=== PATIENT | female | born 1960 | race Caucasian/White ===

== ENCOUNTER 2017-10-14 12:34 | Emergency (ER) | payer OTHER, SELFPAY ==
[2017-10-14 12:35] VITALS: BP 156/102; PULSE 81; RESP 17; TEMP 36.2; O2SAT 100; BMI 23.1
--- NOTE | 2017-10-14 12:53 | CT_ITS ---
STUDY: CT ABDOMEN AND PELVIS WITHOUT CONTRAST REASON FOR EXAM: Female, 57 years old. 2 hour history of abdominal pain. RADIATION DOSAGE (If Supplied By Facility): CTDIvol = ( 7.07 ) mGy, DLP = ( 346.29 ) mGycm TECHNIQUE: Transaxial images were obtained from the dome of the diaphragm to the symphysis pubis without oral contrast, and without intravenous contrast. Sagittal and coronal images were reconstructed. Individualized dose optimization techniques were used for this CT. COMPARISON: Comparison is made with prior study dated December 13, 2015. FINDINGS: Minimal increased markings in the lingular segment of the left upper lobe. This may represent scarring or atelectasis. Coronary artery calcification. 2 small cysts are seen in the right lobe of the liver. These are unchanged. Small gallstones. Normal spleen. Normal pancreas. Normal bilateral adrenal glands. Normal right kidney. Stable 2.1 cm cyst with peripheral calcification in the posterior midportion of the left kidney. The patient is status post gastric bypass surgery with a subtotal resection of the stomach. Small hiatal hernia. Normal small intestine. Normal colon. The appendix is visualized and appears normal. There is scattered atherosclerotic calcification of the abdominal aorta, without a demonstrated aneurysm. Normal inferior vena cava. Normal retroperitoneum. Normal urinary bladder. There is absence of the uterus consistent with a prior hysterectomy. Normal abdominal wall. Normal osseous structures. CT/Abdomen/Pelvis without Cont IMPRESSION: Small cysts in the liver. Stable examination. Electronically Signed: Johny Manzano MD at 13:43 EDT Tel [phone], Service support ,
[2017-10-14] MEDS: Morphine 4 MG/ML Syringe IV (13:06)
[2017-10-14] MEDS: Ondansetron 4 MG/2 ML Vial IV (13:07)
[2017-10-14 13:12] LABS: Absolute Lymphocyte Count 1.89 X10^3/ul (0.83-4.51); Absolute Neutrophil Count 3.4 X10^3/uL (2.0-7.7); Basophil# 0.02 X10^3/uL; Basophil% 0.3 % (0-1); Eosinophil# 0.07 X10^3/uL; Eosinophils% 1.2 % (0-5); Hematocrit 39.8 % (37-47); Lymphocyte # 1.89 X10^3/ul (4.0); Lymphocyte % 32.3 % (19-41); Mean Corp Hgb Conc 32.7 g/gl (32-36); Mean Corpuscular Hgb 29.1 pg (27.0-32.0); Mean Corpuscular Volume 89.2 fL (81-99); Mean Platelet Vol. 9.9 fl (6.2-12.0); Monocyte# 0.45 X10^3/uL; Monocyte% 7.7 % (0-10); Neutrophil # 3.42 X10^3/uL (2.7-7.7); Neutrophil % 58.5 % (47-70); Platelet Count 166 K/mm3 (150-450); RBC Distribution Width CV 12.9 % (11.6-14.6); RBC Distribution Width SD 41.3 fl (35.1-43.9); Red Blood Count 4.46 M/mm3 (4.2-5.4); White Blood Count 5.9 K/mm3 (4.4-11.0)
--- NOTE | 2017-10-14 13:12 | ED.DCSUM_ITS ---
- ER Visit Summary Date of Service: 10/14/17 Chief Complaint: Abdominal pain History of Present Illness: The patient is a 57 F who presents with abdominal pain. Started 2 hours ago. She is trying to eat lunch when this started. It sharp in the epigastric area. It does not radiate. No nausea, vomiting, diarrhea or constipation. She denies any urinary symptoms. She denies any history of this. She has had a gastric bypass little over a year ago. No issues with that recently. She denies a fever. She took nothing for it at home Physical Examination: Vital signs reviewed. HEENT exam unremarkable. Heart is regular rate and rhythm without murmurs. Lungs are clear to auscultation. Abdomen is soft with epigastric tenderness to palpation. Extremities reveal no edema. Skin exam normal. Neurologic exam normal. Test Results: Labs are normal except for a lipase of 534. CAT scan of the abdomen and pelvis reveals cysts in the liver but no other acute abnormalities Emergency Department Course and Treatment: Patient was given morphine and Zofran. She is still having pain so she was then given a GI cocktail. She had improvement after this. I feel that her pain is likely from gastritis/ irritation of her gastric pouch. I will put her on Prilosec and Maalox for home. She will need to follow-up with her primary care physician. Discharge Treatment Plan: [] Disposition: discharge Impression: Epigastric abdominal pain This note was generated with [employer] dictation software. It may contain incorrect words, spelling, and punctuation that were not noted in review of the chart prior to signing ED Disposition - Plan for ED Patient: Chief Complaint: Abd Pain Referrals: Andrea oRblero MD [Primary Care Provider] -
[2017-10-14 13:15] LABS: POSITIVE COUNT NO; POSITIVE DIFFERENTIAL NO; POSITIVE MORPHOLOGY NO
[2017-10-14 13:37] LABS: ALB/GLOB Ratio 1.4 RATIO (0.9-2.4); AST(SGOT) 19 U/L (15-37); Alanine Aminotransfer ALT/SGPT 31 U/L (13-56); Albumin, Serum 3.8 g/dL (3.2-5.0); Alkaline Phosphatase 72 U/L (45-117); Anion Gap 6 (5-15); BUN 18 mg/dL (7-18); BUN/Creat Ratio 23.2 RATIO (10-20); Calcium,Total 8.5 mg/dL (8.5-10.1); Chloride 104 mmol/L (98-107); Creatinine, Serum 0.78 mg/dL (0.55-1.02); EST Glomerular Filtration Rate 81 mL/min (>60); Est Glom Filt Rate - Afr Amer 98 mL/min (>60); Estimated Creatinine Clearance 67.89 ml/min; Globulin 2.7 g/dL (2.2-4.2); Glucose 81 mg/dL (74-106); Lipase 534 U/L (73-393); Potassium 3.9 mmol/L (3.5-5.1); Protein, Total 6.5 g/dL (6.4-8.2); Sodium Level 142 mmol/L (136-145)
--- NOTE | 2017-10-14 14:53 | ED.DEP ---
ED Disposition - Plan for ED Patient: Disposition: Home or Assisted Living Chief Complaint: Abd Pain Instructions: ED Abdominal Pain Unkn Cause Prescriptions: Mag Hydrox/Al Hydrox/Simeth [Mylanta II] 30 ml PO Q4H PRN PRN #1 bottle PRN Reason: Pain Omeprazole [Prilosec] 20 mg PO DAILY #30 cap Referrals: Andrea Roblero MD [Primary Care Provider] -
[2017-10-14 15:07] VITALS: PULSE 72; RESP 16; O2SAT 100
== END 2017-10-14 15:15 | disposition home or self-care (01) ==
PROVIDERS: Emergency Provider Emergency Medicine; Family Provider Family Medicine; PCP Family Medicine
DX: R10.13 Epigastric pain (principal); K76.89 Other specified diseases of liver; Z98.84 Bariatric surgery status; Z79.899 Other long term (current) drug therapy
CPT/HCPCS: 74176; 80053; 83690; 85025; 96374; 96375; 99284; J7030; A4216; J2405

== ENCOUNTER → 2017-10-15 14:01 | Outpatient (CLI) | payer OTHER, SELFPAY ==
[2017-10-15 14:49] LABS: Lipase 252 U/L (73-393)
== END ==
PROVIDERS: Family Provider Family Medicine; PCP Family Medicine; Visit Provider Nurse Practitioner Family
DX: R74.8 Abnormal levels of other serum enzymes (principal)
CPT/HCPCS: 83690

== ENCOUNTER → 2017-12-08 16:33 | Outpatient (CLI) | payer OTHER, SELFPAY ==
[2017-12-04 10:23] LABS: AST(SGOT) 24 U/L (15-37); Alanine Aminotransfer ALT/SGPT 31 U/L (13-56); Albumin, Serum 3.9 g/dL (3.2-5.0); Alkaline Phosphatase 73 U/L (45-117); Bilirubin, Direct 0.07 mg/dL (0.00-0.30); Globulin 2.6 g/dL (2.2-4.2); Protein, Total 6.5 g/dL (6.4-8.2)
--- NOTE | 2017-12-08 10:00 | MRI_ITS ---
STUDY: MR CHOLANGIOPANCREATOGRAPHY (MRCP) REASON FOR EXAM: Female, 57 years old. Intermittent sharp right-sided abdominal pain. TECHNIQUE: Standard MRCP technique was utilized. COMPARISON: Right upper quadrant ultrasound dated December 13, [address] of the abdomen and pelvis dated October 14, 2017. FINDINGS: Gall Bladder: Normal with no distention or demonstrated fixed intraluminal filling defect. Cystic duct: Cystic duct was not well visualized. Intrahepatic ducts: Normal visualized intrahepatic ducts with no demonstrated fixed filling defect, dilation or stricture. Common hepatic duct: There is mild dilation. The maximal diameter of the bile duct measures 6.8 mm. Common bile duct: The common bile duct is at the upper limits of normal measuring 4.9 mm in greatest transverse dimension. There is no demonstrated fixed filling defect, dilation or stricture. Pancreatic duct: Normal with no demonstrated fixed filling defect, dilation or stricture. IMPRESSION: 1. Mild dilatation of the common hepatic duct. 2. No MR evidence for filling defect. Electronically Signed: Paloma Westfall MD at 11:18 EDT , Service support , STUDY: MRI ABDOMEN WITHOUT CONTRAST REASON FOR EXAM: Female, 57 years old. Intermittent sharp right-sided abdominal pain. TECHNIQUE: Standardized fat and water weighted pulse sequences were obtained in all 3 orthogonal planes. Multiple images are limited by patient motion. COMPARISON: Right upper quadrant ultrasound dated December 13, 2015, CT abdomen and pelvis dated December 13, 2015, CT dated December 19, [address] of the abdomen and pelvis dated October 14, 2017. FINDINGS: The visualized lung bases are unremarkable. The visualized portions of the heart are within normal limits. There is a well-circumscribed focus of increased T2 signal within the right lobe liver measuring approximately 11.6 mm in size (segment VIII). This is similar to the previous study. There is a second well-circumscribed focus of abnormal T2 hyperintensity within the distal right lobe of liver measuring 10.3 mm in size (segment ). This is also unchanged since the previous CT. There is a smaller well-circumscribed area of abnormal T2 hyperintensity near the dome of the right lobe liver measuring 7.8 mm in size (segment IV). Normal gallbladder and extrahepatic biliary system. Normal spleen. Normal pancreas. Normal bilateral adrenal glands. Normal right kidney. There is a focus of abnormal T2 hyperintensity within the mid left kidney measuring approximately 1.3 cm in size. This has decreased T1 signal. This was present on the previous CT studies dated 2016 and 2013 suggesting a benign etiology. There is no evidence for hydronephrosis or hydroureter. Normal visualized stomach. There is no evidence for dilated bowel or ascites. Visualized small bowel has a grossly normal appearance. Normal visualized colon. There is non-visualization of the appendix. Normal abdominal aorta. Normal inferior vena cava. Normal retroperitoneum. Normal abdominal wall. Normal osseous structures. MRI/MRCP Abdomen without Contrast IMPRESSION: 1. Technically limited study due to patient motion. 2. Multiple hepatic cysts and left renal cyst appear similar to numerous previous studies. Electronically Signed: Paloma Westfall MD at 11:57 EDT , Service support ,
--- NOTE | 2017-12-08 16:33 | DT_ITS ---
This patient was seen during an EMR downtime December 06, 2017 - December 13, 2017. This patient may have a combination of paper and electronic documentation or all paper documentation. All documentation is viewable within the e-chart portion of [employer] for each patient visit.
== END ==
PROVIDERS: Family Provider Family Medicine; PCP Family Medicine
DX: R10.13 Epigastric pain (principal)
CPT/HCPCS: 36415; 74181; 80076

== ENCOUNTER 2018-03-01 11:56 | Emergency (ER) | payer OTHER, SELFPAY ==
[2018-03-01 11:57] VITALS: BP 161/84; PULSE 72; RESP 14; TEMP 36.7; O2SAT 100; BMI 23.6
[2018-03-01] MEDS: MethylPREDNISolone 125 MG/2 ML Vial IV (12:39)
[2018-03-01] MEDS: DiphenhydrAMINE 50 MG/ML Syringe 25 MG IV (12:39)
[2018-03-01 13:57] VITALS: BP 137/75; PULSE 71; RESP 18; O2SAT 99
[2018-03-01 15:00] VITALS: BP 136/77; PULSE 70; RESP 18; O2SAT 100
--- NOTE | 2018-03-01 15:02 | ED.VISSUMM ---
- ER Visit Summary Date of Service: 03/01/18 Chief Complaint: Allergic reaction] History of Present Illness: The patient is a 58 F [presents to the emergency department with complaint of a allergic reaction due to bee sting that occurred about an hour ago to her right index finger. Patient states that she has had anaphylactic-like reactions in the past. Patient did not have an EpiPen with her. Patient states that she just does not feel well and feels weird. She denies difficulty breathing. She denies difficulty swallowing. She denies any rashes at this time.] Physical Examination: [HEENT-PERRLA, EOMI. Cranial nerves II through XII grossly intact. TMs clear. Mucous membranes moist. No adenopathy. Cardiovascular-regular rate and rhythm without murmur or ectopy Lungs-clear to auscultation, chest wall stable without crepitus or subcu emphysema Abdomen-normoactive bowel sounds, soft, nontender, no rebound or rigidity, no peritoneal signs. Extremities-intact ?4, normal range of motion, normal pulses, atraumatic]. Patient has some faint local erythema to the dorsum of the distal phalanx of the right index finger. Skin exam-no rashes or urticaria noted. Test Results: [None indicated] Emergency Department Course and Treatment: [Patient was medicated with Solu-Medrol, Benadryl, and Pepcid. Patient was observed in the department for 3 hours and she had no systemic symptoms.] Treatment Plan: [Patient will be dispensed an EpiPen and will be given a prescription for prednisone for 3 days] Disposition: [Discharged home in stable condition] Impression: [Allergic reaction to bee sting] This note was generated with [employer] dictation software. It may contain incorrect words, spelling, and punctuation that were not noted in review of the chart prior to signing ED Disposition - Plan for ED Patient: Chief Complaint: Allergic Reaction Referrals: Andrea Roblero MD [Primary Care Provider] -
--- NOTE | 2018-03-01 15:05 | ED.DEP ---
ED Disposition - Plan for ED Patient: Chief Complaint: Allergic Reaction Instructions: ED Bite Sting Insect Gen Allergic React Prescriptions: Prednisone [Deltasone] 20 mg PO BID #6 tab Referrals: Andrea Roblero MD [Primary Care Provider] - As Needed
--- NOTE | 2018-03-01 15:31 | ED.DEP ---
ED Disposition - Plan for ED Patient: Chief Complaint: Allergic Reaction Instructions: ED Bite Sting Insect Gen Allergic React Prescriptions: Epinephrine [Epi Pen] 0.3 mg IM X1 PRN #1 syringe PRN Reason: Anaphylaxis Prednisone [Deltasone] 20 mg PO BID #6 tab Referrals: Andrea Roblero MD [Primary Care Provider] - As Needed
== END 2018-03-01 15:42 | disposition home or self-care (01) ==
PROVIDERS: Emergency Provider Emergency Medicine; Family Provider Family Medicine; PCP Family Medicine
DX: T63.441A Toxic effect of venom of bees, accidental (unintentional), initial encounter (principal); Y92.9 Unspecified place or not applicable; I10 Essential (primary) hypertension
CPT/HCPCS: 96374; 96375; 99282; A4216; J3490

== ENCOUNTER → 2018-03-14 09:14 | Outpatient (CLI) | payer OTHER, SELFPAY ==
[2018-03-14 12:33] LABS: Absolute Lymphocyte Count 1.57 X10^3/ul (0.83-4.51); Absolute Neutrophil Count 2.1 X10^3/uL (2.0-7.7); Basophil# 0.02 X10^3/uL; Basophil% 0.5 % (0-1); Eosinophil# 0.09 X10^3/uL; Eosinophils% 2.2 % (0-5); Hematocrit 40.7 % (37-47); Hemoglobin 12.9 g/dl (12.0-15.0); Lymphocyte # 1.57 X10^3/ul (4.0); Lymphocyte % 37.9 % (19-41); Mean Corp Hgb Conc 31.7 g/gl (32-36); Mean Corpuscular Hgb 29.6 pg (27.0-32.0); Mean Corpuscular Volume 93.3 fL (81-99); Mean Platelet Vol. 10.9 fl (6.2-12.0); Monocyte# 0.33 X10^3/uL; Neutrophil # 2.13 X10^3/uL (2.7-7.7); Neutrophil % 51.4 % (47-70); Platelet Count 156 K/mm3 (150-450); RBC Distribution Width CV 12.7 % (11.6-14.6); RBC Distribution Width SD 42.5 fl (35.1-43.9); Red Blood Count 4.36 M/mm3 (4.2-5.4); White Blood Count 4.1 K/mm3 (4.4-11.0)
[2018-03-14 12:52] LABS: POSITIVE COUNT NO; POSITIVE DIFFERENTIAL NO; POSITIVE MORPHOLOGY NO
[2018-03-14 12:53] LABS: Hemoglobin A1c 5.3 % (4.2-6.3)
[2018-03-14 12:58] LABS: Anion Gap 9 (5-15); BUN 18 mg/dL (7-18); BUN/Creat Ratio 22.9 RATIO (10-20); Chloride 103 mmol/L (98-107); Cholesterol 169 mg/dL (200); Creatinine, Serum 0.79 mg/dL (0.55-1.02); EST Glomerular Filtration Rate 80 mL/min (>60); Est Glom Filt Rate - Afr Amer 96 mL/min (>60); Glucose 82 mg/dL (74-106); High Density Lipoprotein 64 mg/dL; Potassium 3.9 mmol/L (3.5-5.1); Sodium Level 145 mmol/L (136-145); Thyroid Stim Hormone (TSH) 1.26 uIU/mL (0.358-3.74); Triglycerides 141 mg/dL; Very Low Density Lipoprotein 28 mg/dL (5-40)
== END ==
PROVIDERS: Family Provider Family Medicine; PCP Family Medicine; Visit Provider Family Medicine
DX: E11.9 Type 2 diabetes mellitus without complications (principal); I10 Essential (primary) hypertension
CPT/HCPCS: 36415; 80048; 80061; 83036; 84443; 85025

== ENCOUNTER 2018-03-15 05:12 | Emergency (ER) | payer OTHER, SELFPAY ==
[2018-03-15 05:13] VITALS: BP 151/91; PULSE 69; RESP 16; TEMP 36.4; O2SAT 100; BMI 22.8
--- NOTE | 2018-03-15 05:42 | CT_ITS ---
STUDY: CT ABDOMEN AND PELVIS WITH CONTRAST REASON FOR EXAM: Female, 58 years old. December 13, 2015 RADIATION DOSAGE (If Supplied By Facility): CTDIvol = ( 13.31 ) mGy, DLP = ( 505.35 ) mGycm TECHNIQUE: Transaxial images were obtained from the dome of the diaphragm to the symphysis pubis without oral contrast. 100ML ml of Isovue 300 contrast was administered. Sagittal and coronal images were reconstructed. Individualized dose optimization techniques were used for this CT. COMPARISON: October 14, 2017 FINDINGS: There is a high-grade mechanical small bowel obstruction secondary to intussusception in the location of prior bowel surgery. There is NO perforation or ischemic enteritis. The stomach and colon are unremarkable. The appendix is not identified. There has been a cholecystectomy. There are tiny cysts in the liver. The pancreas and spleen are unremarkable. Adrenal glands are unremarkable. There is a 2 cm cyst in the midpole the LEFT kidney with calcification. There are NO ureteral stones. There is NO hydronephrosis. There is been a hysterectomy. There is NO ascites or free air, abscess or adenopathy. CT/Abdomen/Pelvis W IV Cont ONLY IMPRESSION: Small bowel intussusception causing high-grade mechanical obstruction. There is NO perforation or ischemic injury. N.B. : The above information has been verbally conveyed by Vicente Santos MD to , Covering Physician, on 03/15/2018 06:39:50 (ET). Electronically Signed: Vicente Santos MD at 6:34 EDT , Service support ,
--- NOTE | 2018-03-15 05:43 | ED.VIS.GEN ---
History of Present Illness Chief Complaint: Abd Pain Informant: Patient Onset: Hours - 6 Context: Gradual Onset Timing: Continuous Quality: Crampy with occasional severe sharp pains superimposed Location: Across upper abdomen Current Severity: Moderate Maximum Severity: Moderate Worsened by: Nothing Relieved by: Nothing Associated Symptoms: Nausea, no vomiting Narrative: Patient has had remote gastric bypass surgery and cholecystectomy. She had a history of reflux prior to her gastric bypass, but has none of those symptoms since then. She has had this pain overnight for the past 6 hours and has not eaten or drank since its onset. It has been constant and not colicky. She is having a hard time telling if it radiates into her back or not, I cannot say it does not. No discomfort up into the chest or down low into the abdomen, no dyspnea. No fevers. No urinary symptoms, diarrhea, bright red blood per rectum, or melena. Of note, the patient is currently on levofloxacin that her doctor put her on, to empirically treat possible sinus infection. She has been having headaches but no other symptoms she states. The antibiotic does not seem to be helping her headaches. Prior similar symptoms: No - Past Medical History (1) Benign hypertension Status: Chronic (2) Depression Status: Chronic (3) HLD (hyperlipidemia) Status: Chronic (4) Type II diabetes mellitus Status: Chronic Past Medical History - Allergies and Home Meds Allergies/Adverse Reactions: Allergies aspirin Allergy (Verified 10/14/17 12:37) Rash cephalexin monohydrate [From Keflex] Allergy (Verified 10/14/17 12:37) Rash omeprazole [From Prilosec] Allergy (Verified 10/14/17 12:37) Unknown omeprazole magnesium [From Prilosec] Allergy (Verified 10/14/17 12:37) Unknown Penicillins Allergy (Verified 10/14/17 12:37) Rash Primary Care Physician: Elias Weinberg MD [Primary Care Provider] - Surgical History: cholecystectomy, gastric bypass Lives: Spouse/ Significant Other Smoking Status: Former smoker Drugs: None Review of Systems All systems negative except as indicated General: Denies: Chills, Fever Cardiovascular: Denies: Chest pain, Palpitations Respiratory: Denies: Dyspnea, Cough Gastrointestinal: Reports: Abdominal pain, Nausea. Denies: Vomiting, Diarrhea, Constipation, Melena, Hematochezia Genitourinary: Denies: Dysuria, Hematuria, Frequency Musculoskeletal: Reports: Back pain - Patient unsure. Denies: Swelling, Extremity Pain Neurological: Reports: Headache - For the past 5-7 days, retro-orbital, bifrontal. Denies: Weakness, Parasthesia Physical Exam Vital Signs/Narrative: Vital Signs Temp Pulse Resp BP Pulse Ox 03/15/18 05:13 97.5 F L 69 16 151/91 H 100 Inital Vital Signs reviewed: Yes General: Well nourished, Well developed, - - Somewhat uncomfortable but no acute distress Head: Normocephalic, Atraumatic Eyes: Perrl, EOMI ENT: Moist mucous membranes, No rhinorrhea Neck: Supple, Nontender Cardiovascular: Regular rate, Regular rhythm, No murmurs Respiratory: No distress, CTA bilaterally, Chest nontender Abdomen: Soft, Nondistended, Normal bowel sounds, Tender - Epigastrium, left upper quadrant, less in left lower quadrant, Guarding - Voluntary in epigastrium and left upper quadrant. Negative for: Rebound tenderness Back: Nontender, Normal Inspection. Negative for: CVA tenderness Extremities: Nontender, No edema Skin: Normal color, No rash Neurological: Alert, Oriented x3, Cranial nerves II-XII grossly intact, Normal Strength, Normal Sensation Psychological: Normal affect Diagnostic/Tx/Re-eval Impressions Abdomen/Pelvis CT 03/15/18 05:42 IMPRESSION: Small bowel intussusception causing high-grade mechanical obstruction. There is NO perforation or ischemic injury. N.B. : The above information has been verbally conveyed by Vicente Santos MD to , Covering Physician, on 03/15/2018 06:39:50 (ET). Electronically Signed: Vicente Santos MD at 6:34 EDT , Service support , 03/15/18 05:42 Abdomen/Pelvis W IV Cont ONLY [CT] Stat Laboratory Results 03/15/18 03/15/18 03/15/18 Range/Units 05:17 05:17 06:13 WBC 9.9 (4.4-11.0) K/mm3 RBC 4.58 (4.2-5.4) M/mm3 Hgb 13.8 (12.0-15.0) g/dl Hct 42.0 (37-47) % MCV 91.7 (81-99) fL MCH 30.1 (27.0-32.0) pg MCHC 32.9 (32-36) g/gl RDW 12.5 (11.6-14.6) % RDW Differential 41.5 (35.1-43.9) fl Plt Count 160 (150-450) K/mm3 MPV 10.3 (6.2-12.0) fl Immature Gran % (Auto) 0.200 (0.0-0.9) % Neut % (Auto) 71.5 H (47-70) % Lymph % (Auto) 21.7 (19-41) % Williams % (Auto) 5.6 (0-10) % Eos % (Auto) 0.8 (0-5) % Baso % (Auto) 0.2 (0-1) % Absolute Neuts (auto) 7.1 (2.0-7.7) X10^3/uL Absolute Lymphs (auto) 2.15 (0.83-4.51) X10^3/ul Total Counted Not Reportable Sodium 145 (136-145) mmol/L Potassium 3.6 (3.5-5.1) mmol/L Chloride 103 (98-107) mmol/L Carbon Dioxide 32.0 (21.0-32.0) mmol/L Anion Gap 10 (5-15) BUN 23 H (7-18) mg/dL Creatinine 0.84 (0.55-1.02) mg/dL Estim Creat Clear Calc 62.27 ml/min Est GFR (MDRD) Af Amer 89 (>60) mL/min Est GFR (MDRD) Non-Af 74 (>60) mL/min BUN/Creatinine Ratio 27.4 H (10-20) RATIO Glucose 111 H (74-106) mg/dL Calcium 9.2 (8.5-10.1) mg/dL Total Bilirubin 0.50 (0.20-1.00) mg/dL AST 23 (15-37) U/L ALT 33 (13-56) U/L Alkaline Phosphatase 79 (45-117) U/L Total Protein 6.7 (6.4-8.2) g/dL Albumin 3.8 (3.2-5.0) g/dL Globulin 2.9 (2.2-4.2) g/dL Albumin/Globulin Ratio 1.3 (0.9-2.4) RATIO Lipase 187 (73-393) U/L Urine Color Yellow (Yellow) Urine Clarity Clear (Clear) Urine pH 8.0 (5.0 - 8.0) Ur Specific [place] 1.015 (1.002-1.030) Urine Protein Negative (Negative) mg/dl Urine Glucose (UA) Normal (Normal) mg/dl Urine Ketones Negative (Negative) mg/dl Urine Occult Blood Negative (Negative) /ul Urine Nitrite Negative (Negative) Urine Bilirubin Negative (Negative) mg/dL Urine Urobilinogen Normal (Normal) mg/dl Ur Leukocyte Esterase Negative (Negative) /ul Urine RBC 0 SEEN (0-5) /hpf Urine WBC 0 SEEN (0-5) /hpf Ur Squamous Epith Cells 0 SEEN (5-10) /hpf Calcium Oxalate Crystal 1+ (<or=2+) /hpf Urine Bacteria 0 SEEN (None Seen) /hpf Urine Mucus 0 SEEN (<or=2+) /hpf - Medical Decision Making Labs and urinalysis are unremarkable, however with the concerning exam and the degree of pain she is in, IV contrasted CT was obtained, after she was given analgesics, IV fluids, and Zofran. Radiology called to discuss findings which include a high-grade small bowel obstruction due to intussusception. It does appear it has occurred at an anastomosis site from her gastric bypass. Discussed with Dr. Garland clinical nurse occupational medicine for surgery, who recommends a higher level of care. Patient prefers to stick with her surgeon in that case, Dr. Lala, who also did her cholecystectomy. He is at [facility] in [place]; I discussed with him, he agrees to accept the patient there; the patient is amenable with this plan. He agrees with holding off on NGT at this time, since her nausea is well-controlled. After Dilaudid, she is much more comfortable. ED Disposition - Plan for ED Patient: Disposition: Acute Care Hospital - Other Chief Complaint: Abd Pain Diagnosis: Small bowel obstruction, Small bowel intussusception Referrals: Elias Weinberg MD [Primary Care Provider] -
[2018-03-15 05:53] LABS: Absolute Lymphocyte Count 2.15 X10^3/ul (0.83-4.51); Absolute Neutrophil Count 7.1 X10^3/uL (2.0-7.7); Basophil# 0.02 X10^3/uL; Basophil% 0.2 % (0-1); Eosinophil# 0.08 X10^3/uL; Eosinophils% 0.8 % (0-5); Hemoglobin 13.8 g/dl (12.0-15.0); Lymphocyte # 2.15 X10^3/ul (4.0); Lymphocyte % 21.7 % (19-41); Mean Corp Hgb Conc 32.9 g/gl (32-36); Mean Corpuscular Hgb 30.1 pg (27.0-32.0); Mean Corpuscular Volume 91.7 fL (81-99); Mean Platelet Vol. 10.3 fl (6.2-12.0); Monocyte# 0.56 X10^3/uL; Monocyte% 5.6 % (0-10); Neutrophil % 71.5 % (47-70); Platelet Count 160 K/mm3 (150-450); RBC Distribution Width CV 12.5 % (11.6-14.6); RBC Distribution Width SD 41.5 fl (35.1-43.9); Red Blood Count 4.58 M/mm3 (4.2-5.4); White Blood Count 9.9 K/mm3 (4.4-11.0)
[2018-03-15] MEDS: Morphine 4 MG/ML Syringe IV (05:55)
[2018-03-15] MEDS: Ondansetron 4 MG/2 ML Vial IV (05:56)
[2018-03-15] MEDS: 0.9% Normal Saline 1,000 ML 125 ML IV (05:56)
[2018-03-15 05:57] LABS: POSITIVE COUNT NO; POSITIVE DIFFERENTIAL NO; POSITIVE MORPHOLOGY NO
[2018-03-15 06:07] LABS: ALB/GLOB Ratio 1.3 RATIO (0.9-2.4); AST(SGOT) 23 U/L (15-37); Alanine Aminotransfer ALT/SGPT 33 U/L (13-56); Albumin, Serum 3.8 g/dL (3.2-5.0); Alkaline Phosphatase 79 U/L (45-117); Anion Gap 10 (5-15); BUN 23 mg/dL (7-18); BUN/Creat Ratio 27.4 RATIO (10-20); Calcium,Total 9.2 mg/dL (8.5-10.1); Chloride 103 mmol/L (98-107); Creatinine, Serum 0.84 mg/dL (0.55-1.02); EST Glomerular Filtration Rate 74 mL/min (>60); Est Glom Filt Rate - Afr Amer 89 mL/min (>60); Estimated Creatinine Clearance 62.27 ml/min; Globulin 2.9 g/dL (2.2-4.2); Glucose 111 mg/dL (74-106); Lipase 187 U/L (73-393); Potassium 3.6 mmol/L (3.5-5.1); Protein, Total 6.7 g/dL (6.4-8.2); Sodium Level 145 mmol/L (136-145)
[2018-03-15 06:20] LABS: Bacteria 0 SEEN /hpf (None Seen); Color, Urine Yellow (Yellow); Glucose, Dipstick Normal (Normal); Ketone-Dipstick Negative (Negative); Leukocyte Esterase-Dipstick Negative /ul (Negative); Mucous, Urine 0 SEEN /hpf (<or=2+); Nitrite-Dipstick Negative (Negative); Occult Blood-Urine Negative /ul (Negative); Protein-Dipstick Negative (Negative); Red Blood Cells-Urine 0 SEEN /hpf (0-5); Specific Gravity, Urine 1.015 (1.002-1.030); Squamous Epithelial Cells - UA 0 SEEN /hpf (5-10); Urine Bilirubin Dipstick Negative (Negative); Urine Clarity Clear (Clear); Urine Urobilinogen Normal (Normal); White Blood Cells 0 SEEN /hpf (0-5)
[2018-03-15 06:36] LABS: Calcium Oxalate Crystals Ur 1+ /hpf (<or=2+)
[2018-03-15] MEDS: HYDROmorphone 1 MG/ML Syringe IV (06:54)
--- NOTE | 2018-03-15 06:58 | NURSING ---
CALLED [facility] FOR TRANSFER.
[2018-03-15 07:16] VITALS: RESP 14
--- NOTE | 2018-03-15 07:30 | NURSING ---
ACCEPTED AT [facility]. WAITING ON A BED
--- NOTE | 2018-03-15 07:35 | NURSING ---
[facility] [phone] REPORT [phone] NURSE JEAN BAPTISTE
--- NOTE | 2018-03-15 07:39 | ED.RN ---
called report to christiano luciano
--- NOTE | 2018-03-15 07:43 | NURSING ---
CALLED [facility] FOR TRANSPORT. ETA IS FROM [place]
[2018-03-15 08:34] VITALS: BP 137/76; PULSE 65; RESP 14; O2SAT 94
== END 2018-03-15 08:36 | disposition short-term general hospital (02) ==
PROVIDERS: Emergency Provider Emergency Medicine; Family Provider Family Medicine; PCP Family Medicine
DX: K56.1 Intussusception (principal); K56.609 Unspecified intestinal obstruction, unspecified as to partial versus complete obstruction; Z98.84 Bariatric surgery status; I10 Essential (primary) hypertension; E78.5 Hyperlipidemia, unspecified; E11.9 Type 2 diabetes mellitus without complications; Z79.899 Other long term (current) drug therapy; Z87.891 Personal history of nicotine dependence
CPT/HCPCS: 74177; 80053; 81001; 83690; 85025; 96361; 96374; 96375; 99284; J7030; Q9967; J2405

== ENCOUNTER → 2018-04-13 12:51 | Outpatient (CLI) | payer OTHER, SELFPAY ==
--- NOTE | 2018-04-13 12:54 | BI_ITS ---
MAMMOGRAPHY - BILATERAL SCREENING REASON FOR EXAM: Female, 58 years old. Routine annual screening examination. PERTINENT HISTORY: Sister with breast cancer. TECHNIQUE: Digital bilateral breast mary anne (3D mammographic acquisition) in the CC and MLO projections. 2-D mediolateral oblique (MLO) and craniocaudad (CC) views of both breasts were obtained. CAD: Full Field Digital Mammography with Computer Added Detection was performed. COMPARISON: Comparison is made with prior outside examination dated February 24, 2017. FINDINGS: Breast Composition: The breasts are extremely dense, which lowers the sensitivity of mammography. There are no dominant masses or suspicious calcifications. No other significant abnormalities are identified. There has been no significant change since the prior study. BI/SCREENING MAMM (CAD), BILAT IMPRESSION: Stable bilateral screening mammogram. Yearly follow-up mammogram recommended. (A) ASSESSMENT CATEGORY: BIRADS Category 1: Negative. A letter regarding these results will be sent to the patient by the facility within 30 days. Approximately 10% of breast cancers are not detected by mammography. A normal mammogram should not delay biopsy of a clinically suspicious abnormality. [id number] Electronically Signed: Johny Manzano MD at 8:50 EDT Tel [phone], Service support ,
== END ==
PROVIDERS: Family Provider Family Medicine; PCP Family Medicine; Referring Provider Family Medicine; Visit Provider Family Medicine
DX: Z12.31 Encounter for screening mammogram for malignant neoplasm of breast (principal)
CPT/HCPCS: 77063; 77067

== ENCOUNTER → 2018-07-14 14:54 | Outpatient (CLI) | payer OTHER, SELFPAY ==
--- NOTE | 2018-07-14 14:57 | RAD_ITS ---
HISTORY: Pain COMPARISON: None FINDINGS: XR right knee 4 views with weightbearing Generalized bony demineralization more than expected for age. No fracture or acute osseous abnormality. Joint spaces appear preserved. No bony erosions. No joint effusion. As visualized, the soft tissues are negative. RAD/Knee 4 or More Views IMPRESSION: 1. No fracture or acute disease. No significant arthritis. 2. Osteopenia, more than expected for age. at 0543 Reported and signed by: Curtis Arvizu MD Electronically Signed: Curtis Arvizu, at 5:42 EST Tel , Service support ,
--- NOTE | 2018-07-14 14:57 | RAD_ITS ---
HISTORY: Pain COMPARISON: None FINDINGS: XR left knee 4 views with weightbearing Generalized bony demineralization, more than expected for age. No fracture or acute osseous abnormality. Joint spaces appear preserved. No bony erosions. No significant joint effusion. RAD/Knee 4 or More Views IMPRESSION: 1. No fracture or acute disease. No significant arthritis. 2. Osteopenia, more than expected for age at 0558 Reported and signed by: Curtis Arvizu MD Electronically Signed: Curtis Arvizu, at 5:57 EST Tel , Service support ,
== END ==
PROVIDERS: Family Provider Family Medicine; PCP Family Medicine; Referring Provider Nurse Practitioner Family; Visit Provider Nurse Practitioner Family
DX: M25.562 Pain in left knee (principal); M25.561 Pain in right knee
CPT/HCPCS: 73564

== ENCOUNTER 2018-07-17 23:01 | Emergency (ER) | payer OTHER, SELFPAY ==
[2018-07-17 23:02] VITALS: BP 163/80; PULSE 85; RESP 16; TEMP 36.7; O2SAT 100; BMI 21.9
[2018-07-17 23:47] LABS: Absolute Lymphocyte Count 2.25 X10^3/ul (0.83-4.51); Absolute Neutrophil Count 2.2 X10^3/uL (2.0-7.7); Basophil# 0.01 X10^3/uL; Basophil% 0.2 % (0-1); Eosinophil# 0.06 X10^3/uL; Eosinophils% 1.2 % (0-5); Hematocrit 40.2 % (37-47); Hemoglobin 12.7 g/dl (12.0-15.0); Lymphocyte # 2.25 X10^3/ul (4.0); Lymphocyte % 45.5 % (19-41); Mean Corp Hgb Conc 31.6 g/gl (32-36); Mean Corpuscular Hgb 28.6 pg (27.0-32.0); Mean Corpuscular Volume 90.5 fL (81-99); Mean Platelet Vol. 10.6 fl (6.2-12.0); Monocyte# 0.42 X10^3/uL; Monocyte% 8.5 % (0-10); Neutrophil % 44.6 % (47-70); Platelet Count 168 K/mm3 (150-450); RBC Distribution Width CV 13.6 % (11.6-14.6); RBC Distribution Width SD 44.6 fl (35.1-43.9); Red Blood Count 4.44 M/mm3 (4.2-5.4); White Blood Count 4.9 K/mm3 (4.4-11.0)
[2018-07-17] MEDS: Ondansetron 4 MG/2 ML Vial IV (23:47)
[2018-07-17] MEDS: 0.9% Normal Saline 1,000 ML 1000 ML IV (23:47)
[2018-07-17] MEDS: Morphine 4 MG/ML Syringe IV (23:47)
[2018-07-17 23:52] LABS: POSITIVE COUNT NO; POSITIVE DIFFERENTIAL NO; POSITIVE MORPHOLOGY NO
[2018-07-17 23:58] LABS: Anion Gap 9 (5-15); BUN 18 mg/dL (7-18); BUN/Creat Ratio 25.9 RATIO (10-20); Calcium,Total 8.8 mg/dL (8.5-10.1); Chloride 103 mmol/L (98-107); EST Glomerular Filtration Rate 92 mL/min (>60); Est Glom Filt Rate - Afr Amer 111 mL/min (>60); Estimated Creatinine Clearance 74.72 ml/min; Glucose 102 mg/dL (74-106); Potassium 3.4 mmol/L (3.5-5.1); Sodium Level 142 mmol/L (136-145)
[2018-07-18 00:22] LABS: Lactic Acid 0.6 mmol/L (0.4-2.0)
[2018-07-18 00:51] LABS: Bacteria 0 SEEN /hpf (None Seen); Mucous, Urine 0 SEEN /hpf (<or=2+); Squamous Epithelial Cells - UA 0 SEEN /hpf (5-10)
[2018-07-18 01:13] LABS: Color, Urine Straw (Yellow); Glucose, Dipstick Normal (Normal); Ketone-Dipstick Negative (Negative); Leukocyte Esterase-Dipstick Negative /ul (Negative); Nitrite-Dipstick Negative (Negative); Occult Blood-Urine Negative /ul (Negative); Protein-Dipstick Negative (Negative); Specific Gravity, Urine 1.005 (1.002-1.030); Urine Bilirubin Dipstick Negative (Negative); Urine Clarity Sl. Cloudy (Clear); Urine Urobilinogen Normal (Normal)
[2018-07-18 01:23] LABS: Calcium Oxalate Crystals Ur RARE /hpf (<or=2+); Red Blood Cells-Urine 0-5 SEEN /hpf (0-5); White Blood Cells 0-5 SEEN /hpf (0-5)
--- NOTE | 2018-07-18 02:00 | ED.DCSUM_ITS ---
- ER Visit Summary Date of Service: 07/18/18 Chief Complaint: Abdominal pain History of Present Illness: The patient is a 58 F presenting for evaluation secondary to abdominal pain. Patient reports that since about noon she had an onset of abdominal pain. It is located in her left side of her abdomen is w axing and waning sharp stabbing type pain that is worse with movement and with the car ride here. It was associated with nausea no vomiting. Patient ports that she had a single episode of loose stool yesterday. She reports that she is having frequent belching associated with this. Patient has a history of having a significant bowel obstruction in the fall of last year that required a bowel resection. Patient reports that this pain feels similar to that type of pain. Review of systems otherwise negative. Physical Examination: Vital signs are within normal limits, patient is afebrile. General: Patient is well-nourished well-developed and in no acute distress. Head: Normocephalic, atraumatic Eyes: Pupils equal round and reactive bilaterally, extra occular motion intact bialterally ENT: Moist mucous membranes Neck: Supple, no lymphadenopathy, no JVD, no meningismus CVS: Heart regular rate and rhythm, no murmurs, rubs or gallops, radial pulses 2+ bilaterally Resp: Respirations nondistressed, lung sounds clear bilaterally Abdomen: Soft, left upper and left lower quadrant abdominal tenderness without guarding or rebound nondistended, no palpable masses, normal bowel sounds Back: Nontender Extremities: Nontender, atraumatic, active full range of motion, no peripheral edema Skin: warm, no rashes, no petechia Neuro: Alert and oriented x 4, CN 2-12 intact, no lateralizing neurological defecits Psyc: Normal affect Test Results: CBC and chemistry are unremarkable, lactic acid negative, urinalysis negative. CT abdomen and pelvis shows no evidence of bowel obstruction, inflammatory pathology. He does show a large stool burden in the colon. Shows postsurgical changes no free fluid. Emergency Department Course and Treatment: Patient presented for evaluation secondary to abdominal pain. Patient has the setting of recent significant bowel obstruction with bowel resection so this was taken seriously. Patient was given morphine Zofran and a liter normal saline. CBC and chemistry unremarkable making the likelihood of infectious pathology low. Lactic acid is negative making the likelihood of ischemic pathology low. CT abdomen and pelvis with p.o. and IV contrast demonstrated no evidence of obstruction. At this point the patient has a large stool load which potentially could be contributing to this. Patient's pain was improved on repeat evaluation and she has a benign nonsurgical abdomen. Patient will be sent home with a short course of Percocet for pain control as well as lactulose for clearing of her bowels. She understands signs and symptoms which to return. Disposition: Discharge Impression: 1. Abdominal pain 2. Constipation 3. History of bowel resection This note was generated with [employer] dictation software. It may contain incorrect words, spelling, and punctuation that were not noted in review of the chart prior to signing ED Disposition - Plan for ED Patient: Disposition: Home or Assisted Living Chief Complaint: Abd Pain Diagnosis: Abdominal pain Instructions: ED Abdominal Pain Unkn Cause Prescriptions: Oxycodone HCl/Acetaminophen [Percocet 5/325] 1 tab PO Q6H PRN PRN 3 Days #12 tab PRN Reason: Pain Lactulose 10 gm PO DAILY #120 ml Referrals: Elias Weinberg MD [Primary Care Provider] - 2 Days
[2018-07-18] MEDS: oxyCODONE 5 MG Tablet PO (02:34)
[2018-07-18] MEDS: Lactulose 20 GM/30 ML UDC PO (02:35)
[2018-07-18 02:36] VITALS: BP 133/72; PULSE 77; RESP 18; O2SAT 98
--- NOTE | 2018-07-18 23:37 | CT_ITS ---
STUDY: CT ABDOMEN AND PELVIS WITH CONTRAST REASON FOR EXAM: Female, 58 years old. Pain RADIATION DOSAGE (If Supplied By Facility): CTDIvol = ( 10.44 ) mGy, DLP = ( 559.16 ) mGycm TECHNIQUE: Transaxial images were obtained from the dome of the diaphragm to the symphysis pubis without oral contrast. 100ML ml of Isovue 300 contrast was administered. Sagittal and coronal images were reconstructed. Individualized dose optimization techniques were used for this CT. COMPARISON: October 14, 2017 FINDINGS: The visualized lung bases are unremarkable. The visualized portions of the heart are within normal limits. There are tiny cysts in the liver. There is NO mass. There has been a cholecystectomy. The bile ducts are dilated. There is NO choledocholithiasis. Normal spleen. Normal pancreas. Normal bilateral adrenal glands. Normal right kidney. There is a cyst or dilated calyx containing stones in the LEFT kidney. There are NO ureteral stones. There is NO hydronephrosis. There has been gastric surgery. There is NO gastritis or obstruction. Normal small intestine. There is moderate stool in colon. There is NO obstruction or colitis. The appendix is visualized and appears normal. There is diffuse atherosclerotic calcification of the abdominal aorta, without a demonstrated aneurysm. Normal inferior vena cava. Normal retroperitoneum. Normal urinary bladder. There has been a hysterectomy There is NO ascites or free air, abscess or adenopathy. Normal abdominal wall. Normal osseous structures. CT/Abdomen/Pelvis WITH Contrast IMPRESSION: There are tiny cysts in the liver. There is NO mass. There has been a cholecystectomy. The bile ducts are dilated. There is NO choledocholithiasis. There is a cyst or dilated calyx containing stones in the LEFT kidney. There are NO ureteral stones. There is NO hydronephrosis. There has been gastric surgery. There is NO gastritis or obstruction. Normal small intestine. There is moderate stool in colon. There is NO obstruction or colitis. The appendix is visualized and appears normal. There is diffuse atherosclerotic calcification of the abdominal aorta, without a demonstrated aneurysm. There has been a hysterectomy There is NO ascites or free air, abscess or adenopathy. Electronically Signed: Vicente Santos MD at 1:56 EST , Service support ,
== END 2018-07-18 02:36 | disposition home or self-care (01) ==
PROVIDERS: Emergency Provider Emergency Medicine; Family Provider Family Medicine; PCP Family Medicine
DX: R10.9 Unspecified abdominal pain (principal); K59.00 Constipation, unspecified; I10 Essential (primary) hypertension
CPT/HCPCS: 74177; 80048; 81001; 83605; 85025; 96361; 96374; 96375; 99284; J7030; Q9967; A4216; J2405

== ENCOUNTER → 2018-08-03 08:50 | Outpatient (CLI) | payer OTHER, SELFPAY ==
[2018-07-17 23:02] VITALS: BMI 21.9
[2018-08-03 12:38] LABS: Absolute Lymphocyte Count 1.09 X10^3/ul (0.83-4.51); Basophil# 0.02 X10^3/uL; Basophil% 0.6 % (0-1); Eosinophil# 0.09 X10^3/uL; Eosinophils% 2.6 % (0-5); Hematocrit 39.4 % (37-47); Hemoglobin 12.5 g/dl (12.0-15.0); Lymphocyte # 1.09 X10^3/ul (4.0); Mean Corp Hgb Conc 31.7 g/gl (32-36); Mean Corpuscular Hgb 29.2 pg (27.0-32.0); Mean Corpuscular Volume 92.1 fL (81-99); Mean Platelet Vol. 11.2 fl (6.2-12.0); Monocyte% 8.5 % (0-10); Neutrophil # 2.02 X10^3/uL (2.7-7.7); Neutrophil % 57.3 % (47-70); Platelet Count 164 K/mm3 (150-450); RBC Distribution Width CV 13.4 % (11.6-14.6); RBC Distribution Width SD 44.4 fl (35.1-43.9); Red Blood Count 4.28 M/mm3 (4.2-5.4); White Blood Count 3.5 K/mm3 (4.4-11.0)
[2018-08-03 12:39] LABS: POSITIVE COUNT NO; POSITIVE DIFFERENTIAL NO; POSITIVE MORPHOLOGY NO
[2018-08-03 12:55] LABS: Hemoglobin A1c 4.9 % (4.2-6.3)
[2018-08-03 12:59] LABS: Vitamin B12 1147 pg/mL (211-911); Vitamin D,25 Hydroxy 31.4 ng/mL (29.95-100.01)
[2018-08-03 13:02] LABS: PTHIN 29.7 pg/mL (18.4-80.1)
[2018-08-03 13:29] LABS: ALB/GLOB Ratio 1.3 RATIO (0.9-2.4); AST(SGOT) 30 U/L (15-37); Alanine Aminotransfer ALT/SGPT 51 U/L (13-56); Albumin, Serum 3.7 g/dL (3.2-5.0); Alkaline Phosphatase 96 U/L (45-117); Anion Gap 9 (5-15); BUN 15 mg/dL (7-18); BUN/Creat Ratio 18.2 RATIO (10-20); Calcium,Total 8.9 mg/dL (8.5-10.1); Chloride 104 mmol/L (98-107); Cholesterol 168 mg/dL (200); Creatinine, Serum 0.82 mg/dL (0.55-1.02); EST Glomerular Filtration Rate 76 mL/min (>60); Est Glom Filt Rate - Afr Amer 91 mL/min (>60); Ferritin 85 ng/mL (8-252); Globulin 2.8 g/dL (2.2-4.2); Glucose 64 mg/dL (74-106); High Density Lipoprotein 62 mg/dL; Iron 105 ug/dL (50-170); Iron Binding Capacity,Total 344 ug/dL (250-450); Magnesium 2.1 mg/dL (1.6-2.6); Potassium 3.7 mmol/L (3.5-5.1); Protein, Total 6.5 g/dL (6.4-8.2); Sodium Level 145 mmol/L (136-145); Thyroid Stim Hormone (TSH) 1.18 uIU/mL (0.358-3.74); Triglycerides 129 mg/dL; Very Low Density Lipoprotein 26 mg/dL (5-40)
== END ==
PROVIDERS: Family Provider Family Medicine; PCP Family Medicine; Visit Provider Family Medicine
DX: R10.13 Epigastric pain (principal); F32.9 Major depressive disorder, single episode, unspecified; K83.8 Other specified diseases of biliary tract
CPT/HCPCS: 36415; 80053; 80061; 82306; 82607; 82728; 82746; 83036; 83540; 83550; 83735; 83970; 84425; 84443; 84630; 85025

== ENCOUNTER → 2018-08-09 13:51 | Outpatient (CLI) | payer OTHER, SELFPAY ==
[2018-07-17 23:02] VITALS: BMI 21.9
--- NOTE | 2018-08-09 13:57 | BD_ITS ---
STUDY: DUAL ENERGY X-RAY ABSORPTIOMETRY / DXA REASON FOR EXAM: Female, 58 years old. The patient is postmenopausal. Loss of height. TECHNIQUE: Bone Mineral Density (BMD) measurements of lumbar spine and bilateral hips were obtained. COMPARISON: None. FINDINGS: Lumbar Spine (L1-L4): g/cm2 (0.902) / T-score (-2.2) / Z-score (-1.0) Findings are suggestive of osteopenia with a moderate fracture risk. Left Femur Total: g/cm2 (0.776) / T-score (-1.8) / Z-score (-1.0) Left Femoral Neck: g/cm2 (0.739) / T-score (-2.2) / Z-score (-0.9) Right Femur Total: g/cm2 (0.819) / T-score (-1.5) / Z-score (-0.6) Right Femoral Neck: g/cm2 (0.780) / T-score (-1.9) / Z-score (-0.6) BD/Dexa Bone Density Study IMPRESSION: The patient is considered osteopenic as outlined below according to [place] Organization (WHO) criteria with a moderate fracture risk. Reference Information: The T-score is the number of standard deviations above or below the standard which is normal for young adults at their peak bone mineral density. The World Health Organization (WHO) interprets the T-scores as follows: Above -1 Normal bone density Between -1 and -2.5 Osteopenia Equal to / or below -2.5 Osteoporosis As a practical clinical guideline, osteopenia may be graded as follows: Mild -1 through -1.5 Moderate -1.6 through -2.0 Severe -2.1 through -2.4 The Z-score is the number of standard deviations above or below age-matched controls. A Z-score of less than -1.5 would be considered abnormal. References: 1. NIH Osteoporosis and Related Bone Diseases http://www.osteo.org 2. International Society for Clinical Densitometry http://www.iscd.org 3. National Osteoporosis Foundation http://www.nof.org Electronically Signed: Johny Manzano MD at 15:29 EST , Service support ,
== END ==
PROVIDERS: Family Provider Family Medicine; PCP Family Medicine; Referring Provider Family Medicine; Visit Provider Family Medicine
DX: M81.0 Age-related osteoporosis without current pathological fracture (principal)
CPT/HCPCS: 77080

== ENCOUNTER 2018-08-24 05:35 | Emergency (ER) | payer OTHER, SELFPAY ==
[2018-08-24 05:38] VITALS: BP 171/92; PULSE 94; RESP 18; TEMP 36.6; O2SAT 96; BMI 23.2
--- NOTE | 2018-08-24 05:42 | CT_ITS ---
STUDY: CT ABDOMEN AND PELVIS WITH CONTRAST REASON FOR EXAM: Female, 58 years old. Left-sided abdominal pain RADIATION DOSAGE (If Supplied By Facility): CTDIvol = ( 11.72 ) mGy, DLP = ( 529.71 ) mGycm TECHNIQUE: Transaxial images were obtained from the dome of the diaphragm to the symphysis pubis without oral contrast. Isovue 300 100CC IV/Oral was administered. Sagittal and coronal images were reconstructed. Individualized dose optimization techniques were used for this CT. COMPARISON: 07/18/2018 FINDINGS: The visualized lung bases are unremarkable. The visualized portions of the heart are within normal limits. Several small hypodensities in the liver, likely related to small cysts. Otherwise the liver demonstrates mild intrahepatic biliary ductal dilation however, patient is status post cholecystectomy. Also, stable from prior exam. There are surgical clips in the gallbladder fossa consistent with a prior cholecystectomy. Normal spleen. Normal pancreas. Normal bilateral adrenal glands. Normal right kidney. There is a stable dilated calyx versus cyst in the left midpole kidney with layering stones measuring 1.8 x 1.5 cm. Otherwise, unremarkable left kidney. Postsurgical changes of the stomach, stomach is fluid-filled with air-fluid level. Numerous dilated loops of small bowel with what appears to be small bowel in small bowel intussusception versus internal hernia in the left lower quadrant region as a transition point. Multiple chain sutures in this area noted. This is best seen on image 86. Large bowel is within normal limits. Some fecal retention throughout the colon. The appendix is visualized and appears normal. There is diffuse atherosclerotic calcification of the abdominal aorta, without a demonstrated aneurysm. Normal inferior vena cava. Normal retroperitoneum. Normal urinary bladder. There is absence of the uterus consistent with a prior hysterectomy. Normal abdominal wall. Normal osseous structures. CT/Abdomen/Pelvis WITH Contrast IMPRESSION: Numerous dilated loops of small bowel with markedly abnormal appearing loop of small bowel in the left lower quadrant region as a transition point. Beyond this, small bowel loops are normal in appearance. There are some chain sutures in this area. Interval hernia versus intussusception cannot be excluded. Electronically Signed: Jayden Garcia DO at 8:40 EST Tel , Service support ,
--- NOTE | 2018-08-24 05:43 | ED.VISSUMM ---
- ER Visit Summary Date of Service: 08/24/18 Patient was endorsed to me by Dr. Cheatham at 073 0 hours. I reviewed the CT which demonstrates small bowel obstruction due to presumed intussusception in the left lower quadrant. Her lactic acid is elevated 2.4. This raises our concern for ischemic intestine. I gave her additional Dilaudid and IV fluids. Patient asked if she could stay at this hospital and I spoke with on-call surgeon Dr. Bermudez. He states the patient needs to be transferred to her surgeon in [place]. I spoke to [facility] with who is accepted the patient. We discussed NG tube and we will hold at this time. We are awaiting ambulance to take her. Impression: 1. Acute abdominal pain 2. Acute small bowel obstruction 3. Acute small bowel intussusception 4. Critical care time 35 minutes This note was generated with QuadRO[employer]ation software. It may contain incorrect words, spelling, and punctuation that were not noted in review of the chart prior to signing <Prince Howard - Last Filed: 08/24/18 09:01> - ER Visit Summary Date of Service: 08/24/18 Chief Complaint: Abdominal pain History of Present Illness: The patient is a 58 F presenting with abdominal pain. She states this started at 1 AM, 4 hours prior to arrival. She has diffuse abdominal pain. She denies nausea or vomiting. Denies diarrhea or constipation. Denies blood in her stool. Denies fever. Denies urinary complaints. She has a history of previous small bowel obstruction requiring bowel resection. History of previous cholecystectomy and gastric bypass. Physical Examination: Vitals are stable. Patient is afebrile. Alert no acute distress. HEENT exam is unremarkable. Neck is supple. Lungs are clear and equal bilaterally. Heart is regular rate and rhythm. Abdomen is soft mild diffuse tenderness with no rebound or guarding Extremities are unremarkable. Skin is warm and dry. Remainder of exam is unremarkable. Emergency Department Course and Treatment: Patient was given morphine, Zofran IV. CBC, chemistries unremarkable other than glucose 143, BUN 20. Liver lipase are normal. Urinalysis is pending. CT abdomen pelvis was ordered and will be checked out to the oncoming physician. Disposition: Pending CT abdomen results Impression: Abdominal pain This note was generated with [employer] dictation software. It may contain incorrect words, spelling, and punctuation that were not noted in review of the chart prior to signing <Ninoska Cheatham - Last Filed: 08/26/18 16:39> ED Disposition <Prince Howard - Last Filed: 08/24/18 09:01> <Ninoska Cheatham - Last Filed: 08/26/18 16:39> - Plan for ED Patient: Disposition: Home or Assisted Living Referrals: Elias Weinberg MD [Primary Care Provider] -
[2018-08-24] MEDS: Morphine 4 MG/ML Syringe IV ×2 (05:56→07:07)
[2018-08-24] MEDS: Ondansetron 4 MG/2 ML Vial IV (05:57)
[2018-08-24 06:02] LABS: Absolute Lymphocyte Count 0.44 X10^3/ul (0.83-4.51); Absolute Neutrophil Count 6.5 X10^3/uL (2.0-7.7); Differential Indicated SCAN CRITERIA MET; Eosinophil# 0.01 X10^3/uL; Eosinophils% 0.1 % (0-5); Hematocrit 42.7 % (37-47); Hemoglobin 13.5 g/dl (12.0-15.0); Lymphocyte # 0.44 X10^3/ul (4.0); Mean Corp Hgb Conc 31.6 g/gl (32-36); Mean Corpuscular Hgb 28.9 pg (27.0-32.0); Mean Corpuscular Volume 91.4 fL (81-99); Monocyte# 0.41 X10^3/uL; Monocyte% 5.5 % (0-10); Neutrophil # 6.51 X10^3/uL (2.7-7.7); Neutrophil % 88.1 % (47-70); POSITIVE COUNT NO; POSITIVE DIFFERENTIAL YES; POSITIVE MORPHOLOGY NO; Platelet Count 164 K/mm3 (150-450); RBC Distribution Width SD 42.8 fl (35.1-43.9); Red Blood Count 4.67 M/mm3 (4.2-5.4); White Blood Count 7.4 K/mm3 (4.4-11.0)
[2018-08-24 06:22] LABS: ALB/GLOB Ratio 1.3 RATIO (0.9-2.4); AST(SGOT) 26 U/L (15-37); Alanine Aminotransfer ALT/SGPT 46 U/L (13-56); Albumin, Serum 4.1 g/dL (3.2-5.0); Alkaline Phosphatase 111 U/L (45-117); Anion Gap 10 (5-15); BUN 20 mg/dL (7-18); BUN/Creat Ratio 25.3 RATIO (10-20); Calcium,Total 9.2 mg/dL (8.5-10.1); Chloride 104 mmol/L (98-107); Creatinine, Serum 0.79 mg/dL (0.55-1.02); EST Glomerular Filtration Rate 79 mL/min (>60); Est Glom Filt Rate - Afr Amer 96 mL/min (>60); Estimated Creatinine Clearance 63.43 ml/min; Globulin 3.2 g/dL (2.2-4.2); Glucose 143 mg/dL (74-106); Lipase 160 U/L (73-393); Potassium 3.9 mmol/L (3.5-5.1); Protein, Total 7.3 g/dL (6.4-8.2); Sodium Level 143 mmol/L (136-145)
[2018-08-24 07:02] VITALS: BP 189/79; RESP 18; O2SAT 100
[2018-08-24 07:03] LABS: Bacteria 0 SEEN /hpf (None Seen); Mucous, Urine 0 SEEN /hpf (<or=2+); Squamous Epithelial Cells - UA 0 SEEN /hpf (5-10); White Blood Cells 0 SEEN /hpf (0-5)
[2018-08-24 07:34] LABS: Color, Urine Yellow (Yellow); Glucose, Dipstick Normal (Normal); Ketone-Dipstick Negative (Negative); Leukocyte Esterase-Dipstick Negative /ul (Negative); Nitrite-Dipstick Negative (Negative); Occult Blood-Urine 10 /ul (Negative); Protein-Dipstick Negative (Negative); Urine Bilirubin Dipstick Negative (Negative); Urine Clarity Clear (Clear); Urine Urobilinogen Normal (Normal); Urine pH 6.5 (5.0 - 8.0)
[2018-08-24 07:51] LABS: Calcium Oxalate Crystals Ur RARE /hpf (<or=2+); Red Blood Cells-Urine 0-5 SEEN /hpf (0-5)
[2018-08-24] MEDS: HYDROmorphone 1 MG/ML Syringe IV (08:14)
[2018-08-24] MEDS: 0.9% Normal Saline 1,000 ML 200 ML IV (08:15)
--- NOTE | 2018-08-24 08:30 | CPS ---
Addendum entered and electronically signed by Lorna Sneed 08/24/18 08:46: Dr. Howard notified. Original Note: PER INPATIENT PHARMACY; XYLOCAINE 4% UNAVAILABLE
[2018-08-24 08:43] LABS: Lactic Acid 2.4 mmol/L (0.4-2.0)
[2018-08-24 09:29] VITALS: BP 177/86; PULSE 72; RESP 17; O2SAT 100
[2018-08-24] MEDS: HYDROmorphone 0.5 MG/0.5 ML SYRINGE IV (09:53)
[2018-08-24 10:37] VITALS: BP 177/86; PULSE 72; RESP 17; O2SAT 100
[2018-08-24 12:14] LABS: Reflex Lactate? Y
== END 2018-08-24 10:39 | disposition home or self-care (01) ==
PROVIDERS: Emergency Medicine; Emergency Provider Emergency Medicine; Family Provider Family Medicine; PCP Family Medicine
DX: K56.1 Intussusception (principal); K56.609 Unspecified intestinal obstruction, unspecified as to partial versus complete obstruction; E11.9 Type 2 diabetes mellitus without complications; I10 Essential (primary) hypertension; E78.00 Pure hypercholesterolemia, unspecified; Z98.84 Bariatric surgery status; Z90.49 Acquired absence of other specified parts of digestive tract
CPT/HCPCS: 74177; 80053; 81001; 83605; 83690; 85025; 99284; J7030; J7040; Q9967; A4216; J2405

== ENCOUNTER → 2019-06-13 16:04 | Outpatient (CLI) | payer OTHER, SELFPAY ==
[2019-06-13 18:06] LABS: Anion Gap 5 (5-15); BUN 19 mg/dL (7-18); BUN/Creat Ratio 21.4 RATIO (10-20); Calcium,Total 8.3 mg/dL (8.5-10.1); Chloride 107 mmol/L (98-107); Creatinine, Serum 0.89 mg/dL (0.55-1.02); EST Glomerular Filtration Rate 69 mL/min (>60); Est Glom Filt Rate - Afr Amer 83 mL/min (>60); Glucose 86 mg/dL (74-106); Sodium Level 142 mmol/L (136-145); T4 Free Direct 0.96 ng/dL (0.76-1.46); Thyroid Stim Hormone (TSH) 1.61 uIU/mL (0.358-3.74)
== END ==
PROVIDERS: Family Provider Family Medicine; PCP Family Medicine; Visit Provider Family Medicine
DX: E11.9 Type 2 diabetes mellitus without complications (principal); R68.89 Other general symptoms and signs; M85.80 Other specified disorders of bone density and structure, unspecified site
CPT/HCPCS: 36415; 80048; 83036; 84439; 84443

== ENCOUNTER → 2019-06-27 12:34 | Outpatient (CLI) | payer OTHER, SELFPAY ==
--- NOTE | 2019-06-27 12:36 | CT_ITS ---
STUDY: CT MAXILLOFACIAL SINUSES REASON FOR EXAM: Female, 59 years old. RIGHT FACIAL PAIN/PAROTID RADIATION DOSAGE (If Supplied By Facility): CTDIvol = ( 29.32 ) mGy, DLP = ( 525.42 ) mGycm TECHNIQUE: The patient was scanned in a multi detector CT scanner. High resolution axial imaging was performed without the administration of intravenous contrast material. Sagittal and coronal images were reconstructed. Individualized dose optimization techniques were used for this CT. COMPARISON: None. FINDINGS: FRONTAL SINUSES: Underdeveloped consistent with normal variant. ETHMOIDAL SINUSES: Normal aeration, without mucosal inflammatory disease. MAXILLARY SINUSES: Normal aeration, without mucosal inflammatory disease. SPHENOIDAL SINUSES: Normal aeration, without mucosal inflammatory disease. There is patency of the bilateral maxillary infundibuli with normal uncinate processes, ethmoid bullae, and hiatus semilunaris. Paradoxical configuration to the left middle turbinate. Tiny polypoid lesions of the inferior turbinates.. Normal midline nasal septum. There is patency of the bilateral nasal airways. The visualized osseous structures are normal. The visualized bilateral orbital contents are normal. CT/Sinus/Facial Bone IMPRESSION: No significant paranasal sinus disease with findings as above Possible tiny polyps of the inferior turbinates. Clinical correlation recommended Electronically Signed: Andrea Martinez MD at 19:53 EST , Service support ,
--- NOTE | 2019-06-27 12:40 | CT_ITS ---
STUDY: CT SOFT TISSUE NECK WITHOUT CONTRAST REASON FOR EXAM: Female, 59 years old. RIGHT FACIAL PAIN/PAROTID RADIATION DOSAGE (If Supplied By Facility): CTDIvol = ( 16.02 ) mGy, DLP = ( 427.89 ) mGycm TECHNIQUE: The patient was scanned in a multi-detector CT scanner. High resolution transaxial imaging was performed without the administration of intravenous contrast material. Sagittal and coronal images were reconstructed. Individualized dose optimization techniques were used for this CT. COMPARISON: None. FINDINGS: Normal bilateral carotids... Normal bilateral director of online merchandising spaces. Normal bilateral parapharyngeal spaces. Normal bilateral carotid spaces. Normal bilateral sublingual and submandibular glands and spaces. Normal visualized nasopharynx. Normal retropharyngeal space. Normal perivertebral space. Normal visualized bilateral faucial tonsils. The visualized tongue, tongue base and oropharynx are normal. The visualized cervical lymph nodes (levels I-) are within normal size limits, and maintain normal morphology. There is no demonstrated solid or cystic mass lesion. Normal epiglottis, bilateral vallecula and hypopharynx. The pre-epiglottic and paraglottic adipose spaces are normal. Normal visualized bilateral piriform sinuses, aryepiglottic folds, vocal cords, and arytenoid-cricoid articulations. Normal subglottic trachea. Normal bilateral lobes of the thyroid gland. Normal visualized pulmonary apices. Normal visualized paranasal sinuses. Cervical spine demonstrates moderate spondylosis. CT/Soft Tissue Neck without Contr IMPRESSION: . No significant abnormalities. Relatively symmetric appearance to the parotids without focal mass or inflammatory changes Electronically Signed: Andrea Martinez MD at 19:50 EST , Service support ,
== END ==
PROVIDERS: Family Provider Family Medicine; PCP Family Medicine; Referring Provider Family Medicine; Visit Provider Family Medicine
DX: G50.8 Other disorders of trigeminal nerve (principal); J32.0 Chronic maxillary sinusitis
CPT/HCPCS: 70486; 70490

== ENCOUNTER → 2019-07-24 06:20 | Outpatient (CLI) | payer OTHER, SELFPAY ==
--- NOTE | 2019-07-24 06:35 | MRI_ITS ---
STUDY: MRI BRAIN WITH AND WITHOUT CONTRAST REASON FOR EXAM: Female, 59 years old. retro-orbital headache, ataxic gait, eye twitching-bilat, rt jaw pain TECHNIQUE: Standardized multiplanar fat and water weighted pulse sequences were obtained. IV Yes YES was administered for the contrast portion of the examination. COMPARISON: None. FINDINGS: Normal size of the ventricles and extra-axial spaces for the patient''s age. There are a limited number of small white matter hyperintensities, distributed throughout the deep white matter tracts of the cerebral hemispheres, consistent with mild chronic white matter ischemic changes. Normal bilateral basal ganglia. Normal thalami. There is no extra-axial fluid accumulation. Normal flow voids within the major intracranial circulation suggesting patency by spin echo criteria. Normal venous enhancement. There is no enhancing intra-axial or extra-axial abnormality. Normal midbrain, sandra and medulla. Normal cerebellum. Normal basal cisterns. Normal bilateral temporal bones. Normal bilateral internal auditory canals. Normal bilateral globes. Normal bilateral optic nerve sheath complexes and optic nerves. Normal bilateral intraconal and extraconal spaces. Normal bilateral extraocular muscles. Normal optic chiasm and post-chiasmatic tracts. Normal sella turcica, pituitary gland, infundibular stalk, and hypothalamus. Normal bilateral cavernous sinuses. Normal tectal plate and pineal gland. MRI/Brain W/WO Contrast IMPRESSION: No acute intracranial abnormality or masses. Electronically Signed: Mk Goodwin MD at 9:48 EST Tel , Service support ,
== END ==
PROVIDERS: PCP Family Medicine; Referring Provider Family Medicine; Visit Provider Family Medicine
DX: G52.9 Cranial nerve disorder, unspecified (principal); G11.9 Hereditary ataxia, unspecified; G44.009 Cluster headache syndrome, unspecified, not intractable
CPT/HCPCS: 70553; A9575

== ENCOUNTER 2020-01-18 12:17 | Emergency (ER) | payer OTHER, SELFPAY ==
[2020-01-18 12:19] VITALS: BP 173/84; PULSE 99; RESP 18; TEMP 36.6; O2SAT 100; BMI 32.5
[2020-01-18] MEDS: Acetaminophen 500 MG Tablet 1000 MG PO (12:42)
--- NOTE | 2020-01-18 12:45 | RAD_ITS ---
STUDY: X-RAY - LEFT ANKLE REASON FOR EXAM: Female, 60 years old. ROLLED ANKLE TODAY WHILE WALKING. PAIN POSTERIOR ANKLE JUST ABOVE JOINT AND PAIN UP THROUGH DORSAL SURFACE OF HEEL POSTERIORLY TECHNIQUE: 3 view(s) of the ankle. COMPARISON: None. FINDINGS: Normal visualized distal tibia and fibula. Normal medial and lateral malleoli. Normal tibiotalar articulation and ankle mortise. Normal visualized talus and calcaneus. The visualized subtalar, talonavicular, calcaneocuboid and tarsal articulations are normal. The soft tissue structures are unremarkable. RAD/Ankle min 3 Views IMPRESSION: Normal x-ray examination of the ankle. Electronically Signed: Johny Manzano, at 13:12 EDT , Service support ,
--- NOTE | 2020-01-18 13:15 | ED.RN ---
RN TO BEDSIDE TO INFORM PATIENT THAT SHE IS REQUIRED TO COMPLETE A DRUG SCREEN AT THE [facility] UPON DISCHARGE. PATIENT STATES SHE WAS TOLD SHE WOULD BE COMPLETING IT AT [facility] UPON RETURNING TO WORK AFTER DISCHARGE. RN INFORMED PATIENT OF IMPORTANCE OF COMPLETING DRUG SCREEN. PATIENT AGREEABLE.
--- NOTE | 2020-01-18 13:24 | ED.VISSUMM ---
- ER Visit Summary Date of Service: 01/18/20 Chief Complaint: Left ankle pain History of Present Illness: The patient is a [address] Elias Weinberg. She reports that at work today she got up to walk to the car peer and twisted her left ankle awkwardly. She reports she has a sharp pain is 10 of 10 with walking 2 out of 10 at rest. She denies any numbness or weakness. She cannot fall. Denies other injuries. Physical Examination: Vitals: Stable. Afebrile. General: Well-nourished and well-developed. Head: Normocephalic atraumatic. Neck: Supple, no lymphadenopathy. No JVD. Nontender. Cardiovascular: Regular rate and rhythm. No murmurs. Respiratory: No respiratory distress. Clear to auscultation bilaterally. Abdominal: Soft, nontender, nondistended, normal bowel sounds. No guarding, rebound, or peritoneal signs. Back: Nontender. Extremities: Moderate tenderness palpation over the medial malleolus. No pain over the lateral malleolus. No pain over the proximal fibula or base the fifth metatarsal. She is neurovascular intact distally, no edema. Skin: Normal color, no rash. Neurologic: Alert and oriented ?3. Cranial nerves II through XII are intact. Normal strength and sensation. Psych: Normal affect. Test Results: Clinical Impression(s) from Imaging Studies Ankle X-Ray 01/18/20 12:45 IMPRESSION: Normal x-ray examination of the ankle. Electronically Signed: Johny Shilahelenemichelle, at 13:12 EDT , Service support , Emergency Department Course and Treatment: Patient was treated with Tylenol. She was placed in a walking boot. Treatment Plan: Patient be discharged a walking boot. Instructed to follow-up with corporate care in 1 week for another exam. Use Tylenol and/or ibuprofen for pain. Return to the emergency department for any worsening symptoms. Disposition: To home in improved and stable condition. Impression: 1. Left ankle sprain. This note was generated with [employer] Pharm[employer]ation software. It may contain incorrect words, spelling, and punctuation that were not noted in review of the chart prior to signing ED Disposition - Plan for ED Patient: Instructions: ED Sprain Ankle Referrals: [facility]Care [GROUP OF PHYSICIANS] - 1 Week
== END 2020-01-18 13:52 | disposition home or self-care (01) ==
LOC: ED 13:27
PROVIDERS: Emergency Provider Emergency Medicine; PCP Family Medicine
DX: S93.402A Sprain of unspecified ligament of left ankle, initial encounter (principal); I10 Essential (primary) hypertension; E78.00 Pure hypercholesterolemia, unspecified; Z79.899 Other long term (current) drug therapy; X50.1XXA Overexertion from prolonged static or awkward postures, initial encounter; Y93.01 Activity, walking, marching and hiking; Y92.89 Other specified places as the place of occurrence of the external cause; Y99.0 Civilian activity done for income or pay
CPT/HCPCS: 73610; 99283

== ENCOUNTER → 2020-06-11 15:36 | Outpatient (CLI) | payer OTHER, SELFPAY ==
[2020-04-20 08:21] VITALS: BMI 33.1
[2020-06-11 18:08] LABS: Absolute Lymphocyte Count 1.68 X10^3/uL (0.83-4.51); Basophil# 0.03 X10^3/uL; Basophil% 0.6 % (0-1); Eosinophil# 0.13 X10^3/uL; Eosinophils% 2.5 % (0-5); Hematocrit 44.2 % (37-47); Hemoglobin 13.5 g/dL (12.0-15.0); Lymphocyte # 1.68 X10^3/ul (4.0); Lymphocyte % 32.6 % (19-41); Mean Corp Hgb Conc 30.5 g/dL (32-36); Mean Corpuscular Hgb 27.4 pg (27.0-32.0); Mean Corpuscular Volume 89.8 fL (81-99); Mean Platelet Vol. 10.8 fl (6.2-12.0); Monocyte# 0.28 X10^3/uL; Monocyte% 5.4 % (0-10); NRBC Flagged by Analyzer 0 % (0-5); Neutrophil # 3.03 X10^3/uL (2.7-7.7); Neutrophil % 58.7 % (47-70); Platelet Count 190 K/mm3 (150-450); RBC Distribution Width CV 13.6 % (11.6-14.6); RBC Distribution Width SD 44.7 fl (35.1-43.9); Red Blood Count 4.92 M/mm3 (4.2-5.4); White Blood Count 5.2 K/mm3 (4.4-11.0)
[2020-06-11 18:34] LABS: ALB/GLOB Ratio 1.1 RATIO (0.9-2.4); AST(SGOT) 32 U/L (15-37); Alanine Aminotransfer ALT/SGPT 60 U/L (13-56); Albumin, Serum 3.8 g/dL (3.2-5.0); Alkaline Phosphatase 124 U/L (45-117); Anion Gap 8 (5-15); BUN 15 mg/dL (7-18); BUN/Creat Ratio 12.8 RATIO (10-20); Chloride 104 mmol/L (98-107); Creatinine, Serum 1.17 mg/dL (0.55-1.02); EST Glomerular Filtration Rate 50 mL/min (>60); Est Glom Filt Rate - Afr Amer 60 mL/min (>60); Globulin 3.4 g/dL (2.2-4.2); Glucose 187 mg/dL (74-106); Potassium 3.6 mmol/L (3.5-5.1); Protein, Total 7.2 g/dL (6.4-8.2); Sodium Level 140 mmol/L (136-145); T4 Free Direct 1.16 ng/dL (0.76-1.46); Thyroid Stim Hormone (TSH) 5.28 uIU/mL (0.358-3.74)
[2020-06-11 18:46] LABS: Hemoglobin A1c 5.8 % (3.8-5.6)
[2020-06-11 18:53] LABS: Vitamin B12 1655 pg/mL (211-911)
== END ==
PROVIDERS: PCP Family Medicine; Visit Provider Family Medicine
DX: E11.9 Type 2 diabetes mellitus without complications (principal); I16.0 Hypertensive urgency; K90.9 Intestinal malabsorption, unspecified; R41.3 Other amnesia
CPT/HCPCS: 36415; 80053; 82607; 83036; 84439; 84443; 85025

== ENCOUNTER → 2020-07-16 15:48 | Outpatient (CLI) | payer OTHER, SELFPAY ==
[2020-04-20 08:21] VITALS: BMI 33.1
[2020-07-16 17:58] LABS: ALB/GLOB Ratio 1.3 RATIO (0.9-2.4); AST(SGOT) 31 U/L (15-37); Alanine Aminotransfer ALT/SGPT 60 U/L (13-56); Alkaline Phosphatase 114 U/L (45-117); Anion Gap 6 (5-15); BUN 19 mg/dL (7-18); BUN/Creat Ratio 19.6 RATIO (10-20); Calcium,Total 8.6 mg/dL (8.5-10.1); Chloride 102 mmol/L (98-107); Creatinine, Serum 0.97 mg/dL (0.55-1.02); EST Glomerular Filtration Rate 62 mL/min (>60); Est Glom Filt Rate - Afr Amer 75 mL/min (>60); Globulin 3.1 g/dL (2.2-4.2); Glucose 90 mg/dL (74-106); Potassium 3.8 mmol/L (3.5-5.1); Protein, Total 7.1 g/dL (6.4-8.2); Sodium Level 139 mmol/L (136-145); T4 Free Direct 1.13 ng/dL (0.76-1.46); Thyroid Stim Hormone (TSH) 1.49 uIU/mL (0.358-3.74)
[2020-07-17 09:51] LABS: Hepatitis B Surface Antigen Non-Reactive (Nonreactive); Hepatitis C Antibody Non-Reactive (Nonreactive)
== END ==
PROVIDERS: PCP Family Medicine; Visit Provider Family Medicine
DX: E03.9 Hypothyroidism, unspecified (principal); I10 Essential (primary) hypertension; R74.8 Abnormal levels of other serum enzymes
CPT/HCPCS: 36415; 80053; 84439; 84443; 86803; 87340

== ENCOUNTER → 2020-08-07 15:13 | Outpatient (CLI) | payer OTHER, SELFPAY ==
[2020-04-20 08:21] VITALS: BMI 33.1
[2020-08-07 16:40] LABS: ALB/GLOB Ratio 1.2 RATIO (0.9-2.4); AST(SGOT) 28 U/L (15-37); Alanine Aminotransfer ALT/SGPT 57 U/L (13-56); Albumin, Serum 3.8 g/dL (3.2-5.0); Alkaline Phosphatase 101 U/L (45-117); Anion Gap 6 (5-15); BUN 26 mg/dL (7-18); BUN/Creat Ratio 22.2 RATIO (10-20); Calcium,Total 8.8 mg/dL (8.5-10.1); Chloride 102 mmol/L (98-107); Creatinine, Serum 1.17 mg/dL (0.55-1.02); EST Glomerular Filtration Rate 50 mL/min (>60); Est Glom Filt Rate - Afr Amer 60 mL/min (>60); Globulin 3.1 g/dL (2.2-4.2); Glucose 132 mg/dL (74-106); Potassium 3.3 mmol/L (3.5-5.1); Protein, Total 6.9 g/dL (6.4-8.2); Sodium Level 138 mmol/L (136-145)
== END ==
PROVIDERS: PCP Family Medicine; Visit Provider Family Medicine
DX: I10 Essential (primary) hypertension (principal); R79.89 Other specified abnormal findings of blood chemistry
CPT/HCPCS: 36415; 80053

== ENCOUNTER → 2020-08-15 | Outpatient (CLI) | payer OTHER, SELFPAY ==
[2020-04-20 08:21] VITALS: BMI 33.1
== END | disposition home or self-care (01) ==
LOC: LABSPEC 14:34
PROVIDERS: PCP Family Medicine; Visit Provider Family Medicine
DX: Z20.822 Contact with and (suspected) exposure to COVID-19 (principal)
CPT/HCPCS: 87635; U0005; U0003

== ENCOUNTER → 2020-09-17 14:41 | Outpatient (CLI) | payer OTHER, SELFPAY ==
[2020-04-20 08:21] VITALS: BMI 33.1
--- NOTE | 2020-09-17 14:55 | RAD_ITS ---
STUDY: X-RAY - PELVIS AND BILATERAL HIPS REASON FOR EXAM: Bilateral hip pain. TECHNIQUE: AP view of the pelvis.? 2 views of the right hip, and 2 views of the left hip were obtained. COMPARISON: None. FINDINGS: Normal visualized soft tissue structures. Normal bilateral iliac wings, sacroiliac joints and visualized sacrum. Normal bilateral superior and inferior pubic rami. Normal pubic symphysis. Normal bilateral ischial tuberosities. Normal visualized right femoral head. Normal right acetabulum. Normal right hip joint. Normal visualized left femoral head. Normal left acetabulum. Normal left hip joint. RAD/Hips B/L min 2 views w/ Pelvis IMPRESSION: Normal x-ray examination of the pelvis and bilateral hips without demonstrated osteoarthritis. Electronically Signed: Justin Vila MD at 14:05 EDT Tel , Service support ,
== END ==
PROVIDERS: PCP Family Medicine; Referring Provider Nurse Practitioner Family; Visit Provider Nurse Practitioner Family
DX: M16.12 Unilateral primary osteoarthritis, left hip (principal)
CPT/HCPCS: 73521

== ENCOUNTER → 2020-10-28 15:55 | Outpatient (CLI) | payer OTHER, SELFPAY ==
[2020-04-20 08:21] VITALS: BMI 33.1
[2020-10-28 17:38] LABS: Absolute Lymphocyte Count 2.21 X10^3/uL (0.83-4.51); Absolute Neutrophil Count 3.8 X10^3/uL (2.0-7.7); Basophil# 0.03 X10^3/uL; Basophil% 0.4 % (0-1); Eosinophil# 0.15 X10^3/uL; Eosinophils% 2.2 % (0-5); Hemoglobin 13.6 g/dL (12.0-15.0); Lymphocyte # 2.21 X10^3/ul (0.83-4.51); Lymphocyte % 32.5 % (19-41); Mean Corp Hgb Conc 31.6 g/dL (32-36); Mean Corpuscular Hgb 28.2 pg (27.0-32.0); Mean Platelet Vol. 10.9 fl (6.2-12.0); Monocyte% 8.8 % (0-10); NRBC Flagged by Analyzer 0 % (0-5); Neutrophil # 3.79 X10^3/uL (2.7-7.7); Platelet Count 204 K/mm3 (150-450); RBC Distribution Width CV 12.8 % (11.6-14.6); RBC Distribution Width SD 41.5 fl (35.1-43.9); Red Blood Count 4.83 M/mm3 (4.2-5.4); White Blood Count 6.8 K/mm3 (4.4-11.0)
[2020-10-28 18:27] LABS: Vitamin D,25 Hydroxy 36.7 ng/mL
[2020-10-28 18:46] LABS: ALB/GLOB Ratio 1.2 RATIO (0.9-2.4); AST(SGOT) 38 U/L (15-37); Alanine Aminotransfer ALT/SGPT 62 U/L (13-56); Alkaline Phosphatase 96 U/L (45-117); Anion Gap 7 (5-15); BUN 15 mg/dL (7-18); BUN/Creat Ratio 13.6 RATIO (10-20); Calcium,Total 9.2 mg/dL (8.5-10.1); Chloride 97 mmol/L (98-107); EST Glomerular Filtration Rate 54 mL/min (>60); Est Glom Filt Rate - Afr Amer 65 mL/min (>60); Globulin 3.3 g/dL (2.2-4.2); Glucose 130 mg/dL (74-106); Potassium 3.2 mmol/L (3.5-5.1); Protein, Total 7.3 g/dL (6.4-8.2); Sodium Level 139 mmol/L (136-145); T4 Free Direct 1.17 ng/dL (0.76-1.46); Thyroid Stim Hormone (TSH) 1.52 uIU/mL (0.358-3.74)
== END ==
PROVIDERS: PCP Family Medicine; Visit Provider Family Medicine
DX: E03.9 Hypothyroidism, unspecified (principal); R79.89 Other specified abnormal findings of blood chemistry
CPT/HCPCS: 36415; 80053; 82306; 84439; 84443; 85025

== ENCOUNTER 2021-06-06 09:18 | Emergency (ER) | payer OTHER, SELFPAY ==
[2021-06-06 09:21] VITALS: BP 135/91; PULSE 101; RESP 18; TEMP 35.4; O2SAT 97; BMI 33.0
--- NOTE | 2021-06-06 10:07 | CT_ITS ---
STUDY: CT BRAIN WITHOUT CONTRAST REASON FOR EXAM: Female, 61 years old. Dizziness RADIATION DOSAGE (If Supplied By Facility): CTDIvol = ( 44.99 ) mGy, DLP = ( 779.24 ) mGycm TECHNIQUE: Transaxial CT imaging of the brain was performed without administration of intravenous contrast material. Individualized dose optimization techniques were used for this CT. COMPARISON: Comparison is made with prior study dated 01/27/2013. FINDINGS: Normal soft tissue structures. Normal calvarium. There is mild cerebral atrophy with widening of the extra-axial spaces and ventricular dilatation. Normal white matter tracts of the cerebral hemispheres. Normal basal ganglia and thalami. Normal brainstem. Normal cerebellum. There is no intracranial hemorrhage. There are no findings of an acute ischemic infarction. Atherosclerotic calcification of the cavernous portions of the internal carotid arteries and vertebral arteries. Normal visualized paranasal sinuses. CT/Brain/Head without Contrast IMPRESSION: Chronic involutional changes of the brain. Electronically Signed: Johny Manzano MD at 11:22 EST , Service support ,
--- NOTE | 2021-06-06 10:07 | EKG12_ITS ---
Test Reason : DIZZINESS Blood Pressure : / mmHG Vent. Rate : 076 BPM Atrial Rate : 076 BPM P-R Int : 172 ms QRS Dur : 080 ms QT Int : 416 ms P-R-T Axes : 051 063 038 degrees QTc Int : 468 ms Normal sinus rhythm Normal ECG Confirmed by YARIEL OSBORNE, MICHAEL ([id number]), graphics editor BESSY SLOAN ([id number]) on 06/09/2021 9:13:06 AM Referred By: JOANNE Confirmed By:MIRNA SALDIVAR MD
--- NOTE | 2021-06-06 10:16 | EDS_ITS ---
HPI History of Present Illness Chief Complaint: Dizziness Narrative Narrative: Patient presents with her for lightheadedness/dizziness that began this morning around 8:00, approximately 2 hours ago. She states that over the last few days she has been having problems with sinus pain and pressure along with headache. This morning, she felt more lightheaded as if she was going to pass out while she was at work. It is worse with standing. She denies any fevers or chills. No nausea or vomiting. No diarrhea. No problems with chest pain or shortness of breath. She does state that she feels slightly off balance even when sitting. She has not felt this way previously. She thinks that she has having the problems related to her sinuses. She has a slight headache because of this. [facility] Medical History Arthritis Back pain Diabetes Fatigue Headache Hypertension Knee pain Shoulder pain stomach surgery Home Medications amitriptyline 75 mg PO QHS 10/14/17 [History Last Taken Unknown] tramadol 50 mg PO DAILY 08/24/18 [History Last Taken Unknown] aspirin 81 mg tablet,delayed release 81 mg PO DAILY 01/25/20 [History Last Taken Unknown] gabapentin 100 mg capsule 100 mg PO DAILY 01/25/20 [History Last Taken Unknown] lansoprazole 15 mg capsule,delayed release 15 mg PO DAILY 01/25/20 [History Last Taken Unknown] Allergy/AdvReac Type Severity Reaction Status Date / Time cephalexin monohydrate Allergy Rash Verified 06/06/21 09:20 [From Keflex] omeprazole [From Prilosec] Allergy Unknown Verified 06/06/21 09:20 omeprazole magnesium Allergy Unknown Verified 06/06/21 09:20 [From Prilosec] Penicillins Allergy Rash Verified 06/06/21 09:20 Social History Smoking Status: Former smoker alcohol intake: never ROS ROS ED ROS Narrative Constitutional: No fever, no chills. HEENT: No sore throat. No neck pain. No loss of vision. No rhinorrhea. Positive sinus pressure. Cardiovascular: No chest pain. No palpitations. No pedal edema. Respiratory: No cough, no shortness of breath. Abdominal: No abdominal pain. No nausea. No vomiting. Genitourinary: No dysuria. No hematuria. Musculoskeletal: No myalgias. No arthralgias. Neurologic: Positive sinus headaches. Positive dizziness. Positive lightheadedness. Worse with standing. Skin: No rash. No change in color. Psychiatric: No depression. No anxiety. EXAM Physical Exam Narrative Exam Narrative: Afebrile. Vital signs noted. HEENT: Normocephalic. Atraumatic. PERRL, EOMI. Neck soft and supple. No point tenderness or step off. Cardiovascular: Regular rate and rhythm. No murmurs, rubs, or gallops appreciated. Respiratory: No tachypnea. Lungs clear to auscultation bilaterally. Gastrointestinal: Abdomen soft, nontender, with normoactive bowel sounds. No rebound or guarding. Neurological: Awake. Alert. Oriented x3. Nonfocal, nonlateralizing. DTRs equal and symmetric. Skin: No rash. Normal color. No pallor. Musculoskeletal: No pedal edema. Full range of motion extremities. Const Vital Signs: 06/06/21 09:21 06/06/21 09:31 06/06/21 10:35 Temperature 95.7 F L Temperature Source Temporal Pulse Rate 101 H Pulse Rate [Lying] 87 Pulse Rate [Sitting] 89 Pulse Rate [Standing] 85 Respiratory Rate 18 Respiratory Effort Normal Respiratory Pattern Normal Blood Pressure 135/91 H Blood Pressure [Lying] 122/74 H Blood Pressure [Sitting] 119/79 Blood Pressure [Standing] 123/86 H Blood Pressure Mean 105 Blood Pressure Mean [Lying] 90 Blood Pressure Mean [Sitting] 92 Blood Pressure Mean [Standing] 98 Pulse Ox 97 Oxygen Delivery Method Room Air MDM MDM MDM Narrative Medical decision making narrative: I feel that she may have more of a intravascular volume depletion/near syncope. Comprehensive work-up was pursued. I will obtain a CT of the brain, along with EKG and basic laboratory work including urinalysis. She was bolused normal saline 1 L intravenously. EKG demonstrates normal sinus rhythm at 76 bpm without ectopy or acute ST changes. WBC count slightly low at 4.2, which I think is nonspecific as she has had this in the past. Hemoglobin stable at 12.7. Electrolyte panel shows potassium low at 3.1 which was replaced orally. She states she takes potassium supplementation at home because she may be on hydrochlorothiazide as one of her medications. Glucose appropriately elevated at 130 with an anion gap of 5. Her urinalysis shows no ketones, no infection. CT of the brain shows no acute process. Her orthostatics may have been mildly positive, but her pulse rate did not increase. She may have more of an intravascular volume depletion. After 1 L of fluids, she states she feels improved. At this point in time, I feel she can be discharged safely home with follow-up. She will continue her potassium supplementation. She will follow up with her primary care physician. Return instructions to the emergency department were reviewed. Disposition is discharged home in stable condition. Lab Data Attestation: I reviewed the patient's lab results. Labs: Laboratory Results - last 24 hr 06/06/21 06/06/21 06/06/21 10:20 10:20 11:40 WBC 4.2 L RBC 4.43 Hgb 12.7 Hct 38.8 MCV 87.6 MCH 28.7 MCHC 32.7 RDW Std Deviation 40.9 RDW Coeff of Layla 12.8 Plt Count 161 MPV 10.2 Immature Gran % (Auto) 0.000 Neut % (Auto) 59.9 Lymph % (Auto) 26.0 [place] % (Auto) 11.3 H Eos % (Auto) 1.9 Baso % (Auto) 0.9 Absolute Neuts (auto) 2.5 Absolute Lymphs (auto) 1.10 Nucleated RBC % 0 Sodium 139 Potassium 3.1 L Chloride 102 Carbon Dioxide 32.0 Anion Gap 5 BUN 16 Creatinine 1.03 H Estim Creat Clear Calc 48.90 Est GFR (MDRD) Af Amer 70 Est GFR (MDRD) Non-Af 58 L BUN/Creatinine Ratio 15.5 Glucose 130 H Calcium 8.9 Total Bilirubin 0.50 AST 30 ALT 48 Alkaline Phosphatase 77 Troponin I High Sens 4 Total Protein 6.5 Albumin 3.3 Globulin 3.2 Albumin/Globulin Ratio 1.0 Urine Color Yellow Urine Clarity Clear Urine pH 7.0 Ur Specific Foster 1.010 Urine Protein Negative Urine Glucose (UA) Normal Urine Ketones Negative Urine Occult Blood Negative Urine Nitrite Negative Urine Bilirubin Negative Urine Urobilinogen Normal Ur Leukocyte Esterase 25 H Urine RBC 0 SEEN Urine WBC 0 SEEN Ur Squamous Epith Cells 0 SEEN Urine Bacteria 0 SEEN Urine Mucus 0 SEEN Radiography Diagnostic Testing: Clinical Impression(s) from Imaging Studies Brain CT 06/06/21 10:07 IMPRESSION: Chronic involutional changes of the brain. Electronically Signed: Johny Manzano MD at 11:22 EST , Service support , Discharge Plan Triage Chief Complaint: Dizziness ED Provider: Sixto Luciano Dx/Rx/DC Orders Clinical Impression: Light-headedness, Hypokalemia, Orthostatic hypotension, Dizziness Instructions: Orthostatic Hypotension, ED Dizziness, Uncertain Cause, ED Hypokalemia, ED Near-Fainting, Uncertain Cause Prescriptions: No Action gabapentin 100 mg capsule 100 mg PO DAILY RF: 0 aspirin 81 mg tablet,delayed release (DR/EC) 81 mg PO DAILY RF: 0 lansoprazole [Prevacid] 15 mg capsule,delayed release(DR/EC) 15 mg PO DAILY RF: 0 amitriptyline 50 MG tablet 75 mg PO QHS RF: 0 tramadol 50 tablet 50 mg PO DAILY RF: 0 Primary Care Provider: Elias Weinberg Referrals: Elias Weinberg MD [Primary Care Provider] - 06/10/21 Disposition Disposition: Home, Self Care
[2021-06-06 10:35] VITALS: BP 119/79; BP 122/74; BP 123/86; PULSE 85; PULSE 87; PULSE 89
[2021-06-06] MEDS: 0.9% Normal Saline 1,000 ML 1000 ML IV (10:35)
[2021-06-06 10:36] LABS: Absolute Neutrophil Count 2.5 X10^3/uL (2.0-7.7); Basophil# 0.04 X10^3/uL; Basophil% 0.9 % (0-1); Eosinophil# 0.08 X10^3/uL; Eosinophils% 1.9 % (0-5); Hematocrit 38.8 % (37-47); Hemoglobin 12.7 g/dL (12.0-15.0); Mean Corp Hgb Conc 32.7 g/dL (32-36); Mean Corpuscular Hgb 28.7 pg (27.0-32.0); Mean Corpuscular Volume 87.6 fL (81-99); Mean Platelet Vol. 10.2 fl (6.2-12.0); Monocyte# 0.48 X10^3/uL; Monocyte% 11.3 % (0-10); NRBC Flagged by Analyzer 0 % (0-5); Neutrophil # 2.53 X10^3/uL (2.7-7.7); Neutrophil % 59.9 % (47-70); Platelet Count 161 K/mm3 (150-450); RBC Distribution Width CV 12.8 % (11.6-14.6); RBC Distribution Width SD 40.9 fl (35.1-43.9); Red Blood Count 4.43 M/mm3 (4.2-5.4); White Blood Count 4.2 K/mm3 (4.4-11.0)
[2021-06-06 10:56] LABS: AST(SGOT) 30 U/L (15-37); Alanine Aminotransfer ALT/SGPT 48 U/L (13-56); Albumin, Serum 3.3 g/dL (3.2-5.0); Alkaline Phosphatase 77 U/L (45-117); Anion Gap 5 (5-15); BUN 16 mg/dL (7-18); BUN/Creat Ratio 15.5 RATIO (10-20); Calcium,Total 8.9 mg/dL (8.5-10.1); Chloride 102 mmol/L (98-107); Creatinine, Serum 1.03 mg/dL (0.55-1.02); EST Glomerular Filtration Rate 58 mL/min (>60); Est Glom Filt Rate - Afr Amer 70 mL/min (>60); Globulin 3.2 g/dL (2.2-4.2); Glucose 130 mg/dL (74-106); Potassium 3.1 mmol/L (3.5-5.1); Protein, Total 6.5 g/dL (6.4-8.2); Sodium Level 139 mmol/L (136-145); Troponin-I HS 4 pg/mL (3.0-54.0)
[2021-06-06] MEDS: Potassium Chloride Oral Tablet 20 MEQ 40 MEQ PO (11:40)
[2021-06-06 11:47] LABS: Bacteria 0 SEEN /hpf (None Seen); Mucous, Urine 0 SEEN /hpf (<or=2+); Red Blood Cells-Urine 0 SEEN /hpf (0-5); Squamous Epithelial Cells - UA 0 SEEN /hpf (5-10); White Blood Cells 0 SEEN /hpf (0-5)
[2021-06-06 11:48] LABS: Color, Urine Yellow (Yellow); Glucose, Dipstick Normal (Normal); Ketone-Dipstick Negative (Negative); Leukocyte Esterase-Dipstick 25 /ul (Negative); Nitrite-Dipstick Negative (Negative); Occult Blood-Urine Negative /ul (Negative); Protein-Dipstick Negative (Negative); Urine Bilirubin Dipstick Negative (Negative); Urine Clarity Clear (Clear); Urine Urobilinogen Normal (Normal)
== END 2021-06-06 12:26 | disposition home or self-care (01) ==
PROVIDERS: Emergency Provider Emergency Medicine; PCP Family Medicine
DX: I95.1 Orthostatic hypotension (principal); E87.6 Hypokalemia; R42 Dizziness and giddiness; M19.90 Unspecified osteoarthritis, unspecified site; E11.9 Type 2 diabetes mellitus without complications; I10 Essential (primary) hypertension; Z79.899 Other long term (current) drug therapy; Z87.891 Personal history of nicotine dependence
CPT/HCPCS: 70450; 80053; 81001; 84484; 85025; 93005; 96360; 99284; J7030; A4216

== ENCOUNTER → 2022-04-25 | Outpatient (CLI) | payer OTHER, SELFPAY ==
[2022-04-25 08:00] LABS: Absolute Lymphocyte Count 1.39 X10^3/uL (0.83-4.51); Absolute Neutrophil Count 2.1 X10^3/uL (2.0-7.7); Basophil# 0.04 X10^3/uL; Eosinophil# 0.12 X10^3/uL; Hematocrit 41.3 % (37-47); Hemoglobin 13.5 g/dL (12.0-15.0); Lymphocyte # 1.39 X10^3/ul (0.83-4.51); Lymphocyte % 34.8 % (19-41); Mean Corp Hgb Conc 32.7 g/dL (32-36); Mean Corpuscular Hgb 29.2 pg (27.0-32.0); Mean Corpuscular Volume 89.2 fL (81-99); Mean Platelet Vol. 10.3 fl (6.2-12.0); Monocyte# 0.37 X10^3/uL; Monocyte% 9.3 % (0-10); NRBC Flagged by Analyzer 0 % (0-5); Neutrophil # 2.07 X10^3/uL (2.7-7.7); Neutrophil % 51.6 % (47-70); Platelet Count 157 K/mm3 (150-450); RBC Distribution Width CV 13.1 % (11.6-14.6); RBC Distribution Width SD 42.5 fl (35.1-43.9); Red Blood Count 4.63 M/mm3 (4.2-5.4)
[2022-04-25 08:20] LABS: Hemoglobin A1c 6.4 % (3.8-5.6)
[2022-04-25 09:02] LABS: ALB/GLOB Ratio 1.2 RATIO (0.9-2.4); AST(SGOT) 24 U/L (15-37); Alanine Aminotransfer ALT/SGPT 45 U/L (13-56); Albumin, Serum 3.7 g/dL (3.2-5.0); Alkaline Phosphatase 70 U/L (45-117); Anion Gap 7 (5-15); BUN 22 mg/dL (7-18); BUN/Creat Ratio 22.2 RATIO (10-20); Calcium,Total 8.8 mg/dL (8.5-10.1); Chloride 103 mmol/L (98-107); Creatinine, Serum 0.99 mg/dL (0.55-1.02); EST Glomerular Filtration Rate 60 mL/min (>60); Est Glom Filt Rate - Afr Amer 73 mL/min (>60); Globulin 3.1 g/dL (2.2-4.2); Glucose 130 mg/dL (74-106); Potassium 3.8 mmol/L (3.5-5.1); Protein, Total 6.8 g/dL (6.4-8.2); Sodium Level 142 mmol/L (136-145); T4 Free Direct 1.01 ng/dL (0.76-1.46); Thyroid Stim Hormone (TSH) 1.16 uIU/mL (0.358-3.74)
[2022-04-27 09:14] LABS: Vitamin D,25 Hydroxy 53.2 ng/mL
== END | disposition home or self-care (01) ==
LOC: LAB 07:32
PROVIDERS: PCP Family Medicine; Referring Provider Family Medicine; Visit Provider Family Medicine
DX: R73.01 Impaired fasting glucose (principal); E03.9 Hypothyroidism, unspecified; E55.9 Vitamin D deficiency, unspecified; I10 Essential (primary) hypertension
CPT/HCPCS: 36415; 80053; 82306; 83036; 84439; 84443; 85025

== ENCOUNTER → 2022-06-18 | Outpatient (CLI) | payer OTHER, SELFPAY ==
--- NOTE | 2022-06-18 14:57 | BI_ITS ---
MAMMOGRAPHY - BILATERAL SCREENING REASON FOR EXAM: Female, 62 years old. Routine annual screening examination. PERTINENT HISTORY: Sister with breast cancer. TECHNIQUE: Digital bilateral breast naveed (3D mammographic acquisition) in the CC and MLO projections. 2-D mediolateral oblique (MLO) and craniocaudad (CC) views of both breasts were obtained. CAD: Full Field Digital Mammography with Computer Added Detection was performed. COMPARISON: Comparison is made with prior study dated 04/13/2018. FINDINGS: Breast Composition: The breasts are heterogeneously dense, which may obscure small masses. There are no dominant masses or suspicious calcifications. No other significant abnormalities are identified. There has been no significant change since the prior study. BI/SCRN MAMM (CAD)W/NAVEED BILAT IMPRESSION: Stable bilateral screening mammogram. Yearly follow-up mammogram recommended. (A) ASSESSMENT CATEGORY: BIRADS Category 1: Negative. A letter regarding these results will be sent to the patient by the facility within 30 days. Approximately 10% of breast cancers are not detected by mammography. A normal mammogram should not delay biopsy of a clinically suspicious abnormality. [id number] Electronically Signed: Johny Manzano MD at 14:31 EST ,
--- NOTE | 2022-06-18 15:25 | CT_ITS ---
STUDY: CT ABDOMEN AND PELVIS WITH CONTRAST REASON FOR EXAM: Female, 62 years old. Abdominal pain,ventral hernia -- IV and Oral contrast RADIATION DOSAGE (If Supplied By Facility): CTDIvol = ( 17.04 ) mGy, DLP = ( 1355.80 ) mGycm TECHNIQUE: Transaxial images were obtained from the dome of the diaphragm to the symphysis pubis without oral contrast. Oral and amp; IV Readi-CAT and amp; 100mL Isovue-300 was administered. Sagittal and coronal images were reconstructed. Individualized dose optimization techniques were used for this CT. COMPARISON: None. FINDINGS: There is minimal lower lobe and lingular atelectasis. There are trace coronary calcifications There is a small focus of low attenuation within the right hepatic lobe measuring 8.1 mm suggesting a small cyst. There is minimal intrahepatic ductal dilatation. There are surgical clips in the gallbladder fossa consistent with a prior cholecystectomy. Normal spleen. Normal pancreas. Normal bilateral adrenal glands. Normal right kidney. There is a distended calyx or cyst with layering calcifications in the left kidney. There is no hydronephrosis or stones along the course of the left ureter. There is a thick-walled appearance of the distal esophagus with a small adjacent outpouching suggesting a diverticulum partially filled with contrast that measures 1.7 cm or a small paraesophageal hernia. There is postoperative change of the hiatus in the stomach as well as the proximal small bowel compatible with gastric bypass. There is mild distention of the anastomosis in the left upper quadrant status post gastric bypass. There is abundant stool in the colon from the cecum to the rectum. There is a 6.2 cm diastases or opening within the midline abdominal wall just below the level of the left hepatic lobe. Stool filled transverse colon extends to this opening without obstruction measuring 6.2 x 5.7 x 8.5 cm. Caudal to this area there is an additional fatty hernia that extends through an opening measuring 9.4 mm. 4.1 x 2.3 x 2.7 cm of fat herniates into this area in the left of midline. There is mild diastases at the level of the umbilicus. The appendix is visualized and appears normal. Aorta is partially calcified. Normal inferior vena cava. Normal retroperitoneum. There is a mildly thick-walled appearance of the bladder appear uterus is been surgically removed. There are at least 2 sizable abdominal wall hernias one which contains stool-filled bowel loops. There is degenerative change of the thoracolumbar spine. There is anterior osteophytosis at L2-L3. At L5-S1 there is minimal disc space narrowing. CT/Abdomen/Pelvis WITH Contrast IMPRESSION: There is a 6.2 cm diastases or opening within the midline abdominal wall just below the level of the left hepatic lobe. Stool filled transverse colon extends to this opening without obstruction measuring 6.2 x 5.7 x 8.5 cm. Caudal to this area there is an additional fatty hernia that extends through an opening measuring 9.4 mm. 4.1 x 2.3 x 2.7 cm of fat herniates into this area in the left of midline. Status post gastric bypass. Thick walled appearance of the distal esophagus suspicious for esophagitis associated with a small 1.7 cm distal esophageal diverticulum or paraesophageal hernia. There is distention of the anastomosis involving the gastric bypass and left lower quadrant. Recommend appropriate follow-up. Overall there is a pattern of constipation. Status post cholecystectomy Status post hysterectomy Hepatic steatosis. Partial visualization of coronary calcification Benign-appearing hepatic cysts. Distended calyx left kidney with layering stones. Could consider follow-up ultrasound if appropriate. Electronically Signed: Antoinette Wright MD at 18:32 EST ,
--- NOTE | 2022-06-18 15:36 | CT_ITS ---
STUDY: CT MAXILLOFACIAL SINUSES REASON FOR EXAM: Female, 62 years old. SINUSITIS/NOSEBLEEDS RADIATION DOSAGE (If Supplied By Facility): CTDIvol = ( 29.38 ) mGy, DLP = ( 532.76 ) mGycm TECHNIQUE: The patient was scanned in a multi detector CT scanner. High resolution axial imaging was performed without the administration of intravenous contrast material. Sagittal and coronal images were reconstructed. Individualized dose optimization techniques were used for this CT. COMPARISON: June 27, 2019 CT Sinuses FINDINGS: FRONTAL SINUSES: Normal aeration, without mucosal inflammatory disease. ETHMOIDAL SINUSES: Normal aeration, without mucosal inflammatory disease. MAXILLARY SINUSES: Normal aeration, without mucosal inflammatory disease. SPHENOIDAL SINUSES: Normal aeration, without mucosal inflammatory disease. There is patency of the bilateral maxillary infundibuli with normal uncinate processes, ethmoid bullae, and hiatus semilunaris. . Normal bilateral inferior turbinates. There is a minimal leftward shift of the nasal septum. There is patency of the bilateral nasal airways. There is a suggestion of minimal stephany bullosa'' s of the middle turbinates, otherwise bilateral middle turbinates. The patient is a dentulous. The temporomandibular joints are intact. There is minimal degenerative change in the visualized cervical spine. The visualized bilateral orbital contents are normal. There is incidental visualization of nonfusion of the posterior ring of C1. This partial mucoid thickening of the inferior right-sided mastoid air cells. Otherwise the mastoid air cells appear clear. CT/Sinus/Facial Bone IMPRESSION: Minimal fluid in the right-sided mastoid air cells similar to prior study. Otherwise Normal CT examination of the maxillofacial sinuses. Electronically Signed: Antoinette Wright MD at 17:49 EST ,
[2022-06-19 08:41] LABS: EGFR FINGERSTICK > 60.0000 mL/min (>60)
== END | disposition home or self-care (01) ==
PROVIDERS: PCP Family Medicine; Visit Provider Family Medicine
DX: Z12.31 Encounter for screening mammogram for malignant neoplasm of breast (principal); R51.9 Headache, unspecified; J32.9 Chronic sinusitis, unspecified
CPT/HCPCS: 70486; 74177; 77063; 77067; Q9967

== ENCOUNTER 2022-11-11 06:19 | Day surgery (SDC) | payer BC, SELFPAY ==
[2022-11-11 06:49] VITALS: BP 156/88; PULSE 74; RESP 18; TEMP 36.6; O2SAT 98; BMI 33.3
[2022-11-11] MEDS: Lactated Ringers 1,000 ML 15 ML IV ×2 (07:08→10:28)
[2022-11-11 07:36] LABS: Bedside Glucose 121 mg/dL (74-106)
--- NOTE | 2022-11-11 07:52 | HP.PCM_ITS ---
HPI - General HPI Narrative JOSH GODWIN, is a 62 F who presents for right arthroscopy and debridement lateral epicondylitis. No changes to history and physical exam. Patient had number of questions answered them including postoperative pain control regime narcotic counseling and postoperative recovery sling for comfort early range of motion follow-up in the office in 2 days time keep the incision clean and dry. They are here with Justin - I will talk to them after the surgery as well. Marked the right elbow no further questions or concerns. : [id number] Acct: [id number] Name:? JOSH GODWIN Rep #: [id number] : 1960 ? ? Provider: Dr. Elias Bo MD Age/Sex:? 62/F ? ? [place] [facility] [place]: Signed Intake Vital Signs ? 09/14/2312:50 Height 5 ft 4 in Intake Visit Reasons:?RIGHT ELBOW Chief Complaint: right elbow Accompanied by: Self Is patient in pain?: Yes Pain scale (1-10): 6 Allergies cephalexin monohydrate [From Keflex] Allergy (Verified 06/24/22 14:24) Rashomeprazole [From Prilosec] Allergy (Verified 06/24/22 14:24) Unknownomeprazole magnesium [From Prilosec] Allergy (Verified 06/24/22 14:24) UnknownPenicillins Allergy (Verified 06/24/22 14:24) Rash Medications amitriptyline 50 mg tablet 75 mg PO QHS 10/14/17 [History Confirmed 09/14/22] tramadol 50 mg tablet 50 mg PO DAILY 08/24/18 [History Confirmed 09/14/22] aspirin 81 mg tablet,delayed release 81 mg PO DAILY 01/25/20 [History Confirmed 09/14/22] cholecalciferol (vitamin D3) 125 mcg (5,000 unit) capsule 125 mcg PO DAILY 06/11/22 [History Confirmed 09/14/22] docusate sodium 100 mg capsule (Colace) 100 mg PO BID 06/11/22 [History Confirmed 09/14/22] esomeprazole magnesium 40 mg capsule,delayed release 40 mg PO TID 06/11/22 [History Confirmed 09/14/22] gabapentin 100 mg capsule 300 mg PO TID 06/11/22 [History Confirmed 09/14/22] hydroxyzine HCl 25 mg tablet tablet PO 06/11/22 [History Confirmed 09/14/22] levothyroxine 50 mcg tablet (Synthroid) tablet PO 06/11/22 [History Confirmed 09/14/22] melatonin 10 mg capsule 10 mg PO HS PRN 06/11/22 [History Confirmed 09/14/22] meloxicam 15 mg tablet tablet PO 06/11/22 [History Confirmed 09/14/22] multivit with pggtkidm-buam-FC-lutein 8 mg iron-400 mcg-300 mcg tablet (Centrum Silver Women) 1 tab PO DAILY 06/11/22 [History Confirmed 09/14/22] potassium citrate 99 mg capsule 99 mg PO QDAY 06/11/22 [History Confirmed 09/14/22] ascorbate calcium (vitamin C) 500 mg tablet 500 mg PO DAILY 09/14/22 [History Confirmed 09/14/22] losartan 25 mg tablet 25 mg PO DAILY 09/14/22 [History Confirmed 09/14/22] PFSH Medical History?(Updated 09/14/22 @ 13:58 by Elias Bo MD) Arthritis Back pain Diabetes Fatigue Fibromyalgia Headache Hypertension Knee pain Right lateral epicondylitis Shoulder pain stomach surgery Surgical History? History of bunionectomy History of cholecystectomy History of colon surgery History of elbow surgery History of gastric bypass History of laparoscopic adjustable gastric banding History of shoulder surgery History of tonsillectomy History of total abdominal hysterectomy Family History? Father Myocardial infarction Cancer Hypertension COPD (chronic obstructive pulmonary disease)Mother Cancer ?? ? ovarian Heart disease Myocardial infarctionSister Asthma Breast cancerBrother Hypertension Social History? Smoking Status:? Former smoker alcohol intake:? never HPI RIGHT ELBOW Details: Parts of this documentation were recorded by a scribe, this documentation accurately reflects the service provided and the decisions made by me, Dr. Elias Bo MD 09/14/22 2507. JOSH GODWIN is a 62 year old F here today for? right elbow pain ... 4 months history right elbow pain, no trauma, lateral side, sometimes down the arm and sometimes up, RHD. 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 Level of the pain is 6/10. Some stabbing at wears the band - or on the whole elbow. Had a cortisone injection in may lasted about 6 weeks and pain came. Had golfers elbow - had a surgery in 2013. PT - 4 weeks and at home - July. Aggravated by lifting jug of mild in pronation, drinks a [employer] energy. Ortho Exam General General: Yes no acute distress Neurologic: Yes alert and Yes oriented x3 Psychologic: Yes reasonable and appropriate Right Elbow Skin/Wound: Yes CDI, No eccymosis, No erythema and No Swelling ROM: Yes Flexion 0-140, Supination 0-90 and Pronation 0-80 Test: No Valgus Stress Test, No Varus Stress Test, Yes TTP Medial Epicondyle, Yes TTP Lateral Epicondyle, Yes Pain w/ resist wrist ext, No Pain w/ resist wrist flex, Yes Pain w/ resist pronation, Yes Pain w/ resist 3rd dig ext, No Thenar Atrophy, No Ulnar Nerve Subluxation, No Thenar Atrophy and No Hypothenar Atrophy Sensation: Radial: I, Ulnar: I and Median: I Motor: Elbow Extension: 5, Elbow Flexion: 5, EPL: 5, FDP-2: 5 and 1st Dorsal Interosseous: 5 Supplemental Info MRI from 08/18/2022, right elbow - extensor tendon tear detailed above may manifest clinically as lateral epicondylitis mild soft tissue swelling laterally.? Low to intermediate grade common extensor origin tear centered along the extensor carpi radialis previous 25% remaining muscles are unremarkable.? Remaining tendons are unremarkable.? No acute fracture no acute OCD. Coding Level of Care Code Off vis,new,level 3 Diagnoses Right lateral epicondylitis? M77.11 Assessment and Plan Assessment and Plan (1) Right lateral epicondylitis: ?Status:?Acute ?Plan: 62-year-old female with right elbow lateral epicondylitis both clinically as well as subjective symptoms and MRI evidence.? She has tried extensive conservative management including physical therapy and cortisone injections.? We also talked about PRP (declined this) she has tried bracing as well.? She has had a trial of now 4 months of nonoperative management and wishes to proceed with surgical treatment of this.? We discussed the pros cons risk benefits of debridement both open and arthroscopic.? She would like to go ahead with right elbow arthroscopy and debridement lateral epicondylitis.? She would like to have this around the time of having a hernia surgery as well I would not recommend back to back general anesthetics but would recommend that she check with the other surgeon to ensure that an appropriate amount of time between the surgeries. Will get the clearance faxed over (sent a request to [facility]) that she is getting for the hernia surgery. Pros and cons risks and benefits were discussed with the patient including but not limited to infection (incr with DM but patient states controlled and on no meds), pain, stiffness, bleeding, damage to surrounding structures, neurovascular injury, recurrence or retear, failure or wear of hardware or fixation, instability, fracture, deep vein thrombosis and pulmonary embolism, anesthetic risks, , patient dissatisfaction, need for further surgery and other risks.? Patient understood and wished to proceed with surgery, and signed the informed consent documentation. [facility] Medical History (Updated 11/04/22 @ 10:46 by Melody Cavazos) Anxiety Arthritis Back pain CPAP (continuous positive airway pressure) dependence Diabetes Fatigue Fibromyalgia Former smoker GERD (gastroesophageal reflux disease) Headache High cholesterol History of inguinal hernia Hypertension Knee pain Migraine headache Right lateral epicondylitis Shoulder pain Sleep apnea stomach surgery Thyroid disease Wears dentures Wears glasses Home Medications amitriptyline 50 mg tablet 75 mg PO QHS 10/14/17 [History Last Taken Unknown] tramadol 50 mg tablet 50 mg PO DAILY 08/24/18 [History Last Taken Unknown] aspirin 81 mg tablet,delayed release 81 mg PO DAILY 01/25/20 [History Last Taken Unknown] cholecalciferol (vitamin D3) 125 mcg (5,000 unit) capsule 125 mcg PO DAILY 06/11/22 [History Last Taken Unknown] docusate sodium 100 mg capsule (Colace) 100 mg PO BID 06/11/22 [History Last Taken Unknown] esomeprazole magnesium 40 mg capsule,delayed release 40 mg PO TID 06/11/22 [History Last Taken 11/11/22 05:00] gabapentin 100 mg capsule 300 mg PO TID 06/11/22 [History Last Taken Unknown] hydroxyzine HCl 25 mg tablet 1 tablet PO DAILY 06/11/22 [History Last Taken Unknown] levothyroxine 50 mcg tablet (Synthroid) 1 tablet PO DAILY 06/11/22 [History Last Taken 11/11/22 05:00] melatonin 10 mg capsule 10 mg PO HS PRN Sleep 06/11/22 [History Last Taken Unknown] meloxicam 15 mg tablet 1 tablet PO DAILY 06/11/22 [History Last Taken Unknown] multivit with qwdzltnu-apqs-MD-lutein 8 mg iron-400 mcg-300 mcg tablet (Centrum Silver Women) 1 tab PO DAILY 06/11/22 [History Last Taken Unknown] potassium citrate 99 mg capsule 99 mg PO QDAY 06/11/22 [History Last Taken Unknown] ascorbate calcium (vitamin C) 500 mg tablet 500 mg PO DAILY 09/14/22 [History Last Taken Unknown] losartan 25 mg tablet 25 mg PO DAILY 09/14/22 [History Last Taken 11/11/22 05:00] Allergy/AdvReac Type Severity Reaction Status Date / Time cephalexin monohydrate Allergy Rash Verified 11/11/22 06:47 [From Keflex] omeprazole [From Prilosec] Allergy Unknown Verified 11/11/22 06:47 omeprazole magnesium Allergy Unknown Verified 11/11/22 06:47 [From Prilosec] Penicillins Allergy Rash Verified 11/11/22 06:47 Family History Father Myocardial infarction Cancer Hypertension COPD (chronic obstructive pulmonary disease) Mother Cancer ovarian Heart disease Myocardial infarction Sister Asthma Breast cancer Brother Hypertension Surgical History History of bunionectomy History of cholecystectomy History of colon surgery History of elbow surgery History of gastric bypass History of laparoscopic adjustable gastric banding History of shoulder surgery History of tonsillectomy History of total abdominal hysterectomy Social History Smoking Status: Former smoker alcohol intake: never Vital Signs Vital Signs Vital Signs: 11/11/22 06:48 11/11/22 06:49 Temperature 97.9 F Temperature Source Temporal Pulse Rate 74 Respiratory Rate 18 Respiratory Pattern Normal Blood Pressure 156/88 H Blood Pressure Mean 110 Blood Pressure Source Monitor Blood Pressure Position Semi-Fowlers Blood Pressure Location Left Arm Pulse Ox 98 Oxygen Delivery Method Room Air Weight Weight: 194 lb Body Mass Index (BMI) 33.3 Results Lab / Micro Data Labs: Laboratory Results - last 24 hr 11/11/22 06:54: POC Glucose 121 H
[2022-11-11] MEDS: Clindamycin 900 MG/50 ML BAG 75 MG IV (08:09)
[2022-11-11] MEDS: Epinephrine (1 mg/ml) 1 MG/ML VIAL (09:20)
[2022-11-11] MEDS: Mupirocin Ointment 22gm Tube 1 APPLIC (09:21)
--- NOTE | 2022-11-11 09:35 | DCINST_ITS ---
Discharge Instructions Diet Discharge Diet: No restrictions Activity Ice area for (Minutes): 10 Lifting Restrictions: ROM as tolerated Keep extremity elevated above heart level: Operative Extremity Dressing / Incision Call your doctor if your incision/area has: Continuous Slow Oozing, Sudden Increased Bleeding, Increased Pain/ Swelling, Increased Redness, Foul Smelling Discharge and Swelling at the incision site Remove Dressing in: leave in place till F/U Follow Up Care Please Follow Up With: Elias Bo MD When: 2 days Test Results: Test results from this visit will be discussed in further detail at your follow- up appointment, if applicable. Discharge Plan Admission Attending Provider: Elias Bo Primary Care Provider: Amelia Baum Discharge Orders/Prescriptions Prescriptions: No Action aspirin 81 mg tablet,delayed release (DR/EC) 81 mg PO DAILY gabapentin 100 mg capsule 300 mg PO TID esomeprazole magnesium 40 mg capsule,delayed release(DR/EC) 40 mg PO TID hydroxyzine HCl 25 mg tablet 1 tablet PO DAILY meloxicam 15 mg tablet 1 tablet PO DAILY levothyroxine [Synthroid] 50 mcg tablet 1 tablet PO DAILY cholecalciferol (vitamin D3) 125 mcg (5,000 unit) capsule 125 mcg PO DAILY Centrum Silver Women 8 mg iron-400 mcg-300 mcg tablet 1 tab PO DAILY docusate sodium [Colace] 100 mg capsule 100 mg PO BID melatonin 10 mg capsule 10 mg PO HS PRN (Reason: Sleep) potassium citrate 99 mg capsule 99 mg PO QDAY ascorbate calcium (vitamin C) 500 mg tablet 500 mg PO DAILY losartan 25 mg tablet 25 mg PO DAILY amitriptyline 50 MG tablet 75 mg PO QHS tramadol 50 tablet 50 mg PO DAILY Referrals / Follow Up: Amelia Baum MD [Primary Care Provider] - Elias Bo MD [Med Staff - Active Staff] - Disposition Disposition (needs filled in before D/C Order can be placed): Home, Self Care
--- NOTE | 2022-11-11 09:39 | PCM.OPRPT ---
Problems Associated Problem List Diagnoses (1) Right lateral epicondylitis: Report of Operation Date of Procedure: 11/11/22 Pre-Operative Diagnosis: Right elbow lateral epicondylitis Post-Operative Diagnosis: Same Surgery/Procedure Performed:: Right elbow arthroscopy debridement lateral epicondylitis Surgeon: Elias Bo Type of Anesthesia: Block,Axillary and General Anesthesiologist: Kirit Toussaint Estimated Blood Loss (mL): 10 Description of Procedure: Brought to the operating room theater. Placed supine on the table. General anesthesia induced. Patient had a preoperative block before the surgery. Clindamycin 900 mg IV given prior to the start of the procedure for prophylaxis due to cephalexin allergy. Patient transferred right side up lateral decubitus beanbag positioner. All bony prominences were padded axillary roll used. SCDs on legs. Arthrex trimano positioner used the patient's right side left arm well arm franklin, 24 tourniquet appropriately padded. Upper extremity prepped and draped in the usual sterile fashion with chlorhexidine-based prep solution lying over 3 minutes drying time prior to draping. Preoperative timeout performed to confirm the site patient and the surgery. Began by using an sterile eshmar exsanguinate the limb inflating the tourniquet to 250 mmHg. Used 20 cc normal saline to insufflate the joint through the abnormal soft spot interval. Made proximal anterolateral and anteromedial arthroscopy portals. 2 cm proximal and 1 cm anterior to the lateral and medial intermuscular septum. Examined the full intra-articular extent of the anterior compartment of the joint. No loose bodies. Minor amount of fraying at the capitellum gently debrided only type I changes otherwise the cartilage appeared normal and healthy. There is little bit of extraneous soft tissue just anterior to the coronoid again gently debrided. I excised then the triangular shaped tissue staying above the equator of the radial head the undersurface of the ECRB tendon into the muscle belly was showing as well as some gentle debridement at the lateral epicondyle itself. Pictures were taken and saved onto the system throughout the case. [place]ult inflow was used low-pressure environment. Case terminated tourniquet let down. Debrided and joint thoroughly irrigated. Closed with 4-0 nylon sutures. Antibiotic ointment followed by Adaptic 4 x 4 gauze ABD dressings and loosely wrapped 4 inch Ivan with a sling for the upper extremity. Patient transferred off the operating table woken up from the general anesthetic and taken to postanesthetic care unit in stable condition. All sponge needle instrument counts were correct no complications. Plan for the patient discharged home according to day surgery criteria follow-up in the office in 2 days time. Complications none Admit VTE Documentation VTE Present on Admission: No VTE Mechan Device Prophylaxis: SCD's VTE Pharm Prophylaxis ordered?: No Reason prophylaxis not ordered:: Treatment Not Indicated
--- NOTE | 2022-11-11 09:46 | DCINST_ITS ---
Discharge Instructions Diet Discharge Diet: No restrictions Activity Ice area for (Minutes): 10 Keep extremity elevated above heart level: Operative Extremity Dressing / Incision Call your doctor if your incision/area has: Continuous Slow Oozing, Sudden Increased Bleeding, Increased Pain/ Swelling, Increased Redness, Foul Smelling Discharge and Swelling at the incision site Follow Up Care Please Follow Up With: Elias Bo MD Test Results: Test results from this visit will be discussed in further detail at your follow- up appointment, if applicable. Discharge Plan Admission Attending Provider: Elias Bo Primary Care Provider: Amelia Baum Discharge Orders/Prescriptions Prescriptions: New oxycodone-acetaminophen 5-325 mg tablet 1 tab PO Q6H MDD 6 PRN (Reason: pain) 3 Days Qty: 14 0RF No Action aspirin 81 mg tablet,delayed release (DR/EC) 81 mg PO DAILY gabapentin 100 mg capsule 300 mg PO TID esomeprazole magnesium 40 mg capsule,delayed release(DR/EC) 40 mg PO TID hydroxyzine HCl 25 mg tablet 1 tablet PO DAILY meloxicam 15 mg tablet 1 tablet PO DAILY levothyroxine [Synthroid] 50 mcg tablet 1 tablet PO DAILY cholecalciferol (vitamin D3) 125 mcg (5,000 unit) capsule 125 mcg PO DAILY Centrum Silver Women 8 mg iron-400 mcg-300 mcg tablet 1 tab PO DAILY docusate sodium [Colace] 100 mg capsule 100 mg PO BID melatonin 10 mg capsule 10 mg PO HS PRN (Reason: Sleep) potassium citrate 99 mg capsule 99 mg PO QDAY ascorbate calcium (vitamin C) 500 mg tablet 500 mg PO DAILY losartan 25 mg tablet 25 mg PO DAILY amitriptyline 50 MG tablet 75 mg PO QHS tramadol 50 tablet 50 mg PO DAILY Referrals / Follow Up: Amelia Baum MD [Primary Care Provider] - Elias Bo MD [Med Staff - Active Staff] - Disposition Disposition (needs filled in before D/C Order can be placed): Home, Self Care
[2022-11-11 09:48] VITALS: BP 137/91; BP 156/88; PULSE 92; RESP 18; TEMP 36.3; O2SAT 96
[2022-11-11 10:00] VITALS: BP 146/65; BP 156/88; PULSE 62; RESP 16; O2SAT 100
[2022-11-11 10:15] VITALS: BP 130/70; BP 156/88; PULSE 62; RESP 16; O2SAT 97
[2022-11-11 10:15] LABS: Bedside Glucose 133 mg/dL (74-106)
[2022-11-11 10:24] VITALS: BP 133/59; BP 156/88; PULSE 60; RESP 16; TEMP 36.4; O2SAT 98
[2022-11-11 11:05] VITALS: BP 156/88
== END 2022-11-11 11:07 | disposition home or self-care (01) ==
LOC: SDC 06:20 → AC 06:22
PROVIDERS: PCP Family Medicine; Referring Provider Orthopaedic Surgery Sports Medicine; Visit Provider Orthopaedic Surgery Sports Medicine
PROC: (CPT 29830; principal; 2022-11-11 07:45)
DX: M77.11 Lateral epicondylitis, right elbow (principal); E11.9 Type 2 diabetes mellitus without complications; E78.00 Pure hypercholesterolemia, unspecified; M79.7 Fibromyalgia; I10 Essential (primary) hypertension; E03.9 Hypothyroidism, unspecified; Z79.82 Long term (current) use of aspirin; Z79.899 Other long term (current) drug therapy; Z87.891 Personal history of nicotine dependence
CPT/HCPCS: 29837; 01740; 64417; 82962; J7120; J2405

== ENCOUNTER → 2023-02-18 | Outpatient (CLI) | payer BC, SELFPAY ==
[2023-02-18 17:38] LABS: Absolute Lymphocyte Count 2.14 X10^3/uL (0.83-4.51); Absolute Neutrophil Count 2.8 X10^3/uL (2.0-7.7); Basophil# 0.03 X10^3/uL; Basophil% 0.5 % (0-1); Eosinophils% 1.8 % (0-5); Hematocrit 38.4 % (37-47); Hemoglobin 12.1 g/dL (12.0-15.0); Lymphocyte # 2.14 X10^3/ul (0.83-4.51); Lymphocyte % 37.5 % (19-41); Mean Corp Hgb Conc 31.5 g/dL (32-36); Mean Corpuscular Hgb 27.9 pg (27.0-32.0); Mean Corpuscular Volume 88.5 fL (81-99); Mean Platelet Vol. 10.9 fl (6.2-12.0); Monocyte# 0.58 X10^3/uL; Monocyte% 10.2 % (0-10); NRBC Flagged by Analyzer 0 % (0-5); Neutrophil # 2.84 X10^3/uL (2.7-7.7); Neutrophil % 49.8 % (47-70); Platelet Count 188 K/mm3 (150-450); RBC Distribution Width CV 13.2 % (11.6-14.6); RBC Distribution Width SD 42.7 fl (35.1-43.9); Red Blood Count 4.34 M/mm3 (4.2-5.4); White Blood Count 5.7 K/mm3 (4.4-11.0)
[2023-02-18 18:14] LABS: ALB/GLOB Ratio 1.2 RATIO (0.9-2.4); AST(SGOT) 39 U/L (15-37); Alanine Aminotransfer ALT/SGPT 60 U/L (13-56); Albumin, Serum 3.8 g/dL (3.2-5.0); Alkaline Phosphatase 78 U/L (45-117); Anion Gap 7 (5-15); BUN 21 mg/dL (7-18); BUN/Creat Ratio 18.1 RATIO (10-20); Calcium,Total 9.3 mg/dL (8.5-10.1); Chloride 102 mmol/L (98-107); Creatinine, Serum 1.16 mg/dL (0.55-1.02); EST Glomerular Filtration Rate 50 mL/min (>60); Est Glom Filt Rate - Afr Amer 61 mL/min (>60); Globulin 3.1 g/dL (2.2-4.2); Glucose 136 mg/dL (74-106); Potassium 3.4 mmol/L (3.5-5.1); Protein, Total 6.9 g/dL (6.4-8.2); Sodium Level 140 mmol/L (136-145); Thyroid Stim Hormone (TSH) 2.29 uIU/mL (0.358-3.74)
== END | disposition home or self-care (01) ==
LOC: BFHLAB 16:23
PROVIDERS: PCP Family Medicine; Referring Provider Family Medicine; Visit Provider Family Medicine
DX: I10 Essential (primary) hypertension (principal); E03.9 Hypothyroidism, unspecified
CPT/HCPCS: 36415; 80053; 84443; 85025

== ENCOUNTER → 2023-06-04 | Outpatient (CLI) | payer BC, SELFPAY ==
[2023-06-04 08:12] LABS: Absolute Lymphocyte Count 1.36 X10^3/uL (0.83-4.51); Absolute Neutrophil Count 3.1 X10^3/uL (2.0-7.7); Basophil# 0.04 X10^3/uL; Basophil% 0.8 % (0-1); Eosinophil# 0.17 X10^3/uL; Eosinophils% 3.3 % (0-5); Hematocrit 42.6 % (37-47); Hemoglobin 13.4 g/dL (12.0-15.0); Lymphocyte # 1.36 X10^3/ul (0.83-4.51); Lymphocyte % 26.5 % (19-41); Mean Corp Hgb Conc 31.5 g/dL (32-36); Mean Corpuscular Hgb 27.5 pg (27.0-32.0); Mean Corpuscular Volume 87.5 fL (81-99); Mean Platelet Vol. 10.3 fl (6.2-12.0); Monocyte# 0.47 X10^3/uL; Monocyte% 9.2 % (0-10); NRBC Flagged by Analyzer 0 % (0-5); Neutrophil # 3.07 X10^3/uL (2.7-7.7); Neutrophil % 59.8 % (47-70); Platelet Count 193 K/mm3 (150-450); RBC Distribution Width CV 13.7 % (11.6-14.6); RBC Distribution Width SD 44.1 fl (35.1-43.9); Red Blood Count 4.87 M/mm3 (4.2-5.4); White Blood Count 5.1 K/mm3 (4.4-11.0)
[2023-06-04 08:32] LABS: Vitamin D,25 Hydroxy 41.4 ng/mL
[2023-06-04 08:37] LABS: AST(SGOT) 25 U/L (15-37); Alanine Aminotransfer ALT/SGPT 39 U/L (13-56); Albumin, Serum 3.5 g/dL (3.2-5.0); Alkaline Phosphatase 80 U/L (45-117); Anion Gap 5 (5-15); BUN 23 mg/dL (7-18); BUN/Creat Ratio 19.3 RATIO (10-20); Calcium,Total 9.1 mg/dL (8.5-10.1); Chloride 101 mmol/L (98-107); Cholesterol 209 mg/dL (200); Creatinine, Serum 1.19 mg/dL (0.55-1.02); EST Glomerular Filtration Rate 49 mL/min (>60); Est Glom Filt Rate - Afr Amer 59 mL/min (>60); Globulin 3.5 g/dL (2.2-4.2); Glucose 122 mg/dL (74-106); High Density Lipoprotein 54 mg/dL; Potassium 3.6 mmol/L (3.5-5.1); Sodium Level 138 mmol/L (136-145); Thyroid Stim Hormone (TSH) 2.39 uIU/mL (0.358-3.74); Triglycerides 142 mg/dL; Very Low Density Lipoprotein 28 mg/dL (5-40)
== END | disposition home or self-care (01) ==
PROVIDERS: PCP Family Medicine; Referring Provider Family Medicine; Visit Provider Family Medicine
DX: Z00.00 Encounter for general adult medical examination without abnormal findings (principal); E03.9 Hypothyroidism, unspecified; I10 Essential (primary) hypertension; R73.01 Impaired fasting glucose
CPT/HCPCS: 36415; 80053; 80061; 82306; 84443; 85025

== ENCOUNTER → 2023-11-26 | Outpatient (CLI) | payer BC, SELFPAY ==
--- NOTE | 2023-11-26 14:43 | BI_ITS ---
MAMMOGRAPHY - BILATERAL SCREENING REASON FOR EXAM: Female, 63 years old. Routine annual screening examination. PERTINENT HISTORY: Sister with breast cancer. TECHNIQUE: Digital bilateral breast naveed (3D mammographic acquisition) in the CC and MLO projections. 2-D mediolateral oblique (MLO) and craniocaudad (CC) views of both breasts were obtained. CAD: Full Field Digital Mammography with Computer Added Detection was performed. COMPARISON: Comparison is made with prior study dated June 18, 2022 and April 13, 2018. FINDINGS: Breast Composition: The breasts are heterogeneously dense, which may obscure small masses. There are no dominant masses or suspicious calcifications. No other significant abnormalities are identified. There has been no significant change since the prior study. BI/SCRN MAMM (CAD)W/NAVEED BILAT IMPRESSION: Stable bilateral screening mammogram. Yearly follow-up mammogram recommended. (A) ASSESSMENT CATEGORY: BIRADS Category 1: Negative. A letter regarding these results will be sent to the patient by the facility within 30 days. Approximately 10% of breast cancers are not detected by mammography. A normal mammogram should not delay biopsy of a clinically suspicious abnormality. [id number] Electronically Signed: Johny Manzano MD at 8:59 EDT ,
== END | disposition home or self-care (01) ==
LOC: OPBI 14:42
PROVIDERS: PCP Family Medicine; Referring Provider Family Medicine; Visit Provider Family Medicine
DX: Z12.31 Encounter for screening mammogram for malignant neoplasm of breast (principal)
CPT/HCPCS: 77063; 77067

== ENCOUNTER 2024-05-01 22:20 | Emergency (ER) | payer MEDICARE, SELFPAY ==
[2024-05-01 22:20] VITALS: BP 156/102; PULSE 112; RESP 18; TEMP 36.6; O2SAT 99; BMI 32.2
--- NOTE | 2024-05-01 22:36 | RAD_ITS ---
EXAM: XR LEFT KNEE COMPLETE, 4 OR MORE VIEWS CLINICAL INDICATION: FALL TECHNIQUE: Four or more views of the left knee. COMPARISON: Left knee 07/22/2020 FINDINGS: BONES/JOINTS: Mild degenerative changes of the medial femorotibial compartment. No acute fracture. No subluxation. Normal alignment. No sclerotic or destructive changes observed. SOFT TISSUES: Prepatellar soft tissue swelling. No radiopaque foreign body. RAD/Knee 4 or More Views IMPRESSION: Prepatellar soft tissue swelling. No acute osseous injuries. Electronically Signed: Fernandez Monroy MD at 23:24 EDT ,
--- NOTE | 2024-05-01 23:44 | EDS_ITS ---
HPI HPI - Fall History of Present Illness Chief Complaint: Fall PFSH PFSH Medical History Wears glasses Wears dentures Anxiety Thyroid disease High cholesterol Migraine headache History of inguinal hernia GERD (gastroesophageal reflux disease) CPAP (continuous positive airway pressure) dependence Sleep apnea Former smoker Right lateral epicondylitis Fibromyalgia stomach surgery Back pain Knee pain Headache Fatigue Diabetes Shoulder pain Arthritis Hypertension Home Medications ?Medication ?Instructions ?Recorded ?Last Taken ?Type amitriptyline 50 mg tablet 75 mg PO QHS 10/14/17 Unknown History tramadol 50 mg tablet 50 mg PO DAILY 08/24/18 Unknown History aspirin 81 mg tablet,delayed 81 mg PO DAILY 01/25/20 Unknown History release cholecalciferol (vitamin D3) 125 125 mcg PO DAILY 06/11/22 Unknown History mcg (5,000 unit) capsule docusate sodium 100 mg capsule 100 mg PO BID 06/11/22 Unknown History (Colace) esomeprazole magnesium 40 mg 40 mg PO TID 06/11/22 11/11/22 05:00 History capsule,delayed release gabapentin 100 mg capsule 300 mg PO TID 06/11/22 Unknown History hydroxyzine HCl 25 mg tablet 1 tablet PO DAILY 06/11/22 Unknown History levothyroxine 50 mcg tablet 1 tablet PO DAILY 06/11/22 11/11/22 05:00 History (Synthroid) melatonin 10 mg capsule 10 mg PO HS PRN Sleep 06/11/22 Unknown History meloxicam 15 mg tablet 1 tablet PO DAILY 06/11/22 Unknown History [id number] 8 mg-folic 400 1 tab PO DAILY 06/11/22 Unknown History mcg-K 50 mcg-lutein 300 mcg tablet (Centrum Silver Women) ascorbate calcium (vitamin C) 500 500 mg PO DAILY 09/14/22 Unknown History mg tablet losartan 25 mg tablet 25 mg PO DAILY 09/14/22 11/11/22 05:00 History Allergy/AdvReac Type Severity Reaction Status Date / Time cephalexin monohydrate (From Allergy Rash Verified 05/01/24 22:23 Keflex) omeprazole (From Prilosec) Allergy Unknown Verified 05/01/24 22:23 omeprazole magnesium (From Allergy Unknown Verified 05/01/24 22:23 Prilosec) Penicillins Allergy Rash Verified 05/01/24 22:23 Family History Father Myocardial infarction Cancer Hypertension COPD (chronic obstructive pulmonary disease) Mother Cancer ovarian Heart disease Myocardial infarction Sister Asthma Breast cancer Brother Hypertension Surgical History History of laparoscopic adjustable gastric banding History of total abdominal hysterectomy History of tonsillectomy History of elbow surgery History of shoulder surgery History of bunionectomy History of gastric bypass History of colon surgery History of cholecystectomy Social History Smoking Status: Former smoker alcohol intake: never EXAM Physical Exam Const Vital Signs: 05/01/24 22:20 05/01/24 23:38 Temperature 98 F Temperature Source Oral Pulse Rate 112 H Respiratory Rate 18 Respiratory Effort Normal Respiratory Depth Normal Respiratory Pattern Normal Blood Pressure 156/102 H Blood Pressure Mean 120 Pulse Ox 99 Oxygen Delivery Method Room Air Room Air MDM MDM MDM Narrative Medical decision making narrative: HISTORY OF PRESENT ILLNESS: 64-year-old female presents with r left knee pain. States she had mechanical fall from standing just prior to arrival. She further states she is severe left knee pain. REVIEW OF SYSTEMS: Pertinent positives: Left knee pain Pertinent negatives: Numbness tingling or loss of sensation PHYSICAL EXAM: Nursing triage notes reviewed, Vital signs reviewed Constitutional: please see [facility] Primary Survey Airway: Intact Breathing: Bilateral breath sounds Circulation: Palpable bilateral femorals, Palpable bilateral radial, Palpable bilateral DP and Palpable bilateral PT Disability / Spine precautions GCS Score: Eye Openin Verbal Response: 5 Motor Response: 6 Secondary Survey Constitutional: Please see [facility] Head: Atraumatic, Midface stable, NO jaw malocclusion, No Cephalohematoma, and No Lacerations noted Eye: Pupils equal round and reactive to light, Extraocular muscles intact and No periorbital ecchymosis or stepoff, no evidence of entrapment ENT: Oropharynx clear, no lacerations, no hemotympanum, no raccoon eyes or mcdonald sign Cervical spine / Neck: No cervical spine bony tenderness, crepitance, or stepoff deformity Trachea midline Lungs: Clear to auscultation, No asymmetric rise and No crepitus, no flail chest Cardiac: Regular rate and rhythm and No murmurs Abdomen: Soft, Nontender and No rebound Pelvis: Pelvis stable to compression : No evidence of genital injury Back: No midline bony tenderness to thoracic/lumbar/sacral spines Neuro: At b intact sensation L1-S1 dermatomal distributions. Intact 5/5 strength in hip flexion (T12-L3). Knee extension (L2-L4). Ankle dorsiflexion (L4-L5). Ankle plantar flexion (S1). Great toe extension (L5). 2+ patellar and Achilles DTRs. Extremities: TTP over left knee, palpable hematoma noted over the left knee, intact flexion extension left knee, intact quadriceps tendon complex, compartments are soft. Psych: Normal affect Nursing triage notes reviewed, Vital signs reviewed MEDICAL DECISION MAKING: Chief Complaint: Knee pain External records reviewed: Reviewed prior imaging studies, current medications MDM Narrative: Patient was initially tachycardic rate of 112 otherwise afebrile and nontoxic- appearing. Exam with TTP over left knee. I considered the following differential diagnosis: Knee fracture, dislocation, patellar dislocation, quad tendon rupture, knee contusion Secondary to high volume and high acuity x-ray was obtained per protocol. ALL IMAGES (IF OBTAINED) HAVE BEEN PERSONALLY REVIEWED AND INTERPRETED BY MYSELF. X-ray left knee was read and reviewed person myself showed no evidence of obvious fracture dislocation, patellar dislocation. The synthesis of the patient's history, physical exam, imaging studies suggest knee contusion, attentionally some prepatellar bursitis. NSAID and Tylenol instructions were given, compression, rest ice elevation instructions were given. Strict return precautions were discussed The patient and/or family, caregivers express understanding. The patient and/or family, caregivers agrees with the plan. Shared decision making: I will have a discussion with the patient and or visitors regarding risk/benefits of further testing or admission. They will be made aware of of the risk/benefits inherent in this decision they will be given the opportunity to voice understanding. Total critical care time today provided was at least 0 minutes. This excludes separately billable procedures. Critical care time (if documented) is secondary to the patient having high probability of clinically significant/life threatening deterioration in the patient's condition which required my urgent intervention. Impression: 1. Acute knee pain 2. Left knee contusion Dispo: Discharge home This note was generated with [employer] dictation software. It may contain incorrect words, spelling, and punctuation that were not noted in review of the chart prior to signing. Radiography Diagnostic Testing: Clinical Impression(s) from Imaging Studies Knee X-Ray 05/01/24 22:36 IMPRESSION: Prepatellar soft tissue swelling. No acute osseous injuries. Electronically Signed: Fernandez Monroy MD at 23:24 EDT , Discharge Plan Triage Chief Complaint: Fall ED Provider: Micheal Lambert Dx/Rx/DC Orders Prescriptions: No Action aspirin 81 mg tablet,delayed release (DR/EC) 81 mg PO DAILY gabapentin 100 mg capsule 300 mg PO TID esomeprazole magnesium 40 mg capsule,delayed release(DR/EC) 40 mg PO TID hydroxyzine HCl 25 mg tablet 1 tablet PO DAILY meloxicam 15 mg tablet 1 tablet PO DAILY levothyroxine [Synthroid] 50 mcg tablet 1 tablet PO DAILY cholecalciferol (vitamin D3) 125 mcg (5,000 unit) capsule 125 mcg PO DAILY Centrum Silver Women 8 mg iron-400 mcg-300 mcg tablet 1 tab PO DAILY docusate sodium [Colace] 100 mg capsule 100 mg PO BID melatonin 10 mg capsule 10 mg PO HS PRN (Reason: Sleep) ascorbate calcium (vitamin C) 500 mg tablet 500 mg PO DAILY losartan 25 mg tablet 25 mg PO DAILY amitriptyline 50 MG tablet 75 mg PO QHS tramadol 50 tablet 50 mg PO DAILY Primary Care Provider: Amelia Baum Referrals: Amelia Baum MD [Primary Care Provider] - Print Language: Palauan
[2024-05-02 00:12] VITALS: BP 129/87; PULSE 76; RESP 16; TEMP 36.7; O2SAT 92
--- OUTSIDE RECORDS SUMMARY | 2024-05-02 00:15 | XMS RPT_ITS | CCD ---
Author Organization [facility] Care Team Providers Care Deputy Director Of Nursing Name Role Phone PATRICIOSCOTTIEMATHEUS Unavailable Unavailable KAMILLE MATHEUS Unavailable Unavailable LARA DEVI Unavailable Unavaila ble LARA DEVI Referring Unavailable LARA DEVI Attending Unavailable LARA DEVI Referring Unavailable LES DIAZ ([facility]) Attending Unavailable LES DIAZ (MARTHA) Referring Unavailable DAVID LALA Admitting Unavailable DAVID LALA Attending Unavailable Andrea Devi Primary Care Unavailable DAVID LALA Referring Unavailable Andrea Devi Primary Care Unavailable DAVID LALA Referring Unavailable Andrea Devi Primary Care Unavailable LACEY MARTIN Admitting UnavailLACEY Kowalski Attending UnavailMARIA ISABEL Harris Referring Unavailable ELIAS WEINBERG Primary Care Unavailable Nicanor Huynh Attending Unavailable DAVID LALA Attending Unavailable DAVID LALA Attending Unavailable DAVID LALA Attending Unavailable DAVID LALA Attending Unavailable Lara Devi Referring Unavaila ble DAVID LALA Admitting Unavailable DAVID LALA Attending Unavailable LARA DEVI Primary Care Unavailable DAVID LALA Admitting Unavailable DAVID LALA Attending Unavailable ELIAS WEINBERG Primary Care Unavailable DAVID LALA Procedure Practitioner Unavailab le DAVID LALA Admitting Unavailable DAVID LALA Attending Unavailable ELIAS WEINBERG Primary Care Unavailable TOBI ALCAZAR V Consulting Unavailable IRAIS PEREZ Consulting Unavailable CHACHA PURVIS Consulting Unavailable GERTRUDIS MIX Consulting Unavailable RAN PINEDA Consulting Unavailable CRISTHIAN LEIJA Consulting Unavailable SCOTTIE FERNÁNDEZURAG Consulting Unavailable BRIGID, KENDALL Consulting Unavailable CHIPASIXTODAVID Procedure Practitioner Unavailab PARAM Vega Procedure Practitioner Unavailab SAMMI Sanchez Procedure Practitioner Unava ilable EDYTA CHEN Procedure Practitioner Unava ilable CHLKRIS, DAVID Admitting Unavailable SIXTO LALATER Attending Unavailable ELIAS WEINBERG Primary Care Unavailable ARIANA, SIMÓN Consulting Unavailable EDYTA CHEN Consulting Unavailable PRADEEP, COLLEEN Consulting Unavailable BRIGID, KENDALL Consulting Unavailable CHLYSTA, DAVID Admitting Unavailable CHLYSTASIXTODAVID Attending Unavailable LARA DEVI Primary Care Unavailable ARIANA, SIMÓN Admitting Unavailable ARIANA, SIMÓN Attending Unavailable LARA DEVI Primary Care Unavailable CHLYSTA, DAVID Admitting Unavailable CHLYSTA, DAVID Attending Unavailable LARA DEVI Primary Care Unavailable CHLYSTA, DAVID Admitting Unavailable DAVID LALA Attending Unavailable LARA DEVI Primary Care Unavailable DEMIAN, SAMER Consulting Unavailable EDYTA CHEN Consulting Unavailable SHANTI CHOWDHURY Consulting Unavailable ELIAS WEINBERG MD Primary Care Physician David Lala MD Unavailable Elias Weinberg MD Primary Care Provider Amelia Baum MD Primary Care Provider ELIAS WEINBERG Primary Care Unavailable SHERYL CARRASCO Referring Unavailable ELIAS WEINBERG Primary Care Unavailable SHERYL CARRASCO Attending Unavailable PAUL BERGER Referring Unavailable ELIAS WEINBERG Primary Care Unavailable CHRIS ROMO Attending Unavailable ELIAS WEINBERG Primary Care Unavailable AMELIA BAUM Primary Care Unavailable PAUL BERGER Attending Unavailable JESSICA, NOCHRISTINE Referring Unavailable ELIAS WEINBERG Primary Care Unavailable JESSICA, NOAMAN Referring Unavailable ELIAS WEINBERG Primary Care Unavailable ALI, NOAMAN Admitting Unavailable ALICATRACHITAAMAN Attending Unavailable JESSICA, NOAMAN Referring Unavailable ELIAS WEINBERG Primary Care Unavailable Allergies Allergy Classification Reported Allergen(s) Allergy Type Date of Onset Reaction(s) Facility (12 sources) Aspirin; Translations: [ASPIRIN] Drug Allergy 04-17-20 05 [facility] Repository (10 sources) Bee; Translations: [BEES] Propensity to adverse reactions (disorder) 04-17-20 05 Anaphylaxis [facility] Repository (12 sources) Cephalexin; Translations: [CEPHALEXIN] Drug Allergy 04-17-20 05 COULD NOT GET BREATH [facility] Repository (12 sources) cyclobenzaprine; Translations: [CYCLOBENZAPRINE] Drug Allergy 01-31-20 08 Intolerance [facility] Repository (12 sources) Omeprazole; Translations: [OMEPRAZOLE] Drug Allergy 04-17-20 05 [facility] Repository Comment on above: CAN NOT REMEMBER (12 sources) Penicillin; Translations: [PENICILLIN G] Drug Allergy 04-17-20 05 HIVES, RASH [facility] Repository (1 source) bee venom; Translations: [bee venom (honey bee)] Propensity to adverse reactions (disorder) [facility] Repository (1 source) Cephalexin Drug Allergy [facility] Repository (1 source) cyclobenzaprine Drug Allergy [facility] Repository (1 source) Omeprazole Drug Allergy [facility] Repository (1 source) Penicillins Drug allergy (disorder) [facility] Repository (2 sources) Bee/Wasp/Ant venom Allergy to substance HIVES [facility] Medications Current Medications Medication Drug Class(es) Dates Sig (Normalized) Sig (Original) amitriptyline hydrochloride 75 mg oral tablet (9 sources) Tricyclic Antidepressant Start: 07-18-2021 amitriptyline 75 mg oral tablet Dose : 75 mg = 1 tab(s), Oral, qHS, 0 Refill(s) Start Date: 07/18/21 Status: Ordered Start: 08-12-2017 take 1 tablet by loretta th once daily at bedtime amitriptyline (ELAVIL) 50 mg tablet Indications: Fibromyalgia , Adjustment insomnia Take 1 tablet by mouth daily at bedtime. 90 tablet 3 08/12/2017 Active Comment on above: Take 1 tablet by loretta th daily at bedtime. Aspirin (9 sources) Platelet Aggregation Inhibitor, Nonsteroidal Anti-inflammatory Drug Start: 07-18-2021 aspirin 81 mg oral delayed release tablet Dose : 81 mg = 1 tab(s), Oral, Daily, 0 Refill(s) Start Date: 07/18/21 Status: Ordered Start: 01-25-2020 take 1 tablet by loretta th once daily aspirin, enteric coated (ASPIRIN, ENTERIC COATED) 81 mg EC tablet Take 1 tablet by mouth once daily. 0 01/25/2020 Active Comment on above: Take 1 tablet by loretta th once daily. [facility] oral tablet (2 sources) Start: 2021 take 1 tablet by mouth once daily [facility] oral tablet Dose = 1 tab(s), Oral, Daily, 0 Refill(s) Start Date: 07/18/21 Status: Ordered esomeprazole 40 mg oral delayed release capsule (2 sources) Start: 2021 esomeprazole 40 mg oral delayed release capsule Dose : 40 mg = 1 cap(s), Oral, qDayAC, 0 Refill(s) Start Date: 07/18/21 Status: Ordered hydroCHLOROthiazide 25 mg / losartan potassium 100 mg oral tablet (2 sources) Thiazide Diuretic, Angiotensin 2 Receptor Leana Start: 2021 take 1 tablet by mouth once daily hydrochlorothiazide -losartan 25-100 mg oral tablet Dose = 1 tab(s), Oral, qDay, # 30 tab(s), 0 Refill(s) Start Date: 07/18/21 Status: Ordered levothyroxine sodium 0.05 mg oral tablet (8 sources) l-Thyroxine Start: 2021 Synthroid 50 mcg (0.05 mg) oral tablet Dose : 50 mcg = 1 tab(s), Oral, qDayAC, 0 Refill(s) Start Date: 07/18/21 Status: Ordered Comment on above: Take 0.05 mg by mout h once daily. Potassium gluconate (2 sources) Start: 2021 potassium gluconate 595 mg (99 mg K+) oral tablet Dose : 595 mg = 1 tab(s), Oral, qDayM, 0 Refill(s) Start Date: 07/18/21 Status: Ordered psyllium 3400 mg powder for oral suspension (2 sources) Start: 2021 take 1.7 doses by mouth three times daily as needed for constipation Metamucil 3.4 g/5.2 g oral powder for reconstitution Dose : 1.7 gram(s) =, Oral, TID, PRN as needed for constipation Start Date: 07/18/21 Status: Ordered Vitamin D3 125 mcg (5000 intl units) oral capsule (2 sources) Start: 2021 Vitamin D3 125 mcg (5000 intl units) oral capsule Dose : 125 mcg = 1 cap(s), Oral, qDay, # 100 cap(s), 0 Refill(s) Start Date: 07/18/21 Status: Ordered Completed/Discontinued Medications Medication Drug Class(es) Dates Sig (Normalized) Sig (Original) Calcium Carbonate (7 sources) CALCIUM CARBONAT E (CALCIUM 500 ORAL) Take by mouth once daily. 0 Active Comment on above: Take by mouth once d aily. cholecalciferol 0.125 mg oral capsule (2 sources) Vitamin D Start: 06-11-2022 Cholecalciferol, Vitamin D3, 125 mcg (5,000 unit) cap Take by mouth. 0 06/11/2022 Active Comment on above: Take by mouth. docusate sodium 100 mg oral capsule (4 sources) Start: 07-18-2021 docusate sodium (COLACE) 100 mg capsule Take 100 mg by mouth. 0 07/18/2021 Active Comment on above: Take 100 mg by mouth . esomeprazole 40 mg delayed release oral capsule (2 sources) Proton Pump Inhibitor Start: 08-17-2022 esomeprazole (NEXIUM) 40 mg capsule once daily. 0 08/17/2022 Active Comment on above: once daily. gabapentin 300 mg oral capsule (9 sources) Anti-epileptic Agent Start: 06-09-2022 take 1 capsule by mouth three times daily gabapentin (NEURONTIN) 300 mg capsule Take 1 capsule by mouth three times daily. 0 06/09/2022 Active Start: 07-18-2021 gabapentin 300 mg oral capsule Dose : 300 mg = 1 cap(s), Oral, TID, # 270 cap(s), 0 Refill(s), 70.5 Start Date: 07/18/21 Status: Ordered Comment on above: Take 1 capsule by [facility] three times daily. hydrOXYzine hydrochloride 25 mg oral tablet (9 sources) Antihistamine Start: 07-18-19 take 1 tablet by mouth once daily hydrOXYzine HCl (ATARAX) 25 mg tablet Take 25 mg by mouth once daily. 0 07/18/2021 Active Comment on above: Take 25 mg by mouth once daily. losartan potassium 25 mg oral tablet (7 sources) Angiotensin 2 Receptor Leana Start: 08-12-19 18 take 1 tablet by mouth once daily losartan (COZAAR) 25 mg tablet Take 1 tablet by mouth once daily. 90 tablet 3 08/12/2017 Active Comment on above: Take 1 tablet by loretta th once daily. melatonin 10 mg oral capsule (4 sources) Start: 07-18-19 melatonin 10 mg cap Take 10 mg by mouth. 0 07/18/2021 Active Start: 07-18-2021 melatonin 10 m g oral tablet Dose : 10 mg = 1 tab(s), Oral, qHS, PRN as needed for insomnia, # 200 tab(s), 0 Refill(s) Start Date: 07/18/21 Status: Ordered Comment on above: Take 10 mg by mouth. meloxicam 15 mg oral tablet (7 sources) Nonsteroidal Anti-inflammatory Drug Start: 2021 take 1 tablet by mouth once daily meloxicam (MOBIC) 15 mg tablet Take 1 tablet by mouth once daily. 0 05/24/2022 Active Comment on above: Take 1 tablet by loretta once daily. methylPREDNISolone (6 sources) Corticosteroid Start: 2021 methylPREDNISolone (MEDROL DOSE-PACK) 4 mg Dose-Pack Take per package instructions. 1 tablet 0 03/03/2022 Active Comment on above: Take per package ins tructions. multivitamin tablet (7 sources) take 1 tablet by mouth once daily, then take 4 tablets by mouth once daily multivitamin tablet Take 1 tablet by mouth once daily. Taking 4 pills at once daily 0 Active Comment on above: Take 1 tablet by loretta once daily. Taking 4 pills at once daily oxyCODONE hydrochloride 5 mg oral tablet (1 source) Opioid Agonist Start: 2022 take 1 tablet by mouth every six hours as needed for pain oxyCODONE IR (ROXICODONE) 5 mg immediate release tablet Indications: S/P repair of ventral hernia Take 1 tablet by mouth every 6 hours as needed for pain. 40 tablet 0 09/25/2022 Active Comment on above: Take 1 tablet by loretta th every 6 hours as needed for pain. traMADol hydrochloride 50 mg oral tablet (9 sources) Opioid Agonist Start: 2022 take 1 tablet by mouth every eight hours as needed traMADol (ULTRAM) 50 mg tablet Take 50 mg by mouth every 8 hours as needed. 0 07/24/2022 Active Start: 07-18-2021 traMADol 50 mg oral tablet Dose : 50 mg = 1 tab(s), Oral, q8h, PRN for pain, # 12 tab(s), 0 Refill(s), 70.5 Start Date: 07/18/21 Status: Ordered Comment on above: Take 50 mg by mouth every 8 hours as needed. ursodiol 300 mg oral capsule (7 sources) Bile Acid Start: 11-25-2016 take 1 capsule by mouth twice daily ursodiol (ACTIGALL) 300 mg capsule Take 1 capsule by mouth twice daily. 180 capsule 0 11/25/2016 Active Comment on above: Take 1 capsule by [facility] twice daily. Problems Active Problems Problem Classification Problem Date Documented Da te Episodic/Chronic Abdominal pain (5 sources) Epigastric pain; Translations: [Epigastric pain] Onset: 8 09-24-2022 Episodic Acute and unspecified renal failure (1 source) Acute kidney failure, unspecified; Translations: [ACUTE KIDNEY FAILURE UNSPECIFIED] Onset: 9 Episodic Asthma (11 sources) Unspecified asthma, uncomplicated; Translations: [Mild persistent asthma] Onset: 3 02-21-2013 Chronic Bacterial infection; unspecified site (4 sources) Other specified bacterial agents as the cause of diseases classified elsewhere; Translations: [Other streptococcus as the cause of diseases classified elsewhere] Onset: 9 Episodic Cardiac dysrhythmias (1 source) Unspecified atrial fibrillation; Translations: [UNSPECIFIED ATRIAL FIBRILLATION] Onset: 9 Chronic Cardiac dysrhythmias (1 source) Tachycardia, unspecified; Translations: [TACHYCARDIA UNSPECIFIED] Onset: 9 Episodic Coagulation and hemorrhagic disorders (1 source) Thrombocytopenia, unspecified; Translations: [THROMBOCYTOPENIA UNSPECIFIED] Onset: 9 Chronic Deficiency and other anemia (1 source) Anemia, unspecified; Translations: [ANEMIA UNSPECIFIED] Onset: 9 Episodic Diabetes mellitus with complications (1 source) Type 2 diabetes mellitus with hypoglycemia without coma; Translations: [TYP 2 DM W/HYPOGLYCEMIA W/O COMA] Onset: 9 Chronic Diabetes mellitus with complications (1 source) Type 2 diabetes mellitus with diabetic neuropathy, unspecified; Translations: [TYPE 2 DM W/DIABETIC NEUROPATHY UNS] Onset: 9 Diabetes mellitus without complication (14 sources) Type 2 diabetes mellitus without complications; Translations: [Type 2 diabetes mellitus without complication] Onset: 1 Chronic Diseases of white blood cells (1 source) Other neutropenia; Translations: [OTHER NEUTROPENIA] Onset: 9 Chronic Disorders of lipid metabolism (20 sources) Mixed hyperlipidemia; Translations: [Hyperlipidemia, unspecified] Onset: 1 07-30-2015 Chronic Esophageal disorders (4 sources) Gastroesophageal reflux disease without esophagitis; Translations: [Gastro-esophageal reflux disease without esophagitis] Onset: 6 Chronic Essential hypertension (12 sources) Essential (primary) hypertension; Translations: [Essential hypertension] Onset: 1 07-30-2015 Chronic Fluid and electrolyte disorders (2 sources) Acidosis; Translations: [Dehydration] Onset: 9 Episodic Headache; including migraine (8 sources) Migraine, unspecified, not intractable, without status migrainosus; Translations: [Migraine without aura, not refractory ] Onset: 5 07-30-2015 Chronic Hepatitis (1 source) Acute viral hepatitis, unspecified; Translations: [ACUTE VIRAL HEPATITIS UNSPECIFIED] Onset: 9 Episodic Inflammatory diseases of female pelvic organs (1 source) Female pelvic inflammatory disease, unspecified; Translations: [FE PELVIC INFLAMMATORY DISEASE UNS] Onset: 9 Episodic Intestinal obstruction without hernia (2 sources) Intussusception; Translations: [INTUSSUSCEPTION] Onset: 9 Episodic Menopausal disorders (7 sources) Atrophic vaginitis; Translations: [Postmenopausal atrophic vaginitis] Onset: 0 03-07-2010 Chronic Mood disorders (7 sources) Chronic depression; Translations: [Chronic depression] Onset: 3 07-30-2015 Chronic Mood disorders (1 source) Major depressive disorder, single episode, unspecified; Translations: [JIE DEPRESS D/O SINGLE EPIS UNS] Onset: 9 Nausea and vomiting (1 source) Nausea with vomiting, unspecified; Translations: [NAUSEA WITH VOMITING UNSPECIFIED] Onset: 9 Episodic Noninfectious gastroenteritis (2 sources) Noninfective gastroenteritis and colitis, unspecified; Translations: [NONINFECTIVE GE AND COLITIS UNS] Onset: 9 Episodic Nutritional deficiencies (2 sources) Unspecified protein-calorie malnutrition; Translations: [Unspecified severe protein-calorie malnutrition] Onset: 9 Chronic Nutritional deficiencies (2 sources) Deficiency of other specified nutrient elements; Translations: [DEFICIENCY SPEC NUTRIENT ELEMENTS] Onset: 9 Episodic Osteoarthritis (2 sources) Arthritis 02-09-2017 Chronic Other aftercare (1 source) halfway (current) use of anticoagulants; Translations: [HOME CARE RN CURRNT USE ANTICOAGULANTS] Onset: 9 Episodic Other and unspecified benign neoplasm (1 source) Personal history of colonic polyps; Translations: [PERSONAL HISTORY OF COLONIC POLYPS] Onset: 9 Episodic Other circulatory disease (1 source) Hypotension, unspecified; Translations: [HYPOTENSION UNSPECIFIED] Onset: 9 Episodic Other gastrointestinal disorders (1 source) Ileostomy status; Translations: [ILEOSTOMY STATUS] Onset: 9 Chronic Other gastrointestinal disorders (1 source) Gastrostomy status; Translations: [GASTROSTOMY STATUS] Onset: 9 Chronic Other gastrointestinal disorders (1 source) Other specified diseases of intestine; Translations: [OTHER SPECIFIED DISEASES INTESTINE] Onset: 9 Episodic Other gastrointestinal disorders (1 source) Perforation of intestine (nontraumatic); Translations: [PERFORATION INTESTINE NONTRAUMATIC] Onset: 9 Episodic Other gastrointestinal disorders (1 source) Bariatric surgery status; Translations: [BARIATRIC SURGERY STATUS] Onset: 9 Episodic Other nutritional; endocrine; and metabolic disorders (7 sources) Morbid obesity; Translations: [Morbid (severe) obesity due to excess calories] Onset: 0 11-10-2016 Chronic Peritonitis and intestinal abscess (1 source) Peritoneal abscess; Translations: [PERITONEAL ABSCESS] Onset: 9 Episodic Residual codes; unclassified (1 source) Acquired absence of other specified parts of digestive tract; Translations: [ACQ ABSENCE OTH PART DIGESTV TRACT] Onset: 9 Episodic Residual codes; unclassified (1 source) Body mass index (BMI) 21.0-21.9, adult; Translations: [BODY MASS INDEX BMI 21.0-21.9 ADULT] Onset: 9 Episodic Residual codes; unclassified (1 source) Acquired absence of both cervix and uterus; Translations: [ACQUIRED ABSENCE BOTH CERVIXANDUTERUS] Onset: 9 Episodic Residual codes; unclassified (1 source) Other specified health status; Translations: [OTHER SPECIFIED HEALTH STATUS] Onset: 9 Episodic Residual codes; unclassified (1 source) History of hernia repair; Translations: [Other specified postprocedural states] Episodic Residual codes; unclassified (1 source) Laparoscopic surgical procedure converted to open procedure; Translations: [LAP SURG PROC CONVERT TO OPEN PROC] Onset: 9 Respiratory failure; insufficiency; arrest (adult) (1 source) Acute respiratory failure with hypoxia; Translations: [ACUTE RESPIRATORY FAIL W/HYPOXIA] Onset: 9 Episodic Screening and history of mental health and substance abuse codes (1 source) Personal history of nicotine dependence; Translations: [PERSONAL HISTORY OF NICOTINE DEPEND] Onset: 9 Episodic Septicemia (except in labor) (3 sources) Septicemia (except in labor); Translations: [Sepsis, unspecified organism] Onset: 9 Thyroid disorders (4 sources) Hypothyroidism; Translations: [Hypothyroidism, unspecified] Onset: 3 Chronic Unclassified (1 source) Post Op Onset: 3 Viral infection (8 sources) Herpesviral infection of urogenital system, unspecified; Translations: [Genital herpes simplex] Onset: 5 10-23-2014 Chronic Past or Other Problems Problem Classification Problem Date Documented Da te Episodic/Chronic Abdominal hernia (6 sources) Obstructed hernia of anterior abdominal wall; Translations: [Other and unspecified ventral hernia with obstruction, without gangrene] Onset: 07-28-2022 Episodic Allergic reactions (8 sources) Allergy status to penicillin; Translations: [Allergy to bee venom] Onset: 10-01-2011 10-01-2011 Episodic Appendicitis and other appendiceal conditions (1 source) Other specified diseases of appendix; Translations: [OTHER SPECIFIED DISEASES APPENDIX] Onset: 01-04-2018 Episodic Biliary tract disease (1 source) Chronic cholecystitis; Translations: [CHRONIC CHOLECYSTITIS] Onset: 01-04-2018 Episodic Gastrointestinal hemorrhage (7 sources) Hemorrhage of rectum and anus; Translations: [Hemorrhage of anus and rectum] Onset: 01-11-2007 01-11-2007 Episodic Hemorrhoids (7 sources) Internal hemorrhoids; Translations: [Other hemorrhoids] Onset: 01-13-2007 01-13-2007 Episodic Other aftercare (1 source) Other extermination inspector (current) drug therapy; Translations: [OTH HOME CARE RN CURRENT DRUG THERAPY] Onset: 01-04-2018 Episodic Other and unspecified benign neoplasm (7 sources) Benign neoplasm of colon; Translations: [Benign neoplasm of colon, unspecified] Onset: 01-13-2007 01-13-2007 Episodic Other and unspecified benign neoplasm (7 sources) History of polyp of colon; Translations: [Personal history of colonic polyps] Onset: 2009 2009 Episodic Other connective tissue disease (1 source) Fibromyalgia; Translations: [FIBROMYALGIA] Onset: 01-04-2018 Episodic Other connective tissue disease (7 sources) Calcaneal spur; Translations: [Calcaneal spur, unspecified foot] Onset: 03-28-2012 03-28-2012 Episodic Other connective tissue disease (7 sources) Fibromyalgia; Translations: [Fibromyalgia] Onset: 10-25-2012 10-25-2012 Episodic Other gastrointestinal disorders (7 sources) Diarrhea; Translations: [Diarrhea, unspecified] Onset: 2009 2009 Episodic Other gastrointestinal disorders (1 source) Personal history of other diseases of the digestive system; Translations: [S/P repair of ventral hernia] Onset: 09-24-2022 Episodic Other liver diseases (1 source) Abnormal levels of other serum enzymes; Translations: [Abnormal levels of other serum enzymes] Onset: 10-15-2017 Episodic Residual codes; unclassified (1 source) Other specified postprocedural states; Translations: [S/P repair of ventral hernia] Onset: 09-24-2022 Episodic Results Test Name Value Interpretation Reference Range Facility OPERATIVE NOon 10-19-2022 OPERATIVE NO HNO ID: [id number] Author: Chris Romo MD Service: General Surgery Author Type: Physician Type: Operative Report Filed: 10/19/2022 3:19 PM Note Text: [facility] - Operative Report HERNANDEZ, JOSH M : 1960 AGE: 62. SEX: F PATIENT TYPE: [place] [facility] [place] LOC[place]: [facility] ATTENDING PHYSICIAN: Chris Romo MD CSN NUMBER: [id number] DATE OF SURGERY/PROCEDURE: 09/24/2022 INCISION/PROCEDURE START TIME: 8:35 AM INCISION CLOSE/PROCEDURE END TIME: 10:32 AM PREOPERATIVE DIAGNOSIS: Symptomatic incisional hernia. POSTOPERATIVE DIAGNOSIS: Symptomatic incisional hernia. SURGEON: Chris Romo MD OUTSOLE CUTTER MACHINE: LEANNA Salomon SURGERY/PROCEDURE: Laparoscopic repair of ventral hernia with mesh and with robotic assistance. ANESTHESIA: General endotracheal. ESTIMATED BLOOD LOSS: Minimal. INDICATIONS FOR THE PROCEDURE: This 62-year-old female with a symptomatic incisional hernia. She was seen and evaluated and deemed to be a surgical candidate. Her hernia defect was approximately 5 cm in size. We elected to move forward with a robotic hernia repair. Risks and benefits of the procedure including, but not exclusive to bleeding, infection, possibility of recurrence, and mesh infection were discussed with her and she elected to undergo the procedure. DESCRIPTION OF PROCEDURE: Informed consent obtained. The patient was brought to the operating room and placed on the operating table in a supine position. After induction of general anesthetic and preoperative checklist was completed, the abdomen was prepped and draped in sterile fashion. A 5 mm incision was made in the left upper quadrant. Using a 5 mm Optiview trocar, direct entry was obtained into the abdominal cavity. We then performed a diagnostic laparoscopy. We then placed 3 robotic trocars along the left side of the abdomen. The robot was then docked into place. We took down the adhesions from the abdominal wall with a combination of blunt and sharp dissection. After fully lysing the adhesions, we identified the hernia defect at the supraumbilical location. This measured approximately 5 cm in the area. The hernia sac was able to reduce back into the abdominal cavity. We then were able to close the hernia defect primarily with a running 0 V-Loc suture. This came together without undue tension. The hernia defect measured 5 cm in size. Thus, a lightweight polypropylene mesh was selected to ensure 4 cm overlap on all sides. The mesh was then used in the abdominal cavity, then sutured the mesh to the anterior abdominal wall with a running 0 V-Loc sutures. This was found to lay flat without any tension or kinking. We then turned our attention to closure. The robot was then undocked. We closed the fascia at 12 mm trocar site under direct visualization with a Marquez-Philly device. The ports were then removed and abdomen was desufflated. We closed the skin with a running 4-0 Monocryl stitch. At the end of the case, all sponge and needle counts were correct. The patient was awakened and transferred to PACU in stable condition. I was present and scrubbed throughout the entire procedure. Due to complex nature of the case, no qualified resident is being available. Paul Berger, assisted me throughout the entire procedure. MD JAZMINE Xavier:[id number] Normal [facility] CNOVon 10-08-2022 [facility] Office Visit (AGGENS 1) SADIE HERNANDEZKVNG Porter ([id number]) 1960 F [facility] Date Time Provider Department 10/08/22 10:15 AM PAUL BERGER1 During your visit today, we recorded the following information about you: Blood pressure Weight Height 122/78 87.5 kg 1.626 m Paul Berger PA-C 03/18/2023 2:57 PM Addendum Paul Berger PA-C Hepatobiliary Surgery 1 [facility], [address] [place] [address] SUBJECTIVE Josh German Hernandez is a 62 year old female here for a post operative visit. The patient is s/p ventral hernia repair by Dr. Romo on 09/24/2022. She was kept in the hospital overnight for pain management and has been recovering at home. She states she has abdominal soreness following surgery, but it is slowly improving. Having bowel movements. Tolerating a regular diet. No nausea or vomiting. No fever/chills. The ROS, medical, surgical, family, and social history were reviewed by Paul Berger PA-C OBJECTIVE BP 122/78 (BP Site: Left Arm, BP Position: Sitting, BP Cuff Size: Regular Adult) Ht 162.6 cm (5' 4 ) Wt 87.5 kg (193 lb) BMI 33.13 kg/m? BMI 33.13 kg/(m2) Physical Exam: General: Patient seated in no acute distress Respiratory: Breathing comfortably on room air Abdomen: Soft, non tender, non distended. Incisions intact without erythema, edema, or discharge. Neurologic: She is alert and oriented to person, place, and time. Plan S/p hernia repair The patient is a 62 year old female 2 weeks s/p hernia repair. Overall she is recovering well from surgery. Continues to have improvement in abdominal pain. No concerning findings. She can follow up with our office on a prn basis. All questions were answered to the patient's satisfaction and is agreeable with the plan. Paul Berger PA-C 10/12/2022 11:24 AM I spent a total of 20 minutes on the date of the service which included preparing to see the patient, [id number] patient care, completing clinical documentation, performing a medically appropriate examination, and counseling and educating the patient/family/caregiver. Allergies As of Date: 10/08/2022 Noted Allergy Reaction ASPIRIN 04/17/2005 BEES 04/17/2005 10 - Anaphylaxis FLEXERIL (CYCLOBENZAPRINE) 01/31/2008 5 - Intolerance KEFLEX (CEPHALEXIN) 04/17/2005 PENICILLIN G 04/17/2005 PRILOSEC (OMEPRAZOLE) 04/17/2005 Date Reviewed: 10/08/2022 Reviewed by: Maday Cali - Fully Assessed Reason for Visit: Post Op [174] Cmt: Post op Hernia Repair Primary Visit Diagnosis:S/P hernia repair [Z98.890, Z87.19] Prescriptions as of 03/18/2023 - oxyCODONE IR (ROXICODONE) 5 mg immediate release tablet Take 1 tablet by mouth every 6 hours as needed for pain. - melatonin 10 mg cap Take 10 mg by mouth. - docusate sodium (COLACE) 100 mg capsule Take 100 mg by mouth. - Cholecalciferol, Vitamin D3, 125 mcg (5,000 unit) cap Take by mouth. - esomeprazole (NEXIUM) 40 mg capsule once daily. - levothyroxine sodium (SYNTHROID ORAL) Take 0.05 mg by mouth once daily. - traMADol (ULTRAM) 50 mg tablet Take 50 mg by mouth every 8 hours as needed. - meloxicam (MOBIC) 15 mg tablet Take 1 tablet by mouth once daily. - hydrOXYzine HCl (ATARAX) 25 mg tablet Take 25 mg by mouth once daily. - aspirin, enteric coated (ASPIRIN, ENTERIC COATED) 81 mg EC tablet Take 1 tablet by mouth once daily. - gabapentin (NEURONTIN) 300 mg capsule Take 1 capsule by mouth three times daily. - losartan (COZAAR) 25 mg tablet Take 1 tablet by mouth once daily. - amitriptyline (ELAVIL) 50 mg tablet Take 1 tablet by mouth daily at bedtime. - multivitamin tablet Take 1 tablet by mouth once daily. Taking 4 pills at once daily - CALCIUM CARBONATE (CALCIUM 500 ORAL) Take by mouth once daily. - ursodiol (ACTIGALL) 300 mg capsule Take 1 capsule by mouth twice daily. - ONE TOUCH DELICA 33 gauge [facility] Problem List As Of Date 10/08/2022 Noted Resolved Chronic depression [F32.A] 05/05/2003 Mixed hyperlipidemia [E78.2] 05/05/2001 Essential hypertension [I10] 05/05/2001 RECTAL AND ANAL HEMORRHAGE [K62.5] 01/11/2007 BENIGN NEOPLASM LG BOWEL [D12.6] 01/13/2007 Hemorrhage of gastrointestinal tract, unspecifi*01/13/2007 10/01/2011 INT HEMORRHOID W/O COMPL [K64.8] 01/13/2007 External hemorrhoids without mention of complic*01/13/2007 10/01/2011 DIARRHEA NOS [R19.7] 2009 PERS HX COLONIC POLYPS [Z86.010] 2009 Postmenopausal Atrophic Vaginitis [N95.2] 03/07/2010 Diet-controlled type 2 diabetes mellitus (HCC) *01/23/2011 Chest pain [R07.9] 05/29/2011 07/30/2015 Bee sting allergies 10/01/2011 Calcaneal spur [M77.30] 03/28/2012 Fibromyalgia [M79.7] 10/25/2012 Asthma, mild persistent [J45.30] 02/21/2013 Hyperlipidemia with target LDL less than 70 [E7*02/21/2013 Chronic migraine without aura without status mi*10/23/2014 Genital herpes [A60.00] (more content not included)... Normal [facility] Basic metabolic 2000 panelon 09-25-2022 Anion gap [Moles/Vol] 10 mmol/L Normal 9-18 [facility] Comment on above: Order Comment: Specimen Type: BLOOD SPEC IMEN Ordering Facility: [facility] Address: [address] [place] [address] Performed By: #### 2 4321-2 #### [facility] CLIA [id number] [address] [place] [address] [place] Calcium [Mass/Vol] 9.2 mg/dL Normal 8.5-10.2 [facility] Comment on above: Order Comment: Specimen Type: BLOOD SPEC IMEN Ordering Facility: [facility] Address: [address] [address] Performed By: #### 2 4321-2 #### [facility] CLIA [id number] [address] [place] [address] [place] Chloride [Moles/Vol] 99 mmol/L Normal 97-105 [facility] Comment on above: Order Comment: Specimen Type: BLOOD SPEC IMEN Ordering Facility: [facility] Address: [address] [address] Performed By: #### 2 4321-2 #### [facility] CLIA [id number] [address] [place] [address] [place] CO2 [Moles/Vol] 31 mmol/L High 22-30 [facility] Comment on above: Order Comment: Specimen Type: BLOOD SPEC IMEN Ordering Facility: [facility] Address: [address] [address] Performed By: #### 2 4321-2 #### [facility] CLIA [id number] [address] [place] Creatinine [Mass/Vol] 1.07 mg/dL High 0.58-0.96 [facility] Comment on above: Order Comment: Specimen Type: BLOOD SPEC IMEN Ordering Facility: [facility] Address: [address] [place] [address] Performed By: #### 2 4321-2 #### [facility] CLIA [id number] [address] [place] ESTIMATED GLOMERULAR FILTRATION RATE 58 mL/min/1.73m??? Low >=60 [facility] Comment on above: Order Comment: Specimen Type: BLOOD SPEC IMEN Ordering Facility: [facility] Address: [address] [place] [address] Result Comment: Sunshine mated Glomerular Filtration Rate (eGFR) is calculated using the 2020 CKD-EPI creatinine equation. This equation utilizes serum creatinine, sex, and age as parameters. The creatinine assay has traceable calibration to isotope dilution-mass spectrometry. Refer to KDIGO guidelines for clinical interpretation. In patients with unstable renal function, e.g. those with acute kidney injury, the eGFR may not accurately reflect actual GFR. Performed By: #### 2 4321-2 #### [facility] CLIA [id number] [address] [place] Glucose [Mass/Vol] 159 mg/dL High 74-99 [facility] Comment on above: Order Comment: Specimen Type: BLOOD SPEC IMEN Ordering Facility: [facility] Address: [address] [place] [address] Result Comment: The [place] Diabetes Association (ADA) provides guidance for cutoff values for fasting glucose and random glucose. The ADA defines fasting as no caloric intake for at least 8 hours. Fasting plasma glucose results between 100 to 125 mg/dL indicate increased risk for diabetes (prediabetes). Fasting plasma glucose results greater than or equal to 126 mg/dL meet the criteria for diagnosis of diabetes. In the absence of unequivocal hyperglycemia, results should be confirmed by repeat testing. In a patient with classic symptoms of hyperglycemia or hyperglycemic crisis, random plasma glucose results greater than or equal to 200 mg/dL meet the criteria for diagnosis of diabetes. Reference: Standards of Medical Care in Diabetes 2016, [place] [employer] Association. Diabetes Care. 2016.39(Suppl 1). Performed By: #### 2 4321-2 #### [facility] CLIA [id number] [address] [place] Potassium [Moles/Vol] 3.8 mmol/L Normal 3.7-5.1 [facility] Comment on above: Order Comment: Specimen Type: BLOOD SPEC IMEN Ordering Facility: [facility] Address: [address] [address] Performed By: #### 2 4321-2 #### [facility] CLIA [id number] [address] STATES OF [facility] Sodium [Moles/Vol] 140 mmol/L Normal 136-144 [facility] Comment on above: Order Comment: Specimen Type: BLOOD SPEC IMEN Ordering Facility: [facility] Address: [address] [place] [address] Performed By: #### 2 4321-2 #### [facility] CLIA [id number] [address] [place] [address] STATES [facility] Urea nitrogen [Mass/Vol] 20 mg/dL Normal 7-21 [facility] Comment on above: Order Comment: Specimen Type: BLOOD SPEC IMEN Ordering Facility: [facility] Address: [address] [place] [address] Performed By: #### 2 4321-2 #### [facility] CLIA [id number] [address] [place] [address] CBC panel Auto (Bld)on 09-25 Erythrocyte distribution width (RBC) [Ratio] 12.8 % Normal 11.5-15.0 [facility] Comment on above: Order Comment: Specimen Type: BLOOD SPEC IMENOrdering Facility: [facility] Address: [address] [place] [address] Performed By: #### 5 8410-2 ####[facility] [id number] [address] OF [facility] Hematocrit (Bld) [Volume fraction] 36.7 % Normal 36.0-46.0 [facility] Comment on above: Order Comment: Specimen Type: BLOOD SPEC IMENOrdering Facility: [facility] Address: [address] [place] [address] Performed By: #### 5 8410-2 ####[facility] [id number] [address] STATES OF [facility] Hemoglobin (Bld) [Mass/Vol] 11.8 g/dL Normal 11.5-15.5 [facility] Comment on above: Order Comment: Specimen Type: BLOOD SPEC IMENOrdering Facility: [facility] Address: [address] [address] Performed By: #### 5 8410-2 ####[facility] [id number] [address] [place] MCH (RBC) [Entitic mass] 28.4 pg Normal 26.0-34.0 [facility] Comment on above: Order Comment: Specimen Type: BLOOD SPEC IMENOrdering Facility: [facility] Address: [address] [address] Performed By: #### 5 8410-2 ####[facility] [id number] [address] [place] MCHC (RBC) [Mass/Vol] 32.2 g/dL Normal 30.5-36.0 [facility] Comment on above: Order Comment: Specimen Type: BLOOD SPEC IMENOrdering Facility: [facility] Address: [address] [address] Performed By: #### 5 8410-2 ####[facility] [id number] [address] [place] MCV (RBC) [Entitic vol] 88.2 fL Normal 80.0-100.0 [facility] Comment on above: Order Comment: Specimen Type: BLOOD SPEC IMENOrdering Facility: [facility] Address: [address] [address] Performed By: #### 5 8410-2 ####[facility] [id number] [place] [address] [place] Nucleated RBC (Bld) [#/Vol] 10*3/uL Normal <0.01 [facility] Comment on above: Order Comment: Specimen Type: BLOOD SPEC IMENOrdering Facility: [facility] Address: [address] [place] [address] Performed By: #### 5 8410-2 ####[facility] [id number] [address] [place] Platelet mean volume (Bld) [Entitic vol] 10.6 fL Normal 9.0-12.7 [facility] Comment on above: Order Comment: Specimen Type: BLOOD SPEC IMENOrdering Facility: [facility] Address: [address] [place] [address] Performed By: #### 5 8410-2 ####[facility] [id number] [address] [place] Platelets (Bld) [#/Vol] 145 10*3/uL Low 150-400 [facility] Comment on above: Order Comment: Specimen Type: BLOOD SPEC IMENOrdering Facility: [facility] Address: [address] [place] [address] Performed By: #### 5 8410-2 ####[facility] [id number] [address] [place] RBC (Bld) [#/Vol] 4.16 10*6/uL Normal 3.90-5.20 [facility] Comment on above: Order Comment: Specimen Type: BLOOD SPEC IMENOrdering Facility: [facility] Address: [address] [place] [address] Performed By: #### 5 8410-2 ####[facility] [id number] [address] [place] WBC (Bld) [#/Vol] 6.80 10*3/uL Normal 3.70-11.00 [facility] Comment on above: Order Comment: Specimen Type: BLOOD SPEC IMENOrdering Facility: [facility] Address: [place] [address] Performed By: #### 5 8410-2 ####[facility]ORY[facility]IA [id number] [place] [address] [place] [facility] Dominique 09-25-2022 CN HNO ID: [id number] Author: Sharon Gilse MD Service: General Surgery Author Type: Resident Type: Discharge Summary Filed: 09/25/2022 8:38 AM Note Text: Attestation signed by Chris Romo MD at 10/13/2022 1:08 PM I saw and evaluated the patient. Discussed with the resident and agree with resident's findings and plan as documented in the resident's note. October 13, 2022 Chris Romo MD 1:08 PM Plan of care discussed with: Provider, RN, Patient. DISCHARGE NOTE (Patient Admitted Less than 48 Hours) SERVICE DATE: 09/25/2022 SERVICE TIME: 8:37 AM ADMISSION DATE: 09/24/2022 DISCHARGE DISPOSITION: Home with Self Care DIET: Regular ACTIVITY AFTER DISCHARGE: Keep abdominal binder on for 1-2 weeks. No heavy lifting for 1-2 weeks. No walking restrictions.May shower, no bathing or soaking in water for prolonged periods of time FOLLOW UP CARE REQUIRED: 2 week follow up with Dr. Romo DISCHARGE MEDICATIONS (ONLY ACTIVATE WHEN READY TO DISCHARGE): Current Discharge Medication List START taking these medications oxyCODONE IR (ROXICODONE) 5 mg Take 5 mg by mouth every 6 hours as needed for pain. Qty: 40 tablet Refills: 0 Associated Diagnoses:S/P repair of ventral hernia CONTINUE these medications which have NOT CHANGED melatonin 10 mg Take 10 mg by mouth. docusate sodium (COLACE) 100 mg Take 100 mg by mouth. Cholecalciferol, Vitamin D3, 125 mcg (5,000 unit) cap Take by mouth. esomeprazole (NEXIUM) 40 mg capsule once daily. levothyroxine sodium (SYNTHROID ORAL) 0.05 mg Take 0.05 mg by mouth once daily. traMADol (ULTRAM) 50 mg Take 50 mg by mouth every 8 hours as needed. meloxicam (MOBIC) 1 tablet Take 1 tablet by mouth once daily. hydrOXYzine HCl (ATARAX) 25 mg Take 25 mg by mouth once daily. aspirin, enteric coated (ASPIRIN, ENTERIC COATED) 1 tablet Take 1 tablet by mouth once daily. gabapentin (NEURONTIN) 1 capsule Take 1 capsule by mouth three times daily. losartan (COZAAR) 25 mg Take 25 mg by mouth once daily. Qty: 90 tablet Refills: 3 amitriptyline (ELAVIL) 50 mg Take 50 mg by mouth daily at bedtime. Qty: 90 tablet Refills: 3 Associated Diagnoses:Fibromyalgia; Adjustment insomnia multivitamin 1 tablet Take 1 tablet by mouth once daily. Taking 4 pills at once daily CALCIUM CARBONATE (CALCIUM 500 ORAL) Take by mouth once daily. ursodiol (ACTIGALL) 300 mg Take 300 mg by mouth twice daily. Qty: 180 capsule Refills: 0 ONE TOUCH DELICA 33 gauge misc STOP taking these medications methylPREDNISolone (MEDROL DOSE-PACK) 4 mg Dose-Pack Comments: Reason for Stopping: FINAL DIAGNOSIS: Ventral Hernia Plan of care discussed with Provider, RN, Patient SIGNATURE: Sharon Giles MD PATIENT NAME: Josh Hernandez DATE: September 25, 2022 TIME: 8:37 AM [facility] ALLIED HEALTHon 09-24-2022 ALLIED HEALTH HNO ID: [id number] Author: Chaplain Jeffry Service: ? Author Type: Unit Leader Type: Allied Health Filed: 09/24/2022 7:30 AM Note Text: SPIRITUAL CARE PROGRESS NOTE SERVICE DATE: 09/24/2022 SERVICE TIME: 6:45 AM As a chief embalmer I responded to a page for pre surgery prayer. PT had sister and at the bedside. Prayed for Drs, PT, healing, and advent. To contact the Spiritual Care Department: Please call [phone]. SIGNATURE: Chaplain Jeffry PATIENT NAME: Josh Hernandez DATE: September 24, 2022 TIME: 7:29 AM PAGER/CONTACT #: [phone] Normal [facility] ANES POSTPROC EVALon 023 ANES POSTPROC EVAL HNO ID: [id number] Author: Mildred Silverio MD Service: Anesthesiology Author Type: Anesthesiologist Type: Anesthesia Postprocedure Evaluation Filed: 09/24/2022 3:00 PM Note Text: POST ANESTHESIA EVALUATION NOTE : 1960 Procedure Summary Date: 09/24/22 [place] / [place] Anesthesia Start: 803 Anesthesia Stop: 1047 Procedure: ROBOTIC LAPAROSCOPIC HERNIA REPAIR VENTRAL INITIAL REDUCIBLE W/MESH 3cm-10cm Diagnosis: Ventral hernia without obstruction or gangrene (Ventral hernia without obstruction or gangrene [K43.9]) Surgeons: Chris Romo MD Responsible Provider: Mildred Silverio MD Anesthesia Type: general ASA Status: 2 Anesthesia Type: general Airway Type: ETT Last Vitals Vitals Value Taken Time BP 137/93 09/24/22 1430 Temp 36.3 ?C (97.3 ?F) 09/24/22 1045 HR SpO2 93 09/24/22 1459 Resp 17 09/24/22 1459 SpO2 95 % 09/24/22 1459 Vitals shown include unvalidated device data. Post Anesthesia Patient Status Patient Evaluation: PACU. PACU/ICU Patient Condition: stable. Anticipated Disposition: inpatient floor planned admission. Neurological Status: aware and responsive. Pulmonary Status: breathing comfortably on room air Airway Control: returned to baseline unsupported. Cardiovascular Status: stable. Pain Management: clinically adequate Postoperative Hydration: acceptable. Intraoperative Events: no significant anesthesia events Post Operative Nausea/Vomiting Status: no significant post operative nausea or vomiting Recommendation: continue current plan of care. Anesthesia Observations No Documentation SIGNATURE: Mildred Silverio MD PATIENT NAME: Josh Hernandez DATE: September 24, 2022 TIME: 3:00 PM CSN: [id number] Normal [facility] ANES PRE-OPon 09-24-2022 ANES PRE-OP HNO ID: [id number] Author: Mildred Silverio MD Service: Anesthesiology Author Type: Anesthesiologist Type: Anesthesia Preprocedure Evaluation Filed: 09/24/2022 7:52 AM Note Text: ANESTHESIOLOGY DAY OF SURGERY NOTE : 1960 Procedure Information Date/Time: 09/24/22 0800 Procedure: ROBOTIC LAPAROSCOPIC HERNIA REPAIR VENTRAL INITIAL REDUCIBLE W/MESH 3cm-10cm Location: [place] 03 / [place] Surgeons: Chris Romo MD Estimated body mass index is 34.33 kg/m? as calculated from the following: Height as of 09/17/22: 162.6 cm (5' 4 ). Weight as of 09/17/22: 90.7 kg (200 lb). Most recent hematocrit and potassium results: Hematocrit 41.7 09/17/2022 Potassium 3.7 09/17/2022 Relevant Problems CARDIO (+) Chronic migraine without aura without status migrainosus, not intractable (+) Essential hypertension (+) Internal hemorrhoids without mention of complication ENDO (+) Hypothyroid GI (+) Esophageal reflux NEURO-PSYCH (+) Chronic migraine without aura without status migrainosus, not intractable (+) Personal history of colonic polyps PULMONARY (+) Asthma, mild persistent I - PHYSICAL EVALUATION AIRWAY Patient intubated: No. Mallampati: II. TM distance: >3 FB. Neck ROM: full ROM without neurological symptoms. Mouth opening: adequate. Short neck: no. Thick neck: no DENTAL Dental findings: edentulous. Dentures, upper: complete. Dentures, lower: complete. II - ANESTHESIA PLAN ASA Score: 2 Anesthetic Plan: general Airway type: ETT The patient is not a current smoker. NPO Status: adequate Beta Leana Monitoring Plan Monitoring plan: standard ASA. Post Procedure Analgesic Plan Postoperative analgesic plan: parenteral or oral opioids. Informed Consent Anesthetic risks, benefits, alternatives, personnel and consent discussed: yes. Patient / Responsible Republican agrees to proceed: yes Patient / Surrogate agrees to blood products: blood products not planned Significant changes in the patient condition since the History and Physical, not otherwise documented in primary service progress note: no. Potential Anesthesia issues that may suggest increased risk of complications or contraindication to planned procedure: none. Vitals Value Taken Time BP 131/89 09/24/22746 Pulse 86 09/24/22746 Resp 18 09/24/22746 Temp 36.7 ?C (98.1 ?F) 09/24/22746 SpO2 93 % 09/24/22746 Facility-Administered Medications as of 09/24/2022 Medication Dose Route Frequency - [COMPLETED] enoxaparin 40 mg injection (LOVENOX) 40 mg SUBCUTANEOUS ONCE - lidocaine 10 mg/mL (1 %) 1-2 mg injection (XYLOCAINE) 0.1-0.2 mL INTRADERMAL PRN - lactated ringers iv infusion 5-30 mL/hr INTRAVENOUS CONTINUOUS - NaCl 0.9% iv flush bag 20 mL INTRAVENOUS PRN - [COMPLETED] acetaminophen 975 mg tab(s) (TYLENOL) 975 mg ORAL Pre-Op Once - [COMPLETED] gabapentin 300 mg cap(s) (NEURONTIN) 300 mg ORAL Pre-Op Once - clindamycin iv piggyback 900 mg in D5W 50 mL (CLEOCIN) 900 mg INTRAVENOUS Pre-Op Once Outpatient Medications as of 09/24/2022 Medication Sig - melatonin 10 mg cap Take 10 mg by mouth. - docusate sodium (COLACE) 100 mg capsule Take 100 mg by mouth. - Cholecalciferol, Vitamin D3, 125 mcg (5,000 unit) cap Take by mouth. - esomeprazole (NEXIUM) 40 mg capsule once daily. - traMADol (ULTRAM) 50 mg tablet Take 50 mg by mouth every 8 hours as needed. - meloxicam (MOBIC) 15 mg tablet Take 1 tablet by mouth once daily. - hydrOXYzine HCl (ATARAX) 25 mg tablet Take 25 mg by mouth once daily. - aspirin, enteric coated (ASPIRIN, ENTERIC COATED) 81 mg EC tablet Take 1 tablet by mouth once daily. - gabapentin (NEURONTIN) 300 mg capsule Take 1 capsule by mouth three times daily. - losartan (COZAAR) 25 mg tablet Take 1 tablet by mouth once daily. - amitriptyline (ELAVIL) 50 mg tablet Take 1 tablet by mouth daily at bedtime. - multivitamin tablet Take 1 tablet by mouth once daily. Taking 4 pills at once daily - CALCIUM CARBONATE (CALCIUM 500 ORAL) Take by mouth once daily. - ursodiol (ACTIGALL) 300 mg capsule Take 1 capsule by mouth twice daily. - methylPREDNISolone (MEDROL DOSE-PACK) 4 mg Dose-Pack Take per package instructions. (Patient not taking: No sig reported) - ONE TOUCH DELICA [facility] I have interviewed and examined the patient. I have reviewed the medical record and/or the pre-anesthesia evaluation, pertinent labs, and test results. This contains updated information obtained within 48 hours of Surgery/Procedure. SIGNATURE: Mildred Silverio MD PATIENT NAME: Josh Hernandez DATE: September 24, 2022 TIME: 7:51 AM CSN: [id number] [facility] BRIEF OP NOTon 09-24-2022 BRIEF OP NOT HNO ID: [id number] Author: Zamzam Donovan MD Service: General Surgery Author Type: Resident Type: Brief Op Note Filed: 09/24/2022 10:50 AM Note Text: Attestation signed by Chris Romo MD at 09/24/2022 11:16 AM I was present for the critical portions of the procedure and was immediately available to provide assistance. I agree with the residents operative dictation. Chris Romo MD September 24, 2022 11:16 AM BRIEF OPERATIVE / PROCEDURE NOTE LOG ID: [id number] SURGERY/PROCEDURE DATE: 09/24/2022 INCISION/PROCEDURE START TIME: 8:35 AM INCISION CLOSE/PROCEDURE END TIME: 10:32 AM SURGEON(S)/PROCEDURALIST(S) AND OUTSOLE CUTTER MACHINE(S): Surgeon(s) and Role: * Chris Romo MD - Primary * Zamzam Donovan MD - Resident - Assisting Physician Public Service Administrator: Paul Berger PA-C SURGERY/PROCEDURE(S): Robotic ventral hernia repair with mesh ANESTHESIA: General FINDINGS: 10 cm ventral hernia and 3cm ventral hernia ESTIMATED BLOOD LOSS: <10 mls SPECIMENS: Hernia Sac COMPLICATIONS: None IMPLANTS: Implant Name Type Inv. Item Serial No. Front Window Cashier Lot No. LRB No. Used Action MESH PARIETENE DS [id number] - [id number] Mesh MESH PARIETENE DS [id number] [employer] [id number] N/A 1 Implanted PRE-OP/PRE-PROCEDURE DIAGNOSIS: Ventral hernia POST-OP/POST-PROCEDURE DIAGNOSIS: Same as Preop SIGNATURE: Zamzam Donovan MD PATIENT NAME: Josh Hernandez DATE: September 24, 2022 TIME: 10:48 AM Normal [facility] NURSING PROGon 09-24-2022 NURSING PROG HNO ID: [id number] Author: Sujata Andrade, CONCHITA Service: Nursing Author Type: Registered Nurse Type: Nursing Progress Note Filed: 09/24/2022 1:07 PM Note Text: Pt c/o pain and states she doesn't think she can go home. Pt O2 on RA 78. Pt placed on 2L O2 and sats recovered to 98. Resident paged. Will come to bedside to eval. Normal [facility] SURGICAL PATHOLOGYon 023 CASE REPORT Normal [facility] Comment on above: Order Comment: Specimen Type: TISSUE SPE CIMENOrdering Facility: [facility] Address: [address] [place] [id number] Result Comment: Surg ica Pathology Report Case: [id number] Authorizing Provider: Chris Romo MD Collected: 09/24/2022 09:36 AM Ordering Location: [place] [facility] Received: 09/25/2022 08:03 AM Pathologist: Matheus Silva MD Specimen: HERNIA SAC Performed By: #### S ####[facility] LABORATORYCLIA [id number] [address] [place] CLINICAL HISTORY Normal [facility] Comment on above: Order Comment: Specimen Type: [facility] Address: [address] [address] Result Comment: Pre- op diagnosis: Ventral hernia without obstruction or gangrene [K43.9] Performed By: #### S ####[facility] LABORATORYCLIA [id number] [address] FINAL DIAGNOSIS Normal [facility] Comment on above: Order Comment: Specimen Type: TISSUE [facility] CIMENOrdering Facility: [facility] Address: [address] [address] Result Comment: Lauren fierro, ventral, herniorrhaphy: - Benign fibroadipose tissues. Performed By: #### S ####[facility] LABORATORYCLIA [id number] [address] FINAL PERFORMING LAB Normal [facility] Comment on above: Order Comment: Specimen Type: TISSUE [facility] Address: [address] [place] [address] Result Comment: Diag nostic interpretation performed at [facility], [address] [place] [address] CLIA# [id number] [place] Marker: Bandar Marino M.D. Performed By: #### S ####[facility] LABORATORYCLIA [id number] [address] GROSS DESCRIPTION A. HERNIA SAC Normal [facility] Comment on above: Order Comment: Specimen Type: TISSUE [facility] Address: [address] [place] [address] Result Comment: Rece ived in formalin labeled as hernia sac are 2 segments of yellow-pink fibrofatty tissue aggregating to 6.0 x 2.5 x 2.0 cm. Sectioning reveals unremarkable cut surfaces. No focal area of induration or nodularity is seen. Floor Press Operator sections are submitted in formalin in 1 cassette. Gross examination performed at [facility], [address] [place] [address] CLIA#[id number] [facility] September 25, 2022 12:38 PM Performed By: #### S ####[facility] LABORATORYCLIA [id number] [address] CBC panel Auto (Bld)on 09-17 Erythrocyte distribution width (RBC) [Ratio] 12.4 % Normal 11.5-15.0 [facility] Comment on above: Order Comment: Specimen Type: BLOOD SPEC IMEN [facility] Address: [address] [address] Performed By: #### 5 8410-2 #### [facility] CLIA [id number] [address] [place] [address] Hematocrit (Bld) [Volume fraction] 41.7 % Normal 36.0-46.0 [facility] Comment on above: Order Comment: Specimen Type: BLOOD SPEC IMEN [facility] Address: [address] [address] Performed By: #### 5 8410-2 #### [facility] CLIA [id number] [address] [place] [address] Hemoglobin (Bld) [Mass/Vol] 13.6 g/dL Normal 11.5-15.5 [facility] Comment on above: Order Comment: Specimen Type: BLOOD SPEC IMEN [facility] Address: [address] [address] Performed By: #### 5 8410-2 #### [facility] CLIA [id number] [address] [place] [address] MCH (RBC) [Entitic mass] 28.6 pg Normal 26.0-34.0 [facility] Comment on above: Order Comment: Specimen Type: BLOOD SPEC IMEN [facility] Address: [address] [address] Performed By: #### 5 8410-2 #### [facility] CLIA [id number] [address] MCHC (RBC) [Mass/Vol] 32.6 g/dL Normal 30.5-36.0 [facility] Comment on above: Order Comment: Specimen Type: BLOOD SPEC IMEN [facility] Address: [address] [address] Performed By: #### 5 8410-2 #### [facility] CLIA [id number] [address] MCV (RBC) [Entitic vol] 87.6 fL Normal 80.0-100.0 [facility] Comment on above: Order Comment: Specimen Type: BLOOD SPEC IMEN [facility] Address: [address] [address] Performed By: #### 5 8410-2 #### [facility] CLIA [id number] [address] Nucleated RBC (Bld) [#/Vol] 10*3/uL Normal <0.01 [facility] Comment on above: Order Comment: Specimen Type: BLOOD SPEC IMEN [facility] Address: [address] [address] Performed By: #### 5 8410-2 #### [facility] CLIA [id number] [address] OF [facility] Platelet mean volume (Bld) [Entitic vol] 10.7 fL Normal 9.0-12.7 [facility] Comment on above: Order Comment: Specimen Type: BLOOD SPEC IMEN [facility] Address: [address] [address] Performed By: #### 5 8410-2 #### [facility] CLIA [id number] [address] [place] Platelets (Bld) [#/Vol] 165 10*3/uL Normal 150-400 [facility] Comment on above: Order Comment: Specimen Type: BLOOD SPEC IMEN [facility] Address: [address] [address] Performed By: #### 5 8410-2 #### [facility] CLIA [id number] [address] RBC (Bld) [#/Vol] 4.76 10*6/uL Normal 3.90-5.20 [facility] Comment on above: Order Comment: Specimen Type: BLOOD SPEC IMEN [facility] Address: [address] [place] [address] Performed By: #### 5 8410-2 #### [facility] CLIA [id number] [address] WBC (Bld) [#/Vol] 5.06 10*3/uL Normal 3.70-11.00 [facility] Comment on above: Order Comment: Specimen Type: BLOOD SPEC IMEN [facility] Address: [address] [place] [address] Performed By: #### 5 8410-2 #### [facility] CLIA [id number] [address] Comprehensive metabolic 2000 panelon 09-17-2022 Albumin [Mass/Vol] 4.4 g/dL Normal 3.9-4.9 [facility] Comment on above: Order Comment: Specimen Type: BLOOD SPEC IMEN [facility] Address: [address] [place] [address] Performed By: #### 2 4323-8 #### [facility] CLIA [id number] [address] ALP [Catalytic activity/Vol] 80 U/L Normal 34-123 [facility] Comment on above: Order Comment: Specimen Type: BLOOD SPEC IMEN [facility] Address: [address] [place] [address] Performed By: #### 2 4323-8 #### [facility] CLIA [id number] [address] ALT With P-5'-P [Catalytic activity/Vol] 54 U/L High 7-38 [facility] Comment on above: Order Comment: Specimen Type: BLOOD SPEC IMEN [facility] Address: [address] [place] [address] Performed By: #### 2 4323-8 #### [place] [facility] CLIA [id number] [address] Anion gap [Moles/Vol] 10 mmol/L Normal 9-18 [facility] Comment on above: Order Comment: Specimen Type: BLOOD SPEC IMEN [facility] Address: [address] [address] Performed By: #### 2 432-8 #### [place] [facility] CLIA [id number] [address] AST With P-5'-P [Catalytic activity/Vol] 36 U/L High 13-35 [facility] Comment on above: Order Comment: Specimen Type: BLOOD SPEC IMEN [facility] Address: [address] [place] [address] Performed By: #### 2 4323-8 #### [facility] CLIA [id number] [address] [place] Bilirubin [Mass/Vol] 0.3 mg/dL Normal 0.2-1.3 [facility] Comment on above: Order Comment: Specimen Type: BLOOD SPEC IMEN [facility] Address: [address] [place] [address] Performed By: #### 2 432-8 #### [place] [facility] CLIA [id number] [address] [place] Calcium [Mass/Vol] 10.2 mg/dL Normal 8.5-10.2 [facility] Comment on above: Order Comment: Specimen Type: BLOOD SPEC IMEN [facility] Address: [address] [address] Performed By: #### 2 4323-8 #### [place] [facility] CLIA [id number] [address] [place] [address] Chloride [Moles/Vol] 95 mmol/L Low 97-105 [facility] Comment on above: Order Comment: Specimen Type: BLOOD SPEC IMEN [facility] Address: [address] [place] [address] Performed By: #### 2 4323-8 #### [facility] CLIA [id number] [address] OF [facility] CO2 [Moles/Vol] 32 mmol/L High 22-30 [facility] Comment on above: Order Comment: Specimen Type: BLOOD SPEC IMEN [facility] Address: [address] [place] [address] Performed By: #### 2 4323-8 #### [facility] CLIA [id number] [address] Creatinine [Mass/Vol] 1.09 mg/dL High 0.58-0.96 [facility] Comment on above: Order Comment: Specimen Type: BLOOD SPEC IMEN [facility] Address: [address] [place] [address] Performed By: #### 2 4323-8 #### [facility] CLIA [id number] [address] ESTIMATED GLOMERULAR FILTRATION RATE 57 mL/min/1.73m??? Low >=60 [facility] Comment on above: Order Comment: Specimen Type: BLOOD SPEC IMEN [facility] Address: [address] [place] [address] Result Comment: Sunshine mated Glomerular Filtration Rate (eGFR) is calculated using the 2020 CKD-EPI creatinine equation. This equation utilizes serum creatinine, sex, and age as parameters. The creatinine assay has traceable calibration to isotope dilution-mass spectrometry. Refer to KDIGO guidelines for clinical interpretation. In patients with unstable renal function, e.g. those with acute kidney injury, the eGFR may not accurately reflect actual GFR. Performed By: #### 2 4323-8 #### [place] [facility] CLIA [id number] [address] [place] [address] [place] Glucose [Mass/Vol] 146 mg/dL High 74-99 [facility] Comment on above: Order Comment: Specimen Type: BLOOD SPEC IMEN [facility] Address: [address] [address] Result Comment: The [place] [employer] Association (ADA) provides guidance for cutoff values for fasting glucose and random glucose. The ADA defines fasting as no caloric intake for at least 8 hours. Fasting plasma glucose results between 100 to 125 mg/dL indicate increased risk for diabetes (prediabetes). Fasting plasma glucose results greater than or equal to 126 mg/dL meet the criteria for diagnosis of diabetes. In the absence of unequivocal hyperglycemia, results should be confirmed by repeat testing. In a patient with classic symptoms of hyperglycemia or hyperglycemic crisis, random plasma glucose results greater than or equal to 200 mg/dL meet the criteria for diagnosis of diabetes. Reference: Standards of Medical Care in Diabetes 2016, [place] [employer]. Diabetes Care. 2016.39(Suppl 1). Performed By: #### 2 4323-8 #### [facility] CLIA [id number] [address] [place] [address] [place] Potassium [Moles/Vol] 3.7 mmol/L Normal 3.7-5.1 [facility] Comment on above: Order Comment: Specimen Type: BLOOD SPEC IMEN [facility] Address: [address] [place] [address] Performed By: #### 2 4323-8 #### [place] [facility] CLIA [id number] [address] [place] [address] [place] Protein [Mass/Vol] 6.5 g/dL Normal 6.3-8.0 [facility] Comment on above: Order Comment: Specimen Type: BLOOD SPEC IMEN [facility] Address: [address] [place] [address] Performed By: #### 2 4323-8 #### [place] [facility] CLIA [id number] [address] [place] [address] [place] Sodium [Moles/Vol] 137 mmol/L Normal 136-144 [facility] Comment on above: Order Comment: Specimen Type: BLOOD SPEC IMEN [facility] Address: [place] [address] Performed By: #### 2 4323-8 #### [facility] CLIA [id number] [address] Urea nitrogen [Mass/Vol] 18 mg/dL Normal 7-21 [facility] Comment on above: Order Comment: Specimen Type: BLOOD SPEC IMEN [facility] Address: [place] [address] Performed By: #### 2 4323-8 #### [facility] CLIA [id number] [address] OF [facility] HISTORY PHYSICALon HISTORY PHYSICAL HNO ID: [id number] Author: LEANNA Braga Service: ? Author Type: Physician Public Service Administrator Type: HANDP Filed: 09/17/2022 11:11 AM Note Text: HISTORY AND PHYSICAL EXAMINATION SERVICE DATE: 09/17/2022 SERVICE TIME: 11:10 AM PRIMARY CARE PHYSICIAN: Elias Weinberg MD REASON FOR VISIT: Josh Hernandez is a 62 year old female who is scheduled for Procedure(s): ROBOTIC LAPAROSCOPIC HERNIA REPAIR VENTRAL INITIAL REDUCIBLE W/MESH 3cm-10cm (N/A) at the request of Dr. Chris Romo for routine HANDP. My final recommendation will be communicated back to the requesting physician by way of shared medical record or letter. Subjective The patient has the following: ACTIVE PROBLEM LIST Chronic Depression Mixed Hyperlipidemia Essential Hypertension Hemorrhage of Rectum and Anus Benign Neoplasm of Colon Internal Hemorrhoids Without Mention of Complication Diarrhea Personal History of Colonic Polyps Postmenopausal Atrophic Vaginitis Diet-Controlled Type 2 Diabetes Mellitus (Hcc) Bee Sting Allergies Calcaneal Spur Fibromyalgia Asthma, Mild Persistent Hyperlipidemia With Target Ldl Less Than 70 Chronic Migraine Without Aura Without Status Migrainosus, Not Intractable Genital Herpes Esophageal Reflux Morbid Obesity (Hcc) Hypothyroid COVID-19 Immunization Status COVID-19 VACCINE (Series Information) Completed 04/03/2022 Imm Admin: COVID-19 booster vaccine, age 12+ yr, bivalent (Rock Content) 11/01/2021 Imm Admin: COVID-19 original vaccine, age 12+ yr, monovalent (Rock Content - PURPLE TOP) 05/02/2021 Imm Admin: COVID-19 original vaccine, age 12+ yr, monovalent (Rock Content - PURPLE TOP) Only the first 3 history entries have been loaded, but more history exists. CHIEF COMPLAINT: The reason for this visit is To perform a comprehensive review of the patients past medical history, assess their current health status and obtain any additional testing required based on anesthesia guidelines. To assess and identify potential anesthesia problems, particularly those that may suggest potential complications or contraindications to the planned procedure. HPI: Patient presents to PST for the above procedure. Pt states she has been dealing with her hernias for about 1 year. Pt states occasional pain but denies any pain currently. Pt states she has 4 hernias. She states they are mostly reducible. Pt states issues with constipation as well. Pt denies N/V/D. Patient denies any other problems or concerns at this time. Risks and benefits of the procedure discussed by Surgeon and patient agreed to proceed with planned procedure. REVIEW OF SYSTEMS: General: No weight loss, malaise or fevers. Neurological: Negative for: headaches, seizures and strokes. Respiratory: Positive for: asthma. Negative for: COPD, current cough, dyspnea, tobacco use and obstructive sleep apnea. Cardiovascular: Positive for: hyperlipidemia and hypertension Negative for: AICD/PPM, angina, anticoagulation therapy, atrial fibrillation, CAD, chest pain, CHF and DVT/PE. GI: See HPI. : Negative for: frequent urination, hematuria and urgency. 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 Hematology: Negative for: anemia, bruises/bleeds easily and chronic anti-coagulation/platelet meds. Oncology: No history of CA metastasis, chemo within 30 days, or radiotherapy within 90 days. No history of oncological symptoms or problems. Psych: Negative for: anxiety and depression. Musculoskeletal: Negative for joint pain or swelling, back pain or muscle pain. Skin: Negative for lesions, rash and itching. PAST MEDICAL HISTORY Diagnosis Date Asthma Benign neoplasm of colon Cyst of left kidney CT 11/2017 Depressive disorder, not elsewhere classified 05/2003 Diabetes mellitus (HCC) Diarrhea Esophageal reflux 05/[address] 11/2017 Hemorrhage of gastrointestinal tract, unspecified Hepatic cyst CT 11/2017 Hypertension Morbid obesity (HCC) 08/09/2009 stated BMI 40.1 Ht: 63 Wt: 227 lbs Other and unspecified hyperlipidemia 05/2001 Pain in joint, multiple sites back, hips, knees Snoring Unspecified hypertensive heart disease without heart failure 05/2001 Ventral hernia without obstruction or gangrene PAST SURGICAL HISTORY Procedure Laterality Date ARTHRT GLENOHMRL JT W/JT EXPL W/WO RMVL LOOSE/FB Right 03/18/2005 arthritic bone removal BUNION CORRECTION W/METATARSAL OSTEOTOMY BUNIONECTOMY, LAPIDUS-TYPE Right 2020 COLONOSCOPY FLX DX W/COLLJ SPEC WHEN PFRMD 2009 Colonoscopy COLONOSCOPY FLX DX W/COLLJ SPEC WHEN PFRMD 06/20/2014 Colonoscopy COLONOSCOPY FLX DX W/COLLJ SPEC WHEN PFRMD 01/08/2016 COLSC FLX W/RMVL OF TUMOR POLYP LESION SNARE TQ 01/13/2007 ESOPHAGOGASTRODUODENOSCOPY TRANSORAL DIAGNOSTIC 11/03/2011 EGD FOOT/TOES SURGERY PROC UNLISTED 01/22/2005 bilateral 5th toes GASTRIC BYPAS (more content not included)... Normal [facility] ([id number]) JOSH HERNANDEZ ([id number]) 1960 F [facility] Date Time Provider Department 09/16/22 SHERYL CARRASCO6 During your visit today, we recorded the following information about you: Sheryl Carrasco APRN.PROGRAMS MANAGER 09/16/2022 2:33 PM Signed SURGERY OPTIMIZATION CLINIC DIRECT CHILL CASTING OPERATOR NOTE Discussed the purpose of the Surgery Optimization Clinic. Reviewed modifiable risk factors identified in the [facility]: EXERCISE: She is wearing her pedometer every day. She has increased her steps to 16,000-26,000 steps a week. Encouraged to increase activity as much as possible prior to surgery. BREATHING: She is using her IS frequently throughout the day.Encouraged to maintain. NUTRITION: Report she has increased her protein intake. Reviewed high protein food sources. Encouraged to include a protein source with each meal. [facility] Advanced Recovery to start 5 days prior to procedure, BID. STRESS RELIEF: Education given to patient for stress reduction/management. OR DATE: 09/24/2022 Sheryl Carrasco APRN.PROGRAMS MANAGER September 16, 2022 Allergies As of Date: 09/16/2022 Noted Allergy Reaction ASPIRIN 04/17/2005 BEES 04/17/2005 10 - Anaphylaxis FLEXERIL (CYCLOBENZAPRINE) 01/31/2008 5 - Intolerance KEFLEX (CEPHALEXIN) 04/17/2005 PENICILLIN G 04/17/2005 PRILOSEC (OMEPRAZOLE) 04/17/2005 Date Reviewed: 09/15/2022 Reviewed by: Sravanthi Donahue RN - Fully Assessed Reason for Visit: Patient Update [1234] Prescriptions as of 09/16/2022 - esomeprazole (NEXIUM) 40 mg capsule once daily. - levothyroxine sodium (SYNTHROID ORAL) Take 0.05 mg by mouth once daily. - traMADol (ULTRAM) 50 mg tablet Take 50 mg by mouth every 8 hours as needed. - meloxicam (MOBIC) 15 mg tablet Take 1 tablet by mouth once daily. - hydrOXYzine HCl (ATARAX) 25 mg tablet Take 25 mg by mouth once daily. - aspirin, enteric coated (ASPIRIN, ENTERIC COATED) 81 mg EC tablet Take 1 tablet by mouth once daily. - gabapentin (NEURONTIN) 300 mg capsule Take 1 capsule by mouth three times daily. - methylPREDNISolone (MEDROL DOSE-PACK) 4 mg Dose-Pack Take per package instructions. - losartan (COZAAR) 25 mg tablet Take 1 tablet by mouth once daily. - amitriptyline (ELAVIL) 50 mg tablet Take 1 tablet by mouth daily at bedtime. - multivitamin tablet Take 1 tablet by mouth once daily. Taking 4 pills at once daily - CALCIUM CARBONATE (CALCIUM 500 ORAL) Take by mouth once daily. - ursodiol (ACTIGALL) 300 mg capsule Take 1 capsule by mouth twice daily. - ONE TOUCH DELICA 33 gauge [facility] Problem List As Of Date 09/16/2022 Noted Resolved Chronic depression [F32.A] 05/05/2003 Mixed hyperlipidemia [E78.2] 05/05/2001 Essential hypertension [I10] 05/05/2001 RECTAL AND ANAL HEMORRHAGE [K62.5] 01/11/2007 BENIGN NEOPLASM LG BOWEL [D12.6] 01/13/2007 Hemorrhage of gastrointestinal tract, unspecifi*01/13/2007 10/01/2011 INT HEMORRHOID W/O COMPL [K64.8] 01/13/2007 External hemorrhoids without mention of complic*01/13/2007 10/01/2011 DIARRHEA NOS [R19.7] 2009 PERS HX COLONIC POLYPS [Z86.010] 2009 Postmenopausal Atrophic Vaginitis [N95.2] 03/07/2010 Diet-controlled type 2 diabetes mellitus (HCC) *01/23/2011 Chest pain [R07.9] 05/29/2011 07/30/2015 Bee sting allergies 10/01/2011 Calcaneal spur [M77.30] 03/28/2012 Fibromyalgia [M79.7] 10/25/2012 Asthma, mild persistent [J45.30] 02/21/2013 Hyperlipidemia with target LDL less than 70 [E7*02/21/2013 Chronic migraine without aura without status mi*10/23/2014 Genital herpes [A60.00] 10/23/2014 Gastroesophageal reflux disease [K21.9] 07/30/2015 11/10/2016 Morbid obesity (HCC) [E66.01] 08/09/2009 Encounter Status:Closed by SHERYL CARRASCO on 09/16/22 [facility] JOSH [facility]DE[facility] ([id number]) 1960 F T Date Time Provider Department 08/31/22 SHERYL CARRASCO6 During your visit today, we recorded the following information about you: Sheryl Carrasco APRN.PROGRAMS MANAGER 08/31/2022 3:09 PM Signed [facility]INIC DIRECT CHILL CASTING OPERATOR NOTE Discussed the purpose of the Surgery Optimization Clinic. Reviewed modifiable risk factors identified in the [facility]: EXERCISE: Reports she is wearing her pedometer. Is averaging 16,000-18,000 steps a week (about 2,500 steps a day). 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 Encouraged to increase activity as much as possible prior to surgery. BREATHING: Is using her IS about 20 times a day. Encouraged to increase use to 30-40 breaths/day. NUTRITION: Is trying to increase her protein and decrease her carbs. Suggested an easy to-go breakfast of protein bar or shake. Reviewed high protein food sources. Encouraged to include a protein source with each meal. Impact Advanced Recovery to start 5 days prior to procedure, BID. STRESS RELIEF: Education given to patient for stress reduction/management. OR DATE: 09/24/22 Agreeable to a follow up call in: two weeks Sheryl Carrasco APRN.PROGRAMS MANAGER August 31, 2022 Allergies As of Date: 08/31/2022 Noted Allergy Reaction ASPIRIN 04/17/2005 BEES 04/17/2005 10 - Anaphylaxis FLEXERIL (CYCLOBENZAPRINE) 01/31/2008 5 - Intolerance KEFLEX (CEPHALEXIN) 04/17/2005 PENICILLIN G 04/17/2005 PRILOSEC (OMEPRAZOLE) 04/17/2005 Date Reviewed: 07/31/2022 Reviewed by: Sheryl Carrasco APRN.PROGRAMS MANAGER - Fully Assessed Reason for Visit: Patient Update [1234] Prescriptions as of 08/31/2022 - levothyroxine sodium (SYNTHROID ORAL) Take 0.05 mg by mouth once daily. - traMADol (ULTRAM) 50 mg tablet Take 50 mg by mouth every 8 hours as needed. - meloxicam (MOBIC) 15 mg tablet Take 1 tablet by mouth once daily. - hydrOXYzine HCl (ATARAX) 25 mg tablet Take 25 mg by mouth once daily. - aspirin, enteric coated (ASPIRIN, ENTERIC COATED) 81 mg EC tablet Take 1 tablet by mouth once daily. - gabapentin (NEURONTIN) 300 mg capsule Take 1 capsule by mouth three times daily. - methylPREDNISolone (MEDROL DOSE-PACK) 4 mg Dose-Pack Take per package instructions. - losartan (COZAAR) 25 mg tablet Take 1 tablet by mouth once daily. - amitriptyline (ELAVIL) 50 mg tablet Take 1 tablet by mouth daily at bedtime. - multivitamin tablet Take 1 tablet by mouth once daily. Taking 4 pills at once daily - CALCIUM CARBONATE (CALCIUM 500 ORAL) Take by mouth once daily. - ursodiol (ACTIGALL) 300 mg capsule Take 1 capsule by mouth twice daily. - ONE TOUCH DELICA 33 gauge [facility] Problem List As Of Date 08/31/2022 Noted Resolved Chronic depression [F32.A] 05/05/2003 Mixed hyperlipidemia [E78.2] 05/05/2001 Essential hypertension [I10] 05/05/2001 RECTAL AND ANAL HEMORRHAGE [K62.5] 01/11/2007 BENIGN NEOPLASM LG BOWEL [D12.6] 01/13/2007 Hemorrhage of gastrointestinal tract, unspecifi*01/13/2007 10/01/2011 INT HEMORRHOID W/O COMPL [K64.8] 01/13/2007 External hemorrhoids without mention of complic*01/13/2007 10/01/2011 DIARRHEA NOS [R19.7] 2009 PERS HX COLONIC POLYPS [Z86.010] 2009 Postmenopausal Atrophic Vaginitis [N95.2] 03/07/2010 Diet-controlled type 2 diabetes mellitus (HCC) *01/23/2011 Chest pain [R07.9] 05/29/2011 07/30/2015 Bee sting allergies 10/01/2011 Calcaneal spur [M77.30] 03/28/2012 Fibromyalgia [M79.7] 10/25/2012 Asthma, mild persistent [J45.30] 02/21/2013 Hyperlipidemia with target LDL less than 70 [E7*02/21/2013 Chronic migraine without aura without status mi*10/23/2014 Genital herpes [A60.00] 10/23/2014 Gastroesophageal reflux disease [K21.9] 07/30/2015 11/10/2016 Morbid obesity (HCC) [E66.01] 08/09/2009 Encounter Status:Closed by SHERYL CARRASCO on 08/31/22 [facility] 08-14-2022 [place] Telephone (AGGENS6) JOSH HERNANDEZ ([id number]) 1960 F [facility] Date Time Provider Department 08/14/22 SHERYL CARRASCO6 During your visit today, we recorded the following information about you: Sheryl Carrasco APRN.MARTHA 08/14/2022 12:45 PM Signed [facility]GERY [facility]ATION CLINIC DIRECT CHILL CASTING OPERATOR NOTE Discussed the purpose of the [facility] Optimization Clinic. Reviewed modifiable risk factors identified in the Surgery Optimization Clinic: EXERCISE: Reports she is wearing her pedometer. Getting about 5,000 steps a day. 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 Encouraged to take breaks from the desk to get steps in. Encouraged to increase activity as much as possible prior to surgery. BREATHING: Reports she is using her IS about 20 times a day. Encouraged to increase use to 30-40 breaths/day. NUTRITION: Counting carbs, trying to keep them low. Trying to increase her protein. Reviewed high protein food sources. Aim for 64 ounce of water a day. Encouraged to include a protein source with each meal. Impact Advanced Recovery to start 5 days prior to procedure, BID. STRESS RELIEF: Education given to patient for stress reduction/management. OR DATE: 09/24/2022 Agreeable to a follow up call in: two weeks Sheryl Carrasco APRN.MARTHA August 14, 2022 Allergies As of Date: 08/14/2022 Noted Allergy Reaction ASPIRIN 04/17/2005 BEES 04/17/2005 10 - Anaphylaxis FLEXERIL (CYCLOBENZAPRINE) 01/31/2008 5 - Intolerance KEFLEX (CEPHALEXIN) 04/17/2005 PENICILLIN G 04/17/2005 PRILOSEC (OMEPRAZOLE) 04/17/2005 Date Reviewed: 07/31/2022 Reviewed by: Sheryl Carrasco APRN.CNP - Fully Assessed Reason for Visit: Patient Update [1234] Prescriptions as of 08/14/2022 - levothyroxine sodium (SYNTHROID ORAL) Take 0.05 mg by mouth once daily. - traMADol (ULTRAM) 50 mg tablet Take 50 mg by mouth every 8 hours as needed. - meloxicam (MOBIC) 15 mg tablet Take 1 tablet by mouth once daily. - hydrOXYzine HCl (ATARAX) 25 mg tablet Take 25 mg by mouth once daily. - aspirin, enteric coated (ASPIRIN, ENTERIC COATED) 81 mg EC tablet Take 1 tablet by mouth once daily. - gabapentin (NEURONTIN) 300 mg capsule Take 1 capsule by mouth three times daily. - methylPREDNISolone (MEDROL DOSE-PACK) 4 mg Dose-Pack Take per package instructions. - losartan (COZAAR) 25 mg tablet Take 1 tablet by mouth once daily. - amitriptyline (ELAVIL) 50 mg tablet Take 1 tablet by mouth daily at bedtime. - multivitamin tablet Take 1 tablet by mouth once daily. Taking 4 pills at once daily - CALCIUM CARBONATE (CALCIUM 500 ORAL) Take by mouth once daily. - ursodiol (ACTIGALL) 300 mg capsule Take 1 capsule by mouth twice daily. - ONE TOUCH DELICA 33 gauge [facility] Problem List As Of Date 08/14/2022 Noted Resolved Chronic depression [F32.A] 05/05/2003 Mixed hyperlipidemia [E78.2] 05/05/2001 Essential hypertension [I10] 05/05/2001 RECTAL AND ANAL HEMORRHAGE [K62.5] 01/11/2007 BENIGN NEOPLASM LG BOWEL [D12.6] 01/13/2007 Hemorrhage of gastrointestinal tract, unspecifi*01/13/2007 10/01/2011 INT HEMORRHOID W/O COMPL [K64.8] 01/13/2007 External hemorrhoids without mention of complic*01/13/2007 10/01/2011 DIARRHEA NOS [R19.7] 2009 PERS HX COLONIC POLYPS [Z86.010] 2009 Postmenopausal Atrophic Vaginitis [N95.2] 03/07/2010 Diet-controlled type 2 diabetes mellitus (HCC) *01/23/2011 Chest pain [R07.9] 05/29/2011 07/30/2015 Bee sting allergies 10/01/2011 Calcaneal spur [M77.30] 03/28/2012 Fibromyalgia [M79.7] 10/25/2012 Asthma, mild persistent [J45.30] 02/21/2013 Hyperlipidemia with target LDL less than 70 [E7*02/21/2013 Chronic migraine without aura without status mi*10/23/2014 Genital herpes [A60.00] 10/23/2014 Gastroesophageal reflux disease [K21.9] 07/30/2015 11/10/2016 Morbid obesity (HCC) [E66.01] 08/09/2009 Encounter Status:Closed [facility] SH[facility] Office Visit (AGGENS 6) JOSH HERNANDEZ ([id number]) 1960 F T Date Time Provider Department 07/31/22 10:00 AM SHERYL CARRASCO CROW[place]6 During your visit today, we recorded the following information about you: Pulse Respiration Blood pressure Weight 83/minute 20/minute 125/78 90.7 kg Height 1.626 m Sheryl Carrasco APRN.PROGRAMS MANAGER 07/31/2022 10:36 AM Signed Incentive Spirometer: -Start with breathing exercise today, goal 30-40 breaths a day *Incentive spirometer is used to help with lung expansion post operatively. It can be of benefit preoperatively to for those who smoke or have lung disease. Use the spirometer as instructed during your hospital visit. Take 10 deep breaths, hold for one second and then slowly exhale. You can take cleansing breaths in between as needed to avoid feeling dizzy or lightheaded. Use the spirometer hourly if possible. You will continue with this postoperatively. Pedometer: -Pedometer to monitor your steps starting today -For the first 3 days monitor your average daily steps to get your baseline number -Then increase your steps by 200-300 every couple of days as able -Goal is to increase mobility as much as possible prior to surgery * Research has shown that increased strength, mobility and function preoperatively will help you to recover with less complication. Your effort preoperatively will yield better results postoperatively Stress Relief: -Deep breathing exercises -Sleep: 6-8 hours of sleep each night -Meditate -Laughing -Walking -Positive self-talk -Finding a support system -Exercise, walking, being active Nutrition: -Make sure you are getting enough protein a day, with a goal of at least 1 high-protein food with each of your three meals a day -Make sure you are including high calcium foods, at least 3 servings a day: low-fat dairy, dark-leafy greens, sardines, or calcium-fortified cereals -Make sure you are getting vitamins and minerals by including at least four servings of fruits/vegetables a day - Drink 2 shakes daily for 5 days leading up to the day of surgery. *It has been shown through research that boosting the nutritional intake preoperatively with calories, vitamins and minerals, and hydration, promotes early recovery and improved healing postoperatively. You have been provided a case of supplement to take. Advanced Directives: Advanced directives are your preferences and personal requests in the event you are unable to make decisions for yourself following surgery. It is important for you to discuss your wishes with your family. It is requested that a single family member be designated as your power of banking attorney in the event you cannot speak for yourself. This person should know what you would prefer as your medical choices if you were not compromised. This person, family or friend, should know what you prefer for your medical care and decisions if you are unable to make those decisions for yourself. Notify your surgeon?s office to update your records with the designated Durable Power of Brewing Technician. -A great web site for information: www.[employer].org Sensory Aids: -If you have any sensory aids, such as hearing aids, or glasses, please bring these with you day of surgery -Encouraged to bring sleep hygiene items such as ear plugs and eye mask for more restful sleep during hospital stay - Information sheet on Delirium given to patient Sleep Apnea: If you have a CPAP machine, please bring that with you day of surgery. Sheryl Carrasco APRN.CNP 07/31/2022 11:44 AM Signed Sheryl Carrasco APRN.CNP [facility] ([facility]) [address] [facility], [address] [place] [id number] Patient: Josh Hernandez Date of : 1960 Subjective Scheduled OR Date: 09/24/22 Surgeon: Dr. Romo PCP: Elias Weinberg MD DIAGNOSES: Ventral hernia without obstruction PLANNED PROCEDURE: Robotic laparoscopic ventral hernia repair HPI Josh Hernandez is a 62 year old female, who was recently evaluated for surgery and has elected to proceed with the above mentioned surgical intervention. Patient has a h/o asthma, heart disease, DM2, GERD, HTN, former smoker. Patient also has a h/o multiple abdominal surgeries including a hysterectomy, cholecystectomy, gastric bypass in 2017. Patient reports she first noted ventral hernias about a year ago. Patient has met with Dr. Romo, surgery for a robotic laparoscopic ventral hernia repair is scheduled for 09/24/22. Patient reports she has intermittent abdominal pain, today rating her pain a 3/10, nothing seems to make the pain worse, she takes Ultram for pain control. She also reports chronic constipation, she has tried Miralax in the past and it did not help. She take Colace and Sennakot PRN. Denies any blood in the stool. Denies any SOB, CP, fevers, or chills. PAST MEDI (more content not included)... Normal [facility] ECG COMPLETEon 07-31-2022 Atrial Rate 69 BPM [facility] Calculated P [place] 45 degrees [facility] Calculated R [place] 78 degrees [facility] Calculated T [place] 59 degrees [facility] P-R Interval 170 ms [facility] QRS Duration 76 ms [facility] QT Interval 416 ms [facility] QTC Calculation (Bazett) 445 ms [facility] Ventricular Rate 69 BPM [facility] [id number] 07-31-2022 ECG01 Ventricular Rate : 6 9 BPM Atrial Rate : 69 BPM P-R Interval : 170 ms QRS Duration : 76 ms Q-T Interval : 416 ms QTC Calculation(Bazett) : 445 ms Calculated P [place] : 45 degrees Calculated R [place] : 78 degrees Calculated T [place] : 59 degrees NORMAL SINUS RHYTHM POSSIBLE LEFT ATRIAL ENLARGEMENT BORDERLINE ECG WHEN COMPARED WITH ECG OF 17-JUN-2016 08:30, NO SIGNIFICANT CHANGE WAS FOUND Confirmed by MD JASEN, OWEN ([id number]) on 07/31/2022 2:11:07 PM NAME : JOSH HERNANDEZ PID : [id number] : 1960 Gender : Female Race : ORD : [id number] Procedure Date : Jul 31 2022 12:20:49 Edit Date : Jul 31 2022 14:11:09 Diagnosis: NORMAL SINUS RHYTHM POSSIBLE LEFT ATRIAL ENLARGEMENT BORDERLINE ECG WHEN COMPARED WITH ECG OF 17-JUN-2016 08:30, NO SIGNIFICANT CHANGE WAS FOUND Confirmed by MD AGGARWAL YASSAR ([id number]) on 07/31/2022 2:11:07 PM Test Reason : Location : : Overread By : MD AGGARWAL YASSAR Edited By : MD AGGARWAL YASSAR Referred By : SHERYL CARRASCO Acquired by : BRAD GORDILLO [facility] CNOVon 07-28-2022 [facility] Office Visit (AGGENS 1) JOSH HERNANDEZ ([id number]) 1960 F T Date Time Provider Department 07/28/22 11:00 AM CHRIS ROMO1 During your visit today, we recorded the following information about you: Pulse Blood pressure Weight Height 90/minute 129/85 74.4 kg 1.626 m Paul Berger PA-C 07/28/2022 1:42 PM Signed Patient referred by: No referring provider defined for this encounter. HPI: This is a new patient consult for assessment of ventral hernia. The patient is a 62 year old female with history of multiple abdominal surgeries, most recently in 2019. The patient is here today for multiple hernias. She first noted the hernias around 1 year ago. She states she has pain in the epigastric area and LLQ. She saw a general surgeon previously who referred her to our office. She has not had any bowel obstructions from the hernias, but does note intermittent constipation. She denies nausea, vomiting. She denies emergency room visits for the hernia. She denies pulmonary or cardiac history. She denies history of diabetes. She denies smoking tobacco products. PAST MEDICAL HISTORY Diagnosis Date Asthma Benign neoplasm of colon Cyst of left kidney CT 11/2017 Depressive disorder, not elsewhere classified 05/2003 Diabetes mellitus (HCC) Diarrhea Esophageal reflux 05/[address] 11/2017 Hemorrhage of gastrointestinal tract, unspecified Hepatic cyst CT 11/2017 Hypertension Morbid obesity (HCC) 2-5-10 stated BMI 40.1 Ht: 63 Wt: 227 lbs Other and unspecified hyperlipidemia 05/2001 Pain in joint, multiple sites back, hips, knees Snoring Unspecified hypertensive heart disease without heart failure 05/2001 PAST SURGICAL HISTORY Procedure Laterality Date ARTHRT GLENOHMRL JT W/JT EXPL W/WO RMVL LOOSE/FB Right 03/18/2005 arthritic bone removal BUNION CORRECTION W/METATARSAL OSTEOTOMY BUNIONECTOMY, LAPIDUS-TYPE Right COLONOSCOPY FLX DX W/COLLJ SPEC WHEN PFRMD 2009 Colonoscopy COLONOSCOPY FLX DX W/COLLJ SPEC WHEN PFRMD 06/20/2014 Colonoscopy COLONOSCOPY FLX DX W/COLLJ SPEC WHEN PFRMD 01-08-16 COLSC FLX W/RMVL OF TUMOR POLYP LESION SNARE TQ 01/13/07 ESOPHAGOGASTRODUODENOSCOPY TRANSORAL DIAGNOSTIC 11/03/2011 EGD FOOT/TOES SURGERY PROC UNLISTED 01/22/2005 bilateral 5th toes GASTRIC BYPASS HX 08/12/2016 Dr Spike Dias GEn LAPAROSCOPY SURG CHOLECYSTECTOMY 12/04/2017 [facility] [address] Spike LEE CUSTOM 2001 bilateral LIG/TRNSXJ FLP TUBE ABDL/VAG APPR UNI/BI Tubal ligation OPEN REPAIR OF ROTATOR CUFF ACUTE 2006 left OPTX ANKLE DISLOCATION W/REPAIR/INT/XTRNL FIXJ left TONSILLECTOMY AND ADENOIDECTOMY TOTAL ABDOMINAL HYSTERECT W/WO RMVL TUBE OVARY 06/2002 Hysterectomy, CATRACHITA/BSO for bleeding and pain FAMILY HISTORY Problem Relation Age of Onset Cancer Mother uterine/also heart problems/hypertension/diabetes Heart Mother mother at 46 from heart attack Cancer Father esophageal/also heart disease Heart Father biological Stroke Father biological Diabetes Sister Diabetes Brother 2 brothers Heart Brother 5 stents Heart Sister heart attack-4 stents Heart disease Brother Diabetes Brother Hypertension Brother other (Gasstric ulcer) Brother other (hiatal hernia) Brother Social History Tobacco Use Smoking status: Former Packs/day: 1.00 Years: 20.00 Pack years: 20.00 Types: Cigarettes Quit date: 04/05/2001 Years since quittin.3 Smokeless tobacco: Never Substance Use Topics Alcohol use: No Drug use: No Current Outpatient Medications Medication Sig hydrOXYzine HCl (ATARAX) 25 mg tablet Take 25 mg by mouth once daily. aspirin, enteric coated (ASPIRIN, ENTERIC COATED) 81 mg EC tablet Take 1 tablet by mouth once daily. losartan (COZAAR) 25 mg tablet Take 1 tablet by mouth once daily. amitriptyline (ELAVIL) 50 mg tablet Take 1 tablet by mouth daily at bedtime. multivitamin tablet Take 1 tablet by mouth once daily. Taking 4 pills at once daily CALCIUM CARBONATE (CALCIUM 500 ORAL) Take by mouth once daily. ONE TOUCH DELICA 33 gauge misc traMADol (ULTRAM) 50 mg tablet Take 50 mg by mouth every 8 hours as needed. meloxicam (MOBIC) 15 mg tablet Take 1 tablet by mouth once daily. gabapentin (NEURONTIN) 300 mg capsule Take 1 capsule by mouth three times daily. methylPREDNISolone (MEDROL DOSE-PACK) 4 mg Dose-Pack Take per package instructions. (Patient not taking: Reported on 07/28/2022) ursodiol (ACTIGALL) 300 mg capsule Take 1 capsule by mouth twice daily. (Patient not taking: No sig reported) No current facility-administered medications for this visit. ALLERGIES Allergen Reactions Aspirin Bees Anaphylaxis Flexeril [Cyclobenz* Intolerance Keflex [Cephalexin] Penicillin G Prilosec [Omeprazol* REVIEW OF SYSTEMS: GENERAL: No weight loss, malaise or fevers GI: Negative for nausea , (more content not included)... Normal [facility] HbA1c (Bld)on 07-28-2022 Average glucose Estimated from glycated hemoglobin (Bld) [Mass/Vol] 134 mg/dL [facility] HbA1c (Bld) [Mass fraction] 6.3 % High 4.3 - 5.6 % [facility] Average glucose Estimated from glycated hemoglobin (Bld) [Mass/Vol] 134 mg/dL Normal [facility] Comment on above: Order Comment: Specimen Type: BLOOD SPEC IMEN Ordering Facility: [facility] Address: [address] [place] [id number] Result Comment: eAG: (Estimated average glucose) is a calculated value from HgbA1c and is aircraft sales representative of the average blood glucose level in the last 2-3 month period. Performed By: #### 5 5454-3 #### [facility] CLIA [id number] 1 [place] [address] [place] HbA1c (Bld) [Mass fraction] 6.3 % High 4.3-5.6 [facility] Comment on above: Order Comment: Specimen Type: BLOOD SPEC IMEN Ordering Facility: [facility] Address: [place] [address] Result Comment: Brigitte ican Diabetes Association guidelines indicate that patients with HgbA1c in the range 5.7-6.4% are at increased risk for development of diabetes, and intervention by lifestyle modification may be beneficial. HgbA1c greater or equal to 6.5% is considered diagnostic of diabetes. Performed By: #### 5 5454-3 #### [facility] CLIA [id number] [address] Crossmatch 2 units PRBCon Ab Screen Negative [facility] Comment on above: Performed By: #### IONCAL #### [facility] [address] [place] [address] Patient Rh Negative [facility] Comment on above: Performed By: #### IONCAL #### [facility] [address] [place] [address] TANDS destini date/time 11/04/18 08:28 [facility] Comment on above: Performed By: #### IONCAL #### [facility] [address] [place] [address] [id number] [facility] Comment on above: Performed By: #### IONCAL #### [facility] [address] [place] [address] [address] [id number] [facility] Comment on above: Performed By: #### IONCAL #### [facility] [address] [place] [address] [address] ABO/Rh Negative [facility] Comment on above: Performed By: #### IONCAL #### [facility] [address] [place] [address] Unit ABO/Rh Negative [facility] Comment on above: Performed By: #### IONCAL #### [facility] [address] [place] [address] Unit Exp 12/02/18 [facility] Comment on above: Performed By: #### IONCAL #### [facility] [address] [place] [address] XM 2 Compat Compatible [facility] Comment on above: Performed By: #### IONCAL #### [place] [address] XM Compat Compatible [facility] Comment on above: Performed By: #### IONCAL #### [place] [address] Type and Screenon 11-04-2018 Patient ABO A [facility] Comment on above: Performed By: #### IONCAL #### [address] Surgical Pathology Depar tmenton 11-04-2018 [facility] Surgical Pathology Department Name JOSH HERNANDEZ Pathologist: LENNOX CHAVES MD Date of Procedure: 11/04/2018 Date Received: 11/07/2018 Date Reported 11/09/2018 Submitting Physician: DAVID LALA Location: [facility] Copy To/Referring/Attending: LARA DEVI MD Other External # [id number] FINAL DIAGNOSIS A. BOWEL AND STOMACH, PARTIAL RESECTION: --SKIN AND SMALL BOWEL SEGMENTS WITH FOCI OF MUCOSAL EROSION AND CHANGES CONSISTENT WITH STOMA SITE. --SUTURE MATERIAL AND GIANT CELL REACTION. --ACUTE SEROSITIS AND SEROSAL ADHESIONS. The gross and/or microscopic findings were reviewed in conjunction with pathology resident, Jyoti Joshi M.D. Electronically Signed Out By LENNOX CHAVES MD/SVIPIN By the signature on this report, the individual or group listed as making the Final Interpretation/Diagnosis certifies that they have reviewed this case. Clinical History: intussusception, multiple stomas Specimens Submitted As: A: FRAGMENTS OF BOWEL AND STOMACH Other Case Numbers [id number] Gross Description: A: Received in formalin, labeled with the patient's name and hospital number, and segment of bowel and stomach are multiple segments of unoriented and undesignated gastrointestinal segments with scant attached adipose tissue aggregating to 14 x 9.5 x 3.5 cm. there are numerous staple identified. The serosal surfaces are hyperemic with adhesions. The bowel wall ranges from 0.3 to 0.9 cm in thickness. The mucosal surfaces appear edematous. No ulcerations, polyps, or masses are identified. No lymph nodes are identified upon palpation of the adipose tissue. Floor Press Operator sections are submitted in 4 cassettes. [facility]/11/07/2018 Normal [facility] Comment on above: Performed By: #### CS #### [facility] Surgical Pathology Department [id number] [facility] [address] CT Abdomen / Pelvis w contra ston 10-24-2018 CT Abdomen / Pelvis w contrast Indication: Pelvic abscess and colitis. Comparison 09/30/2018. FINDINGS: Imaging with 75 cc Isovue-370 and oral contrast administered to the G-tubes NJ tubes performed. No free air. Bowel pattern appears nonobstructive; constipation suspected. No acute process of liver, adrenal glands, pancreas or spleen. Gallbladder absent. No definite residual abscess. Drainage catheter removed. Both kidneys perfuse equally. No hydronephrosis. No bladder calculi. No definite adenopathy seen. Lung bases are clear. No spinal compression seen. Previously identified mesenteric edema and bowel thickening is no longer apparent. IMPRESSION: Constipation. No definite residual abscess, free air or definite obstruction seen. There is limitation in the patient's inability to keep oral contrast down. Report Dictated on Authenticated by: Justo Cohn On: 10/24/2018 13:29 Read by: JUSTO COHN MD Date: 10/24/2018 13:29 Normal [facility] Comment on above: Order Comment: CONTRAST PER RADIOLOGIST DISCRETION CBC without Diffon Erythrocyte distribution width Ratio (RBC) 16.1 % High 11.1-15.3 [facility] Comment on above: Performed By: #### CBC ####[address] [address] Hematocrit Volume Fraction (Bld) 38.6 % Normal 34.6-45.0 [facility] Comment on above: Performed By: #### CBC ####[address] [address] Hemoglobin mass conc (Bld) 12.5 g/dL Normal 11.5-15.5 [facility] Comment on above: Performed By: #### CBC ####[place] [address] MCH Entitic mass (RBC) 28.3 pg Normal 27.2-33.6 [facility] Comment on above: Performed By: #### CBC ####[place] [address] MCHC mass conc (RBC) 32.3 g/dL Low 32.9-35.3 [facility] Comment on above: Performed By: #### CBC ####[place] [address] MCV Entitic volume (RBC) 87.6 fL Normal 81.3-96.7 [facility] Comment on above: Performed By: #### CBC ####[place] [address] Platelet mean volume Entitic volume (Bld) 7.7 fL Normal 6.4-10.0 [facility] Comment on above: Performed By: #### CBC ####[place] [address] Platelets #/vol (Bld) 339 x(10)3/cumm Normal 138-367 [facility] Comment on above: Performed By: #### CBC ####[place] [address] RBC #/vol (Bld) 4.41 X(10)6/cumm Normal 3.90-5.10 [facility] Comment on above: Performed By: #### CBC ####[place] [id number] WBC #/vol (Bld) 7.5 x(10)3/cumm Normal 3.6-10.3 [facility] Comment on above: Performed By: #### CBC ####[place] [id number] Comprehensive Metabolic Pane guillermo 10-13-2018 Albumin mass conc 4.1 g/dL Normal 3.4-5.0 [facility] Comment on above: Performed By: #### IONCAL #### [facility] [address] [place] [address] ALP enzyme act/vol 235 U/L High 45-117 [facility] Comment on above: Performed By: #### IONCAL #### [facility] [address] [place] [address] ALT enzyme act/vol 55 U/L Normal 12-78 [facility] Comment on above: Performed By: #### IONCAL #### [facility] [address] [place] [address] Anion gap molar conc 6 mmol/L Normal 5-10 [facility] Comment on above: Performed By: #### IONCAL #### [facility] [address] [place] [address] 63693 AST enzyme act/vol 33 U/L Normal 15-37 [facility] Comment on above: Performed By: #### IONCAL #### [facility] [address] [place] [address] Bili, Total 0.3 mg/dL Normal 0.2-1.0 [facility] Comment on above: Performed By: #### IONCAL #### [facility] [address] [place] [address]67 Calcium mass conc 10.0 mg/dL Normal 8.5-10.1 [facility] Comment on above: Performed By: #### IONCAL #### [facility] [address] [place] [address]127 Chloride molar conc 103 mmol/L Normal 98-107 [facility] Comment on above: Performed By: #### IONCAL #### [facility] [address] [place] [address]17 CO2 molar conc 23 mmol/L Normal 21-32 [facility] Comment on above: Performed By: #### IONCAL #### [facility] [address] [place] [address] Creatinine mass conc 0.66 mg/dL Normal 0.60-1.30 [facility] Comment on above: Performed By: #### IONCAL #### [facility] [address] [place] [address]31 eGFR -Amer >60 Normal >=60 [facility] Comment on above: Performed By: #### IONCAL #### [facility] [address] [place] [address]00 GFR/1.73 sq M predicted among non-blacks MDRD vol rate/area (S/P/Bld) mL/min/{1.73_m2} Normal >=60 [facility] Comment on above: Performed By: #### IONCAL #### [facility] [address] [place] [address] 27171 Glucose mass conc 98 mg/dL Normal 74-106 [facility] Comment on above: Performed By: #### IONCAL #### [facility] [address] [place] [address] 47567 Potassium molar conc 4.5 mmol/L Normal 3.5-5.1 [facility] Comment on above: Performed By: #### IONCAL #### [facility] [address] [place] [address] Protein mass conc 8.5 g/dL High 6.4-8.2 [facility] Comment on above: Performed By: #### IONCAL #### [facility] [address] [place] [address] 10189 Sodium molar conc 132 mmol/L Low 136-145 [facility] Comment on above: Performed By: #### IONCAL #### [facility] [address] [place] [address] 28500 Urea nitrogen mass conc 36 mg/dL High 7-18 [facility] Comment on above: Performed By: #### IONCAL #### [facility] [address] [place] [address] Magnesiumon 10-13-2018 Magnesium mass conc 2.2 mg/dL Normal 1.8-2.4 [facility] Comment on above: Performed By: #### IONCAL #### [address] [address] Phosphorus - Inorganicon Phosphate mass conc 4.7 mg/dL Normal 2.5-4.9 [facility] Comment on above: Performed By: #### IONCAL #### [facility] [address] [place] [address] Prealbuminon 10-13-2018 Prealbumin mass conc 45.9 mg/dL High 20.0-40.0 [facility] Comment on above: Performed By: #### IONCAL #### [facility] [address] [place] [address] Triglycerideson 10-13-2018 Triglyceride mass conc 216 mg/dL High <=150 [facility] Comment on above: Performed By: #### IONCAL #### [facility] [address] [place], [place] [id number] Zincon 10-12-2018 Zinc, Plasma or Serum 83 ug/dL Normal 56-134 [facility] Comment on above: Order Comment: PICC placement Result Comment: Dete ction Limit = 5 Performed By: #### Z INC ####[facility] RESULTS Ionized Calciumon 10-10-2018 Ionized Calcium 4.8 mg/dL Normal 4.3-5.2 [facility] Comment on above: Performed By: #### IONCAL ####[address] [address] pH (Bld) 7.361 [pH] Normal 7.310-7.460 [facility] Comment on above: Performed By: #### IONCAL ####[facility] [place] [address] Prealbuminon 10-10-2018 Prealbumin mass conc 33.0 mg/dL Normal 20.0-40.0 [facility] Comment on above: Performed By: #### PREALB, TRIG ####[facility] [address] [address] Triglycerideson 10-10-2018 Triglyceride mass conc 194 mg/dL High <=150 [facility] Comment on above: Performed By: #### PREALB, TRIG ####[facility] a [address] [address] Basic Metabolic Panelon Anion gap molar conc 5 mmol/L Normal 5-10 [facility] Comment on above: Performed By: #### BMP ####[address] [address] Calcium mass conc 8.7 mg/dL Normal 8.5-10.1 [facility] Comment on above: Performed By: #### BMP ####[address] [address] Chloride molar conc 99 mmol/L Normal 98-107 [facility] Comment on above: Performed By: #### BMP ####[place] [id number] CO2 molar conc 31 mmol/L Normal 21-32 [facility] Comment on above: Performed By: #### BMP ####[place] [id number] Creatinine mass conc 0.38 mg/dL Low 0.60-1.30 [facility] Comment on above: Performed By: #### BMP ####[place] [id number] eGFR -Amer >60 Normal >=60 [facility] Comment on above: Performed By: #### BMP ####[place] [id number] GFR/1.73 sq M predicted among non-blacks MDRD vol rate/area (S/P/Bld) mL/min/{1.73_m2} Normal >=60 [facility] Comment on above: Performed By: #### BMP ####[place] [id number] Glucose mass conc 100 mg/dL Normal 74-106 [facility] Comment on above: Performed By: #### BMP ####[place] [id number] Potassium molar conc 4.4 mmol/L Normal 3.5-5.1 [facility] Comment on above: Performed By: #### BMP ####[place] [id number] Sodium molar conc 135 mmol/L Low 136-145 [facility] Comment on above: Performed By: #### BMP ####[facility] [place] [address] Urea nitrogen mass conc 27 mg/dL High 7-18 [facility] Comment on above: Performed By: #### BMP ####[facility] [place] [address] CBC with Diffon 10-06-2018 Basophils #/vol (Bld) 0.1 x(10)3/cumm Normal 0.0-0.1 [facility] Comment on above: Performed By: #### CBCDIFF ####[facility] [place] [address] Basophils/100 WBC (Bld) 1.1 % High 0.0-1.0 [facility] Comment on above: Performed By: #### CBCDIFF ####[facility] [place] [address] Eosinophils #/vol (Bld) 0.2 x(10)3/cumm Normal 0.0-0.4 [facility] Comment on above: Performed By: #### CBCDIFF ####[address] [address] Eosinophils/100 WBC (Bld) 4.1 % Normal 0.0-6.1 [facility] Comment on above: Performed By: #### CBCDIFF ####[facility] [place] [address] Erythrocyte distribution width Ratio (RBC) 16.8 % High 11.1-15.3 [facility] Comment on above: Performed By: #### CBCDIFF ####[facility] [place] [address]25 Hematocrit Volume Fraction (Bld) 27.8 % Low 34.6-45.0 [facility] Comment on above: Performed By: #### CBCDIFF ####[facility] [place] [address]59 Hemoglobin mass conc (Bld) 9.0 g/dL Low 11.5-15.5 [facility] Comment on above: Performed By: #### CBCDIFF ####[facility] [place] [address] Lymphocytes #/vol (Bld) 1.1 x(10)3/cumm Normal 0.8-2.9 [facility] Comment on above: Performed By: #### CBCDIFF ####[facility] [place] [address] Lymphocytes/100 WBC (Bld) 18.2 % Normal 12.2-42.6 [facility] Comment on above: Performed By: #### CBCDIFF ####[facility] [place] [address]80 MCH Entitic mass (RBC) 28.8 pg Normal 27.2-33.6 [facility] Comment on above: Performed By: #### CBCDIFF ####[facility] [place] [address]33 MCHC mass conc (RBC) 32.6 g/dL Low 32.9-35.3 [facility] Comment on above: Performed By: #### CBCDIFF ####[facility] [place] [address] 10993 MCV Entitic volume (RBC) 88.4 fL Normal 81.3-96.7 [facility] Comment on above: Performed By: #### CBCDIFF ####[facility] [place] [address]247 Monocytes #/vol (Bld) 0.9 x(10)3/cumm High 0.2-0.8 [facility] Comment on above: Performed By: #### CBCDIFF ####[facility] [place] [address] Monocytes/100 WBC (Bld) 14.6 % High 3.3-11.6 [facility] Comment on above: Performed By: #### CBCDIFF ####[facility] [place] [address] Neutrophils #/vol (Bld) 3.8 x(10)3/cumm Normal 1.3-7.4 [facility] Comment on above: Performed By: #### CBCDIFF ####[facility] [place] [address]22 Platelet mean volume Entitic volume (Bld) 8.1 fL Normal 6.4-10.0 [facility] Comment on above: Performed By: #### CBCDIFF ####[facility] [place] [address] Platelets #/vol (Bld) 223 x(10)3/cumm Normal 138-367 [facility] Comment on above: Performed By: #### CBCDIFF ####[address] [address] Plt Morph Normal [facility] Comment on above: Performed By: #### CBCDIFF ####[address] [address] RBC #/vol (Bld) 3.14 X(10)6/cumm Low 3.90-5.10 [facility] Comment on above: Performed By: #### CBCDIFF ####[address] [address] RBC Morph cont Normal [facility] Comment on above: Performed By: #### CBCDIFF ####[address] [address] RBC morphology finding Nom (Bld) Normal [facility] Comment on above: Performed By: #### CBCDIFF ####[address] [address] Segmented neutrophils/100 WBC (Bld) 62.0 % Normal 44.9-78.8 [facility] Comment on above: Performed By: #### CBCDIFF ####[address] [address] WBC #/vol (Bld) 6.1 x(10)3/cumm Normal 3.6-10.3 [facility] Comment on above: Performed By: #### CBCDIFF ####[facility], [place] [address] WBC Morph Normal [facility] Comment on above: Performed By: #### CBCDIFF ####[facility] [place] [address] Comprehensive Metabolic Pane guillermo 10-06-2018 Albumin mass conc 2.7 g/dL Low 3.4-5.0 [facility] Comment on above: Performed By: #### PREALB, PHOS, MAG, TR IG, CMP ####[facility], [place] [address] ALP enzyme act/vol 128 U/L High 45-117 [facility] Comment on above: Performed By: #### PREALB, PHOS, MAG, TR IG, CMP ####[facility] [place] [address]258 ALT enzyme act/vol 30 U/L Normal 12-78 [facility] Comment on above: Performed By: #### PREALB, PHOS, MAG, TR IG, CMP ####[facility] [place] [address] 86792 Anion gap molar conc 5 mmol/L Normal 5-10 [facility] Comment on above: Performed By: #### PREALB, PHOS, MAG, TR IG, CMP ####[facility] [place] [address] 96534 AST enzyme act/vol 15 U/L Normal 15-37 [facility] Comment on above: Performed By: #### PREALB, PHOS, MAG, TR IG, CMP ####[facility] [place] [address]74 Bili, Total 0.3 mg/dL Normal 0.2-1.0 [facility] Comment on above: Performed By: #### PREALB, PHOS, MAG, TR IG, CMP ####[facility] [place] [address]74 Calcium mass conc 8.6 mg/dL Normal 8.5-10.1 [facility] Comment on above: Performed By: #### PREALB, PHOS, MAG, TR IG, CMP ####[address] [address] Chloride molar conc 106 mmol/L Normal 98-107 [facility] Comment on above: Performed By: #### PREALB, PHOS, MAG, TR IG, CMP ####[address] [address] CO2 molar conc 26 mmol/L Normal 21-32 [facility] Comment on above: Performed By: #### PREALB, PHOS, MAG, TR IG, CMP ####[address] [address] Creatinine mass conc 0.34 mg/dL Low 0.60-1.30 [facility] Comment on above: Performed By: #### PREALB, PHOS, MAG, TR IG, CMP ####[address] [address] eGFR -Amer >60 Normal >=60 [facility] Comment on above: Performed By: #### PREALB, PHOS, MAG, TR IG, CMP ####[address] [address] GFR/1.73 sq M predicted among non-blacks MDRD vol rate/area (S/P/Bld) mL/min/{1.73_m2} Normal >=60 [facility] Comment on above: Performed By: #### PREALB, PHOS, MAG, TR IG, CMP ####[address] [address] Glucose mass conc 88 mg/dL Normal 74-106 [facility] Comment on above: Performed By: #### PREALB, PHOS, MAG, TR IG, CMP ####[address] [address] Potassium molar conc 4.6 mmol/L Normal 3.5-5.1 [facility] Comment on above: Performed By: #### PREALB, PHOS, MAG, TR IG, CMP ####[address] [address] Protein mass conc 6.2 g/dL Low 6.4-8.2 [facility] Comment on above: Performed By: #### PREALB, PHOS, MAG, TR IG, CMP ####[facility] [place] [address] 19609 Sodium molar conc 137 mmol/L Normal 136-145 [facility] Comment on above: Performed By: #### PREALB, PHOS, MAG, TR IG, CMP ####[facility] [place] [address]09 Urea nitrogen mass conc 34 mg/dL High 7-18 [facility] Comment on above: Performed By: #### PREALB, PHOS, MAG, TR IG, CMP ####[facility] [place] [address] Ionized Calciumon 10-06-2018 Ionized Calcium 4.9 mg/dL Normal 4.3-5.2 [facility] Comment on above: Performed By: #### IONCAL ####[address] [address] pH (Bld) 7.376 [pH] Normal 7.310-7.460 [facility] Comment on above: Performed By: #### IONCAL ####[address] [address] Magnesiumon 10-06-2018 Magnesium mass conc 1.8 mg/dL Normal 1.8-2.4 [facility] Comment on above: Performed By: #### PREALB, PHOS, MAG, TR IG, CMP ####[address] [address] Phosphorus - Inorganicon Phosphate mass conc 3.0 mg/dL Normal 2.5-4.9 [facility] Comment on above: Performed By: #### PREALB, PHOS, MAG, TR IG, CMP ####[address] [address] Prealbuminon 10-06-2018 Prealbumin mass conc 32.2 mg/dL Normal 20.0-40.0 [facility] Comment on above: Performed By: #### PREALB, PHOS, MAG, TR IG, CMP ####[place] [address] [address] [place], [place] [id number] Triglycerideson 10-06-2018 Triglyceride mass conc 245 mg/dL High <=150 [facility] Comment on above: Performed By: #### PREALB, PHOS, MAG, TR IG, CMP ####[place] [id number] Zincon 10-05-2018 Zinc, Plasma or Serum 83 ug/dL Normal 56-134 [facility] Comment on above: Order Comment: Performed at: [address] [id number] Director: Cristina Leon MD, Phone: [phone] Result Comment: This test was developed and its performance characteristics determined by [facility]. It has not been cleared or approved by the Food and Drug Administration. Detection Limit = 5 Performed By: #### Z INC ####[facility] RESULTS C-Reactive Proteinon 019 CRP mass conc 4.43 mg/L High <=2.99 [facility] Comment on above: Performed By: #### CRPR ####[place] [address] Sed Rate - Westergrenon Sed Rate 41 mm/hr High 0-20 [facility] Comment on above: Performed By: #### ESR ####[place] [id number] CBC with Diffon 10-03-2018 Basophils #/vol (Bld) 0.1 x(10)3/cumm Normal 0.0-0.1 [facility] Comment on above: Performed By: #### CBCDIFF ####[place] [id number] Basophils/100 WBC (Bld) 1.2 % High 0.0-1.0 [facility] Comment on above: Performed By: #### CBCDIFF ####[place] [id number] Eosinophils #/vol (Bld) 0.3 x(10)3/cumm Normal 0.0-0.4 [facility] Comment on above: Performed By: #### CBCDIFF ####[facility] [place] [address] Eosinophils/100 WBC (Bld) 5.6 % Normal 0.0-6.1 [facility] Comment on above: Performed By: #### CBCDIFF ####[facility] [place] [address]26 Erythrocyte distribution width Ratio (RBC) 16.2 % High 11.1-15.3 [facility] Comment on above: Performed By: #### CBCDIFF ####[facility] [place] [address] Hematocrit Volume Fraction (Bld) 26.7 % Low 34.6-45.0 [facility] Comment on above: Performed By: #### CBCDIFF ####[facility] [place] [address]329 Hemoglobin mass conc (Bld) 8.7 g/dL Low 11.5-15.5 [facility] Comment on above: Performed By: #### CBCDIFF ####[facility] [place] [address]6865 Lymphocytes #/vol (Bld) 0.8 x(10)3/cumm Normal 0.8-2.9 [facility] Comment on above: Performed By: #### CBCDIFF ####[facility] [place] [address]99 Lymphocytes/100 WBC (Bld) 17.3 % Normal 12.2-42.6 [facility] Comment on above: Performed By: #### CBCDIFF ####[facility] [place] [address] 77568 MCH Entitic mass (RBC) 28.5 pg Normal 27.2-33.6 [facility] Comment on above: Performed By: #### CBCDIFF ####[facility] [place] [address] 32041 MCHC mass conc (RBC) 32.7 g/dL Low 32.9-35.3 [facility] Comment on above: Performed By: #### CBCDIFF ####[facility] [place] [address] 90288 MCV Entitic volume (RBC) 87.2 fL Normal 81.3-96.7 [facility] Comment on above: Performed By: #### CBCDIFF ####[facility] [place], [place] [id number] Monocytes #/vol (Bld) 0.4 x(10)3/cumm Normal 0.2-0.8 [facility] Comment on above: Performed By: #### CBCDIFF ####[place] [id number] Monocytes/100 WBC (Bld) 9.0 % Normal 3.3-11.6 [facility] Comment on above: Performed By: #### CBCDIFF ####[address] [address] Neutrophils #/vol (Bld) 3.0 x(10)3/cumm Normal 1.3-7.4 [facility] Comment on above: Performed By: #### CBCDIFF ####[address] [address] Platelet mean volume Entitic volume (Bld) 8.1 fL Normal 6.4-10.0 [facility] Comment on above: Performed By: #### CBCDIFF ####[address] [address] Platelets #/vol (Bld) 227 x(10)3/cumm Normal 138-367 [facility] Comment on above: Performed By: #### CBCDIFF ####[address] [address] Plt Morph Normal [facility] Comment on above: Performed By: #### CBCDIFF ####[place] [phone] RBC #/vol (Bld) 3.07 X(10)6/cumm Low 3.90-5.10 [facility] Comment on above: Performed By: #### CBCDIFF ####[place] [address] [address] RBC Morph cont Normal [facility] Comment on above: Performed By: #### CBCDIFF ####[place] [address] RBC morphology finding Nom (Bld) Normal [facility] Comment on above: Performed By: #### CBCDIFF ####[place] [phone] Segmented neutrophils/100 WBC (Bld) 66.9 % Normal 44.9-78.8 [facility] Comment on above: Performed By: #### CBCDIFF ####[place] [address] WBC #/vol (Bld) 4.5 x(10)3/cumm Normal 3.6-10.3 [facility] Comment on above: Performed By: #### CBCDIFF ####[facility] [place] [phone] WBC Morph Normal [facility] Comment on above: Performed By: #### CBCDIFF ####[place] [address] Comprehensive Metabolic Pane guillermo 10-03-2018 Albumin mass conc 2.5 g/dL Low 3.4-5.0 [facility] Comment on above: Performed By: #### MAG, CMP ####[place] [facility] [place] [address] ALP enzyme act/vol 101 U/L Normal 45-117 [facility] Comment on above: Performed By: #### MAG, CMP ####[place] [id number] ALT enzyme act/vol 19 U/L Normal 12-78 [facility] Comment on above: Performed By: #### MAG, CMP ####[place] [address] [address] Anion gap molar conc 8 mmol/L Normal 5-10 [facility] Comment on above: Performed By: #### MAG, CMP ####[place] [address] [address] AST enzyme act/vol 14 U/L Low 15-37 [facility] Comment on above: Performed By: #### MAG, CMP ####[place] [phone] Bili, Total 0.2 mg/dL Normal 0.2-1.0 [facility] Comment on above: Performed By: #### MAG, CMP ####[place] [phone] Calcium mass conc 8.1 mg/dL Low 8.5-10.1 [facility] Comment on above: Performed By: #### MAG, CMP ####[place] [phone] Chloride molar conc 106 mmol/L Normal 98-107 [facility] Comment on above: Performed By: #### MAG, CMP ####[place] [phone] CO2 molar conc 25 mmol/L Normal 21-32 [facility] Comment on above: Performed By: #### MAG, CMP ####[place] [phone] Creatinine mass conc 0.37 mg/dL Low 0.60-1.30 [facility] Comment on above: Performed By: #### MAG, CMP ####[place] [address] [address] eGFR -Amer >60 Normal >=60 [facility] Comment on above: Performed By: #### MAG, CMP ####[place] [address] [address] GFR/1.73 sq M predicted among non-blacks MDRD vol rate/area (S/P/Bld) mL/min/{1.73_m2} Normal >=60 [facility] Comment on above: Performed By: #### MAG, CMP ####[place] [address] [address] Glucose mass conc 82 mg/dL Normal 74-106 [facility] Comment on above: Performed By: #### MAG, CMP ####[place] [address] [address] Potassium molar conc 4.1 mmol/L Normal 3.5-5.1 [facility] Comment on above: Performed By: #### MAG, CMP ####[place] [address] [address] Protein mass conc 5.4 g/dL Low 6.4-8.2 [facility] Comment on above: Performed By: #### MAG, CMP ####[place] [address] [address] Sodium molar conc 139 mmol/L Normal 136-145 [facility] Comment on above: Performed By: #### MAG, CMP ####[place] [address] [address] Urea nitrogen mass conc 21 mg/dL High 7-18 [facility] Comment on above: Performed By: #### MAG, CMP ####[place] [address] [address] Ionized Calciumon 10-03-2018 Ionized Calcium 5.1 mg/dL Normal 4.3-5.2 [facility] Comment on above: Performed By: #### IONCAL ####[place] [address] [address] pH (Bld) 7.314 [pH] Normal 7.310-7.460 [facility] Comment on above: Performed By: #### IONCAL ####[place] [phone] Magnesiumon 10-03-2018 Magnesium mass conc 2.0 mg/dL Normal 1.8-2.4 [facility] Comment on above: Performed By: #### MAG, CMP ####[place] [address], [place] [address] Phosphorus - Inorganicon Phosphate mass conc 3.5 mg/dL Normal 2.5-4.9 [facility] Comment on above: Performed By: #### PHOS, TRIG, PREALB ## ##[place] [address] Prealbuminon 10-03-2018 Prealbumin mass conc 22.3 mg/dL Normal 20.0-40.0 [facility] Comment on above: Performed By: #### PHOS, TRIG, PREALB ## ##[place] [address] Triglycerideson 10-03-2018 Triglyceride mass conc 164 mg/dL High <=150 [facility] Comment on above: Performed By: #### PHOS, TRIG, PREALB ## ##[place] [address] Basic Metabolic Panelon 09-03 Anion gap molar conc 4 mmol/L Low 5-10 [facility] Comment on above: Performed By: #### BMP ####[place] [address] Calcium mass conc 7.9 mg/dL Low 8.5-10.1 [facility] Comment on above: Performed By: #### BMP ####[place] [address] Chloride molar conc 100 mmol/L Normal 98-107 [facility] Comment on above: Performed By: #### BMP ####[place] [address] CO2 molar conc 29 mmol/L Normal 21-32 [facility] Comment on above: Performed By: #### BMP ####[place] [address] Creatinine mass conc 0.35 mg/dL Low 0.60-1.30 [facility] Comment on above: Performed By: #### BMP ####[place] [address] eGFR -Amer >60 Normal >=60 [facility] Comment on above: Performed By: #### BMP ####[address] [address] GFR/1.73 sq M predicted among non-blacks MDRD vol rate/area (S/P/Bld) mL/min/{1.73_m2} Normal >=60 [facility] Comment on above: Performed By: #### BMP ####[place] [id number] Glucose mass conc 110 mg/dL High 74-106 [facility] Comment on above: Performed By: #### BMP ####[place] [id number] Potassium molar conc 3.4 mmol/L Low 3.5-5.1 [facility] Comment on above: Performed By: #### BMP ####[place] [id number] Sodium molar conc 133 mmol/L Low 136-145 [facility] Comment on above: Performed By: #### BMP ####[place] [id number] Urea nitrogen mass conc 24 mg/dL High 7-18 [facility] Comment on above: Performed By: #### BMP ####[place] [id number] CT Abdomen / Pelvis w contra ston 09-30-2018 CT Abdomen / Pelvis w contrast Clinical indications: Abdominal pain Technique: A multislice, volume acquisition was obtained from the hemidiaphragms to the proximal femurs, with images reconstructed in 3 mm intervals. 75 cc of Optiray 350 were utilized for IV contrast. Oral contrast was also administered for the exam. FINDINGS: There are no prior studies for comparison. There are minimal subsegmental atelectatic/chronic fibrotic changes in the lung bases. The liver contains multiple small, well-circumscribed low-attenuation lesions, seen in the inferior margin of the right lobe on series 2, image 73 and in the dome on images 17 and 22. These range in size from a few millimeters up to approximately 0.8 cm in diameter and are too small to more accurately characterize. They are likely to represent incidental cysts or hemangiomata. No intrahepatic biliary duct dilation is observed. The spleen, adrenals, pancreas and right kidney are essentially unremarkable. There is a focally dilated calyx in the left kidney containing calculi, best seen on series 2, image 57. The left kidney is otherwise unremarkable. Perfusion of both kidneys is symmetric. There is an intact, left upper quadrant ostomy site visualized on series 2, image 73. A drain is identified in the right midabdomen on series 2, image 88. There is not appear to be any collection associated with this finding. A drain is also identified in the left lower quadrant on series 2, image 78, with a small associated collection. This measures approximately 2.8 x 1 x 4.5 cm. It contains a small amount of gas. There is an unremarkable appearing PEG tube identified on series 2, image 55. Diffuse wall thickening of the colon with edema and stranding change in the surrounding pericolonic fat is noted. The findings raise the question of underlying colitis. There is no evidence of free air, new free fluid or loculated collection or pneumatosis. Moderate aortoiliac atherosclerosis is redemonstrated. There is no adenopathy. In the pelvis, the bladder and rectum appear intact. The uterus and adnexa are surgically absent. IMPRESSION: Small residual left paracolic gutter collection with drain in place in satisfactory position. Diffuse colon wall thickening and associated inflammatory change, concerning for possible infectious colitis such as C. difficile. No evidence of new free fluid, abscess or free air. Report Dictated on Authenticated by: Sammi Tolbert On: 09/30/2018 10:55 Read by: SAMMI TOLBERT MD Date: 09/30/2018 10:55 Normal [facility] Comment on above: Order Comment: oral contrast 1/3 down mo uth, 1/3 down G tube, 1/3 down J tube IV contrast as well CBC with Diffon 09-29-2018 Basophils #/vol (Bld) 0.0 x(10)3/cumm Normal 0.0-0.1 [facility] Comment on above: Performed By: #### PTPTT #### [facility] [address] [place] [address] Basophils/100 WBC (Bld) 0.4 % Normal 0.0-1.0 [facility] Comment on above: Performed By: #### PTPTT #### [facility] [address] [place] [address] Eosinophils #/vol (Bld) 0.2 x(10)3/cumm Normal 0.0-0.4 [facility] Comment on above: Performed By: #### PTPTT #### [facility] [address] [place] [address] Eosinophils/100 WBC (Bld) 2.1 % Normal 0.0-6.1 [facility] Comment on above: Performed By: #### PTPTT #### [facility] [address] [place] [address] Erythrocyte distribution width Ratio (RBC) 15.4 % High 11.1-15.3 [facility] Comment on above: Performed By: #### PTPTT #### [facility] [address] [place] [address] Hematocrit Volume Fraction (Bld) 26.4 % Low 34.6-45.0 [facility] Comment on above: Performed By: #### PTPTT #### [facility] [address] [place] [address] Hemoglobin mass conc (Bld) 8.6 g/dL Low 11.5-15.5 [facility] Comment on above: Performed By: #### PTPTT #### [facility] [address] [place] [address] Lymphocytes #/vol (Bld) 1.1 x(10)3/cumm Normal 0.8-2.9 [facility] Comment on above: Performed By: #### PTPTT #### [facility] [address] [place] [address] Lymphocytes/100 WBC (Bld) 11.8 % Low 12.2-42.6 [facility] Comment on above: Performed By: #### PTPTT #### [facility] [address] [place] [address] MCH Entitic mass (RBC) 28.3 pg Normal 27.2-33.6 [facility] Comment on above: Performed By: #### PTPTT #### [facility] [address] [place] [address] MCHC mass conc (RBC) 32.8 g/dL Low 32.9-35.3 [facility] Comment on above: Performed By: #### PTPTT #### [facility] [address] [place] [address] MCV Entitic volume (RBC) 86.3 fL Normal 81.3-96.7 [facility] Comment on above: Performed By: #### PTPTT #### [facility] [address] [place] [address] Monocytes #/vol (Bld) 0.7 x(10)3/cumm Normal 0.2-0.8 [facility] Comment on above: Performed By: #### PTPTT #### [facility] [address] [place], [place] [phone] Monocytes/100 WBC (Bld) 7.5 % Normal 3.3-11.6 [facility] Comment on above: Performed By: #### PTPTT #### [facility] [address] [place] [address] Neutrophils #/vol (Bld) 7.4 x(10)3/cumm Normal 1.3-7.4 [facility] Comment on above: Performed By: #### PTPTT #### [facility] [address] [place] [address] Platelet mean volume Entitic volume (Bld) 7.4 fL Normal 6.4-10.0 [facility] Comment on above: Performed By: #### PTPTT #### [facility] [address] [place] [address] Platelets #/vol (Bld) 345 x(10)3/cumm Normal 138-367 [facility] Comment on above: Performed By: #### PTPTT #### [facility] [address] [place] [address] Plt Morph Normal [facility] Comment on above: Performed By: #### PTPTT #### [facility] [address] [place], [place] [phone] RBC #/vol (Bld) 3.06 X(10)6/cumm Low 3.90-5.10 [facility] Comment on above: Performed By: #### PTPTT #### [facility] [address] [place] [address] RBC Morph cont [facility] Comment on above: Performed By: #### PTPTT #### [facility] [address] [place] [address] RBC morphology finding Nom (Bld) Normal [facility] Comment on above: Performed By: #### PTPTT #### [facility] [address] [place] [address] Segmented neutrophils/100 WBC (Bld) 78.2 % Normal 44.9-78.8 [facility] Comment on above: Performed By: #### PTPTT #### [facility] [address] [place], [place] [phone] WBC #/vol (Bld) 9.5 x(10)3/cumm Normal 3.6-10.3 [facility] Comment on above: Performed By: #### PTPTT #### [facility] [address] [place], [place] [phone] WBC Morph Normal [facility] Comment on above: Performed By: #### PTPTT #### [facility] [address] [place], [place] [phone] Comprehensive Metabolic Pane guillermo 09-29-2018 Albumin mass conc 2.4 g/dL Low 3.4-5.0 [facility] Comment on above: Performed By: #### PTPTT #### [facility] [address] [place], [place] [phone] ALP enzyme act/vol 86 U/L Normal 45-117 [facility] Comment on above: Performed By: #### PTPTT #### [facility] [address] [place] [address] ALT enzyme act/vol 25 U/L Normal 12-78 [facility] Comment on above: Performed By: #### PTPTT #### [facility] [address] [place], [place] [phone] Anion gap molar conc 8 mmol/L Normal 5-10 [facility] Comment on above: Performed By: #### PTPTT #### [facility] [address] [place] [address] AST enzyme act/vol 20 U/L Normal 15-37 [facility] Comment on above: Performed By: #### PTPTT #### [facility] [address] [place] [address] Bili, Total 0.2 mg/dL Normal 0.2-1.0 [facility] Comment on above: Performed By: #### PTPTT #### [facility] [address] [place] [address] Calcium mass conc 7.9 mg/dL Low 8.5-10.1 [facility] Comment on above: Performed By: #### PTPTT #### [facility] [address] [place] [address] Chloride molar conc 101 mmol/L Normal 98-107 [facility] Comment on above: Performed By: #### PTPTT #### [facility] [address] [place] [address] CO2 molar conc 29 mmol/L Normal 21-32 [facility] Comment on above: Performed By: #### PTPTT #### [facility] [address] [place] [address] Creatinine mass conc 0.40 mg/dL Low 0.60-1.30 [facility] Comment on above: Performed By: #### PTPTT #### [facility] [address] [place] [address] eGFR -Amer >60 Normal >=60 [facility] Comment on above: Performed By: #### PTPTT #### [facility] [address] [place] [address] GFR/1.73 sq M predicted among non-blacks MDRD vol rate/area (S/P/Bld) mL/min/{1.73_m2} Normal >=60 [facility] Comment on above: Performed By: #### PTPTT #### [facility] [address] [place] [address] Glucose mass conc 105 mg/dL Normal 74-106 [facility] Comment on above: Performed By: #### PTPTT #### [facility] [address] [place] [address] Potassium molar conc 3.7 mmol/L Normal 3.5-5.1 [facility] Comment on above: Performed By: #### PTPTT #### [facility] [address] [place] [address] Protein mass conc 5.3 g/dL Low 6.4-8.2 [facility] Comment on above: Performed By: #### PTPTT #### [facility] [address] [place] [address] Sodium molar conc 138 mmol/L Normal 136-145 [facility] Comment on above: Performed By: #### PTPTT #### [facility] [address] [place] [address] Urea nitrogen mass conc 22 mg/dL High 7-18 [facility] Comment on above: Performed By: #### PTPTT #### [facility] [address] [place] [address] Ionized Calciumon 09-29-2018 Ionized Calcium 4.7 mg/dL Normal 4.3-5.2 [facility] Comment on above: Performed By: #### IONCAL ####[address] [address] pH (Bld) 7.458 [pH] Normal 7.310-7.460 [facility] Comment on above: Performed By: #### IONCAL ####[address] [address] Magnesiumon 09-29-2018 Magnesium mass conc 2.1 mg/dL Normal 1.8-2.4 [facility] Comment on above: Performed By: #### CMP, PREALB, MAG, MIREYA S, TRIG ####[address] [address] Phosphorus - Inorganicon Phosphate mass conc 3.3 mg/dL Normal 2.5-4.9 [facility] Comment on above: Performed By: #### CMP, PREALB, MAG, MIREYA S, TRIG ####[facility] [address] [place] [address] Prealbuminon 09-29-2018 Prealbumin mass conc 21.5 mg/dL Normal 20.0-40.0 [facility] Comment on above: Performed By: #### PTPTT #### [facility] [address] [place] [address] Triglycerideson 09-29-2018 Triglyceride mass conc 159 mg/dL High <=150 [facility] Comment on above: Performed By: #### CMP, PREALB, MAG, MIREYA S, TRIG ####[facility] [place], [place] [address] XR Abdomen single AP view-KU Bon 09-29-2018 XR Abdomen single AP view-KUB ABDOMEN: CLINICAL INDICATION: Abdominal pain. TECHNIQUE: Supine abdomen and pelvis COMPARISON: Abdominal radiograph on 09/28/2018 FINDINGS: Redemonstration of small foci of gas along the right colon, which may represent pneumatosis versus stool. Otherwise nonspecific bowel gas pattern. Left-sided ostomy, a gastrostomy tube, surgical clips as well as left percutaneous abscess drain and right jejunostomy catheter are unchanged. Layering calcifications within the left kidney. Anastomotic sutures within the right abdomen. IMPRESSION: Nonspecific bowel gas pattern. Small foci of gas along the right colon, in keeping with reported pneumatosis on prior studies. Report Dictated on Authenticated by: Araceli Orellana On: 09/29/2018 09:37 Read by: ARACELI ORELLANA MD Date: 09/29/2018 09:37 Normal [facility] Comment on above: Order Comment: portable XR Abdomen single AP view-KU Bon 09-28-2018 XR Abdomen single AP view-KUB HISTORY: Pain Frontal view the abdomen and pelvis at 0554 hours. FINDINGS: 1. Dilatation colon with probable pneumatosis seen right colon (best seen on CT 12 hours ago) 2. Right-sided probable jejunostomy catheter, left-sided percutaneous abscess drainage, left-sided ostomy, gastrostomy tube, multiple surgical clips and staple lines with some residual contrast in the urinary bladder Report Dictated on Authenticated by: Jose Dos Santos On: 09/28/2018 06:15 Read by: JOSE DOS SANTOS MD Date: 09/28/2018 06:15 [facility] ZINCon 09-28-2018 ZINC 118 ug/dL Normal 56-134 [facility] Comment on above: Order Comment: [place]: M Result Comment: This test was developed and its performance characteristics determined by [facility]. It has not been cleared or approved by the Food and Drug Administration. Detection Limit = 5 Performed At: [facility] [id number] Edward Evans [place] [id number] Performed By: #### L 500.61282, L500.96941, L500.51563, L500.24568 #### [facility] [address] [place] [address] BMPon 09-27-2018 Anion gap molar conc 9 mmol/L Normal 5-16 [facility] Comment on above: Order Comment: [place]: M Performed By: #### L 500.92933, L500.13677, L500.49124, L500.54888 #### [facility] [address] [place] [address] Calcium mass conc 9.2 mg/dL Normal 8.5-10.1 [facility] Comment on above: Order Comment: [place]: M Performed By: #### L 500.07243, L500.08161, L500.38854, L500.47973 #### [facility] [address] [place], [place] [id number] Chloride molar conc 103 mmol/L Normal 98-107 [facility] Comment on above: Order Comment: [place]: M Performed By: #### L 500.83956, L500.89402, L500.35024, L500.67203 #### [facility] [address] [place] [address] CO2 molar conc 27 mmol/L Normal 21-32 [facility] Comment on above: Order Comment: [place]: M Performed By: #### L 500.48678, L500.13457, L500.03569, L500.53166 #### [facility] [address] [place] [address] Creatinine mass conc 0.620 mg/dL Normal 0.510-0.950 [facility] Comment on above: Order Comment: [place]: M Result Comment: Orin ents receiving either N-Acetylcysteine (NAC) or Metamizole prior to venipuncture, may have falsely depressed results. Performed By: #### L 500.20809, L500.27584, L500.63343, L500.23980 #### [facility] [place] [address] Glucose mass conc 138 mg/dL High 70-100 [facility] Comment on above: Order Comment: [place]: M Result Comment: 70-1 00- Normal Fasting; 100-125 Impaired Fasting; greater than 126 on more than one result- Diabetes. ADA guidelines. Results may be falsely elevated after the administration of Sulfapyridine. Results may be falsely depressed after the administration of Sulfasalazine. Performed By: #### L 500.21361, L500.19951, L500.20948, L500.27429 #### [facility] [address] [place] [address] Potassium molar conc 3.4 mmol/L Low 3.5-5.1 [facility] Comment on above: Order Comment: [place]: M Performed By: #### L 500.94238, L500.79423, L500.31016, L500.21273 #### [facility] [place] [address] Sodium molar conc 139 mmol/L Normal 136-145 [facility] Comment on above: Order Comment: [place]: M Performed By: #### L 500.51980, L500.59166, L500.19515, L500.94436 #### [facility] [place] [address] Urea nitrogen mass conc 36 mg/dL High 7-26 [facility] Comment on above: Order Comment: [place]: M Performed By: #### L 500.18221, L500.19083, L500.99668, L500.27672 #### [facility] [address] [place], [place] [id number] Urea nitrogen/Creatin ine mass ratio 59 mg/mg High 15-24 [facility] Comment on above: Order Comment: [place]: M Performed By: #### L 500.16618, L500.45613, L500.42630, L500.14620 #### [facility] [address] [place] [address] CBCon 09-27-2018 Erythrocyte distribution width Ratio (RBC) 14.8 % High 11-14.5 [facility] Comment on above: Order Comment: [place]: M Performed By: #### L 500.08917, L500.36826, L500.88472, L500.97048 #### [facility] [address] [place] [address] Hematocrit Volume Fraction (Bld) 33.5 % Low 35.0-47.0 [facility] Comment on above: Order Comment: [place]: M Performed By: #### L 500.15817, L500.05410, L500.63735, L500.08237 #### [facility] [address] [place] [address] Hemoglobin mass conc (Bld) 10.2 g/dL Low 11.5-15.5 [facility] Comment on above: Order Comment: [place]: M Performed By: #### L 500.02511, L500.37137, L500.00150, L500.89713 #### [facility] [address] [place], [place] [address] MCHC mass conc (RBC) 30.4 g/dL Low 32.0-36.0 [facility] Comment on above: Order Comment: [place]: M Performed By: #### L 500.58346, L500.94580, L500.17786, L500.52204 #### [facility] [address] [place] [address] MCV Entitic volume (RBC) 89.3 fL Normal 80.0-99.0 [facility] Comment on above: Order Comment: [place]: M Performed By: #### L 500.05306, L500.34681, L500.71765, L500.86533 #### [facility] [address] [place] [address] Nucleated RBC/100 WBC Ratio (Bld) 0.0 % Normal Less than 1 [facility] Comment on above: Order Comment: [place]: M Performed By: #### L 500.49346, L500.34733, L500.56850, L500.50515 #### [facility] [address] [place] [address] Platelet mean volume Entitic volume (Bld) 9.5 fL Normal 9.4-12.4 [facility] Comment on above: Order Comment: [place]: M Performed By: #### L 500.81043, L500.15381, L500.85409, L500.35916 #### [facility] [address] [place] [address] Platelets #/vol (Bld) 499 K/CU MM High 150-450 [facility] Comment on above: Order Comment: [place]: M Performed By: #### L 500.23941, L500.76374, L500.58017, L500.40294 #### [facility] [address] [place] [address] RBC #/vol (Bld) 3.75 M/CU MM Low 3.90-5.30 [facility] Comment on above: Order Comment: [place]: M Performed By: #### L 500.76846, L500.89820, L500.44890, L500.18524 #### [facility] [address] [place] [address] [place] [address] WBC #/vol (Bld) 15.6 K/CUMM High 4.5-11.0 [facility] Comment on above: Order Comment: [place]: M Performed By: #### L 500.42568, L500.73255, L500.93170, L500.41345 #### [facility] [address] [place], [place] [id number] CT Abdomen / Pelvis w contra ston 09-27-2018 CT Abdomen / Pelvis w contrast CT abdomen and pelvis with contrast HISTORY: Abdominal pain Protocol: 3 mm axial images with oral and intravenous contrast COMPARISON: September 19, 2018 Band of infiltrate in the right posterior lower lung with air bronchograms may be from atelectasis or pneumonia. No pleural effusions. Tiny cyst in the liver. The spleen, pancreas, adrenals, and right kidney are normal. Again seen is a calyceal diverticulum in the left kidney containing small stones. Gallbladder has been removed. Gastrostomy tube is present. New pneumatosis involving the ascending colon. No portal venous gas. No free intraperitoneal air. The ascending colon, transverse colon, and descending colon are dilated. No free fluid. The bladder is unremarkable. Densely calcified aortic atherosclerosis. IMPRESSION: New pneumatosis involving the ascending colon. The ascending colon, transverse colon, and descending colon are dilated. Band of infiltrate in the right posterior lower lung with air bronchograms may be from atelectasis or pneumonia. Again seen is a calyceal diverticulum in the left kidney containing small stones. CTR: I talked with Dr. Quevedo about the findings on 09/27/2018 at 6:36 PM. Report Dictated on Authenticated by: Vinay Simon On: 09/27/2018 18:37 Read by: VINAY SIMON MD Date: 09/27/2018 18:37 [facility] Comment on above: Order Comment: Tube must be filled. GFR ESTon 09-27-2018 IF AMER Greater than 60 Normal [facility] Comment on above: Order Comment: [place]: M Performed By: #### L 500.52508, L500.33411, L500.31267, L500.89033 #### [facility] [address] [place] [address] IF non-AFR AMER Greater than 60 Normal [facility] Comment on above: Order Comment: [place]: M Performed By: #### L 500.30826, L500.94055, L500.79635, L500.62664 #### [facility] [place] [address] LACTIC ACIDon 09-27-2018 Lactate molar conc 1.56 mmol/L Normal 0.40-2.00 [facility] Comment on above: Order Comment: [place]: M Performed By: #### L 500.82514, L500.53071, L500.21009, L500.61601 #### [facility] [place] [address] XR Chest 2 view-PA & LATon 0 09-27-2018 XR Chest 2 view-PA & LAT Chest two views HISTORY: Leukocytosis COMPARISON: 09/04/2018 Band of opacity in the right lung base is likely from atelectasis. The left lung is clear. No pleural effusions. Heart and pulmonary vessels are normal. Left arm PICC line is noted. IMPRESSION: Band of opacity in the right lung base is likely from atelectasis. Report Dictated on Authenticated by: Vinay Simon On: 09/27/2018 18:28 Read by: VINAY SIMON MD Date: 09/27/2018 18:28 [facility] Comment on above: Order Comment: Tube must be filled. CBC W/DIFFon 09-26-2018 BASO ABS 0.10 K/CU MM Normal 0-0.2 [facility] Comment on above: Order Comment: [place]: M Performed By: #### L 200.92725 #### [facility] [address] [place] [address] Basophils/100 WBC (Bld) 0.5 % Normal 0-2 [facility] Comment on above: Order Comment: [place]: M Performed By: #### L 200.17339 #### [facility] [address] [place] [address] EOS ABS 0.10 K/CU MM Normal 0-0.5 [facility] Comment on above: Order Comment: [place]: M Performed By: #### L 200.28882 #### [facility] [address] [place] [address] Eosinophils/100 WBC (Bld) 0.5 % Normal 0-5 [facility] Comment on [facility]: Order Comment: [place]: M Performed By: #### L 200.82960 #### [facility] [address] [place] [address] Erythrocyte distribution width Ratio (RBC) 14.3 % Normal 11-14.5 [facility] Comment on above: Order Comment: [place]: M Performed By: #### L 200.23895 #### [facility] [address] [place] [address] Hematocrit Volume Fraction (Bld) 30.2 % Low 35.0-47.0 [facility] Comment on above: Order Comment: [place]: M Performed By: #### L 200.88930 #### [facility] [address] [place] [address] Hemoglobin mass conc (Bld) 9.7 g/dL Low 11.5-15.5 [facility] Comment on above: Order Comment: [place]: M Performed By: #### L 200.80099 #### [facility] [address] [place] [address] IMMATR GRAN ABS 0.10 K/CU MM Normal Less than 2 [facility] Comment on above: Order Comment: [place]: M Performed By: #### L 200.90314 #### [facility] [address] [place] [address] IMMATURE GRAN % 0.6 % Normal Less than 2 [facility] Comment on above: Order Comment: [place]: M Performed By: #### L 200.17888 #### [facility] [address] [place], [place] [address] Lymphocytes #/vol (Bld) 1.10 K/CU MM Normal 0.9-4.4 [facility] Comment on above: Order Comment: [place]: M Performed By: #### L 200.23803 #### [facility] [address] [place] [address] Lymphocytes/100 WBC (Bld) 7.6 % Low 20-40 [facility] Comment on above: Order Comment: [place]: M Performed By: #### L 200.64487 #### [facility] [address] [place] [address] MCHC mass conc (RBC) 32.1 g/dL Normal 32.0-36.0 [facility] Comment on above: Order Comment: [place]: M Performed By: #### L 200.26858 #### [facility] [address] [place] [address] MCV Entitic volume (RBC) 86.5 fL Normal 80.0-99.0 [facility] Comment on above: Order Comment: [place]: M Performed By: #### L 200.44816 #### [facility] [address] [place] [address] MONO ABS 1.00 K/CU MM Normal 0.1-1.1 [facility] Comment on above: Order Comment: [place]: M Performed By: #### L 200.96769 #### [facility] [address] [place] [address] Monocytes/100 WBC (Bld) 6.9 % Normal 2-10 [facility] Comment on above: Order Comment: [place]: M Performed By: #### L 200.29992 #### [facility] [address] [place] [address] NEUTROPHIL ABS 12.60 K/CU MM High 2.0-8.3 [facility] Comment on above: Order Comment: [place]: M Performed By: #### L 200.67065 #### [facility] [address] [place] [address] Neutrophils/100 WBC (Bld) 83.9 % High 45-75 [facility] Comment on above: Order Comment: [place]: M Performed By: #### L 200.29067 #### [facility] [address] [place] [address] Nucleated RBC/100 WBC Ratio (Bld) 0.0 % Normal Less than 1 [facility] Comment on above: Order Comment: [place]: M Performed By: #### L 200.48624 #### [facility] [address] [place] [address] Platelet mean volume Entitic volume (Bld) 9.6 fL Normal 9.4-12.4 [facility] Comment on above: Order Comment: [place]: M Performed By: #### L 200.50722 #### [facility] [address] [place] [address] Platelets #/vol (Bld) 438 K/CU MM Normal 150-450 [facility] Comment on above: Order Comment: [place]: M Performed By: #### L 200.86175 #### [facility] [address] [place] [address] RBC #/vol (Bld) 3.49 M/CU MM Low 3.90-5.30 [facility] Comment on above: Order Comment: [place]: M Performed By: #### L 200.56394 #### [facility] [address] [place] [address] WBC #/vol (Bld) 15.0 K/CUMM High 4.5-11.0 [facility] Comment on above: Order Comment: [place]: M Performed By: #### L 200.94366 #### [facility] [address] [place] [address] CMPon 09-26-2018 Albumin mass conc 3.1 g/dL Low 3.2-5.0 [facility] Comment on above: Order Comment: [place]: M Performed By: #### L 500.00479, L500.11377, L500.03675, L500.15120 #### [facility] [address] [place] [address] Albumin/Globulin mass ratio 0.8 {ratio} Normal 0.8-2.0 [facility] Comment on above: Order Comment: [place]: M Performed By: #### L 500.58495, L500.27614, L500.82535, L500.22906 #### [facility] [address] [place] [address] ALK PHOS 108 U/L Normal 45-117 [facility] Comment on above: Order Comment: [place]: M Performed By: #### L 500.95207, L500.57538, L500.32802, L500.09668 #### [facility] [address] [place] [address] ALT enzyme act/vol 19 U/L Normal 13-61 [facility] Comment on above: Order Comment: [place]: M Result Comment: RESU LTS MAY BE FALSELY DEPRESSED AFTER THE ADMINISTRATION OF SULFASALAZINE AND/OR SULFAPYRIDINE. Performed By: #### L 500.58607, L500.62664, L500.64051, L500.44109 #### [facility] [address] [place] [address] Anion gap molar conc 9 mmol/L Normal 5-16 [facility] Comment on above: Order Comment: [place]: M Performed By: #### L 500.04778, L500.12854, L500.69553, L500.81393 #### [facility] [address] [place] [address] BILI TOTAL 0.2 MG/DL Normal 0.2-1.0 [facility] Comment on above: Order Comment: [place]: M Performed By: #### L 500.60138, L500.14410, L500.33528, L500.34519 #### [facility] [address] [place] [address] Calcium mass conc 9.2 mg/dL Normal 8.5-10.1 [facility] Comment on above: Order Comment: [place]: M Performed By: #### L 500.90016, L500.33620, L500.58234, L500.72433 #### [facility] [address] [place] [address] Chloride molar conc 104 mmol/L Normal 98-107 [facility] Comment on above: Order Comment: [place]: M Performed By: #### L 500.16460, L500.06668, L500.72387, L500.24095 #### [facility] [address] [place] [address] CO2 molar conc 24 mmol/L Normal 21-32 [facility] Comment on above: Order Comment: [place]: M Performed By: #### L 500.94846, L500.75435, L500.75785, L500.48368 #### [facility] [address] [place] [address] Creatinine mass conc 0.618 mg/dL Normal 0.510-0.950 [facility] Comment on above: Order Comment: [place]: M Result Comment: Orin ents receiving either N-Acetylcysteine (NAC) or Metamizole prior to venipuncture, may have falsely depressed results. Performed By: #### L 500.66899, L500.82734, L500.10091, L500.74632 #### [facility] [address] [place], [place] [address] Globulin mass conc (S) 3.7 g/dL Normal 2.2-4.2 [facility] Comment on above: Order Comment: [place]: M Performed By: #### L 500.17696, L500.69350, L500.16565, L500.94799 #### [facility] [place] [address] Glucose mass conc 133 mg/dL High 70-100 [facility] Comment on above: Order Comment: [place]: M Result Comment: 70-1 00- Normal Fasting; 100-125 Impaired Fasting; greater than 126 on more than one result- Diabetes. ADA guidelines. Results may be falsely elevated after the administration of Sulfapyridine. Results may be falsely depressed after the administration of Sulfasalazine. Performed By: #### L 500.05988, L500.89068, L500.97530, L500.11420 #### [facility] [address] [place] [address] Potassium molar conc 3.6 mmol/L Normal 3.5-5.1 [facility] Comment on above: Order Comment: [place]: M Performed By: #### L 500.42978, L500.23283, L500.98879, L500.06639 #### [facility] [place] [address] Protein mass conc 6.8 g/dL Normal 6.0-8.5 [facility] Comment on above: Order Comment: [place]: M Performed By: #### L 500.40779, L500.59018, L500.28645, L500.71788 #### [facility] [address] [place] [address] SGOT (AST) 12 U/L Normal 8-34 [facility] Comment on above: Order Comment: [place]: M Result Comment: RESU LTS MAY BE FALSELY DEPRESSED AFTER THE ADMINISTRATION OF SULFASALAZINE AND/OR SULFAPYRIDINE. Performed By: #### L 500.91821, L500.02094, L500.81341, L500.11010 #### [facility] [address] [place] [address] Sodium molar conc 138 mmol/L Normal 136-145 [facility] Comment on above: Order Comment: [place]: M Performed By: #### L 500.66073, L500.52505, L500.04213, L500.43591 #### [facility] [address] [place] [address] Urea nitrogen mass conc 34 mg/dL High 7-26 [facility] Comment on above: Order Comment: [place]: M Performed By: #### L 500.05075, L500.88407, L500.13638, L500.34532 #### [facility] [address] [place] [address] Urea nitrogen/Creatin ine mass ratio 55 mg/mg High 15-24 [facility] Comment on above: Order Comment: [place]: M Performed By: #### L 500.42624, L500.17652, L500.22099, L500.71131 #### [facility] [address] [place] [address] GFR ESTon 09-26-2018 IF AMER Greater than 60 Normal [facility] Comment on above: Order Comment: [place]: M Performed By: #### L 500.59015, L500.32997, L500.43493, L500.80337 #### [facility] [address] [place] [address] IF non-AFR AMER Greater than 60 Normal [facility] Comment on above: Order Comment: [place]: M Performed By: #### L 500.23162, L500.84928, L500.73397, L500.55889 #### [facility] [address] [place] [address] MAGNESIUMon 09-26-2018 Magnesium mass conc 2.3 mg/dL Normal 1.6-2.6 [facility] Comment on above: Order Comment: [place]: M Performed By: #### L 500.31566, L500.89909, L500.40809, L500.52735 #### [facility] [place] [address] PHOSon 09-26-2018 Phosphate mass conc 2.7 mg/dL Normal 2.5-4.9 [facility] Comment on above: Order Comment: [place]: M Performed By: #### L 500.18663, L500.36612, L500.59809, L500.82467 #### [facility] [address] [place], [place] [address] CBC W/DIFFon 09-24-2018 BASO ABS 0.10 K/CU MM Normal 0-0.2 [facility] Comment on above: Order Comment: [place]: M Performed By: #### L 200.22402 #### [facility] [address] [place], [place] [address] Basophils/100 WBC (Bld) 0.8 % Normal 0-2 [facility] Comment on above: Order Comment: [place]: M Performed By: #### L 200.22117 #### [facility] [address] [place] [address]44 EOS ABS 0.20 K/CU MM Normal 0-0.5 [facility] Comment on above: Order Comment: [place]: M Performed By: #### L 200.35745 #### [facility] [address] [place], [place] [address] Eosinophils/100 WBC (Bld) 1.9 % Normal 0-5 [facility] Comment on above: Order Comment: [place]: M Performed By: #### L 200.11800 #### [facility] [address] [place], [place] [address] Erythrocyte distribution width Ratio (RBC) 13.7 % Normal 11-14.5 [facility] Comment on above: Order Comment: [place]: M Performed By: #### L 200.36940 #### [facility] [address] [place] [address] Hematocrit Volume Fraction (Bld) 35.4 % Normal 35.0-47.0 [facility] Comment on above: Order Comment: [place]: M Performed By: #### L 200.45269 #### [facility] [address] [place] [address] Hemoglobin mass conc (Bld) 11.1 g/dL Low 11.5-15.5 [facility] Comment on above: Order Comment: [place]: M Performed By: #### L 200.42881 #### [facility] [address] [place] [address] IMMATR GRAN ABS 0.00 K/CU MM Normal Less than 2 [facility] Comment on above: Order Comment: [place]: M Performed By: #### L 200.63113 #### [facility] [address] [place] [address] IMMATURE GRAN % 0.3 % Normal Less than 2 [facility] Comment on above: Order Comment: [place]: M Performed By: #### L 200.68248 #### [facility] [address] [place] [address] Lymphocytes #/vol (Bld) 1.10 K/CU MM Normal 0.9-4.4 [facility] Comment on above: Order Comment: [place]: M Performed By: #### L 200.76888 #### [facility] [address] [place] [address] Lymphocytes/100 WBC (Bld) 9.9 % Low 20-40 [facility] Comment on above: Order Comment: [place]: M Performed By: #### L 200.22239 #### [facility] [address] [place] [address] MCHC mass conc (RBC) 31.4 g/dL Low 32.0-36.0 [facility] Comment on above: Order Comment: [place]: M Performed By: #### L 200.10238 #### [facility] [address] [place], [place] [address] MCV Entitic volume (RBC) 86.6 fL Normal 80.0-99.0 [facility] Comment on above: Order Comment: [place]: M Performed By: #### L 200.74775 #### [facility] [address] [place] [address] MONO ABS 0.50 K/CU MM Normal 0.1-1.1 [facility] Comment on above: Order Comment: [place]: M Performed By: #### L 200.16930 #### [facility] [address] [place] [address] Monocytes/100 WBC (Bld) 4.7 % Normal 2-10 [facility] Comment on above: Order Comment: [place]: M Performed By: #### L 200.84968 #### [facility] [address] [place] [address] NEUTROPHIL ABS 8.70 K/CU MM High 2.0-8.3 [facility] Comment on above: Order Comment: [place]: M Performed By: #### L 200.40895 #### [facility] [address] [place] [address] Neutrophils/100 WBC (Bld) 82.4 % High 45-75 [facility] Comment on above: Order Comment: [place]: M Performed By: #### L 200.62388 #### [facility] [address] [place], [place] [address] Nucleated RBC/100 WBC Ratio (Bld) 0.0 % Normal Less than 1 [facility] Comment on above: Order Comment: [place]: M Performed By: #### L 200.74722 #### [facility] [address] [place], [place] [address] Platelet mean volume Entitic volume (Bld) 9.4 fL Normal 9.4-12.4 [facility] Comment on above: Order Comment: [place]: M Performed By: #### L 200.66125 #### [facility] [address] [place], [place] [address] Platelets #/vol (Bld) 425 K/CU MM Normal 150-450 [facility] Comment on above: Order Comment: [place]: M Performed By: #### L 200.73682 #### [facility] [address] [place] [address] RBC #/vol (Bld) 4.09 M/CU MM Normal 3.90-5.30 [facility] Comment on above: Order Comment: [place]: M Performed By: #### L 200.96319 #### [facility] [address] [place] [address] WBC #/vol (Bld) 10.6 K/CUMM Normal 4.5-11.0 [facility] Comment on above: Order Comment: [place]: M Performed By: #### L 200.38645 #### [facility] [address] [place] [address] CMPon 09-24-2018 Albumin mass conc 3.2 g/dL Normal 3.2-5.0 [facility] Comment on above: Order Comment: [place]: M Performed By: #### L 500.26660, L500.20889, L500.50943, L500.16845 #### [facility] LABORATORY [address] [place] [address] Albumin/Globulin mass ratio 0.7 {ratio} Low 0.8-2.0 [facility] Comment on above: Order Comment: [place]: M Performed By: #### L 500.50361, L500.19844, L500.41173, L500.70635 #### [facility] [place] [address] ALK PHOS 139 U/L High 45-117 [facility] Comment on above: Order Comment: [place]: M Performed By: #### L 500.63831, L500.15090, L500.49461, L500.71410 #### [facility] [address] [place] [address] 22509 ALT enzyme act/vol 25 U/L Normal 13-61 [facility] Comment on above: Order Comment: [place]: M Result Comment: RESU LTS MAY BE FALSELY DEPRESSED AFTER THE ADMINISTRATION OF SULFASALAZINE AND/OR SULFAPYRIDINE. Performed By: #### L 500.10482, L500.85352, L500.29945, L500.17974 #### [facility] [address] [place] [address] Anion gap molar conc 13 mmol/L Normal 5-16 [facility] Comment on above: Order Comment: [place]: M Performed By: #### L 500.15702, L500.92520, L500.08640, L500.99625 #### [facility] [address] [place] [address] BILI TOTAL 0.3 MG/DL Normal 0.2-1.0 [facility] Comment on above: Order Comment: [place]: M Performed By: #### L 500.90782, L500.16754, L500.56898, L500.13045 #### [facility] [address] [place] [address] Calcium mass conc 8.9 mg/dL Normal 8.5-10.1 [facility] Comment on above: Order Comment: [place]: M Performed By: #### L 500.13149, L500.09868, L500.35472, L500.02993 #### [facility] [place] [address] Chloride molar conc 101 mmol/L Normal 98-107 [facility] Comment on above: Order Comment: [place]: M Performed By: #### L 500.15277, L500.37757, L500.97573, L500.13779 #### [facility] [address] [place] [address] CO2 molar conc 22 mmol/L Normal 21-32 [facility] Comment on above: Order Comment: [place]: M Performed By: #### L 500.39415, L500.05013, L500.91990, L500.90527 #### [facility] [address] [place] [address] Creatinine mass conc 0.668 mg/dL Normal 0.510-0.950 [facility] Comment on above: Order Comment: [place]: M Result Comment: Orin ents receiving either N-Acetylcysteine (NAC) or Metamizole prior to venipuncture, may have falsely depressed results. Performed By: #### L 500.70626, L500.72963, L500.14575, L500.85398 #### [facility] [address] [place], [place] [id number] Globulin mass conc (S) 4.4 g/dL High 2.2-4.2 [facility] Comment on above: Order Comment: [place]: M Performed By: #### L 500.13176, L500.52745, L500.91142, L500.12046 #### [facility] [address] [place] [address] Glucose mass conc 139 mg/dL High 70-100 [facility] Comment on above: Order Comment: [place]: M Result Comment: 70-1 00- Normal Fasting; 100-125 Impaired Fasting; greater than 126 on more than one result- Diabetes. ADA guidelines. Results may be falsely elevated after the administration of Sulfapyridine. Results may be falsely depressed after the administration of Sulfasalazine. Performed By: #### L 500.59950, L500.14447, L500.92891, L500.21232 #### [facility] [place] [id number] Potassium molar conc 4.4 mmol/L Normal 3.5-5.1 [facility] Comment on above: Order Comment: [place]: M Performed By: #### L 500.79219, L500.10333, L500.03986, L500.83046 #### [facility] [address] [place], [place] [address] Protein mass conc 7.6 g/dL Normal 6.0-8.5 [facility] Comment on above: Order Comment: [place]: M Performed By: #### L 500.55890, L500.84634, L500.58682, L500.22769 #### [facility] [address] [place] [address] SGOT (AST) 20 U/L Normal 8-34 [facility] Comment on above: Order Comment: [place]: M Result Comment: RESU LTS MAY BE FALSELY DEPRESSED AFTER THE ADMINISTRATION OF SULFASALAZINE AND/OR SULFAPYRIDINE. Performed By: #### L 500.32286, L500.97870, L500.47630, L500.46982 #### [facility] [address] [place] [address] Sodium molar conc 136 mmol/L Normal 136-145 [facility] Comment on above: Order Comment: [place]: M Performed By: #### L 500.17013, L500.70993, L500.65690, L500.13960 #### [facility] [address] [place] [address] Urea nitrogen mass conc 21 mg/dL Normal 7-26 [facility] Comment on above: Order Comment: [place]: M Performed By: #### L 500.11210, L500.13908, L500.39658, L500.28626 #### [facility] [address] [place] [address]681 Urea nitrogen/Creatin ine mass ratio 32 mg/mg High 15-24 [facility] Comment on above: Order Comment: [place]: M Performed By: #### L 500.54583, L500.95847, L500.62106, L500.97414 #### [facility] [place] [address] GFR ESTon 09-24-2018 IF AMER Greater than 60 Normal [facility] Comment on above: Order Comment: [place]: M Performed By: #### L 500.36132, L500.71591, L500.70572, L500.50758 #### [facility] [address] [place] [address] IF non-AFR AMER Greater than 60 Normal [facility] Comment on above: Order Comment: [place]: M Performed By: #### L 500.55504, L500.77383, L500.17156, L500.38835 #### [facility] [address] [place], [place] [address] MAGNESIUMon 09-24-2018 Magnesium mass conc 2.3 mg/dL Normal 1.6-2.6 [facility] Comment on above: Order Comment: [place]: M Performed By: #### L 500.42681, L500.83396, L500.71134, L500.25746 #### [facility] [address] [place], [place] [address] PHOSon 09-24-2018 Phosphate mass conc 4.1 mg/dL Normal 2.5-4.9 [facility] Comment on above: Order Comment: [place]: M Performed By: #### L 500.98345, L500.45948, L500.09973, L500.38607 #### [facility] [address] [place], [place] [address] VANC TROUGHon 09-24-2018 VANC TROUGH 14.5 MCG/ML Low 15.0-20.0 [facility] Comment on above: Order Comment: [place]: M Performed By: #### L 520.96544 #### [facility] [address] [phone] CT ABD/PELV W ORALANDIV CONT Virginie 09-23-2018 CT ABD/PELV W ORALANDIV CONTRAST CT ABD/PELV W ORAL&IV CONTRAST Ordering Physician: Gertrudis Mccray MD 09/25/2018 7:[address] ABDOMEN AND PELVIS WITH CONTRAST: Clinical Statement: Abdomen was Comparison: None. TECHNIQUE: Helical acquired transaxial images were obtained through the abdomen and pelvis following IV administration 100 cc of Isovue-300 and the oral administration of Gastrografin. FINDINGS: A thick linear opacity in the right lower lobe is likely subsegmental atelectasis. The lung bases are otherwise clear. The lower heart chambers and posterior mediastinal structures are within normal limits. There is oral contrast within the distal esophagus that may be due to reflux. Within the abdomen, there are several hypodensities within the liver. The largest is a cyst. There is no intrahepatic bile duct dilatation. The gallbladder has been removed. The spleen, pancreas, and adrenal glands are within normal limits. There is a 1.6 cm cyst in the left kidney with multiple lobulated calcifications. The kidneys are otherwise within normal limits. There is a PEG tube in the stomach. Postsurgical changes are seen from a previous gastric bypass. There is no small bowel obstruction. The colon is distended. There is pneumatosis involving the cecum and ascending colon. The cecum measures approximately 10.3 cm in diameter. There is a right lower quadrant ileostomy and left lower quadrant ostomy. A left lower quadrant drain is in a small abscess that measures approximately 1.0 cm x 2.7 cm. Mesenteric edema is noted. The aorta is normal in caliber. There is no lymphadenopathy Within the pelvis the rectum is within normal limits. The bladder is collapsed. The uterus is absent. No suspicious osseous lesions are IMPRESSION: The cecum is dilated. Pneumatosis is noted . The findings are concerning for ischemic bowel. Extensive postsurgical changes with bilateral ostomies and bilateral surgical drains and left-sided drain appears to be in a small abscess that measures approximately 2.7 cm x 1.0 cm A copy of the report was faxed at the time of the interpretation ---- Electronic Signature on File ---- Signed By: Cristhian Moore MD [email or web address] Dictated: 09/26/2018 8:17 AM Signed: 09/26/2018 5:25 PM Reported By: CRISTHIAN MOORE M.D. Signed By: CRISTHIAN MOORE M.D. [facility] 09-23-2018 [facility] DATE OF CONSULTATION : 09/24/2018 REFERRING PHYSICIAN: Nicanor Huynh MD REASON FOR CONSULTATION: Antibiotic management. HISTORY OF PRESENT ILLNESS: Josh Hernandez is a pleasant 58-year-old female with a very complicated past medical history. The patient was transferred from [facility] in [place] to [facility] in [place] yesterday September 23 for continuation of care. The patient, as mentioned above, has a very complicated past medical history. She originally underwent a gastric bypass in August of 2016. Her course had been complicated by development of intussusception and bowel obstruction in March 2018 requiring surgical intervention. The patient did well until August of this year when she presented to [facility] with severe abdominal pain. She was found to have an intussusception, small bowel obstruction, went to surgery up bat [facility] on August 24 with reduction of the intussusception. The patient's complicated course involved neutropenia, tachycardia, which was evaluated by appropriate subspecialties. The patient went back to surgery on September 02 at which time she was found to have perforated viscus. She underwent exploratory laparotomy with a washout, resection of the Mando biliopancreatic common channel, enterotomy, resection of the Mando enterotomy. Cultures were obtained at that time which on evaluation showed growth of several organisms including Enterococcus klebsiella. She was seen in consultation by infectious disease and placed on a regimen of Zosyn, antifungals with Mycamine and vancomycin, which she has tolerated well. Her chart indicates an ALLERGY TO PENICILLINS, but so far, she has tolerated her medication well. According to the patient, she is to complete her antibiotics at the end of the month. Infectious disease consultation requested for review. PAST MEDICAL HISTORY: Prior history of morbid obesity, but she has lost 106 pounds since her gastric bypass, history of hypertension, hyperlipidemia, asthma, migraine headaches, diabetes, fibromyalgia. PAST SURGICAL HISTORY: Reviewed, above. ALLERGIES: PENICILLIN although she has tolerated Zosyn well. FLEXERIL, PRILOSEC, KEFLEX, BEE VENOM, and ASPIRIN. FAMILY HISTORY: Reviewed. SOCIAL HISTORY: She is and lives with her . 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 Lives in [place]. [facility] PATIENT NAME: JOSH HERNANDEZ [address] [facility] [address] MEDICAL REC #: [id number] [place] [address] ADMIT DATE: DISCHARGE DATE: ATTENDING PHY: Nicanor Huynh MD REVIEW OF SYSTEMS: As noted above. She appears depressed over recent events. PHYSICAL EXAMINATION: General: The patient was seen in her hospital room. Vital Signs: Temperature is 96.4, heart rate 84, blood pressure 148/85, respiratory rate 18. Skin: She is pale. No acute rash. There is a PICC line in place. It does not appear infected. HEENT: She is normocephalic. Oral evaluation shows no ulcerative lesions. Lungs: Fairly clear. Cardiac: Regular rate. Abdomen: She has multiple ostomies, PEG tube drains in place. She does have some tenderness to palpation Bowel sounds were heard. LABORATORY: CBC: White count is 10.6, hemoglobin 11.1, hematocrit 35.4, platelets 425,000. Creatinine 0.668. CURRENT ANTIMICROBIAL THERAPY: Vancomycin, Praxis, and Zosyn. IMPRESSION: This is a pleasant 58-year-old female transferred from [facility] in [place] for continuation of care after a complex abdominal surgery involving small bowel obstruction, succession, and perforation, resulting in fecal peritonitis with multiple organisms growing. RECOMMENDATIONS: 1. I would continue her current antimicrobial therapy. 2. We will monitor with you. 3. We will check a vancomycin level with her next dose. Thank you for very much for this interesting consultation. MD CÉSAR Rivera/[id number] SSI File#: [id number] Verified/Reviewed by [facility] PATIENT NAME: JOSH HERNANDEZ [facility] [address] MEDICAL REC #: [id number] [place] [address] ADMIT DATE: DISCHARGE DATE: ATTENDING PHY: Nicanor Huynh MD [facility] DATE OF CONSULTATION : 09/26/2018 CHIEF COMPLAINT: 1. Postop wound dehiscence. 2. History of peritonitis. 3. Intra-abdominal abscesses. 4. Intestinal obstruction. 5. Gastric bypass surgery. 6. Diabetes mellitus type 2. HISTORY OF PRESENT ILLNESS: This is a 58-year-old white female who underwent a gastric bypass surgery about 4 years ago. She weighed about 239 pounds at that time, lost about 80 pounds following surgery, but since her surgery, she had 3 episodes of acute intestinal obstruction. They did not relieve with conservative management, so she ended up having 3 previous operations. The last one was done at [facility] where she underwent exploration and was almost ready to be discharged then they found that she had intra-abdominal abscesses, and perforation of the bowel was noticed. She was then taken back to surgery. Multiple abscesses were removed. Peritoneal cavity was thoroughly washed and a colostomy was performed, and also had some fistula created for drainage of intra-abdominal abscesses. The wound was partially closed and later it dehisced down to the underlying fascia at the lower part of the wound. Patient was treated for some time at [facility] and now she is transferred over to [facility] where she is receiving antibiotics and is due to be seen by the attending physician at [facility] in about 2 weeks. PAST MEDICAL HISTORY: Patient has history of morbid obesity, history of diabetes mellitus, and multiple medical problems which necessitated a gastric bypass surgery. PHYSICAL EXAMINATION: General: She is alert, appears very weak and tired, unable to move very well but lying down flat in bed. Abdomen: She has a very large incision of the abdomen, which is partially dehisced as it is about 16 to 17 cm x 3 to 4 cm in different areas. Upper part of the wound appears to be healing nicely with good granulation tissues. There is 1 residual retention suture. Then inferior below the umbilical level, the wound appears to be more dehisced, widely , not down to the underlying fascia. There is an area of about 5 x 2 cm that the fascia is exposed, which appears to be very whitish in nature. Some of the areas are showing some evidence of granulation tissues. No evidence of wound dehiscence into the abdominal cavity was noticed. Patient has a functioning colostomy on 1 side and a draining tube which was inserted on the other side of the incision. Abdomen appeared to be soft and flat and shows no evidence of any acute process going on. Extremities: Are within normal limits. IMPRESSION: Postoperative wound dehiscence secondary to peritonitis and abdominal [facility] #: [id number] [place] [address] ADMIT DATE: DISCHARGE DATE:09/27/18 ATTENDING PHY: Nicanor Huynh MD exploration for intestinal obstruction and abscess formation. PLAN OF TREATMENT: I advised the patient should be treated with Aquacel Ag dressings to the incision. This can be changed on a daily basis. She is due to be seen by the attending physician in about 2 weeks. I recommend that she should go there for re-evaluation as the lower part of the incision does not appear very clean. Pablo Prabhakar MD MA/[id number] SSI File#: [id number] Verified/Reviewed by [facility] PATIENT NAME: [facility] MEDICAL REC #: [id number] [place] [address] ADMIT DATE: DISCHARGE DATE:09/27/18 ATTENDING PHY: Nicanor Huynh MD [facility]ACHDSon 09-23-2018 [facility] DATE OF ADMISSION: 0 09/23/2018 DATE OF DISCHARGE: 09/27/2018 ADMITTING DIAGNOSES: 1. History of small-bowel obstruction intussusception. 2. Perforation. 3. Fecal peritonitis. 4. Complications of surgery. HOSPITAL COURSE: This unfortunate 58-year-old initially had gastric bypass in 2016 but then she developed severe abdominal pain was found to have intussusception, a small bowel obstruction. She had more surgery in August of this year with reduction of the intussusception. She was taken back to surgery on September 02 due to the finding of perforated viscus, underwent exploratory laparotomy with a washout, resection of the mando biliopancreatic common channel, enterotomy, revision of the mando enterotomy. She was maintained on IV antibiotics because of the infection and the bacteria. She was transferred here for further care and was seen by our specialists, including Infectious Disease and Wound. Unfortunately, she developed further problems and was determined to have ischemic bowel and, because of this, her surgeons back at [facility] were alerted and they accepted her back in transfer to evaluate and treat her ischemic bowel. She was discharged from here on September 27, 2018, with diagnoses of ischemic bowel, nausea, abdominal pain, complications of gastric bypass surgery including small bowel obstruction intussusception, viscus perforation, also history of leukocytosis, hypertension, diabetes, hyperlipidemia, asthma, fibromyalgia. Her discharge medications will be resumed by the accepting hospital. Nicanor Huynh MD /[id number] SSI File#: [id number] Verified/Reviewed by [facility] PATIENT NAME: JOSH HERNANDEZ [facility] [address]an MEDICAL REC #: [id number] [place] [address] ADMIT DATE: DISCHARGE DATE:09/27/18 ATTENDING PHY: Nicanor Huynh MD [facility] CT Drain Peritoneal Abscesso n 09-22-2018 CT Drain Peritoneal Abscess Clinical indications: Poor function of existing peritoneal drain TECHNIQUE: Risks, benefits and alternatives were discussed with the patient, who appears to understand these. She was placed on the CT table in the supine position and the existing left-sided drain was then prepped and draped in usual sterile, barrier fashion. Under local anesthesia with 1% lidocaine, the existing drain was removed over a guidewire, taking care to maintain access within the abscess cavity, frequently checking with repeat imaging to ensure this. Once the original catheter was removed, the guidewire was then successfully manipulated into the superior aspect of the collection with the aid of a 15 cm Yueh needle sheath. Once satisfactory position was confirmed by repeat scanning, a new 8 Jamaican Abscession drainage was advanced over the guidewire and manipulated into the superior margin of the collection. This was confirmed by CT and then the drain was locked and affixed to the skin of the abdomen with a Percu-Stay device. The patient received 50 mcg of fentanyl IV during the procedure. IMPRESSION: Successful drain replacement and manipulation under CT guidance, as described above. The patient tolerated the procedure well and there were no apparent, immediate complications. Report Dictated on Authenticated by: Sammi Tolbert On: 09/22/2018 14:32 Read by: SAMMI TOLBERT MD Date: 09/22/2018 14:32 Normal [facility] Comment on above: Order Comment: Tube must be filled. Ionized Calciumon 09-22-2018 Ionized Calcium 4.9 mg/dL Normal 4.3-5.2 [facility] Comment on above: Performed By: #### PTPTT #### [facility] [address] [place], [place] [id number] pH (Bld) 7.339 [pH] Normal 7.310-7.460 [facility] Comment on above: Performed By: #### PTPTT #### [facility] [address] [place] [address] Prealbuminon 09-22-2018 Prealbumin mass conc 24.3 mg/dL Normal 20.0-40.0 [facility] Comment on above: Performed By: #### PTPTT #### [facility] [address] [place] [address] Triglycerideson 09-22-2018 Triglyceride mass conc 194 mg/dL High <=150 [facility] Comment on above: Performed By: #### PTPTT #### [facility] [address] [place] [address] Zincon 09-21-2018 Zinc, Plasma or Serum 95 ug/dL Normal 56-134 [facility] Comment on above: Order Comment: abdominal pain, post op, drainage from incision Result Comment: This test was developed and its performance characteristics determined by [facility]. It has not been cleared or approved by the Food and Drug Administration. Detection Limit = 5 Performed By: #### [employer] ####[facility] RESULTS CT Abdomen / Pelvis w kathryn johnston 09-19-2018 CT Abdomen / Pelvis w contrast CT ABDOMEN AND PELVIS WITH CONTRAST CLINICAL INDICATION: Generalized abdominal pain TECHNIQUE: Transaxial sequence through the abdomen and pelvis with 3 mm reconstruction with dynamic intravenous infusion of 75 mL of 370 mg% contrast media. Oral contrast was administered, and divided between by mouth, G-tube, and a red rubber catheter within an ostomy. Coronal and sagittal reconstructions included. Dose reduction was employed with automated exposure control. COMPARISON: Multiple prior exams, most recently dated 09/12/2018 FINDINGS: Exam quality: This examination is limited for the evaluation of the gastrointestinal tract due to lack of oral contrast. Chest base: There is patchy consolidation in the posterior right lower lobe. Linear atelectasis versus scarring in the right middle lobe and left lower lobe. Liver: Normal size and contour. There are subcentimeter hypoattenuating lesions throughout the liver, likely representing cysts. Biliary tree: Minimal intrahepatic ductal lesion with prominence of the common duct measuring up to 1.1 cm, likely due to postcholecystectomy state. Status post cholecystectomy. Spleen: Splenule noted. Residual tiny subcentimeter rim-enhancing collection about the posterior aspect of the spleen. Adrenals: Normal. Pancreas: Normal. Kidneys: Symmetric contrast enhancement without hydronephrosis. There is a simple cyst in the interpolar region the left kidney with several dependent layering calculi, unchanged from the prior exam. Additional subcentimeter hypoattenuating lesions, too small to characterize, but likely representing simple cysts. Peritoneum: Again noted is a loculated fluid collection along the anterior aspect of the left paracolic gutter with the indwelling pigtail drainage catheter at the caudal aspect of this collection. There is a tiny rim-enhancing fluid collection along the inferior edge of the right hepatic lobe measuring up to 2.9 x 0.9 cm. There is an additional thin bandlike rim-enhancing fluid collection about the midline pelvis on the right extending from the dome of the bladder anteriorly and insinuating between a loop of sigmoid colon measuring up to 0.6 cm in thickness. No pneumoperitoneum. Retroperitoneal/mesenteric lymphadenopathy: None. Aorta: Normal caliber. Atherosclerotic changes noted. Bowel: There is a marked amount of gas within the rectum. Postsurgical changes of gastric bypass surgery with a gastrojejunostomy. There is an indwelling percutaneous gastrostomy tube. There are three ostomies, one in the right hemiabdomen, and two in the left hemiabdomen. There is a straight tipped catheter within the right lower quadrant ostomy. There is colonic diverticulosis, predominantly right colon with several containing contrast and gas. There is mild mural thickening of the descending colon with infiltration of the surrounding peritoneal fat. Abdominal wall: There is an open vertical oriented midline abdominal incision with retention sutures in place. Pelvic organs/viscera: Status post hysterectomy. Pelvic lymphadenopathy: None. Osseous structures: Normal. IMPRESSION: 1. Minimal mural thickening of the ascending colon with mild surrounding inflammatory changes, which may suggest colitis. 2. Persistent loculated fluid collection in the left hemiabdomen with a percutaneous pigtail drainage catheter in the caudal aspect of the collection. Additional scattered tiny peritoneal fluid collections, not amenable to percutaneous drainage as described above. Report Dictated on Authenticated by: Graham Hernandez On: 09/19/2018 11:06 Read by: GRAHAM HERNANDEZ MD Date: 09/19/2018 11:06 Normal [facility] Comment on above: Order Comment: abdominal pain, post op, drainage from incision Ionized Calciumon 09-19-2018 Ionized Calcium 4.9 mg/dL Normal 4.3-5.2 [facility] Comment on above: Performed By: #### IONCAL ####[facility] [address] [address] pH (Bld) 7.326 [pH] Normal 7.310-7.460 [facility] Comment on above: Performed By: #### IONCAL ####[facility] [address] [address] Prealbuminon 09-19-2018 Prealbumin mass conc 26.3 mg/dL Normal 20.0-40.0 [facility] Comment on above: Performed By: #### TRIG, PREALB ####[facility] [address], [place] [address] Triglycerideson 09-19-2018 Triglyceride mass conc 147 mg/dL Normal <=150 [facility] Comment on above: Performed By: #### TRIG, PREALB ####[facility] [place] [address] Ionized Calciumon 09-15-2018 Ionized Calcium 4.8 mg/dL Normal 4.3-5.2 [facility] Comment on above: Performed By: #### IONCAL ####[facility] [place] [address] pH (Bld) 7.322 [pH] Normal 7.310-7.460 [facility] Comment on above: Performed By: #### IONCAL ####[facility] [place] [address] Triglycerideson 09-15-2018 Triglyceride mass conc 123 mg/dL Normal <=150 [facility] Comment on above: Performed By: #### TRIG ####[facility] [place] [address] CT Drain tianna/ retroperi abs cesson 09-13-2018 CT Drain tianna/ retroperi abscess Clinical indications: Abdominal abscess TECHNIQUE: Risks, benefits and alternatives were discussed with the patient, who appears to understand these. She is agreeable to proceed with the examination. She was placed on the CT table in the supine position and the abdomen scanned. A suitable left anterolateral entry site overlying an elongated collection in the left paracolic gutter was identified, marked and then prepped and draped in usual sterile, barrier fashion. Under local anesthesia with 1% lidocaine, a 5 Jamaican Yueh needle was advanced into the collection. Subsequently, an Amplatz superstiff wire was advanced through the Yueh sheath and into the collection. This was followed science intern by an 8 Jamaican dilator and then an 8 Jamaican Abscession drain. Final drain position was confirmed by repeat scanning. Conscious sedation was performed during the procedure using incremental intravenous doses of 0.5 mg Versed and 25 mcg of Fentanyl. Total dose for the procedure was 1.0 mg of Versed and 0.5 mcg of Fentanyl. The total monitored time of sedation was approximately 20 minutes. Monitoring was performed by myself and the angio nursing staff. IMPRESSION: Successful CT-guided drain placement as noted above. The patient tolerated the procedure well and there were no apparent, immediate complications. Report Dictated on Authenticated by: Sammi Tolbert On: 09/13/2018 12:48 Read by: SAMMI TOLBERT MD Date: 09/13/2018 12:48 [facility] Comment on above: Order Comment: abdominal pain, post op, drainage from incision CT Abdomen / Pelvis without contraston 09-12-2018 CT Abdomen / Pelvis without contrast Examination: CT abdomen/pelvis Indication: Abdominal pain, intra-abdominal fluid collections, assess left-sided CT-guided drain placement Technique: Axial CT images of the abdomen/pelvis were obtained without oral or IV contrast at 3 mm intervals. The patient's recently placed left-sided CT-guided drain was injected with 25 cc of a dilute Isovue 370 solution, and repeat CT of the abdomen/pelvis was performed. Images were acquired from the lung bases through the symphysis pubis. Coronal and sagittal reconstructions were also provided for review. Findings: There is a contained contrast collection adjacent to the recently placed CT-guided intra-abdominal drain. The contrast does not communicate with the colon or small bowel. There is an additional fluid collection along the inferior margin of the CT guided drain which extends into the pelvis. The collection is located between the descending colon and left iliac crest. It measures approximately 4 x 3.5 cm in axial dimension and approximately 11.7 cm in length. There is an open abdominal wound along the ventral abdomen with partial closure. Mild fat stranding is present in the subcutaneous soft tissues. There is an ostomy to the left of this open wound in the left mid to lower abdomen. Question old ostomy site in the left midabdomen. There is also surgical drain placed within the right mid abdomen. Assessment of the small bowel loops is limited on this study without oral/IV contrast. There is a PEG tube within the stomach. The patient is status post gastric bypass. Diffuse aortic calcifications are present. The solid organs in the upper abdomen are unremarkable within the limits of this noncontrast examination. The patient is status post cholecystectomy. The bladder is decompressed. There are small to moderate sized endplate osteophytes of the spine at multiple lower thoracic levels in addition to L2/L3. Impression: Injected contrast is contained in a small collection (left midabdomen, anterior to the descending colon) adjacent to the intended drainage catheter. Additional collection is present along the inferior margin of the recently placed CT guided left-sided abdominal drain. Additional postsurgical changes as detailed above with partially open surgical wound in the ventral abdomen (midline) and surgical drain in the right mid abdomen. Report Dictated on Authenticated by: Kelvin Ghosh On: 09/12/2018 13:29 Read by: KELVIN GHOSH MD Date: 09/12/2018 13:29 Normal [facility] Comment on above: Order Comment: abdominal pain, post op, drainage from incision Ionized Calciumon 09-12-2018 Ionized Calcium 4.7 mg/dL Normal 4.3-5.2 [facility] Comment on above: Performed By: #### IONCAL ####[facility] [place] [address] pH (Bld) 7.299 [pH] Low 7.310-7.460 [facility] Comment on above: Performed By: #### IONCAL ####[address] [address] XR Fluoro under 1 hour (Snif f Test)on 09-12-2018 XR Fluoro under 1 hour (Sniff Test) Examination: Fluoroscopic injection of intra-abdominal drain Indication: [id number]: Drainage of abscess Findings: The procedure was discussed with the patient and she agreed to proceed. Approximately 25 cc of a dilute Isovue 370 solution (50% contrast/50% sterile saline) was injected into the patient's recently placed CT-guided drain along the left midabdomen. Total fluoroscopy time was 0.6 minute. Images demonstrate small collection of contrast pooling at the tip of the pigtail catheter. There is no obvious communication with the colon or small bowel or free flow contrast from the collection into the peritoneal cavity. Impression: Left-sided pigtail catheter within a small collection in the left midabdomen along the paracolic gutter. CT abdomen/pelvis was also performed to further characterize this collection (reported separately). Report Dictated on Authenticated by: Kelvin Ghosh On: 09/12/2018 13:17 Read by: KELVIN GHOSH MD Date: 09/12/2018 13:17 [facility] Comment on above: Order Comment: abdominal pain, post op, drainage from incision CT Abdomen / Pelvis w kathryn johnston 09-09-2018 CT Abdomen / Pelvis w contrast CT ABDOMEN AND PELVIS WITH CONTRAST CLINICAL INDICATION: Abdominal pain TECHNIQUE: Transaxial sequence through the abdomen and pelvis with 3 mm reconstruction with following administration of oral contrast and dynamic intravenous infusion of 75 mL of 370 mg% contrast media. Coronal and sagittal reconstructions included. Dose reduction was employed with automated exposure control. COMPARISON: CT abdomen pelvis 09/01/2018 FINDINGS: Chest base: Mixed consolidation and atelectasis in the right medial lung base. Left lower lobe dependent atelectasis. There is a trace left pleural effusion. Liver: Unchanged hypoattenuating lesions near the liver dome. Biliary tree: Minimal prominence of the right hemiliver intrahepatic bile ducts. Gallbladder is surgically absent. Spleen: Normal. Adrenals: Normal. Pancreas: Normal. Kidneys: Symmetric contrast enhancement without hydronephrosis. Unchanged cystic lesion with layering calcifications in the interpolar region of the left kidney. Free fluid: There is been an interval decrease in the quantity of free fluid and gas compared to 09/01/2018, however, there is persistent separate rim-enhancing fluid within the inferior portions of the peritoneum that tracks up the left side of the abdomen and approaches the inferomedial border of the spleen. The rim-enhancing fluid appears to be in communication throughout the abdomen, but the largest pocket is seen in the left upper abdominal quadrant measuring 7.4 x 5.1 cm in image 69 series 2. The rim-enhancing fluid component appears similar overall to 09/01/2018. Retroperitoneal/mesenteric lymphadenopathy: None. Vascular: No abdominal aortic aneurysm. Moderate calcific atherosclerotic disease in the abdominal aorta. The portal venous system is patent. Bowel: Surgical chain suture is seen near the gastroesophageal junction and along the lesser curvature of the stomach. A percutaneous gastrostomy tube is in place. A jejunostomy tube is also in place. Two separate ostomies are seen in the left lower abdominal quadrant. There are no dilated loops of small or large bowel to suggest obstruction and there is no apparent leakage of enteric contrast material into the peritoneum or retroperitoneum. Abdominal wall: There is an open midline abdominal incision with retention sutures in place. Pelvic organs/viscera: No mass identified. Pelvic lymphadenopathy: None. Osseous structures: No evidence for fracture. No aggressive appearing osseous lesion. IMPRESSION: 1. Persistent rim-enhancing fluid throughout the peritoneum extending from the lesser curvature of the stomach and the inferomedial aspect of the spleen to the pelvis, which all appears to communicate. Overall, the rim-enhancing fluid appears similar in quantity to 09/01/2018. 2. There has been an interval decrease in the amount of free fluid containing gas compared to CT from 09/01/2018. 3. Extensive postoperative changes including percutaneous gastrostomy, jejunostomy, surgical chain suture at the gastroesophageal junction and along the lesser curvature the stomach, as well as two separate ostomies in the left lower abdominal quadrant. There is no dilation of bowel to suggest obstruction and there is no apparent leakage of enteric contrast material into the peritoneum or retroperitoneum identified. 4. Mixed atelectasis and consolidation at the right medial lung base. Trace atelectasis and trace pleural effusion on the left. Report Dictated on Authenticated by: Param Collins On: 09/09/2018 12:32 Read by: PARAM COLLINS MD Date: 09/09/2018 12:32 [facility] Comment on above: Order Comment: split PO contrast into th irds, one third by mouth, one third down gastrostomy tube, one third down right abdominal jejunostomy tube. 0737 CT Drain tianna/ retroperi abs cesson 09-09-2018 CT Drain tianna/ retroperi abscess CT-GUIDED LEFT UPPER ABDOMINAL QUADRANT FLUID COLLECTION DRAIN PLACEMENT Reasons for examination: Rim-enhancing fluid collection. After review of prior studies, we discussed the benefits and risks of the procedure including bleeding, infection, and damage to nearby structures. After the patient expressed understanding, informed consent was obtained. Scrubbing Machine Operator CT scans were obtained in the spine position after the patient was transferred to the CT suite. The rim-enhancing fluid collection was localized, and deemed suitable for drainage. Elements of sterile procedure included hand hygiene, sterile gloves, sterile gown, mask, 2% chlorhexidine skin prep solution, and sterile towels. Following sterile preparation with chlorhexidine solution, draping with sterile towels, and local anesthetic administration, CT guidance was used to advance an 18-gauge needle into the fluid collection. CT scans confirmed good needle position. Cloudy serosanguineous fluid was aspirated through the needle. Next, a 0.035 inch guidewire was advanced into the collection. After serial dilation, an 8 Jamaican locking pigtail drain was placed within the collection. Post procedure CT scan demonstrated no evidence of complication. The drain was affixed to the skin using 2-0 silk suture and a Percu-Stay device. The drain was then connected to a suction drainage bag. The patient tolerated the procedure and there were no immediate complications. The patient was transferred to recovery area in stable condition. IMPRESSION: 1. Successful CT-guided drain placement within a rim-enhancing abdominal fluid collection. Report Dictated on Authenticated by: Param Collins On: 09/09/2018 16:18 Read by: PARAM COLLINS MD Date: 09/09/2018 16:18 Normal [facility] Comment on above: Order Comment: CONTRAST PER RADIOLOGISTD ISCRETION Please call CT department to schedule drain placement 2338 CBC with Diffon 09-08-2018 Basophils #/vol (Bld) 0.0 x(10)3/cumm Normal 0.0-0.1 [facility] Comment on above: Performed By: #### CBCDIFF ####[address] [address] Basophils/100 WBC (Bld) 0.3 % Normal 0.0-1.0 [facility] Comment on above: Performed By: #### CBCDIFF ####[address] [address] Eosinophils #/vol (Bld) 0.0 x(10)3/cumm Normal 0.0-0.4 [facility] Comment on above: Performed By: #### CBCDIFF ####[address] [address] Eosinophils/100 WBC (Bld) 0.4 % Normal 0.0-6.1 [facility] Comment on above: Performed By: #### CBCDIFF ####[address] [address] Erythrocyte distribution width Ratio (RBC) 14.4 % Normal 11.1-15.3 [facility] Comment on above: Performed By: #### CBCDIFF ####[facility] [place] [address] Hematocrit Volume Fraction (Bld) 27.3 % Low 34.6-45.0 [facility] Comment on above: Performed By: #### CBCDIFF ####[place] [id number] Hemoglobin mass conc (Bld) 8.9 g/dL Low 11.5-15.5 [facility] Comment on above: Performed By: #### CBCDIFF ####[place] [address] Lymphocytes #/vol (Bld) 0.6 x(10)3/cumm Low 0.8-2.9 [facility] Comment on above: Performed By: #### CBCDIFF ####[place] [address] Lymphocytes/100 WBC (Bld) 5.0 % Low 12.2-42.6 [facility] Comment on above: Performed By: #### CBCDIFF ####[place] [id number] MCH Entitic mass (RBC) 28.7 pg Normal 27.2-33.6 [facility] Comment on above: Performed By: #### CBCDIFF ####[place] [address] MCHC mass conc (RBC) 32.6 g/dL Low 32.9-35.3 [facility] Comment on above: Performed By: #### CBCDIFF ####[address] [address] MCV Entitic volume (RBC) 88.1 fL Normal 81.3-96.7 [facility] Comment on above: Performed By: #### CBCDIFF ####[place] [id number] Monocytes #/vol (Bld) 1.1 x(10)3/cumm High 0.2-0.8 [facility] Comment on above: Performed By: #### CBCDIFF ####[facility] [place] [address] Monocytes/100 WBC (Bld) 8.7 % Normal 3.3-11.6 [facility] Comment on above: Performed By: #### CBCDIFF ####[facility] [place] [address] Neutrophils #/vol (Bld) 10.9 x(10)3/cumm High 1.3-7.4 [facility] Comment on above: Performed By: #### CBCDIFF ####[facility] [place] [address] Platelet mean volume Entitic volume (Bld) 8.6 fL Normal 6.4-10.0 [facility] Comment on above: Performed By: #### CBCDIFF ####[facility] [place] [address] Platelets #/vol (Bld) 399 x(10)3/cumm High 138-367 [facility] Comment on above: Performed By: #### CBCDIFF ####[facility] [place] [address] Plt Morph Normal [facility] Comment on above: Performed By: #### CBCDIFF ####[facility] [place] [address] RBC #/vol (Bld) 3.10 X(10)6/cumm Low 3.90-5.10 [facility] Comment on above: Performed By: #### CBCDIFF ####[facility] [place] [address] RBC Morph cont Normal [facility] Comment on above: Performed By: #### CBCDIFF ####[address] [address] RBC morphology finding Nom (Bld) Normal [facility] Comment on above: Performed By: #### CBCDIFF ####[place] [phone] Segmented neutrophils/100 WBC (Bld) 85.6 % High 44.9-78.8 [facility] Comment on above: Performed By: #### CBCDIFF ####[facility] [place] [address] WBC #/vol (Bld) 12.7 x(10)3/cumm High 3.6-10.3 [facility] Comment on above: Performed By: #### CBCDIFF ####[place] [phone] WBC Morph Normal [facility] Comment on above: Performed By: #### CBCDIFF ####[place] [id number] Comprehensive Metabolic Pane guillermo 09-08-2018 Albumin mass conc 1.6 g/dL Low 3.4-5.0 [facility] Comment on above: Performed By: #### CMP ####[place] [id number] ALP enzyme act/vol 104 U/L Normal 45-117 [facility] Comment on above: Performed By: #### CMP ####[place] [id number] ALT enzyme act/vol 31 U/L Normal 12-78 [facility] Comment on above: Performed By: #### CMP ####[address] [address] Anion gap molar conc 8 mmol/L Normal 5-10 [facility] Comment on above: Performed By: #### CMP ####[place] [id number] AST enzyme act/vol 23 U/L Normal 15-37 [facility] Comment on above: Performed By: #### CMP ####[place] [id number] Bili, Total 0.3 mg/dL Normal 0.2-1.0 [facility] Comment on above: Performed By: #### CMP ####[place] [address] Calcium mass conc 7.7 mg/dL Low 8.5-10.1 [facility] Comment on above: Performed By: #### CMP ####[address] [address] Chloride molar conc 103 mmol/L Normal 98-107 [facility] Comment on above: Performed By: #### CMP ####[address] [address] CO2 molar conc 25 mmol/L Normal 21-32 [facility] Comment on above: Performed By: #### CMP ####[address] [address] Creatinine mass conc 0.42 mg/dL Low 0.60-1.30 [facility] Comment on above: Performed By: #### CMP ####[address] [address] eGFR -Amer >60 Normal >=60 [facility] Comment on above: Performed By: #### CMP ####[place] [id number] GFR/1.73 sq M predicted among non-blacks MDRD vol rate/area (S/P/Bld) mL/min/{1.73_m2} Normal >=60 [facility] Comment on above: Performed By: #### CMP ####[address] [address] Glucose mass conc 129 mg/dL High 74-106 [facility] Comment on above: Performed By: #### CMP ####[place] [id number] Potassium molar conc 3.7 mmol/L Normal 3.5-5.1 [facility] Comment on above: Performed By: #### CMP ####[address] [address] Protein mass conc 5.4 g/dL Low 6.4-8.2 [facility] Comment on above: Performed By: #### CMP ####[place] [id number] Sodium molar conc 136 mmol/L Normal 136-145 [facility] Comment on above: Performed By: #### CMP ####[address] [address] Urea nitrogen mass conc 25 mg/dL High 7-18 [facility] Comment on above: Performed By: #### CMP ####[facility] [address] [address] Ionized Calciumon 09-08-2018 Ionized Calcium 4.3 mg/dL Normal 4.3-5.2 [facility] Comment on above: Performed By: #### IONCAL ####[facility] [address] [address] pH (Bld) 7.441 [pH] Normal 7.310-7.460 [facility] Comment on above: Performed By: #### IONCAL ####[address] [address] Prealbuminon 09-08-2018 Prealbumin mass conc 13.1 mg/dL Low 20.0-40.0 [facility] Comment on above: Performed By: #### PREALB, TRIG ####[facility] [address] [address] Triglycerideson 09-08-2018 Triglyceride mass conc 136 mg/dL Normal <=150 [facility] Comment on above: Performed By: #### PREALB, TRIG ####[facility] [address] [address] Zincon 09-07-2018 Zinc, Plasma or Serum 40 ug/dL Low 56-134 [facility] Comment on above: Order Comment: Performed at: [address] [id number] Director: Cristina Leon MD, Phone: [phone] Result Comment: This test was developed and its performance characteristics determined by [facility]. It has not been cleared or approved by the Food and Drug Administration. Detection Limit = 5 Performed By: #### [employer] ####[facility] RESULTS XR Abdomen single AP view-KU Bon 09-06-2018 XR Abdomen single AP view-KUB ABDOMEN WITH GASTROGRAFIN INJECTION: CLINICAL INDICATION: Jejunostomy tube with ostomy is to evaluate for positioning of the tube. TECHNIQUE: Supine abdomen and pelvis core rescuer view along with two additional views following instillation of 40 mL of Gastrografin contrast by myself COMPARISON: Two days ago and CT from two days ago FINDINGS: There is some residual contrast within the right colon. Surgical clips are scattered throughout the abdomen and pelvis. There are ostomies on the left and a tube with its tip in the right lower abdomen. Additional images following instillation of contrast demonstrate contrast opacifying small bowel loops within the right side of the abdomen and pelvis without apparent extravasation. Spurring is noted about the inferior endplate at L2. IMPRESSION: Jejunostomy tube adequately positioned. No extravasation of contrast. Report Dictated on Authenticated by: Andrea Swan On: 09/06/2018 15:06 Read by: ANDREA SWAN MD Date: 09/06/2018 15:06 Normal [facility] Comment on above: Order Comment: J tube placed in Right Lo wer Quadrant. Tube Study with gastrograffin to confirm placement. Please perform study upright. CBC with Diffon 09-05-2018 Basophils #/vol (Bld) 0.0 x(10)3/cumm Normal 0.0-0.1 [facility] Comment on above: Performed By: #### CBCDIFF ####[address] [address] Basophils/100 WBC (Bld) 0.0 % Normal 0.0-1.0 [facility] Comment on above: Performed By: #### CBCDIFF ####[address] [address] Eosinophils #/vol (Bld) 0.0 x(10)3/cumm Normal 0.0-0.4 [facility] Comment on above: Performed By: #### CBCDIFF ####[address] [address] Eosinophils/100 WBC (Bld) 0.2 % Normal 0.0-6.1 [facility] Comment on above: Performed By: #### CBCDIFF ####[address] [address] Erythrocyte distribution width Ratio (RBC) 13.9 % Normal 11.1-15.3 [facility] Comment on above: Performed By: #### CBCDIFF ####[place] [phone] Hematocrit Volume Fraction (Bld) 27.5 % Low 34.6-45.0 [facility] Comment on above: Performed By: #### CBCDIFF ####[place] [address] Hemoglobin mass conc (Bld) 9.1 g/dL Low 11.5-15.5 [facility] Comment on above: Performed By: #### CBCDIFF ####[place] [address] Lymphocytes #/vol (Bld) 0.7 x(10)3/cumm Low 0.8-2.9 [facility] Comment on above: Performed By: #### CBCDIFF ####[place] [phone] Lymphocytes/100 WBC (Bld) 6.3 % Low 12.2-42.6 [facility] Comment on above: Performed By: #### CBCDIFF ####[place] [address] MCH Entitic mass (RBC) 28.7 pg Normal 27.2-33.6 [facility] Comment on above: Performed By: #### CBCDIFF ####[place] [address] MCHC mass conc (RBC) 32.9 g/dL Normal 32.9-35.3 [facility] Comment on above: Performed By: #### CBCDIFF ####[place] [phone] MCV Entitic volume (RBC) 87.0 fL Normal 81.3-96.7 [facility] Comment on above: Performed By: #### CBCDIFF ####[place] [phone] Monocytes #/vol (Bld) 1.1 x(10)3/cumm High 0.2-0.8 [facility] Comment on above: Performed By: #### CBCDIFF ####[facility] [place] [address] Monocytes/100 WBC (Bld) 9.4 % Normal 3.3-11.6 [facility] Comment on above: Performed By: #### CBCDIFF ####[facility] [place], [place] [phone] Neutrophils #/vol (Bld) 9.7 x(10)3/cumm High 1.3-7.4 [facility] Comment on above: Performed By: #### CBCDIFF ####[facility] [place], [place] [phone] Platelet mean volume Entitic volume (Bld) 9.1 fL Normal 6.4-10.0 [facility] Comment on above: Performed By: #### CBCDIFF ####[facility] [place], [place] [phone] Platelets #/vol (Bld) 373 x(10)3/cumm High 138-367 [facility] Comment on above: Performed By: #### CBCDIFF ####[facility] [place] [address] Plt Morph Normal [facility] Comment on above: Performed By: #### CBCDIFF ####[address] [address] RBC #/vol (Bld) 3.16 X(10)6/cumm Low 3.90-5.10 [facility] Comment on above: Performed By: #### CBCDIFF ####[place] [phone] RBC Morph cont Normal [facility] Comment on above: Performed By: #### CBCDIFF ####[place] [phone] RBC morphology finding Nom (Bld) Normal [facility] Comment on above: Performed By: #### CBCDIFF ####[facility] [place] [address] Segmented neutrophils/100 WBC (Bld) 84.1 % High 44.9-78.8 [facility] Comment on above: Performed By: #### CBCDIFF ####[facility] [place] [address] WBC #/vol (Bld) 11.5 x(10)3/cumm High 3.6-10.3 [facility] Comment on above: Performed By: #### CBCDIFF ####[facility] [place] [address] WBC Morph Normal [facility] Comment on above: Performed By: #### CBCDIFF ####[facility] [place] [address] Comprehensive Metabolic Pane guillermo 09-05-2018 Albumin mass conc 1.4 g/dL Low 3.4-5.0 [facility] Comment on above: Performed By: #### PHOS, CMP ####[facility] [place] [address] ALP enzyme act/vol 85 U/L Normal 45-117 [facility] Comment on above: Performed By: #### PHOS, CMP ####[facility] [place] [address] ALT enzyme act/vol 31 U/L Normal 12-78 [facility] Comment on above: Performed By: #### PHOS, CMP ####[facility] [place] [address] Anion gap molar conc 6 mmol/L Normal 5-10 [facility] Comment on above: Performed By: #### PHOS, CMP ####[facility] [place] [address] AST enzyme act/vol 24 U/L Normal 15-37 [facility] Comment on above: Performed By: #### PHOS, CMP ####[facility] [address] [address] Bili, Total 0.4 mg/dL Normal 0.2-1.0 [facility] Comment on above: Performed By: #### PHOS, CMP ####[address] [address] Calcium mass conc 7.4 mg/dL Low 8.5-10.1 [facility] Comment on above: Performed By: #### PHOS, CMP ####[place] [phone] Chloride molar conc 103 mmol/L Normal 98-107 [facility] Comment on above: Performed By: #### PHOS, CMP ####[place] [phone] CO2 molar conc 29 mmol/L Normal 21-32 [facility] Comment on above: Performed By: #### PHOS, CMP ####[facility] [place] [phone] Creatinine mass conc 0.40 mg/dL Low 0.60-1.30 [facility] Comment on above: Performed By: #### PHOS, CMP ####[address] [address] eGFR -Amer >60 Normal >=60 [facility] Comment on above: Performed By: #### PHOS, CMP ####[facility] [address] [address] GFR/1.73 sq M predicted among non-blacks MDRD vol rate/area (S/P/Bld) mL/min/{1.73_m2} Normal >=60 [facility] Comment on above: Performed By: #### PHOS, CMP ####[place] [phone] Glucose mass conc 131 mg/dL High 74-106 [facility] Comment on above: Performed By: #### PHOS, CMP ####[place] [phone] Potassium molar conc 3.8 mmol/L Normal 3.5-5.1 [facility] Comment on above: Performed By: #### PHOS, CMP ####[address] [address] Protein mass conc 5.0 g/dL Low 6.4-8.2 [facility] Comment on above: Performed By: #### PHOS, CMP ####[address] [address] Sodium molar conc 138 mmol/L Normal 136-145 [facility] Comment on above: Performed By: #### PHOS, CMP ####[place] [phone] Urea nitrogen mass conc 28 mg/dL High 7-18 [facility] Comment on above: Performed By: #### PHOS, CMP ####[address] [address] Ionized Calciumon 09-05-2018 Ionized Calcium 4.1 mg/dL Low 4.3-5.2 [facility] Comment on above: Performed By: #### IONCAL ####[address] [address] pH (Bld) 7.464 [pH] High 7.310-7.460 [facility] Comment on above: Performed By: #### IONCAL ####[address] [address] Magnesiumon 09-05-2018 Magnesium mass conc 2.1 mg/dL Normal 1.8-2.4 [facility] Comment on above: Performed By: #### MAG, TRIG, PREALB ### [address] [address] Phosphorus - Inorganicon Phosphate mass conc 2.8 mg/dL Normal 2.5-4.9 [facility] Comment on above: Performed By: #### PHOS, CMP ####[address] [address] Prealbuminon 09-05-2018 Prealbumin mass conc 6.7 mg/dL Low 20.0-40.0 [facility] Comment on above: Performed By: #### MAG, TRIG, PREALB ### #[place] [address] Triglycerideson 09-05-2018 Triglyceride mass conc 152 mg/dL High <=150 [facility] Comment on above: Performed By: #### MAG, TRIG, PREALB ### #[place] [address] Basic Metabolic Panelon Anion gap molar conc 5 mmol/L Normal 5-10 [facility] Comment on above: Performed By: #### BMP ####[place] [address] Calcium mass conc 7.2 mg/dL Low 8.5-10.1 [facility] Comment on above: Performed By: #### BMP ####[place] [phone] Chloride molar conc 102 mmol/L Normal 98-107 [facility] Comment on above: Performed By: #### BMP ####[place] [address] CO2 molar conc 30 mmol/L Normal 21-32 [facility] Comment on above: Performed By: #### BMP ####[place] [address] Creatinine mass conc 0.49 mg/dL Low 0.60-1.30 [facility] Comment on above: Performed By: #### BMP ####[place] [phone] eGFR -Amer >60 Normal >=60 [facility] Comment on above: Performed By: #### BMP ####[place] [phone] GFR/1.73 sq M predicted among non-blacks MDRD vol rate/area (S/P/Bld) mL/min/{1.73_m2} Normal >=60 [facility] Comment on above: Performed By: #### BMP ####[address] [place] [address] Glucose mass conc 151 mg/dL High 74-106 [facility] Comment on above: Performed By: #### BMP ####[facility] [place] [address] Potassium molar conc 3.4 mmol/L Low 3.5-5.1 [facility] Comment on above: Performed By: #### BMP ####[facility] [place] [address] Sodium molar conc 137 mmol/L Normal 136-145 [facility] Comment on above: Performed By: #### BMP ####[facility] [place] [address] Urea nitrogen mass conc 29 mg/dL High 7-18 [facility] Comment on above: Performed By: #### BMP ####[address] [address] CBC with Manual Diffon 09-04 Bands 9 % High 0-5 [facility] Comment on above: Performed By: #### LACACD #### [facility] [address] [place] [address] Basophils #/vol (Bld) Normal 0-1 [facility] Comment on above: Performed By: #### LACACD #### [facility] [address] [place] [address] Blasts Normal <= 0 [facility] Comment on above: Performed By: #### LACACD #### [facility] [address] [place] [address] Eosinophils/100 WBC (Bld) Normal 0-6 [facility] Comment on above: Performed By: #### LACACD #### [facility] [address] [place] [address] Erythrocyte distribution width Ratio (RBC) 14.2 % Normal 11.1-15.3 [facility] Comment on above: Performed By: #### LACACD #### [facility] [address] [place] [address] Hematocrit Volume Fraction (Bld) 26.0 % Low 34.6-45.0 [facility] Comment on above: Performed By: #### LACACD #### [facility] [address] [place] [address] Hemoglobin mass conc (Bld) 8.6 g/dL Low 11.5-15.5 [facility] Comment on above: Performed By: #### LACACD #### [facility] [address] [place] [address] Lymphocytes/100 WBC (Bld) 6 % Low 20-45 [facility] Comment on above: Performed By: #### LACACD #### [facility] [address] [place] [address] Lymphocytes/100 WBC (Bld) 3 % Normal 0-8 [facility] Comment on above: Performed By: #### LACACD #### [facility] [address] [place], [place] [phone] MCH Entitic mass (RBC) 28.5 pg Normal 27.2-33.6 [facility] Comment on above: Performed By: #### LACACD #### [facility] [address] [place], [place] [phone] MCHC mass conc (RBC) 33.1 g/dL Normal 32.9-35.3 [facility] Comment on above: Performed By: #### LACACD #### [facility] [address] [place] [address] MCV Entitic volume (RBC) 86.0 fL Normal 81.3-96.7 [facility] Comment on above: Performed By: #### LACACD #### [facility] [address] [place] [address] Metas Normal <=1 [facility] Comment on above: Performed By: #### LACACD #### [address] [address] Monos 6 % Normal 2-10 [facility] Comment on above: Performed By: #### LACACD #### [address] [address] Myelos Normal <= 0 [facility] Comment on above: Performed By: #### LACACD #### [facility] [address] [place] [address] NRBC Normal <= 0 [facility] Comment on above: Performed By: #### LACACD #### [facility] [address] [place], [place] [phone] Platelet mean volume Entitic volume (Bld) 8.7 fL Normal 6.4-10.0 [facility] Comment on above: Performed By: #### LACACD #### [facility] [address] [place], [place] [phone] Platelets #/vol (Bld) 315 x(10)3/cumm Normal 138-367 [facility] Comment on above: Performed By: #### LACACD #### [facility] [address] [place], [place] [phone] Plt Morph Plt clumps. Occ enlarged. [facility] Comment on above: Performed By: #### LACACD #### [facility] [address] [place], [place] [phone] Protein mass conc Normal <= 0 [facility] Comment on above: Performed By: #### LACACD #### [facility] [address] [place], [place] [phone] RBC #/vol (Bld) 3.02 X(10)6/cumm Low 3.90-5.10 [facility] Comment on above: Performed By: #### LACACD #### [facility] [address] [place], [place] [phone] RBC Morph cont Normal [facility] Comment on above: Performed By: #### LACACD #### [facility] [address] [place], [place] [phone] RBC morphology finding Nom (Bld) Occ aniso, poik, and poly. Normal [facility] Comment on above: Performed By: #### LACACD #### [facility] [address] [place], [place] [phone] Segs 76 % High 40-75 [facility] Comment on above: Performed By: #### LACACD #### [address] [place], [place] [address] WBC #/vol (Bld) Normal 3.6-10.3 [facility] Comment on above: Performed By: #### LACACD #### [facility] [address], [place] [address] WBC #/vol (Bld) 12.4 x(10)3/cumm High 3.6-10.3 [facility] Comment on above: Performed By: #### LACACD #### [facility] [address] [place] [address] WBC Morph Normal [facility] Comment on above: Performed By: #### LACACD #### [facility] [address] [place] [address] XR Abdomen single AP view-KU Bon 09-04-2018 XR Abdomen single AP view-KUB ABDOMEN: CLINICAL INDICATION: Abdominal pain. TECHNIQUE: Supine abdomen and pelvis COMPARISON: Correlation with CT abdomen and pelvis September 01, 2018. FINDINGS/IMPRESSION: The bowel gas pattern in nonobstructive. There is a wound VAC overlying the right midabdomen. Subcutaneous emphysema of the soft tissues on the right, as seen on the CT abdomen and pelvis of September 01, 2018. Tubing lies across the midline of the abdomen. There are surgical asia and surgical sutures throughout the abdomen. No evidence of free air on this supine radiograph; consider upright or lateral decubitus views if there is concern for free air. Report Dictated on Authenticated by: Matheus Cid On: 09/04/2018 18:17 Read by: MATHEUS CID MD Date: 09/04/2018 18:17 [facility] Comment on above: Order Comment: Please perform upright if possible XR Chest Mobile 1 viewon XR Chest Mobile 1 view CLINICAL INFORMATION: Shortness of breath. CHEST X-RAY, PORTABLE, 0537 hours: An AP portable view is compared to the prior examination of the previous day. The projection is slightly lordotic. There is no change in the position of the left subclavian PIC catheter. There is no significant abnormality of the mediastinum or cardiac silhouette. Patchy perihilar and right infrahilar parenchymal densities are similar. No pleural effusion, vascular congestion, other focal consolidation or pneumothorax is seen. IMPRESSION: Stable perihilar and right infrahilar patchy parenchymal densities. No evidence of other acute cardiopulmonary process or significant interval change. Report Dictated on Authenticated by: Kenia Antony On: 09/04/2018 08:22 Read by: KENIA ANTONY MD Date: 09/04/2018 08:22 Normal [facility] CBC with Diffon 09-03-2018 Basophils #/vol (Bld) 0.0 x(10)3/cumm Normal 0.0-0.1 [facility] Comment on above: Performed By: #### LACACD #### [address] [address] Basophils/100 WBC (Bld) 0.1 % Normal 0.0-1.0 [facility] Comment on above: Performed By: #### LACACD #### [facility] [address] [place] [address] Eosinophils #/vol (Bld) 0.0 x(10)3/cumm Normal 0.0-0.4 [facility] Comment on above: Performed By: #### LACACD #### [facility] [address] [place] [address] Eosinophils/100 WBC (Bld) 0.2 % Normal 0.0-6.1 [facility] Comment on above: Performed By: #### LACACD #### [address] [address] Erythrocyte distribution width Ratio (RBC) 13.4 % Normal 11.1-15.3 [facility] Comment on above: Performed By: #### LACACD #### [address] [address] Hematocrit Volume Fraction (Bld) 18.7 % Low 34.6-45.0 [facility] Comment on above: Performed By: #### LACACD #### [address] [address] Hemoglobin mass conc (Bld) 6.2 g/dL Low 11.5-15.5 [facility] Comment on above: Performed By: #### LACACD #### [facility] [address] [place] [address] Lymphocytes #/vol (Bld) 0.7 x(10)3/cumm Low 0.8-2.9 [facility] Comment on above: Performed By: #### LACACD #### [facility] [address] [place] [address] Lymphocytes/100 WBC (Bld) 6.0 % Low 12.2-42.6 [facility] Comment on above: Performed By: #### LACACD #### [facility] [address] [place] [address] MCH Entitic mass (RBC) 29.0 pg Normal 27.2-33.6 [facility] Comment on above: Performed By: #### LACACD #### [facility] [address] [place], [place] [phone] MCHC mass conc (RBC) 33.3 g/dL Normal 32.9-35.3 [facility] Comment on above: Performed By: #### LACACD #### [facility] [address] [place] [address] MCV Entitic volume (RBC) 87.0 fL Normal 81.3-96.7 [facility] Comment on above: Performed By: #### LACACD #### [facility] [address] [place] [address] Monocytes #/vol (Bld) 0.6 x(10)3/cumm Normal 0.2-0.8 [facility] Comment on above: Performed By: #### LACACD #### [facility] [address] [place] [address] Monocytes/100 WBC (Bld) 4.8 % Normal 3.3-11.6 [facility] Comment on above: Performed By: #### LACACD #### [facility] [address] [place] [address] Neutrophils #/vol (Bld) 10.8 x(10)3/cumm High 1.3-7.4 [facility] Comment on above: Performed By: #### LACACD #### [facility] [address] [place] [address] Platelet mean volume Entitic volume (Bld) 8.9 fL Normal 6.4-10.0 [facility] Comment on above: Performed By: #### LACACD #### [facility] [address] [place] [address] Platelets #/vol (Bld) 279 x(10)3/cumm Normal 138-367 [facility] Comment on above: Performed By: #### LACACD #### [facility] [address] [place] [address] Plt Morph Normal [facility] Comment on above: Performed By: #### LACACD #### [facility] [address] [place], [place] [phone] RBC #/vol (Bld) 2.15 X(10)6/cumm Low 3.90-5.10 [facility] Comment on above: Performed By: #### LACACD #### [facility] [address] [place] [address] RBC Morph cont Normal [facility] Comment on above: Performed By: #### LACACD #### [facility] [address] [place] [address] RBC morphology finding Nom (Bld) Normal [facility] Comment on above: Performed By: #### LACACD #### [facility] [address] [place] [address] Segmented neutrophils/100 WBC (Bld) 88.9 % High 44.9-78.8 [facility] Comment on above: Performed By: #### LACACD #### [facility] [address] [place], [place] [phone] WBC #/vol (Bld) 12.2 x(10)3/cumm High 3.6-10.3 [facility] Comment on above: Performed By: #### LACACD #### [facility] [address] [place], [place] [phone] WBC Morph Normal [facility] Comment on above: Performed By: #### LACACD #### [facility] [address] [place] [address] Comprehensive Metabolic Pane guillermo 09-03-2018 Albumin mass conc 1.5 g/dL Low 3.4-5.0 [facility] Comment on above: Performed By: #### LACACD #### [facility] [address] [place] [address] ALP enzyme act/vol 62 U/L Normal 45-117 [facility] Comment on above: Performed By: #### LACACD #### [facility] [address] [place] [address] ALT enzyme act/vol 35 U/L Normal 12-78 [facility] Comment on above: Performed By: #### LACACD #### [facility] [address] [place] [address] Anion gap molar conc 6 mmol/L Normal 5-10 [facility] Comment on above: Performed By: #### LACACD #### [facility] [address] [place] [address] AST enzyme act/vol 39 U/L High 15-37 [facility] Comment on above: Performed By: #### LACACD #### [facility] [address] [place] [address] Bili, Total 0.3 mg/dL Normal 0.2-1.0 [facility] Comment on above: Performed By: #### LACACD #### [facility] [address] [place] [address] Calcium mass conc 6.7 mg/dL Low 8.5-10.1 [facility] Comment on above: Performed By: #### LACACD #### [facility] [address] [place] [address] Chloride molar conc 105 mmol/L Normal 98-107 [facility] Comment on above: Performed By: #### LACACD #### [facility] [address] [place] [address] CO2 molar conc 28 mmol/L Normal 21-32 [facility] Comment on above: Performed By: #### LACACD #### [facility] [address] [place] [address] Creatinine mass conc 0.60 mg/dL Normal 0.60-1.30 [facility] Comment on above: Performed By: #### LACACD #### [facility] [address] [place] [id number] eGFR -Amer >60 Normal >=60 [facility] Comment on above: Performed By: #### LACACD #### [facility] [address] [place] [address] GFR/1.73 sq M predicted among non-blacks MDRD vol rate/area (S/P/Bld) mL/min/{1.73_m2} Normal >=60 [facility] Comment on above: Performed By: #### LACACD #### [facility] [address] [place] [address] Glucose mass conc 121 mg/dL High 74-106 [facility] Comment on above: Performed By: #### LACACD #### [facility] [address] [place] [address] 15454 Potassium molar conc 3.6 mmol/L Normal 3.5-5.1 [facility] Comment on above: Performed By: #### LACACD #### [facility] [address] [place] [address]382 Protein mass conc 4.0 g/dL Low 6.4-8.2 [facility] Comment on above: Performed By: #### LACACD #### [address] [address] Sodium molar conc 139 mmol/L Normal 136-145 [facility] Comment on above: Performed By: #### LACACD #### [address] [address] Urea nitrogen mass conc 22 mg/dL High 7-18 [facility] Comment on above: Performed By: #### LACACD #### [address] [address] Hemoglobin and Hematocriton 09-03-2018 Hematocrit Volume Fraction (Bld) 27.2 % Low 34.6-45.0 [facility] Comment on above: Performed By: #### LACACD #### [facility] [address] [place] [address] Hemoglobin mass conc (Bld) 9.1 g/dL Low 11.5-15.5 [facility] Comment on above: Performed By: #### LACACD #### [facility] [address] [place] [address] Ionized Calciumon 09-03-2018 Ionized Calcium 3.9 mg/dL Low 4.3-5.2 [facility] Comment on above: Performed By: #### IONCAL #### [facility] [address] [place] [address] pH (Bld) 7.395 [pH] Normal 7.310-7.460 [facility] Comment on above: Performed By: #### IONCAL #### [facility] [address] [place] [address] Leukodepleted Red Cells Rele asedon 09-03-2018 Protein mass conc 686 g/dL [facility] Comment on above: Performed By: #### LACACD #### [facility] [address] [place] [address] Rel By RM [facility] Comment on above: Performed By: #### LACACD #### [facility] [address] [place] [address] Rel Date 09/03/18 [facility] Comment on above: Performed By: #### LACACD #### [facility] [address] [place] [address] Rel Time 1225 [facility] Comment on above: Performed By: #### LACACD #### [facility] [address] [place], [place] [id number] Rel To CB [facility] Comment on above: Performed By: #### LACACD #### [facility] [address] [place] [address] Unit # [id number] [facility] Comment on above: Performed By: #### LACACD #### [facility] [address] [place] [address] Protein mass conc 382 g/dL [facility] Comment on above: Performed By: #### LACACD #### [facility] [address] [place] [address] Rel By [facility] Comment on above: Result Comment: Previously reported as: AB On 09/03/2018 12:33 By rmo Performed By: #### L ACACD #### [facility] [address] [place] [address] Rel Date 09/03/18 [facility] Comment on above: Performed By: #### LACACD #### [facility] [address] [place] [address] Rel Time 0830 [facility] Comment on above: Performed By: #### LACACD #### [facility] [address] [place], [place] [id number] Rel To [facility] Comment on above: Result Comment: Previously reported as: 0830 On 09/03/2018 12:33 By rmo Performed By: #### L ACACD #### [facility] [address] [place] [address] Unit [address] [id number] [facility] Comment on above: Performed By: #### LACACD #### [facility] [address] [place] [address] Magnesiumon 09-03-2018 Magnesium mass conc 2.4 mg/dL Normal 1.8-2.4 [facility] Comment on above: Performed By: #### LACACD #### [facility] [address] [place] [address] Phosphorus - Inorganicon Phosphate mass conc 2.8 mg/dL Normal 2.5-4.9 [facility] Comment on above: Performed By: #### LACACD #### [facility] [address] [place] [address] XR Chest Mobile 1 viewon XR Chest Mobile 1 view CHEST PORTABLE: Indication: 58-year-old; inpatient; shortness of breath; left PICC line Views: Portable frontal Comparison: 09/02/2018 at 9:43 Time: 09/03/2018 at 9:12 FINDINGS: A left PICC line is unchanged compared to prior imaging. Interval extubation with removal of the endotracheal tube and enteric tube. Cardiac monitoring wires and leads are present. The trachea is midline. The cardiomediastinal silhouette is within normal limits. Surgical clips overlie the upper abdomen. Tubing overlies the midline of the upper abdomen. The right hemidiaphragm is elevated. The lung volumes are low. Mild pulmonary vascular congestion is present. IMPRESSION: 1. Interval removal of endotracheal tube and enteric tube. 2. Left PICC line remains. 3. Mild pulmonary vascular congestion. Report Dictated on Authenticated by: Shana Ortega On: 09/03/2018 15:19 Read by: SHANA ORTEGA MD Date: 09/03/2018 15:19 [facility] Crossmatch 2 units PRBCon Ab Screen Negative [facility] Comment on above: Performed By: #### LACACD #### [place] [address] Patient ABO A [facility] Comment on above: Performed By: #### LACACD #### [facility] [address] [place] [address] Patient Rh Negative [facility] Comment on above: Performed By: #### LACACD #### [facility] [address] [place], [place] [id number] TANDS destini date/time 09/01/2018 2232 [facility] Comment on above: Performed By: #### LACACD #### [place] [address] [id number] [facility] Comment on above: Performed By: #### LACACD #### [place] [address] Unit #2 [id number] [facility] Comment on above: Performed By: #### LACACD #### [facility] [address] [place] [address] Unit #2 ABO/Rh Negative [facility] Comment on above: Performed By: #### LACACD #### [facility] [address] [place] [address] Unit ABO/Rh Negative [facility] Comment on above: Performed By: #### LACACD #### [facility] [address] [place] [address] Unit Exp 09/11/2018 [facility] Comment on above: Performed By: #### LACACD #### [facility] [address] [place] [address] Unit Exp 10/04/2018 [facility] Comment on above: Performed By: #### LACACD #### [place] [address] XM 2 Compat Compatible Normal COMPATIBLE [facility] Comment on above: Performed By: #### LACACD #### [facility] [address] [place] [address] XM Compat Compatible [place] COMPATIBLE [facility] Comment on above: Performed By: #### LACACD #### [place] [address] XR Chest 1 Viewon 09-02-2018 XR Chest 1 View CHEST - PORTABLE: CLINICAL INDICATION: PICC placement, localized edema TECHNIQUE: Portable AP COMPARISON: Chest radiograph from earlier today FINDINGS: Heart/Mediastinum: Unchanged Life support devices: Endotracheal tube and enteric tube are unchanged. Interval placement of a left-sided PICC with catheter tip overlying the cavoatrial junction. Surgical clips in the upper abdomen. Lungs/Pleura: Bibasilar subsegmental atelectasis, right greater than left, unchanged. Costophrenic angles are sharp. IMPRESSION: Interval placement of left sided PICC. Otherwise, no significant change. Report Dictated on Authenticated by: Araceli Orellana On: 09/02/2018 10:03 Read by: ARACELI ORELLANA MD Date: 09/02/2018 10:03 [facility] Comment on above: Order Comment: PICC placement XR Chest Mobile 1 viewon XR Chest Mobile 1 view CHEST - PORTABLE: CLINICAL INDICATION: Shortness of breath TECHNIQUE: Portable AP COMPARISON: One day ago FINDINGS: Heart/Mediastinum: Unchanged Life support devices: Endotracheal tube and nasogastric tube are unchanged. Multiple surgical clips within the abdomen. Lungs/Pleura: Bibasilar subsegmental atelectasis, right greater than left, unchanged. No edema. No large effusion. IMPRESSION: No significant change. Report Dictated on Authenticated by: Araceli Orellana On: 09/02/2018 07:10 Read by: ARACELI ORELLANA MD Date: 09/02/2018 07:10 [facility] XR Chest Mobile 1 view Examination: AP portable chest Clinical Indication: [id number]: Postoperative care Comparison: 09/01/2018 Findings: Endotracheal tube tip terminates 5.3 cm above the robert. Enteric tube extends to the left upper abdomen. Multiple clips in the left and right upper abdomen. There is minimal subsegmental atelectasis in the lower lungs bilaterally. Trace pleural thickening right costophrenic angle. No definite focal consolidation and no evidence of pleural effusion. No pulmonary edema. Impression: 1. Endotracheal tube terminating 5.3 cm above the robert. 2. Bilateral basilar subsegmental atelectasis slightly more pronounced on the right. Report Dictated on Authenticated by: Jos Ram On: 09/01/2018 22:47 Read by: JOS RAM MD Date: 09/01/2018 22:[address] [facility] [address] Abdomen / Pelvis w contra ston 09-01-2018 CT Abdomen / Pelvis w contrast ADDE NDUM CTR communication: Results of examination were also discussed with the surgeon on 09/01/2018 at 5:20 PM Report Dictated on Authenticated by: Graham Hernandez On: 09/01/2018 17:20 Read by: GRAHAM HERNANDEZ MD Date: 09/01/2018 17:[address] ABDOMEN AND PELVIS WITH CONTRAST CLINICAL INDICATION: Abdominal pain status post diagnostic laparoscopy TECHNIQUE: Transaxial sequence through the abdomen and pelvis with 3 mm reconstruction with following administration of oral contrast and dynamic intravenous infusion of 75 mL of 370 mg% contrast media. Coronal and sagittal reconstructions included. Dose reduction was employed with automated exposure control. COMPARISON: None FINDINGS: Chest base: Trace bilateral effusions with patchy bibasilar atelectasis. Liver: Normal size and contour. Subcentimeter hypoattenuating lesions noted in the right hepatic lobe, likely representing cysts. Biliary tree: Normal caliber. Status post cholecystectomy. Spleen: Small splenule noted. Otherwise within normal limits. Adrenals: Normal. Pancreas: Normal. Kidneys: Symmetric contrast enhancement without hydronephrosis. 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 Peritoneum: There is a collection of debris, fluid, and gas in the lower abdomen with a continuous tract of gas extending from a loop of small bowel, suggesting perforation, best seen on sagittal series 6, image 55 and axial series 2, image 125. There is perihepatic and perisplenic ascites. There is gas and fluid throughout the peritoneum with enhancement of the peritoneal lining, predominantly about the small bowel mesentery extending to the left paracolic gutter and into the left lower quadrant. There is a separate rim-enhancing fluid collection is noted in the pelvis of several locules of gas. Retroperitoneal/mesenteric lymphadenopathy: None. Aorta: Normal caliber abdominal aorta with atherosclerotic calcifications. Bowel: There are postoperative changes of Mando-en-Y gastric bypass surgery. There is diffuse dilatation of the small bowel. There are multiple enteroenterostomy with anastomotic sutures noted about loops of small bowel in the lower abdomen. There is a visible defect within a loop of small bowel in the lower abdomen (series 2, image 125) Abdominal wall: There is extensive subcutaneous emphysema along the right lateral anterior abdominal wall. There is a focus of fluid within the anterior abdominal wall with gas along the incision site at the midline. There is diffuse infiltration of the subcutaneous soft tissues, consistent with anasarca. Pelvic organs/viscera: No mass identified. Pelvic lymphadenopathy: None. Osseous structures: Mild multilevel degenerative changes of the imaged spine. IMPRESSION: 1. Findings suggesting perforation of a loop of small bowel in the lower abdomen with an adjacent collection of fluid, gas, and debris and rim-enhancing fluid throughout the peritoneum. Additional loculated rim-enhancing fluid collection is noted in the pelvis. 2. Extensive subcutaneous emphysema along the right lateral anterior abdominal wall, which may be postsurgical in etiology. However, severe soft tissue infection is not excluded. Correlate clinically. 3. Trace bilateral effusions with bibasilar atelectasis. CTR COMMUNICATION: Results of the examination were discussed with Rosa Fox, director of programming of [facility]. At the time of the dictation, the patient was already on the way back to the OR. Report Dictated on Authenticated by: Graham Hernandez On: 09/01/2018 17:16 Read by: GRAHAM HERNANDEZ MD Date: 09/01/2018 17:16 Normal [facility] Comment on above: Order Comment: abdominal pain, post op, drainage from incision Protime and PTTon 09-01-2018 aPTT Coag time (Bld) 31.5 s Normal 23.0-31.5 [facility] Comment on above: Order Comment: Tube must be filled. Performed By: #### P TPTT #### [facility] [address] [place] [address] INR Coag RelTime (PPP) 1.02 {INR} Normal 0.90-1.10 [facility] Comment on above: Order Comment: Tube must be filled. Performed By: #### P TPTT #### [facility] [address] [place] [address] Prothrombin time (PT) Coag time (PPP) 10.7 s Normal 9.0-12.0 [facility] Comment on above: Order Comment: Tube must be filled. Performed By: #### P TPTT #### [facility] [address] [place], [place] [phone] Ref Range INR Range 0.9-1.1 No rmal 2.0-3.0 Standard Dose 2.5-3.5 High Dose [facility] Comment on above: Order Comment: Tube must be filled. Performed By: #### P TPTT #### [facility] [address] [place] [address] Surgical Pathology Depar indira 09-01-2018 [facility] Surgical Pathology Department Name JOSH HERNANDEZ Pathologist: LINETTE KEITA MD Date of Procedure: 09/01/2018 Date Received: 09/02/2018 Date Reported 09/08/2018 Submitting Physician: DAVID LALA Location: [facility] Other External # [id number] FINAL DIAGNOSIS A. ENTEROSTOMY, EXCISION: -- SMALL BOWEL SEGMENTS WITH PERFORATION AND SEROSITIS. -- MARGINS ARE VIABLE AND UNINVOLVED. B. ANASTOMOSIS, EXCISION: -- SMALL BOWEL SEGMENTS WITH SEROSITIS AND SEVERE EDEMA AND CONGESTION EXTENDING TO MARGINS. -- MARGINS ARE VIABLE. Electronically Signed Out By LINETTE KEITA MD/STAR By the signature on this report, the individual or group listed as making the Final Interpretation/Diagnosis certifies that they have reviewed this case. Clinical History: Perforated enteroenterostomy Specimens Submitted As: A: PERFORATED ENTEROENTEROSTOMY B: ANASTOMOSIS Other Case Numbers [id number] Gross Description: A: Received in formalin, labeled with the patient's name and hospital number and perforated enterostomy , is an un-oriented segment of small bowel, 35 cm in length by 2.7 cm in diameter. There is a previously anastomosed additional segment of bowel measuring 10.5 x 5.5 cm, side to side anastomoses with one stapled margin. There is attached mesentery and fibrofatty tissue. The serosal surface is hyperemic with attached fibropurulent material. There are 3 transmural defects. The first defect measures 1.0 x 0.3 cm and is located 16cm from the closest margin. The second defect is 1.0 x 0.5 cm and is located 16 cm from the closest margin. The third defect measures 2.0 x 1.0 cm and is located 17 cm from the closest margin. Three staple lines are present at the margins. One margin, of the additional segment of the anastomotic line does not appear grossly viable. The remaining margins appear viable. No gross lesions are identified. The bowel wall measures 0.4 cm in greatest thickness and is diffusely ischemic. The mucosal surface demonstrates normal mucosal folds. Mucosal polyps are not present. Upon sectioning of the attached mesentery, lymph nodes are not identified. Floor Press Operator sections are submitted in 5 cassettes. IAD B: Received in formalin, labeled with the patient's name and hospital number and anastomosis , is an un-oriented segment of small bowel, 23 cm in length by 4 cm in diameter. There is attached mesentery and fibrofatty tissue. The serosal surface is hyperemic with attached fibropurulent exudate. Two staple lines are present at the margins. One margin does not appear viable.The bowel wall measures 0.5 cm in greatest thickness and is diffusely ischemic and edematous. The mucosal surface demonstrates normal mucosal folds. Additionally a side to side anastomotic line is present that measures 6.1 cm in greatest dimension. Mucosal polyps are not present. Upon sectioning of the attached mesentery, lymph nodes are not identified. Floor Press Operator sections are submitted in 5 cassettes. IAD Summary of Cassettes: Specimen Label Site A 1-2 possibly nonviable margin, bisected 3-4 aircraft sales representative perforation sites 5 aircraft sales representative anastomotic line B 1-2 nonviable margin, bisected 3-4 aircraft sales representative section of bowel wall with fibropurulent material 5 aircraft sales representative anastomotic line rnn/09/02/2018 Normal [facility] Comment on above: Performed By: #### [facility] #### [facility] Surgical Pathology Department [id number] [facility] [address] XR Chest Pa and Lateralon XR Chest Pa and Lateral CHEST RADIOGRAPH CLINICAL INDICATION: Shortness of breath TECHNIQUE: AP COMPARISON: August 29, 2018 FINDINGS: The cardiac and mediastinal silhouettes are normal. There is persistence but significant improvement/resolution of the prior right basilar and hilar opacity as well as the left hilar opacity. No new focal opacification or consolidation. The lungs are hyperinflated. The costophrenic angles are sharp. Degenerative change of the thoracic spine is noted. IMPRESSION: Persistence but significant improvement/resolution of the prior right basilar-hilar opacity and the left hilar opacity. Report Dictated on Authenticated by: Matheus Cid On: 09/01/2018 07:42 Read by: MATHEUS CID MD Date: 09/01/2018 07:42 [facility] XR Chest Pa and Lateralon XR Chest Pa and Lateral CHEST RADIOGRAPH CLINICAL INDICATION: Shortness of breath TECHNIQUE: PA and lateral COMPARISON: August 24, 2018 FINDINGS: The cardiac and mediastinal silhouettes are normal. There are increased left perihilar and right basilar opacities, consistent with infectious pneumonia. Additionally, there is a small moderate right pleural effusion. No definite left pleural effusion. No pneumothorax. Degenerative change of the thoracic spine is noted. IMPRESSION: 1. Increased left perihilar and right basilar opacities, consistent with infectious pneumonia. 2. Small moderate right pleural effusion. No definite left pleural effusion. Report Dictated on Authenticated by: Matheus Cid On: 08/29/2018 09:50 Read by: MATHEUS CID MD Date: 08/29/2018 09:50 [facility] Lactic Acidon 08-25-2018 Lactate molar conc 3.4 mmol/L High 0.4-2.0 [facility] Comment on above: Order Comment: Dennis top, mix well. Colle ct on Ice. Performed By: #### L ACACD #### [facility] [address] [place] [address] XR Chest Mobile 1 viewon XR Chest Mobile 1 view INDICATION: Tachycardia PORTABLE CHEST: COMPARISON: None. Linear atelectasis versus scarring in the right lower lung. Mild linear atelectasis versus scarring in the left lower lung. No focal areas of consolidation. No gross pleural effusions. No edema. Normal heart size. Ectasia of the thoracic aorta noted. IMPRESSION: Linear atelectasis versus fibrotic scarring in the right and left lower lungs. Report Dictated on Authenticated by: Alonzo Corado On: 08/24/2018 20:30 Read by: ALONZO CORADO MD Date: 08/24/2018 20:30 [facility] OBSOLETEon 07-27-2018 OBSOLETE Refill (FPWADS) JOSH HERNANDEZ ([id number]) 1960 F Date Time Provider Department 07/27/18 LARA DEVI During your visit today, we recorded the following information about you: Allergies As of Date: 07/27/2018 Noted Allergy Reaction ASPIRIN 04/17/2005 BEES 04/17/2005 10 - Anaphylaxis FLEXERIL (CYCLOBENZAPRINE) 01/31/2008 5 - Intolerance KEFLEX (CEPHALEXIN) 04/17/2005 PENICILLIN G 04/17/2005 PRILOSEC (OMEPRAZOLE) 04/17/2005 Date Reviewed: 11/19/2017 Reviewed by: Yaritza Palacios) CONCHITA Luna - Fully Assessed Reason for Visit: Refill Request [94] Visit Diagnoses:Fibromyalgia [M79.7] Adjustment insomnia [F51.02] Prescriptions as of 07/27/2018 Sig: LOSARTAN 25 MG TABLET Take 1 tablet by mouth once d* AMITRIPTYLINE 50 MG TABLET Take 1 tablet by mouth daily * MULTIVITAMIN TABLET Take 1 tablet by mouth once d* CALCIUM 500 ORAL Take by mouth once daily. URSODIOL 300 MG CAPSULE Take 1 capsule by mouth twice* Patient not taking: Reported on 08/12/2017 [facility] 33 GA* Problem List As Of Date 07/27/2018 Noted Resolved Chronic depression [F32.9] INVALID FOR* More... Mixed hyperlipidemia [E78.2] INVALID FOR* Essential hypertension [I10] INVALID FOR* RECTAL AND ANAL HEMORRHAGE [K62.5] INVALID FOR* BENIGN NEOPLASM LG BOWEL [D12.6] INVALID FOR* Hemorrhage of gastrointestinal tract, unspecifi*INVALID FOR*10/01/2011 INT HEMORRHOID W/O COMPL [K64.8] INVALID FOR* External hemorrhoids without mention of complic*INVALID FOR*10/01/2011 DIARRHEA NOS [R19.7] INVALID FOR* PERS HX COLONIC POLYPS [Z86.010] INVALID FOR* Postmenopausal Atrophic Vaginitis [N95.2] INVALID FOR* Diet-controlled type 2 diabetes mellitus (HCC) *INVALID FOR* Chest pain [R07.9] INVALID FOR*07/30/2015 Bee sting allergies INVALID FOR* Calcaneal spur [M77.30] INVALID FOR* Fibromyalgia [M79.7] INVALID FOR* Asthma, mild persistent [J45.30] INVALID FOR* Hyperlipidemia with target LDL less than 70 [E7*INVALID FOR* Chronic migraine without aura without status mi*INVALID FOR* Genital herpes [A60.00] INVALID FOR* Gastroesophageal reflux disease [K21.9] INVALID FOR*11/10/2016 Morbid obesity (HCC) [E66.01] INVALID FOR* More... Encounter Status:Closed by MARSHALL MENDIETA MA on 07/27/18 Normal [facility] Surgical Pathology Depar tmenton 03-15-2018 [facility] Surgical Pathology Department Name JOSH HERNANDEZ Pathologist: ABDIEL SUAREZ M.D. Date of Procedure: 03/15/2018 Date Received: 03/16/2018 Date Reported 03/21/2018 Submitting Physician: DAVID LALA Location: [facility] Copy To/Referring/Attending: ELIAS WEINBERG MD Other External # [id number] FINAL DIAGNOSIS A. SMALL BOWEL, SEGMENTAL RESECTION: --SEGMENT OF SMALL BOWEL WITH ISCHEMIC CHANGES, NECROSIS, HEMORRHAGE AND SUBMUOSAL EDEMA --REACTIVE LYMPH NODE The gross and/or microscopic findings were reviewed in conjunction with pathology resident, Ilya Paredes M.D. Electronically Signed Out By ABDIEL SUAREZ M.D./[facility] – [place], [place] By the signature on this report, the individual or group listed as making the Final Interpretation/Diagnosis certifies that they have reviewed this case. Clinical History: Small bowel obstruction Specimens Submitted As: A: SMALL BOWEL Other Case Numbers [id number] Gross Description: A: Received in formalin, labeled with the patient's name and hospital number and small bowel , is an un-oriented segment of small bowel, 21 cm in length by 2.4 cm in diameter. There minimal attached mesentery and fibrofatty tissue. The serosal surface is hyperemic with evidence of perforation with bowel contents leaking out bowel wall. The perforated area is inked black. Two staple lines are present at the margins. The margins of the specimen are viable. The bowel wall measures 0.9 cm in greatest thickness. The mucosal surface demonstrates edematous mucosal folds, except over area for perforation there is a focal area of thinning bowel measuring 5.0 x 3.2, with nearly no appreciated bowel mucosa. Mucosal polyps are not present. Upon sectioning of the attached mesentery, lymph nodes are not identified. Floor Press Operator sections are submitted in 7 cassettes. BM Summary of Cassettes: Specimen Label Site 1-2 aircraft sales representative sections, bowel wall immediately adjacent to perforation 3-6 aircraft sales representative sections, bowel wall 7 aircraft sales representative section, mesentery bm/03/16/2018 Normal [facility] Comment on above: Performed By: #### [facility] #### [facility] Surgical Pathology Department [address] [facility] [address] [facility] Surgical Pathology Depar tmenton 12-24-2017 [facility] Surgical Pathology Department Name JOSH HERNANDEZ Pathologist: LINETTE KEITA MD Date of Procedure: 12/24/2017 Date Received: 12/27/2017 Date Reported 12/30/2017 Submitting Physician: DAVID LALA Location: [facility] Copy To/Referring/Attending: LARA DEVI MD Other External # [id number] FINAL DIAGNOSIS A. GALLBLADDER, CHOLECYSTECTOMY: -- CHRONIC CHOLECYSTITIS. B. APPENDICEAL CYST: -- BENIGN MESOTHELIAL CYST. Electronically Signed Out By LINETTE KEITA MD/STAR By the signature on this report, the individual or group listed as making the Final Interpretation/Diagnosis certifies that they have reviewed this case. Clinical History: {Not Provided} Specimens Submitted As: A: GALLBLADDER B: APPENDICEAL CYST Other Case Numbers [id number] Gross Description: A: Received in formalin, labeled with the patient's name and hospital number and gallbladder , is an intact gallbladder measuring 10.3 x 4.5 x 3.4 cm. The serosal surface is smooth, and glistening. The wall measures up to 0.1 cm in greatest thickness. The lumen contains bile. Calculi are not identified in the cavity or filtered formalin. A calculus is not impacted in the cystic duct. The mucosal surface is bile-stained and velvety. Floor Press Operator sections consisting of the cystic duct margin and gallbladder wall are submitted in one cassette. ALT B: Received in formalin, labeled with the patient's name and hospital number and 2-appendiceal cyst , is an intact cyst measuring 0.4 x 0.3 x 0.3 cm. The cyst is translucent. The specimen is inked and submitted in toto in one cassette. ALT alt/12/27/2017 Normal [facility] Comment on above: Performed By: #### [facility] #### [facility] Surgical Pathology Department [address] [facility] [address] [place] 11-25-2017 CNPN Telephone (WALKWA) JOSH HERNANDEZ ([id number]) 1960 F Date Time Provider Department 11/25/17 LARA DEVI During your visit today, we recorded the following information about you: Leanna Nunez Ma 11/25/2017 8:17 PM Signed Consultation notes from [facility] received and placed in PCP inbox for review. Please route to BRANDO when completed for processing Heath Derrick 12/01/2017 2:15 PM Signed Reviewed by PCP. Sent to scanning. Allergies As of Date: 11/25/2017 Noted Allergy Reaction ASPIRIN 04/17/2005 BEES 04/17/2005 10 - Anaphylaxis FLEXERIL (CYCLOBENZAPRINE) 01/31/2008 5 - Intolerance KEFLEX (CEPHALEXIN) 04/17/2005 PENICILLIN G 04/17/2005 PRILOSEC (OMEPRAZOLE) 04/17/2005 Date Reviewed: 11/19/2017 Reviewed by: Yaritza (Conchita) CONCHITA Luna - Fully Assessed Reason for Visit: Visit Summary [Other] Cmt: [facility] 11/25/17 Reason For Visit History Recorded Prescriptions as of 11/25/2017 Sig: LOSARTAN 25 MG TABLET Take 1 tablet by mouth once d* AMITRIPTYLINE 50 MG TABLET Take 1 tablet by mouth daily * MULTIVITAMIN TABLET Take 1 tablet by mouth once d* CALCIUM 500 ORAL Take by mouth once daily. URSODIOL 300 MG CAPSULE Take 1 capsule by mouth twice* Patient not taking: Reported on 08/12/2017 ONETOUCH DELICA LANCETS 33 GA* Problem List As Of Date 11/25/2017 Noted Resolved Chronic depression [F32.9] INVALID FOR* More... Mixed hyperlipidemia [E78.2] INVALID FOR* Priority: A Essential hypertension [I10] INVALID FOR* Priority: A RECTAL AND ANAL HEMORRHAGE [K62.5] INVALID FOR* BENIGN NEOPLASM LG BOWEL [D12.6] INVALID FOR* Hemorrhage of gastrointestinal tract, unspecifi*INVALID FOR*10/01/2011 INT HEMORRHOID W/O COMPL [K64.8] INVALID FOR* External hemorrhoids without mention of complic*INVALID FOR*10/01/2011 DIARRHEA NOS [R19.7] INVALID FOR* PERS HX COLONIC POLYPS [Z86.010] INVALID FOR* Postmenopausal Atrophic Vaginitis [N95.2] INVALID FOR* Diet-controlled type 2 diabetes mellitus (HCC) *INVALID FOR* Priority: A Chest pain [R07.9] INVALID FOR*07/30/2015 Bee sting allergies INVALID FOR* Calcaneal spur [M77.30] INVALID FOR* Fibromyalgia [M79.7] INVALID FOR* Asthma, mild persistent [J45.30] INVALID FOR* Hyperlipidemia with target LDL less than 70 [E7*INVALID FOR* Chronic migraine without aura without status mi*INVALID FOR* Genital herpes [A60.00] INVALID FOR* Gastroesophageal reflux disease [K21.9] INVALID FOR*11/10/2016 Morbid obesity (HCC) [E66.01] INVALID FOR* More... Encounter Status:Closed by LEANNA NUNEZ MA on 11/25/17 Normal [facility] Surgical Tissue Examon 11-19 Surgical Tissue Exam Test performed at [place] [address] NAME: JOSH HERNANDEZ REQUESTING: DAVID LALA M.D. FINAL DIAGNOSIS: GASTRIC POUCH, BIOPSY - BENIGN GASTRIC MUCOSA SHOWING NO PATHOLOGIC ABNORMALITIES. IMMUNOHISTOCHEMICAL STAIN FOR HELICOBACTER PYLORI IS NEGATIVE FOR ORGANISMS. OPERATIVE PROCEDURE: Gastric biopsy CLINICAL INFORMATION: Epigastric pain [R10.13] GROSS DESCRIPTION: Gastric pouch biopsy Received in formalin labeled gastric pouch biopsy are two burroughs soft tissues aggregating to 0.4 x 0.3 x 0.1 cm, which are totally submitted in one cassette. Levels x 3 plus H. pylori. BMP:tyler MARINO M.D., PATHOLOGIST (Electronic signature on file) Signed out: 11/23/2017 14:09 PRINTED: 11/23/2017 Page 1 of 1 Normal [facility] Comment on above: Performed By: #### SURG #### [facility] [address] [place] [address] US ABD RIGHT UPPER QUADRANTo n 11-19-2017 US ABD RIGHT UPPER QUADRANT Performed at [facility] APPROVED BY: Chaparro Rodriguez MD EXAM TITLE: RIGHT UPPER QUADRANT ULTRASOUND DATE:11/19/2017 08:53 COMPARISON: Abdominal ultrasound 06/17/2016 TECHNIQUE: Right upper quadrant ultrasound performed by a technologist. Images were stored in a permanent archive. CLINICAL INDICATION/HISTORY: Epigastric pain FINDINGS: As demonstrated on the prior exam, there are small mobile gallstones within the gallbladder lumen. There is no gallbladder wall thickening. The common bile duct is mildly distended proximally measuring approximately 8 mm in diameter. No obvious obstructing stone or mass. No focal hepatic abnormality with the exception of a 1 cm right hepatic cyst. The pancreas appears normal. Normal size and echogenicity of the right kidney. No mass or hydronephrosis. IMPRESSION: 1. Cholelithiasis. 2. The proximal common bile duct is distended, measuring 8 mm, although tapers to 6 mm. Correlate clinically. Follow-up with MRCP as indicated. 3. 1 cm right hepatic cyst. Normal [facility] CNOVon 10-15-2017 CNOV Office Visit (FAMPWS ) JOSH HERNANDEZ ([id number]) 1960 F Date Time Provider Department 10/15/17 3:00 PM LES DIA[facility] During your visit today, we recorded the following information about you: Temperature Pulse Blood pressure Weight 97.9 degrees 70/minute 143/86 60.8 kg Les Diaz APRN.CNP 10/15/2017 1:37 PM Addendum Chief Complaint Patient presents with: ED Follow-up HPI Josh Hernandez is a 57 year old female who presents here today for ER follow up. Patient presents to the office for ER follow up. Went to [facility] ER yesterday for abdominal pain. CT of the abdomen and pelvis without contrast was normal, just showed two small cyst in the right upper lobe of the liver that were unchanged. CBC was unremarkable, CMP was unremarkable. Lipase was elevated at 534.Patient is 1 year post-op gastric bypass. Does have a history of a CATRACHITA due to pain. Medical history is documented below. Abdominal pain started yesterday. States that it occurred prior to lunch. States that she tried to take 1 to 2 bites and stopped due to pain. Pain is constant, but states that it is not as bad as yesterday. Location is the left lower abdomen. But states that it was more to the umbilical area yesterday. No nausea or vomiting. No blood in her stools. Last bowel movement was yesterday morning. No urinary complaints. No fevers or chills. No reflux symptoms. Was dicharged with malaox and prilosec for thoughts of gastritis/irritation of the gastric pouch. She took the prilosec last night but not today. Maalox was taken this morning. Past medical history, appointments, medications, allergies reviewed. Previous Medical History PAST MEDICAL HISTORY Diagnosis Date - Asthma - Benign neoplasm of colon - Depressive disorder, not elsewhere classified 05/2003 - Diabetes mellitus (HCC) - Diarrhea - Esophageal reflux 05/2003 - Hemorrhage of gastrointestinal tract, unspecified - Hypertension - Morbid obesity (HCC) 2-5-10 stated BMI 40.1 Ht: 63ANDquot; Wt: 227 lbs - Other and unspecified hyperlipidemia 05/2001 - Pain in joint, multiple sites back, hips, knees - Snoring - Unspecified hypertensive heart disease without heart failure 05/2001 Previous Surgical History PAST SURGICAL HISTORY Procedure Laterality Date - BUNION CORRECTION W/METATARSAL OSTEOTOMY - COLONOS W/REM POLYP SNARE 01/13/07 - COLONOSCOP W/ OR W/O BRS SPEC 2009 Colonoscopy - COLONOSCOP W/ OR W/O BRSH SPEC 06/20/2014 Colonoscopy - COLONOSCOP W/ OR W/O [facility] SPEC 01-08-16 - EGD W/O OR W/BRUSH/WASH 11/03/2011 EGD - EXPLORE SHOULDER JOINT 03/18/2005 arthritic bone removal - FOOT/TOES SURGERY PROC UNLISTED 01/22/2005 bilateral 5th toes - GASTRIC BYPASS HX 08/12/2016 Dr Spike Pritchard - ROSA CUSTOM 2001 bilateral - LIGATE FALLOPIAN TUBE Tubal ligation - OPEN RX ANKLE DISLOCATN+FIXATN left - REMOVE TONSILS/ADENOIDS,ANDlt;12 Y/O - REPAIR ROTATOR CUFF,ACUTE 2006 left - TOTAL ABDOM HYSTERECTOMY 06/2002 Hysterectomy, CATRCAHITA/BSO for bleeding and pain Family History FAMILY HISTORY Problem Relation Age of Onset - Cancer Mother uterine/also heart problems/hypertension/diabetes - Heart Mother mother at 46 from heart attack - Cancer Father esophageal/also heart disease - Heart Father biological - Stroke Father biological - Diabetes Sister - Diabetes Brother 2 brothers - Heart Brother 5 stents - Heart Sister heart attack-4 stents Patient Allergies ALLERGIES Allergen Reactions - Aspirin - Bees - Flexeril [Cyclobenz* Intolerance - Keflex [Cephalexin] - Penicillin G - Prilosec [Omeprazol* Current Medications Current Outpatient Prescriptions on File Prior to Visit: losartan (COZAAR) 25 mg tablet Take 1 tablet by mouth once daily. amitriptyline (ELAVIL) 50 mg tablet Take 1 tablet by mouth daily at bedtime. multivitamin tablet Take 1 tablet by mouth once daily. Taking 4 pills at once daily CALCIUM CARBONATE (CALCIUM 500 ORAL) Take by mouth once daily. ONE TOUCH DELICA 33 gauge misc ursodiol (ACTIGALL) 300 mg capsule Take 1 capsule by mouth twice daily. (Patient not taking: Reported on 08/12/2017 ) No current facility-administered medications on file prior to visit. 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 Reviewed relevant PMHx, PSHx, Social Hx, current medications and allergies. EXAM: BP 143/86 Pulse 70 Temp 36.6 ?C (97.9 ?F) (Tympanic) Wt 60.8 kg (134 lb) BMI 23 kg/m2 General Appearance: Well appearing, alert, in no acute distress, well-hydrated, well nourished.. Neck: Supple, no adenopathy; thyroid symmetric, normal size, no bruits. Lungs: Lungs clear to auscultation. No wheezing, rhonchi, rales. Heart: RRR without murmur, gallop, or rubs. No ectopy. Abdomen: Abdomen soft, non-distended. Bowel sounds normal. No masses, organomegaly. Moderate tenderness of the left LLQ, area superior to the umbilicus area. Health Maintenance List DILATED RETINAL EXAM due on 10/13/2015 HBA1C due on 02/03/2018 MAMMOGRAM due on 02/24/2018 URINE ALBUMIN CREATININE RATIO due on 08/06/2018 LDL due on 08/06/2018 DIABETIC FOOT EXAM due on 08/13/2018 COLORECTAL CANCER SCREENING,SEE MODIFIER due on 01/07/2021 TETANUS due on 02/08/2021 ONE PNEUMOVAX PRIOR TO AGE 65 Completed INFLUENZA Completed HEPATITIS C SCREENING Completed Data reviewed Component Latest Ref Rng ANDamp; Units 08/06/2017 Protein, Total 6.3 - 8.0 g/dL 6.1 (L) Albumin 3.9 - 4.9 g/dL 4.2 Calcium 8.5 - 10.2 mg/dL 9.5 Bilirubin, Total 0.2 - 1.3 mg/dL 0.5 Alkaline Phosphatase 32 - 117 U/L 65 AST 13 - 35 U/L 24 Glucose 74 - 99 mg/dL 83 BUN 7 - 21 mg/dL 21 Creatinine 0.58 - 0.96 mg/dL 0.83 Sodium 136 - 144 mmol/L 144 Potassium 3.7 - 5.1 mmol/L 4.2 Chloride 97 - 105 mmol/L 103 CO2 22 - 30 mmol/L 31 (H) Anion Gap 9 - 18 mmol/L 10 ALT 7 - 38 U/L 21 eGFR- ANDgt;60 eGFR-All Other Races . ANDgt;60 Cholesterol, Total ANDlt;200 mg/dL 165 Triglyceride ANDlt;150 mg/dL 82 HDL Cholesterol ANDgt;39 mg/dL 55 LDL Cholesterol ANDlt;100 mg/dL 94 Non HDL Cholesterol ANDlt;130 mg/dL 110 Fasting Time hrs 9 VLDL Cholesterol ANDlt;30 mg/dL 16 TC:HDL Ratio ANDlt;5.10 3.00 LDL:HDL Ratio ANDlt;2.54 1.71 Hemoglobin A1C 4.3 - 5.6 % 5.0 Estimated Average Glucose mg/dL 97 ASSESSMENT/PLAN: 1. Left lower quadrant pain - ICD9: 789.04, ICD10: R10.32 (primary diagnosis) - Epigastric to left middle abdominal pain. Probable gastritis/pouch irritation. - Continue with OMEPRAZOLE 20 MG CAPSULE,DELAYED RELEASE and malox use. - Advised patient that she needs to follow up with her gastric specialist for further evaluation. 2. Elevated pancreatic enzyme - ICD9: 790.5, ICD10: R74.8 - Will recheck level to see if levels are trending up. Pancreas was normal appearing on CT. - LIPASE BLD Get lab today, will notify. If worsening pain, advised ER. Follow up as needed. Discussed case and plan with Dr. Roca. AMBIKA Johnson APRN.CNP 10/15/2017 12:50 PM Signed Would recommend following up with GI specialist for possible endoscopy. Les Diaz APRN.MARTHA Referring Provider: SELF [[id number]] Allergies As of Date: 10/15/2017 Noted Allergy Reaction ASPIRIN 04/17/2005 BEES 04/17/2005 FLEXERIL (CYCLOBENZAPRINE) 01/31/2008 5 - Intolerance KEFLEX (CEPHALEXIN) 04/17/2005 PENICILLIN G 04/17/2005 PRILOSEC (OMEPRAZOLE) 04/17/2005 Date Reviewed: 10/15/2017 Reviewed by: Les (Martha) Joe - Fully Assessed Reason for Visit: ED Follow-up [821] Cmt: last BM yesterday morning - Reason For Visit History Recorded Primary Visit Diagnosis:Left lower quadrant pain [R10.32] Other Visit Diagnosis:Elevated pancreatic enzyme [R74.8] Order(s):omeprazole (PRILOSEC) 20 mg capsuleTake 1 capsule by mouth daily before breakfast. 1/2 hr before meal.Disp: Rfl: LIPASE BLD [SQLIPA] Order #: [id number] FUTURE Prescriptions as of 10/15/2017 Sig: LOSARTAN 25 MG TABLET Take 1 tablet by mouth once d* AMITRIPTYLINE 50 MG TABLET Take 1 tablet by mouth daily * MULTIVITAMIN TABLET Take 1 tablet by mouth once d* CALCIUM 500 ORAL Take by mouth once daily. CARO TAPIA LANCETS 33 GA* OMEPRAZOLE 20 MG CAPSULE,AMINTA* Take 1 capsule by mouth daily* URSODIOL 300 MG CAPSULE Take 1 capsule by mouth twice* Patient not taking: Reported on 08/12/2017 Problem List As Of Date 10/15/2017 Noted Resolved Chronic depression [F32.9] INVALID FOR* More... Mixed hyperlipidemia [E78.2] INVALID FOR* Priority: A Essential hypertension [I10] INVALID FOR* Priority: A RECTAL AND ANAL HEMORRHAGE [K62.5] INVALID FOR* BENIGN NEOPLASM LG BOWEL [D12.6] INVALID FOR* Hemorrhage of gastrointestinal tract, unspecifi*INVALID FOR*10/01/2011 INT HEMORRHOID W/O COMPL [K64.8] INVALID FOR* External hemorrhoids without mention of complic*INVALID FOR*10/01/2011 DIARRHEA NOS [R19.7] INVALID FOR* PERS HX COLONIC POLYPS [Z86.010] INVALID FOR* Postmenopausal Atrophic Vaginitis [N95.2] INVALID FOR* Diet-controlled type 2 diabetes mellitus (HCC) *INVALID FOR* Priority: A Chest pain [R07.9] INVALID FOR*07/30/2015 Bee sting allergies INVALID FOR* Calcaneal spur [M77.30] INVALID FOR* Fibromyalgia [M79.7] INVALID FOR* Asthma, mild persistent [J45.30] INVALID FOR* Hyperlipidemia with target LDL less than 70 [E7*INVALID FOR* Chronic migraine without aura without status mi*INVALID FOR* Genital herpes [A60.00] INVALID FOR* Gastroesophageal reflux disease [K21.9] INVALID FOR*11/10/2016 Morbid obesity (HCC) [E66.01] INVALID FOR* More... Other instructions from your clinician: Would recommend following up with GI specialist for possible endoscopy. Les Diaz APRN.PROGRAMS MANAGER Prescriptions ordered this encounter Disp Refills Start End OMEPRAZOLE 20 MG CAPSULE,DELAYED REL* 10/15/2017 Class: Med Update Route: ORAL Sig: Take 1 capsule by mouth daily before breakfast. 1/2 hr before meal. Medications Discontinued During This Encounter HYDROcodone-acetaminophen (NORCO) 5-* 10/15/2017 Class: Historical Med Route: ORAL Sig: Take 1 tablet by mouth every 6 hours as needed. Disc: Course of therapy completed Encounter Status:Closed by LES DIAZ CNP on 10/15/17 Normal [facility] Lipaseon 10-15-2017 Lipase enzyme act/vol Test sent to [facility]. Normal 16-61 [facility] Comment on above: Result Comment: Account Credited SANDRA CARDENASon 10-15-2017 Protein mass conc HNO ID: [id number] Author: Les (Martha) Joe Service: (none) Author Type: Nurse Practitioner Type: Progress Notes Filed: 10/15/2017 1:37 PM Note Text: Chief Complaint Patient presents with: ED Follow-up HPI Josh Hernandez is a 57 year old female who presents here today for ER follow up. Patient presents to the office for ER follow up. Went to [facility] ER yesterday for abdominal pain. CT of the abdomen and pelvis without contrast was normal, just showed two small cyst in the right upper lobe of the liver that were unchanged. CBC was unremarkable, CMP was unremarkable. Lipase was elevated at 534.Patient is 1 year post-op gastric bypass. Does have a history of a CATRACHITA due to pain. Medical history is documented below. Abdominal pain started yesterday. States that it occurred prior to lunch. States that she tried to take 1 to 2 bites and stopped due to pain. Pain is constant, but states that it is not as bad as yesterday. Location is the left lower abdomen. But states that it was more to the umbilical area yesterday. No nausea or vomiting. No blood in her stools. Last bowel movement was yesterday morning. No urinary complaints. No fevers or chills. No reflux symptoms. Was dicharged with malaox and prilosec for thoughts of gastritis/irritation of the gastric pouch. She took the prilosec last night but not today. Maalox was taken this morning. Past medical history, appointments, medications, allergies reviewed. Previous Medical History PAST MEDICAL HISTORY Diagnosis Date - Asthma - Benign neoplasm of colon - Depressive disorder, not elsewhere classified 05/2003 - Diabetes mellitus (HCC) - Diarrhea - Esophageal reflux 05/2003 - Hemorrhage of gastrointestinal tract, unspecified - Hypertension - Morbid obesity (HCC) 2-5-10 stated BMI 40.1 Ht: 63 Wt: 227 lbs - Other and unspecified hyperlipidemia 05/2001 - Pain in joint, multiple sites back, hips, knees - Snoring - Unspecified hypertensive heart disease without heart failure 05/2001 Previous Surgical History PAST SURGICAL HISTORY Procedure Laterality Date - BUNION CORRECTION W/METATARSAL OSTEOTOMY - COLONOS W/REM POLYP SNARE 01/13/07 - COLONOSCOP W/ OR W/O BRS SPEC 2009 Colonoscopy - COLONOSCOP W/ OR W/O BRSH SPEC 06/20/2014 Colonoscopy - COLONOSCOP W/ OR W/O BRS SPEC 01-08-16 - EGD W/O OR W/BRUSH/WASH 11/03/2011 EGD - EXPLORE SHOULDER JOINT 03/18/2005 arthritic bone removal - FOOT/TOES SURGERY PROC UNLISTED 01/22/2005 bilateral 5th toes - GASTRIC BYPASS HX 08/12/2016 Dr Spike Dias GEn - LASIK CUSTOM 2001 bilateral - LIGATE FALLOPIAN TUBE Tubal ligation - OPEN RX ANKLE DISLOCATN+FIXATN left - REMOVE TONSILS/ADENOIDS,<12 Y/O - REPAIR ROTATOR CUFF,ACUTE 2006 left - TOTAL ABDOM HYSTERECTOMY 06/2002 Hysterectomy, CATRACHITA/BSO for bleeding and pain Family History FAMILY HISTORY Problem Relation Age of Onset - Cancer Mother uterine/also heart problems/hypertension/diabetes - Heart Mother mother at 46 from heart attack - Cancer Father esophageal/also heart disease - Heart Father biological - Stroke Father biological - Diabetes Sister - Diabetes Brother 2 brothers - Heart Brother 5 stents - Heart Sister heart attack-4 stents Patient Allergies ALLERGIES Allergen Reactions - Aspirin - Bees - Flexeril [Cyclobenz* Intolerance - Keflex [Cephalexin] - Penicillin G - Prilosec [Omeprazol* Current Medications Current Outpatient Prescriptions on File Prior to Visit: losartan (COZAAR) 25 mg tablet Take 1 tablet by mouth once daily. amitriptyline (ELAVIL) 50 mg tablet Take 1 tablet by mouth daily at bedtime. multivitamin tablet Take 1 tablet by mouth once daily. Taking 4 pills at once daily CALCIUM CARBONATE (CALCIUM 500 ORAL) Take by mouth once daily. ONE TOUCH DELICA 33 gauge misc ursodiol (ACTIGALL) 300 mg capsule Take 1 capsule by mouth twice daily. (Patient not taking: Reported on 08/12/2017 ) No current facility-administered medications on file prior to visit. Social History Social History Marital status: Spouse name: Justin Years of education: Number of children: 1 Occupational History Occupation Employer Comment [employer] * Social History Main Topics Smoking status: Former Smoker Packs/day: 1.00 Years: 20.00 Types: Cigarettes Quit date: 04/05/2001 Smokeless status: Never Used Alcohol use: No Drug use: No Sexual activity: Yes Partners with: Male Other Topics Concern Caffeine Concern Not Asked Comment:1 can diet pepsi daily REVIEW OF SYSTEMS: as above ? Reviewed relevant PMHx, PSHx, Social Hx, current medications and allergies. EXAM: BP 143/86 Pulse 70 Temp 36.6 ?C (97.9 ?F) (Tympanic) Wt 60.8 kg (134 lb) BMI 23 kg/m2 General Appearance: Well appearing, alert, in no acute distress, well-hydrated, well nourished.. Neck: Supple, no adenopathy; thyroid symmetric, normal size, no bruits. Lungs: Lungs clear to auscultation. No wheezing, rhonchi, rales. Heart: RRR without murmur, gallop, or rubs. No ectopy. Abdomen: Abdomen soft, non-distended. Bowel sounds normal. No masses, organomegaly. Moderate tenderness of the left LLQ, area superior to the umbilicus area. Health Maintenance List DILATED RETINAL EXAM due on 10/13/2015 HBA1C due on 02/03/2018 MAMMOGRAM due on 02/24/2018 URINE ALBUMIN CREATININE RATIO due on 08/06/2018 LDL due on 08/06/2018 DIABETIC FOOT EXAM due on 08/13/2018 COLORECTAL CANCER SCREENING,SEE MODIFIER due on 01/07/2021 TETANUS due on 02/08/2021 ONE PNEUMOVAX PRIOR TO AGE 64 Completed INFLUENZA Completed HEPATITIS C SCREENING Completed Data reviewed Component Latest Ref Rng AND Units 08/06/2017 Protein, Total 6.3 - 8.0 g/dL 6.1 (L) Albumin 3.9 - 4.9 g/dL 4.2 Calcium 8.5 - 10.2 mg/dL 9.5 Bilirubin, Total 0.2 - 1.3 mg/dL 0.5 Alkaline Phosphatase 32 - 117 U/L 65 AST 13 - 35 U/L 24 Glucose 74 - 99 mg/dL 83 BUN 7 - 21 mg/dL 21 Creatinine 0.58 - 0.96 mg/dL 0.83 Sodium 136 - 144 mmol/L 144 Potassium 3.7 - 5.1 mmol/L 4.2 Chloride 97 - 105 mmol/L 103 CO2 22 - 30 mmol/L 31 (H) Anion Gap 9 - 18 mmol/L 10 ALT 7 - 38 U/L 21 eGFR- >60 eGFR-All Other Races . >60 Cholesterol, Total <200 mg/dL 165 Triglyceride <150 mg/dL 82 HDL Cholesterol >39 mg/dL 55 LDL Cholesterol <100 mg/dL 94 Non HDL Cholesterol <130 mg/dL 110 Fasting Time hrs 9 VLDL Cholesterol <30 mg/dL 16 TC:HDL Ratio <5.10 3.00 LDL:HDL Ratio <2.54 1.71 Hemoglobin A1C 4.3 - 5.6 % 5.0 Estimated Average Glucose mg/dL 97 ASSESSMENT/PLAN: 1. Left lower quadrant pain - ICD9: 789.04, ICD10: R10.32 (primary diagnosis) - Epigastric to left middle abdominal pain. Probable gastritis/pouch irritation. - Continue with OMEPRAZOLE 20 MG CAPSULE,DELAYED RELEASE and malox use. - Advised patient that she needs to follow up with her gastric specialist for further evaluation. 2. Elevated pancreatic enzyme - ICD9: 790.5, ICD10: R74.8 - Will recheck level to see if levels are trending up. Pancreas was normal appearing on CT. - LIPASE BLD Get lab today, will notify. If worsening pain, advised ER. Follow up as needed. Discussed case and plan with Dr. Roca. Les Diaz APRN.PROGRAMS MANAGER Normal [facility] [place] 08-20-2017 [facility] Telephone (TAMRA) JOSH HERNANDEZ ([id number]) 1960 F Date Time Provider Department 08/20/17 LARA DEVI During your visit today, we recorded the following information about you: Sherrill Hunt Ma 08/20/2017 3:21 PM Signed Received labs- iron, PTH, Vit B1, Zinc, Vit D 08/12/17 from [facility]. Placed in pcps inbox for review. Route to MD for scanning. Sherrill Hunt Ma 08/30/2017 4:05 PM Signed Sent to scanning Allergies As of Date: 08/20/2017 Noted Allergy Reaction ASPIRIN 04/17/2005 BEES 04/17/2005 FLEXERIL (CYCLOBENZAPRINE) 01/31/2008 5 - Intolerance KEFLEX (CEPHALEXIN) 04/17/2005 PENICILLIN G 04/17/2005 PRILOSEC (OMEPRAZOLE) 04/17/2005 Date Reviewed: 08/12/2017 Reviewed by: Sherrill Hunt Ma - Fully Assessed Reason for Visit: Received Outside Medical Records [[id number]] Cmt: lab results 08/12/17 Prescriptions as of 08/20/2017 Sig: LOSARTAN 25 MG TABLET Take 1 tablet by mouth once d* AMITRIPTYLINE 50 MG TABLET Take 1 tablet by mouth daily * HYDROCODONE 5 MG-ACETAMINOPHE* Take 1 tablet by mouth every * MULTIVITAMIN TABLET Take 1 tablet by mouth once d* CALCIUM 500 ORAL Take by mouth once daily. URSODIOL 300 MG CAPSULE Take 1 capsule by mouth twice* Patient not taking: Reported on 08/12/2017 [facility] GA* Problem List As Of Date 08/20/2017 Noted Resolved Chronic depression [F32.9] INVALID FOR* More... Mixed hyperlipidemia [E78.2] INVALID FOR* Priority: A Essential hypertension [I10] INVALID FOR* Priority: A RECTAL AND ANAL HEMORRHAGE [K62.5] INVALID FOR* BENIGN NEOPLASM LG BOWEL [D12.6] INVALID FOR* Hemorrhage of gastrointestinal tract, unspecifi*INVALID FOR*10/01/2011 INT HEMORRHOID W/O COMPL [K64.8] INVALID FOR* External hemorrhoids without mention of complic*INVALID FOR*10/01/2011 DIARRHEA NOS [R19.7] INVALID FOR* PERS HX COLONIC POLYPS [Z86.010] INVALID FOR* Postmenopausal Atrophic Vaginitis [N95.2] INVALID FOR* Diet-controlled type 2 diabetes mellitus (HCC) *INVALID FOR* Priority: A Chest pain [R07.9] INVALID FOR*07/30/2015 Bee sting allergies INVALID FOR* Calcaneal spur [M77.30] INVALID FOR* Fibromyalgia [M79.7] INVALID FOR* Asthma, mild persistent [J45.30] INVALID FOR* Hyperlipidemia with target LDL less than 70 [E7*INVALID FOR* Chronic migraine without aura without status mi*INVALID FOR* Genital herpes [A60.00] INVALID FOR* Gastroesophageal reflux disease [K21.9] INVALID FOR*11/10/2016 Morbid obesity (HCC) [E66.01] INVALID FOR* More... Encounter Status:Closed by SHERRILL HUNT MA on 08/20/17 Normal [facility] PROGRESSon 08-12-2017 Protein mass conc HNO ID: [id number] Author: Lara Devi Service: (none) Author Type: Physician Type: Progress Notes Filed: 08/13/2017 4:22 PM Note Text: Chief Complaint Patient presents with: Follow Up HPI Josh Hernandez is a 57 year old female who presents here routine follow up. . 1 year post gatsric bypss surgery, diabertes now diet only, her A1c is in normal range. ACTIVE PROBLEM LIST Chronic Depression Mixed Hyperlipidemia Essential Hypertension Hemorrhage of Rectum and Anus Benign Neoplasm of Colon Internal Hemorrhoids Without Mention of Complication Diarrhea Personal History of Colonic Polyps Postmenopausal Atrophic Vaginitis Diet-Controlled Type 2 Diabetes Mellitus (Hcc) Bee Sting Allergies Calcaneal Spur Fibromyalgia Asthma, Mild Persistent Hyperlipidemia With Target Ldl Less Than 70 Chronic Migraine Without Aura Without Status Migrainosus, Not Intractable Genital Herpes Morbid Obesity (Hcc) Past medical history, appointments, medications, allergies reviewed. Previous Medical History PAST MEDICAL HISTORY Diagnosis Date - Asthma - Benign neoplasm of colon - Depressive disorder, not elsewhere classified 05/2003 - Diabetes mellitus (HCC) - Diarrhea - Esophageal reflux 05/2003 - Hemorrhage of gastrointestinal tract, unspecified - Hypertension - Morbid obesity (HCC) 2-5-10 stated BMI 40.1 Ht: 63 Wt: 227 lbs - Other and unspecified hyperlipidemia 05/2001 - Pain in joint, multiple sites back, hips, knees - Snoring - Unspecified hypertensive heart disease without heart failure 05/2001 Previous Surgical History PAST SURGICAL HISTORY Procedure Laterality Date - BUNION CORRECTION W/METATARSAL OSTEOTOMY - COLONOS W/REM POLYP SNARE 01/13/07 - COLONOSCOP W/ OR W/O [facility] SPEC 2009 Colonoscopy - COLONOSCOP W/ OR W/O [facility] SPEC 06/20/2014 Colonoscopy - COLONOSCOP W/ OR W/O [facility] SPEC 01-08-16 - EGD W/O OR W/BRUSH/WASH 11/03/2011 EGD - EXPLORE SHOULDER JOINT 03/18/2005 arthritic bone removal - FOOT/TOES SURGERY PROC UNLISTED 01/22/2005 bilateral 5th toes - GASTRIC BYPASS HX 08/12/2016 Dr Spike Dias GEn - LASIK CUSTOM 2001 bilateral - LIGATE FALLOPIAN TUBE Tubal ligation - OPEN RX ANKLE DISLOCATN+FIXATN left - REMOVE TONSILS/ADENOIDS,<12 Y/O - REPAIR ROTATOR CUFF,ACUTE 2006 left - TOTAL ABDOM HYSTERECTOMY 06/2002 Hysterectomy, CATRACHITA/BSO for bleeding and pain Family History FAMILY HISTORY Problem Relation Age of Onset - Cancer Mother uterine/also heart problems/hypertension/diabetes - Heart Mother mother at 46 from heart attack - Cancer Father esophageal/also heart disease - Heart Father biological - Stroke Father biological - Diabetes Sister - Diabetes Brother 2 brothers - Heart Brother 5 stents - Heart Sister heart attack-4 stents Patient Allergies ALLERGIES Allergen Reactions - Aspirin - Bees - Flexeril [Cyclobenz* Intolerance - Keflex [Cephalexin] - Penicillin G - Prilosec [Omeprazol* Current Medications Current Outpatient Prescriptions on File Prior to Visit: amitriptyline (ELAVIL) 25 mg tablet TAKE 1 TABLET DAILY AT BEDTIME losartan (COZAAR) 50 mg tablet TAKE 1 TABLET ONCE DAILY HYDROcodone-acetaminophen (NORCO) 5-325 mg per tablet Take 1 tablet by mouth every 6 hours as needed. multivitamin tablet Take 1 tablet by mouth once daily. Taking 4 pills at once daily CALCIUM CARBONATE (CALCIUM 500 ORAL) Take by mouth once daily. ONE TOUCH DELICA 33 gauge misc ursodiol (ACTIGALL) 300 mg capsule Take 1 capsule by mouth twice daily. (Patient not taking: Reported on 08/12/2017 ) No current facility-administered medications on file prior to visit. Social History Social History Marital status: Spouse name: Justin Years of education: Number of children: 1 Occupational History Occupation Employer Comment [employer] * Social History Main Topics Smoking status: Former Smoker Packs/day: 1.00 Years: 20.00 Types: Cigarettes Quit date: 04/05/2001 Smokeless status: Never Used Alcohol use: No Drug use: No Sexual activity: Yes Partners with: Male Other Topics Concern Caffeine Concern Not Asked Comment:1 can diet pepsi daily ROS: General: Feels well, no weight changes, fever, chills. HEENT: No sinus congestion, earache, sore throat. Cardiac: No chest pain, palpitations, shortness of breath Resp: No cough, wheeze. GI: No reflux symptoms, food intolerance, bowel changes. : No urinary frequency, dysuria. MS: No pain or joint complaints. PHYSICAL EXAMINATION BP 132/71 (BP Site: Left Arm, BP Position: Sitting, BP Cuff Size: Regular Adult) Pulse (!) 59 Resp 12 Wt 63.4 kg (139 lb 12.8 oz) BMI 24 kg/m2 General: Alert and oriented, no distress, pleasant and cooperative. Heart: Regular, normal S1 and S2, no murmurs, rubs, or gallops Lungs: Clear to auscultation bilaterally Abdomen: Benign Extremities: Feet/ankles without edema, posterior tibial pulses full and symmetrical Feet:Shoes and socks removed, normal distal pulses and sensitive to 10 gm monofilament Health Maintenance List DILATED RETINAL EXAM due on 10/13/2015 DIABETIC FOOT EXAM due on 07/31/2016 INFLUENZA(1) due on 03/05/2017 HBA1C due on 02/03/2018 MAMMOGRAM due on 02/24/2018 URINE ALBUMIN CREATININE RATIO due on 08/06/2018 LDL due on 08/06/2018 COLORECTAL CANCER SCREENING,SEE MODIFIER due on 01/07/2021 TETANUS due on 02/08/2021 ONE PNEUMOVAX PRIOR TO AGE 64 Completed HEPATITIS C SCREENING Completed Data reviewed Lab Results Component Value Date/Time CHOL 165 08/06/2017 07:39 AM HDL 55 08/06/2017 07:39 AM LDL 94 08/06/2017 07:39 AM HBA1C 5.0 08/06/2017 07:39 AM TSH 2.050 10/23/2014 09:46 AM Assessment/Plan: (E11.9) Diet-controlled type 2 diabetes mellitus (HCC) (primary encounter diagnosis) Comment: after gastric bypass surgery, she's done very well Plan: (I10) Essential hypertension Comment: BP well controlled. Plan: no change now, we may consider cutting the BP med altogether. (E78.2) Mixed hyperlipidemia Comment: Plan: (M79.7) Fibromyalgia Comment: stable/ ongoing symptoms. Plan: amitriptyline (ELAVIL) 50 mg tablet Try higher dose of the amitriptyline, maybe it'll help the sleep (F51.02) Adjustment insomnia Comment: Plan: amitriptyline (ELAVIL) 50 mg tablet Signed Prescriptions Disp Refills losartan (COZAAR) 25 mg tablet 90 tablet 3 Sig: Take 1 tablet by mouth once daily. amitriptyline (ELAVIL) 50 mg tablet 90 tablet 3 Sig: Take 1 tablet by mouth daily at bedtime. RTO: 3 mos Lara Devi MD Normal [facility] Albumin/Creat Ratioon 2017 Albumin Urine Random 16.6 mg/L Normal 0.0-23.0 [facility] Comment on above: Performed By: #### UACR #### [id number] [place], [place] [address] Albumin/Creat Ratio 16 mg/g Normal 0-30 [facility] Comment on above: Result Comment: 30 to 300 mg/g indicates an increased risk for diabetic nephropathy. Greater than 300 mg/g is consistent with clinical nephropathy. (Am J Kidney Disease 1995, 25:107) Performed By: #### U ACR #### [facility] [address] [place], [place] [address] Creatinine,Urine ,Ran 105.9 mg/dL Normal 20-300 [facility] Comment on above: Performed By: #### UACR #### [facility] [address] [place], [place] [address] Comp Metabolic Panelon 08-06 Albumin mass conc 4.2 g/dL Normal 3.9-4.9 [facility] Comment on above: Performed By: #### CMP, LIPB, HBA1C #### [facility] [address] [place], [place] [address] ALP enzyme act/vol 65 U/L Normal 32-117 [facility] Comment on above: Performed By: #### CMP, LIPB, HBA1C #### [facility] [address] [place] [phone] ALT enzyme act/vol 21 U/L Normal 7-38 [facility] Comment on above: Performed By: #### CMP, LIPB, HBA1C #### [facility] [address] [place] [phone] Anion gap molar conc 10 mmol/L Normal 9-18 [facility] Comment on above: Performed By: #### CMP, LIPB, HBA1C #### [address] [place] [phone] AST enzyme act/vol 24 U/L Normal 13-35 [facility] Comment on above: Performed By: #### CMP, LIPB, HBA1C #### [place] [phone] Bilirubin mass conc 0.5 mg/dL Normal 0.2-1.3 [facility] Comment on above: Performed By: #### CMP, LIPB, HBA1C #### [address] [place] [address] Calcium mass conc 9.5 mg/dL Normal 8.5-10.2 [facility] Comment on above: Performed By: #### CMP, LIPB, HBA1C #### [address] [place] [phone] Chloride molar conc 103 mmol/L Normal 97-105 [facility] Comment on above: Performed By: #### CMP, LIPB, HBA1C #### [facility] [address] [place] [address] CO2 molar conc 31 mmol/L High 22-30 [facility] Comment on above: Performed By: #### CMP, LIPB, HBA1C #### [address] [place] [address] Creatinine mass conc 0.83 mg/dL Normal 0.58-0.96 [facility] Comment on above: Performed By: #### CMP, LIPB, HBA1C #### [facility] [address] [place] [phone] eGFR- Amer. >60 Normal [facility] Comment on above: Performed By: #### CMP, LIPB, HBA1C #### [facility] [address] [place] [phone] GFR/1.73 sq M predicted among non-blacks MDRD vol rate/area (S/P/Bld) mL/min/{1.73_m2} Normal [facility] Comment on above: Result Comment: eGFR (Estimated GFR) Uni ts of measure: mL/min/1.73 meters squared eGFR is derived from the reexpressed MDRD Study equation using the following parameters: serum creatinine, age, gender and race. The creatinine assay has been calibrated to be traceable to IDMS. An eGFR <60 mL/min/1.73m2 for >3 months is consistent with chronic kidney disease. Refer to KDOQI guidelines for clinical interpretation. In patients with unstable renal function, e.g. those with acute kidney injury, the eGFR may not accurately reflect actual GFR. Performed By: #### C MP, LIPB, HBA1C #### [facility] [address] [place] [address] Glucose mass conc 83 mg/dL Normal 74-99 [facility] Comment on above: Result Comment: The [place] Diabetes As sociation (ADA) provides guidance for cutoff values for fasting glucose and random glucose. The ADA defines fasting as no caloric intake for at least 8 hours. Fasting plasma glucose results between 100 to 125 mg/dL indicate increased risk for diabetes (prediabetes). Fasting plasma glucose results greater than or equal to 126 mg/dL meet the criteria for diagnosis of diabetes. In the absence of unequivocal hyperglycemia, results should be confirmed by repeat testing. In a patient with classic symptoms of hyperglycemia or hyperglycemic crisis, random plasma glucose results greater than or equal to 200 mg/dL meet the criteria for diagnosis of diabetes. Reference: Standards of Medical Care in Diabetes 2016, [place] Diabetes Association. Diabetes Care. 2016.39(Suppl 1). Performed By: #### C MP, LIPB, HBA1C #### [facility] [address] [place] [address] Potassium molar conc 4.2 mmol/L Normal 3.7-5.1 [facility] Comment on above: Performed By: #### CMP, LIPB, HBA1C #### [facility] [address] [place] [address] Protein mass conc 6.1 g/dL Low 6.3-8.0 [facility] Comment on above: Performed By: #### CMP, LIPB, HBA1C #### [address] [place] [address] Sodium molar conc 144 mmol/L Normal 136-144 [facility] Comment on above: Performed By: #### CMP, LIPB, HBA1C #### [place] [phone] Urea nitrogen mass conc 21 mg/dL Normal 7-21 [facility] Comment on above: Performed By: #### CMP, LIPB, HBA1C #### [address] [place] [address] Hemoglobin A1con 08-06-2017 Hemoglobin A1c/Hemoglobin.t otal mass fraction (Bld) 97 mg/dL Normal [facility] Comment on above: Result Comment: eAG: (Estimated average glucose) is a calculated value from HgbA1c and is aircraft sales representative of the average blood glucose level in the last 2-3 month period. Performed By: #### C MP, LIPB, HBA1C #### [place] [place] [address] Hemoglobin A1c/Hemoglobin.t otal mass fraction (Bld) 5.0 % Normal 4.3-5.6 [facility] Comment on above: Performed By: #### CMP, LIPB, HBA1C #### [address] [place] [phone] Lipid Panel, [place] 018 Cholesterol in HDL mass conc 55 mg/dL Normal >39 [facility] Comment on above: Result Comment: 40-59 mg/dL, Acceptable >59 mg/dL, High: Negative risk factor for coronary heart disease <40 mg/dL, Low: Positive risk factor for coronary heart disease Performed By: #### C MP, LIPB, HBA1C #### [facility] [address] [place] [phone] Cholesterol in LDL mass conc 94 mg/dL Normal <100 [facility] Comment on above: Result Comment: <100 mg/dL, Optimal 100-129 mg/dL, Near optimal/above optimal 130-159 mg/dL, Borderline high 160-189 mg/dL, High >189 mg/dL, Very high Secondary prevention optimal LDL Cholesterol levels are recommended to be < 70 mg/dL Performed By: #### C MP, LIPB, HBA1C #### [place] [place] [phone] Cholesterol mass conc 165 mg/dL Normal <200 [facility] Comment on above: Result Comment: <200 mg/dL, Desirable 200-239 mg/dL, Borderline high >239 mg/dL, High Performed By: #### C MP, LIPB, HBA1C #### [place] [place] [phone] Fasting Time 9 hrs Normal [facility] Comment on above: Performed By: #### CMP, LIPB, HBA1C #### [address] [place] [place] [phone] LDL:HDL Ratio 1.71 Normal <2.54 [facility] Comment on above: Result Comment: Reference: 1. National Cholesterol Education Program ATP III Guideline At-A-Glance Quick Desk Reference: National Heart, Lung, and Blood [place]. National Institutes of Health. 2001: NIH Publication No. 01-3305. 2. An International Atherosclerosis Society position paper: global recommendations for the management of dyslipidemia: executive summary, Atherosclerosis. 2014: 232(2):410-413. Performed By: #### C MP, LIPB, HBA1C #### [place] [place] [phone] Non HDL Cholesterol 110 mg/dL Normal <130 [facility] Comment on above: Result Comment: <130 mg/dL, Optimal 130-159 mg/dL, Near optimal/above optimal 160-189 mg/dL, Borderline high 190-219 mg/dL, High >219 mg/dL, Very high Secondary prevention optimal non HDL Cholesterol levels are recommended to be < 100 mg/dL Performed By: #### C MP, LIPB, HBA1C #### [facility] [address] [place] [address] TC:HDL Ratio 3.00 Normal <5.10 [facility] Comment on above: Performed By: #### CMP, LIPB, HBA1C #### [facility] [address] [place] [address] Triglyceride mass conc 82 mg/dL Normal <150 [facility] Comment on above: Result Comment: <150 mg/dL, Normal 150-199 mg/dL, Borderline high 200-499 mg/dL, High >499 mg/dL, Very high Performed By: #### C MP, LIPB, HBA1C #### [facility] [address] [place] [address] VLDL Cholesterol 16 mg/dL Normal <30 [facility] Comment on above: Performed By: #### CMP, LIPB, HBA1C #### [facility] [address] [place] [address] [facility] Oper[facility] Reporton 02-17-2017 [facility] Operative Report Normal [facility] Anesthesia Recor don 02-12-2017 [facility] Anesthesia Record Normal [facility] Intraop Recordon 02-12-2017 [facility] Intraop Record Normal [facility]) Depart Summaryon 02-12-2017 Depart Summary Normal [facility] History and Physica guillermo 02-12-2017 [facility] History and Physical Normal [facility]) Outpatient Patient Summaryon 02-12-2017 Outpatient Patient Summary Normal [facility]) Vital Signs Date Time Vital Sign Value Performing Clinician Facility 10-08-2022 10:26-0400 Body height 162.6 cm Paul Orrnn PA-C Work Phone: [facility] 10-08-2022 10:26-0400 Body weight 87.54 kg Paul Orrnn PA-C Work Phone: [facility] 10-08-2022 10:26-0400 Diastolic blood pressure 78 mm[Hg] Paul Orrnn PA-C Work Phone: [facility] 10-08-2022 10:26-0400 Systolic blood pressure 122 mm[Hg] Paul Orrnn PA-C Work Phone: [facility] 09-17-2022 10:56-0400 Body height 162.6 cm Pst 1 [facility] 09-17-2022 10:56-0400 Body temperature 96.8 [degF] Pst 1 [facility] 09-17-2022 10:56-0400 Body weight 90.72 kg Pst 1 [facility] 09-17-2022 10:56-0400 Diastolic blood pressure 80 mm[Hg] Pst 1 [facility] 09-17-2022 10:56-0400 Heart rate 80 /min Pst 1 [facility] 09-17-2022 10:56-0400 Respiratory rate 16 /min Pst 1 [facility] 09-17-2022 10:56-0400 SaO2% (BldA) [Mass fraction] 94 % Pst 1 [facility] 09-17-2022 10:56-0400 Systolic blood pressure 117 mm[Hg] Pst 1 [facility] 07-31-2022 09:59-0500 Body height 162.6 cm Sheryl Carrasco APRN.PROGRAMS MANAGER Work Phone: [facility] 07-31-2022 09:59-0500 Body weight 90.72 kg Sheryl Carrasco HYDRAULIC REPAIRER.PROGRAMS MANAGER Work Phone: [facility] 07-31-2022 09:59-0500 Diastolic blood pressure 78 mm[Hg] Sheryl Puenteer HYDRAULIC REPAIRER.PROGRAMS MANAGER Work Phone: [facility] 07-31-2022 09:59-0500 Heart rate 83 /min Sheryl Boozer HYDRAULIC REPAIRER.PROGRAMS MANAGER Work Phone: [facility] 07-31-2022 09:59-0500 Respiratory rate 20 /min Sheryl Boozer HYDRAULIC REPAIRER.PROGRAMS MANAGER Work Phone: [facility] 07-31-2022 09:59-0500 SaO2% (BldA) [Mass fraction] 94 % Sheryl Boozer HYDRAULIC REPAIRER.PROGRAMS MANAGER Work Phone: [facility] 07-31-2022 09:59-0500 Systolic blood pressure 125 mm[Hg] Sheryl Boozer HYDRAULIC REPAIRER.PROGRAMS MANAGER Work Phone: [facility] 07-28-2022 10:55-0500 Body height 162.6 cm Chris Romo MD Work Phone: [facility] 07-28-2022 10:55-0500 Body weight 74.39 kg Chris Romo MD Work Phone: [facility] 07-28-2022 10:55-0500 Diastolic blood pressure 85 mm[Hg] Chris Romo MD Work Phone: [facility] 07-28-2022 10:55-0500 Heart rate 90 /min Chris Romo MD Work Phone: [facility] 07-28-2022 10:55-0500 SaO2% (BldA) [Mass fraction] 95 % Chris Romo MD Work Phone: [facility] 07-28-2022 10:55-0500 Systolic blood pressure 129 mm[Hg] Chris Romo MD Work Phone: [facility] 08-01-2021 07:53-0500 Body temperature 97.34 [degF] MATHEUS SIMENTAL DPM [facility] 08-01-2021 07:53-0500 Diastolic blood pressure 65 mm[Hg] MATHEUS SIMENTAL DPM [facility] 08-01-2021 07:53-0500 Respiratory rate 16 /min MATHEUS SUPPAN DPM [facility] 08-01-2021 07:53-0500 Systolic blood pressure 112 mm[Hg] MATHEUS SUPPAN DPM [facility] 08-01-2021 07:41-0500 Diastolic Blood Pressure NBP 68 1 MATHEUS SUPPAN DPM [facility] 08-01-2021 07:41-0500 Heart rate 84 /min MATHEUS SUPPAN DPM [facility] 08-01-2021 07:41-0500 Respiratory rate 16 /min MATHEUS SUPPAN DPM [facility] 08-01-2021 07:41-0500 Systolic Blood Pressure NBP 102 1 MATHEUS SUPPAN DPM [facility] 08-01-2021 07:25-0500 Body temperature 97.34 [degF] MATHEUS SUPPAN DPM [facility] 08-01-2021 07:25-0500 Diastolic Blood Pressure NBP 72 1 MATHEUS SUPPAN DPM [facility] 08-01-2021 07:25-0500 Heart rate 98 /min MATHEUS SUPPAN DPM [facility] 08-01-2021 07:25-0500 Respiratory rate 12 /min MATHEUS SUPPAN DPM [facility] 08-01-2021 07:25-0500 Systolic Blood Pressure NBP 114 1 MATHEUS SUPPAN DPM [facility] 08-01-2021 07:20-0500 Diastolic Blood Pressure NBP 66 1 MATHEUS SUPPAN DPM [facility] 08-01-2021 07:20-0500 Heart rate 85 /min MATHEUS SUPPAN DPM [facility] 08-01-2021 07:20-0500 Systolic Blood Pressure NBP 90 1 MATHEUS SUPPAN DPM [facility] 08-01-2021 06:07-0500 Body height 163 cm MATHEUS SUPPAN DPM [facility] 08-01-2021 06:07-0500 Body temperature 96.08 [degF] MATHEUS SUPPAN DPM [facility] 08-01-2021 06:07-0500 Body weight 81.8 kg MATHEUS SUPPAN DPM [facility] 08-01-2021 06:07-0500 Heart rate 78 /min MATHEUS SUPPAN DPM [facility] 07-18-2021 09:48-0500 Body height 162.6 cm MATHEUS SUPPAN DPM [facility] 07-18-2021 09:48-0500 Body weight 81.8 kg MATHEUS SUPPAN DPM [facility] 07-18-2021 09:48-0500 Body weight 30.94 kg/m2 MATHEUS SUPPAN DPM [facility] 07-18-2021 09:48-0500 diastolic 76 mm[Hg] MATHEUS SUPPAN DPM [facility] 07-18-2021 09:48-0500 Heart rate 96 /min MATHEUS SUPPAN DPM [facility] 07-18-2021 09:48-0500 Respiratory rate 20 /min MATHEUS SUPPAN DPM [facility] 07-18-2021 09:48-0500 systolic 124 mm[Hg] MATHEUS SUPPAN DPM [facility] Encounters Encounter Date Encounter Type Care Provider Facility Start: 10-08-2022 End: 10-08-2022 ambulatory AMELIA BAUM Facility:[facility] Start: 10-08-2022 End: 10-08-2022 Patient encounter procedure Paul Berger PA-C Work Phone: [facility] Comment on above: S/P hernia repair (P rimary Dx) Start: 09-24-2022 End: 09-25-2022 Evaluation and management of inpatient NOAMAN ALI Facility:[facility] Start: 09-17-2022 End: 09-18-2022 ambulatory CHRIS ROMO Facility:[facility] Start: 09-17-2022 [facility]: 09-17-2022 End: 09-17-2022 Admission to establishment [place] [place] Acc 1 [facility] Start: 09-17-2022 End: 09-17-2022 ambulatory Pst 1 Pre Surgical Testing Comment on above: Mixed hyperlipidemia (Primary Dx); Essential hypertension; Mild persistent asthma, unspecified whether complicated; Diet-controlled type 2 diabetes mellitus (HCC); Gastroesophageal reflux disease without esophagitis; Hypothyroidism, unspecified type; Preop examination [Z01.818 (ICD-10-CM)]; Ventral hernia without obstruction or gangrene [K43.9 (ICD-10-CM)] Start: 09-17-2022 End: 09-17-2022 Preprocedural examination done Pst 1 Pre Surgical Testing Start: 08-31-2022 Telephone encounter Sheryl frazier APRN.PROGRAMS MANAGER Work Phone: [facility] Comment on above: Patient Update Start: 08-14-2022 Telephone encounter Sheryl frazier APRN.PROGRAMS MANAGER Work Phone: [facility] Comment on above: Patient Update Start: 07-31-2022 End: 08-01-2022 Orders Only Chris Romo MD Work Phone: [facility] Comment on above: Ventral hernia witho ut obstruction or gangrene (Primary Dx) Preoperative examina tion (Primary Dx); Essential hypertension; Mixed hyperlipidemia; Diet-controlled type 2 diabetes mellitus (HCC); Mild persistent asthma, unspecified whether complicated; Ventral hernia without obstruction or gangrene Start: 07-31-2022 Encounter for other preprocedural examination ELIAS ALAN [facility] Start: 07-31-2022 End: 07-31-2022 Preprocedural examination done Sheryl Carrasco APRN.PROGRAMS MANAGER Work Phone: [facility] Start: 07-28-2022 End: 07-29-2022 ambulatory PAUL BERGER Facility:[facility] Start: 07-28-2022 End: 07-28-2022 ambulatory CHRIS ROMO Facility:[facility] Start: 07-28-2022 End: 07-28-2022 Office outpatient new 60 minutes Chris Romo MD Work Phone: [facility] Comment on above: Ventral hernia with obstruction (Primary Dx); Type 2 diabetes mellitus without complication, unspecified whether group home insulin use (HCC) Start: 08-01-2021 End: 08-01-2021 SAME DAY STAY MATHEUS SIMENTAL DPM [facility] Start: 07-18-2021 End: 07-18-2021 Admission to establishment MATHEUS SIMENTAL DPM [facility] Start: 11-04-2018 Patient encounter procedure DAVID LALA Facility:[facility] Start: 11-04-2018 End: 11-11-2018 Evaluation and management of inpatient [facility] Start: 11-02-2018 Patient encounter procedure [facility] Start: 10-24-2018 End: 10-24-2018 Patient encounter procedure SIMÓN [facility] Start: 10-13-2018 End: 11-02-2018 Patient encounter procedure [facility] Start: 09-27-2018 End: 10-11-2018 [facility]: 09-27-2018 Evaluation and manag ement of inpatient LACEY MARTIN Facility:[facility] Start: 09-23-2018 End: 09-27-2018 Patient encounter procedure Nicanor Huynh Facility:[facility] Start: 09-01-2018 Patient encounter procedure DAVID LALA Facility:[facility] Start: 08-24-2018 End: 09-23-2018 Evaluation and management of inpatient [facility] Start: 03-15-2018 Patient encounter procedure DAVID LALA Facility:[facility] Start: 03-15-2018 End: 03-17-2018 Evaluation and management of inpatient DAVID LALA [facility] Start: 12-24-2017 Patient encounter procedure DAVID LALA Facility:[facility] Start: 12-24-2017 End: 12-25-2017 Patient encounter procedure DAVID LALA [facility] Start: 11-19-2017 End: 11-19-2017 Evaluation and management of inpatient DAVID LALA Facility:[facility] Start: 11-19-2017 Patient encounter procedure DAVID LALA Facility:[facility] Start: 11-19-2017 End: 11-19-2017 Patient encounter procedure DAVID LALA Facility:[facility] Start: 10-15-2017 End: 10-18-2017 Patient encounter procedure LES (MARTHA) JOE [facility] Start: 08-12-2017 End: 08-12-2017 Patient encounter procedure LARA DEVI [facility] Start: 08-06-2017 End: 08-06-2017 Patient encounter procedure LARA DEVI [facility] Start: 02-12-2017 End: 02-12-2017 Ambulatory MATHEUS SIMENTAL Facility:[facility] Start: 02-09-2017 End: 02-10-2017 Ambulatory MATHEUS SIMENTAL Facility:[facility] Procedures Date Procedure Procedure Detail Performing Clinician Start: 08-01-2021 Foot structure (body structure) MATHEUS SIMENTAL DPM Comment on above: endoscopic planntar fasciotomy left foot Start: 09-28-2018 Introduction of Nutr itional Substance into Peripheral Vein, Percutaneous Approach DAVID LALA Start: 09-22-2018 Drainage of Peritone al Cavity with Drainage Device, Percutaneous Approach DAVID LALA Start: 09-22-2018 Removal of Drainage Device from Peritoneal Cavity, Percutaneous Approach DAVID LALA Start: 09-13-2018 Drainage of Peritone al Cavity with Drainage Device, Percutaneous Approach DAVID LALA Start: 09-09-2018 Drainage of Peritone al Cavity with Drainage Device, Percutaneous Approach DAVID SANCHEZYSTYaniv Start: 09-03-2018 Transfusion of Nonau tologous Red Blood Cells into Peripheral Vein, Percutaneous Approach DAVID LALA Start: 09-02-2018 Insertion of Infusio n Device into Superior Vena Cava, Percutaneous Approach DAVID LALA Start: 09-02-2018 Introduction of Nutr itional Substance into Central Vein, Percutaneous Approach DAVID SANCHEZKRIS Start: 09-02-2018 Ultrasonography of S uperior Vena Cava, Guidance DAVID SANCHEZKRIS Start: 09-01-2018 Bypass Ileum to Cuta neous, Open Approach DAVIDWHITLEYYaniv Start: 09-01-2018 Excision of Abdomen Subcutaneous Tissue and Fascia, Open Approach DAVIDWHITLEYYaniv Start: 09-01-2018 Excision of Small In testine, Open Approach DAVIDWHITLEYYaniv Start: 09-01-2018 Insertion of Feeding Device into Stomach, Open Approach DAVIDWHITLEYYaniv Start: 09-01-2018 Inspection of Lower Intestinal Tract, Percutaneous Endoscopic Approach DAVIDWHITLEYYaniv Start: 08-24-2018 Reposition Small Int estine, Open Approach DAVID DANIELKRIS Start: 03-15-2018 Excision of Small In testine, Open Approach DAVIDSALINASKRIS Start: 03-15-2018 Inspection of Lower Intestinal Tract, Percutaneous Endoscopic Approach DAVIDSALINASKRIS Start: 02-24-2017 Mammography Chris Romo MD Work Phone: Start: 08-12-2016 Esophagogastrostomy, antesternal or antethoracic MATHEUS CURRYAN DPM Comment on above: then had reversal Start: 01-08-2016 Colonoscopy Chris Romo MD Work Phone: Excision of bunion MATHEUS SUP HERNANDEZ DPM Comment on above: Right Hysterectomy and jeovany ateral salpingo-oophorectomy sample (specimen) MATHEUS SUPPAN DPM Comment on above: 2001 I band (cell structure) SWATHISO N SUPPAN DPM Comment on above: RIGHT HIP 2008 Medial epicondylitis of elbow joint (disorder) MATHEUS SUPPAN DPM Comment on above: SURGERY RIGHT 2014 Metatarsophalangeal joint structure of lesser toe (body structure) MATHEUS SUPPAN DPM Comment on above: Bilateral foot Partial resection of colon J ASON SUPPAN DPM Comment on above: and reversal Repair of musculoten dinous cuff of shoulder MATHEUS SIMENTAL DPM Comment on above: Bilateral Plan of Treatment Date Care Activity Detail Author Start: 09-19-2024 Urine microalbumin profile DTAP,TDAP,TD (3 - Td or Tdap) [facility] Start: 10-09-2023 BP CONTROLLED (<130/80) BP CONTROLLE D (<130/80) [facility] Start: 07-31-2023 BP CONTROLLED (<130/80) BP CONTROLLE D (<130/80) [facility] Start: 03-05-2023 Influenza vaccination INFLUENZ A (Season Ended) [facility] Start: 01-25-2023 Hemoglobin A1c/Hemoglobin.total in Blood HBA1C [facility] Start: 07-31-2022 End: 09-30-2022 CBC panel - Blood by Automated count CBC Lab Routine Ventral hernia without obstruction or gangrene Expected: 07/31/2022, Expires: 09/30/2022 [facility] Work Phone: Comment on above: Expected: 07/31/2022 , Expires: 09/30/2022 Start: 07-31-2022 End: 09-30-2022 Comprehensive metabolic 2000 panel - Serum or Plasma COMP METABOLIC PANEL Lab Routine Ventral hernia without obstruction or gangrene Expected: 07/31/2022, Expires: 09/30/2022 [facility] Work Phone: Comment on above: Expected: 07/31/2022 , Expires: 09/30/2022 Start: 03-05-2022 Influenza vaccination INFLUENZA (#1) [facility] Start: 01-07-2021 Colonoscopy COLONOSCOPY [facility] Start: 01-07-2021 COLORECTAL CANCER SCREENING COLORECTAL CANCER SCREENING [facility] Start: 03-14-2019 Hepatitis B surface antibody level LDL CHOLESTEROL [facility] Start: 01-15-2019 Hepatitis C antibody , confirmatory test DILATED RETINAL EXAM [facility] Start: 10-15-2018 ANNUAL PCP TEAM BRANCH COORDINATOR ANNA DISEASE VISIT ANNUAL PCP TEAM CHRONIC DISEASE VISIT [facility] Start: 08-12-2018 3 comp foot exam completed DIABETIC FOOT EXAM [facility] Start: 08-06-2018 Hepatitis B screening URINE ALBUMIN:CREATININE RATIO [facility] Start: 02-24-2018 Mammography MAMMOGRAM [facility] Start: 02-10-2012 PNEUMOCOCCAL (2 - PCV) PNEUMOCOCCAL (2 - PCV) [facility] Start: 2009 SHINGRIX VACCINE (1 of 2) SHINGRIX VACCINE (1 of 2) [facility] Start: 11-18-2007 FECAL OCCULT BLOOD FECAL OCCULT BLOO D [facility] Start: 01-18-2004 COLOGUARD (FIT-DNA) COLOGUARD (FIT-D NA) [facility] Start: 01-18-[address] COLONOGRAPHY [facility] Start: 01-18-2004 SIGMOIDOSCOPY SIGMOIDOSCOPY [facility] Start: 1977 BP CONTROLLED (<130/80) BP CONTROLLE D (<130/80) [facility] Start: 1977 HIV SCREENING HIV SCREENING [facility] Start: 1977 SPIROMETRY SPIROMETRY [facility] H&P for surgery H&P FOR SURGERY Procedures Routine Ventral hernia without obstruction or gangrene Ordered: 07/31/2022 [facility] Work Phone: Comment on above: Ordered: 07/31/2022 [facility] Immunizations Immunization Date Immunization Notes Care Provider Fa [facility] 04-05-2017 influenza, seasonal, injectable Chris Romo MD Work Phone: [facility] 04-29-2015 influenza virus vacc ine, unspecified formulation Chris Romo MD Work Phone: [facility] 09-19-2014 tetanus and diphther ia toxoids, adsorbed, preservative free, for adult use (2 Lf of tetanus toxoid and 2 Lf of diphtheria toxoid) Chris Romo MD Work Phone: [facility] 04-20-2014 influenza virus vacc ine, whole virus Chris Romo MD Work Phone: [facility] 04-16-2011 influenza virus vacc ine, unspecified formulation Chris Romo MD Work Phone: [facility] Work Phone: 02-09-2011 pneumococcal polysaccharide vaccine, 23 valent Chris Romo MD Work Phone: [facility] Work Phone: 02-08-2011 tetanus toxoid, redu [place] diphtheria toxoid, and acellular pertussis vaccine, adsorbed Chris Romo MD Work Phone: [facility] Work Phone: 06-17-2009 novel influenza-H1N1 -09, all formulations Chris Romo MD Work Phone: [facility] Work Phone: Payers Date Payer Category Payer Unknown [employer] PPO [id number] 2022-Present [phone] [address] [place] [address] PPO [id number] 2022 Unknown [id number] 1959 Unknown [id number] 1959 Unknown [id number] [id number] 1959 Unknown [id number] [id number] 1959 Unknown [id number] [id number] 1959 Unknown [id number] [id number] 1959 Unknown [id number] [id number] 1959 Unknown [id number] [id number] 1959 Unknown [id number] 2.16.840.1.551299.3.579.2.356 1959 Unknown [id number] 2.16.840.1.904891.3.579.2.356 1959 Unknown [id number] 2.16.840.1.758969.3.579.2.598 1959 Unknown [id number] 2.16.840.1.799903.3.579.2.598 1959 Unknown [id number] 2.16.840.1.089146.3.579.2.598 1959 Unknown [id number] 2.16.840.1.866663.3.579.2.598 1959 Unknown [id number] 2.16.840.1.110278.3.579.2.598 1959 Unknown [id number] 2.16.840.1.860110.3.579.2.598 1959 Unknown [id number] [id number] 1959 Unknown [id number] [id number] Unknown [id number] Unknown [id number] [id number] Social History Date Type Detail Facility Start: 07-18-2021 End: 09-17-2022 Ex-smoker (finding) [facility] Sex Assigned At [facility] End: 04-05-2001 History of tobacco use Current smoker [facility] End: 04-05-2001 History of tobacco use Cigarette Smoker [facility] Start: 02-08-2015 End: 09-17-2022 Cigarettes smoked current (pack per day) - Reported 1 [facility] Start: 02-08-2015 End: 09-17-2022 Tobacco use and exposure Smokeless tobacco non-user [facility] Start: 07-28-2022 End: 10-08-2022 Alcohol intake Current non-drinker of alcohol (finding) [facility] Start: 1960 Sex Assigned At Not on file C [facility] Medical Equipment Procedure Code Equipment Code Equipment Origin al Text Equipment Identifier Dates ONE TOUCH DELICA 33 gauge misc Start: 08-08-2016 Mesh Parietene D s [id number] X1 - [id number] Start: 09-24-2022 Goals Date Patient Goal Desired Activity /State Clinical Notes 05-29-2011 to 10-08-2022 Paul Berger PA-C - 10/08/2022 11:24 AM EDTErLEANNA Tiwari 09/17/2022 10:40 AM EDTPatient InstructionsTelephone Encounter - Sheryl Carrasco APRN.CNP - 08/31/2022 3:00 PM ESTPatient Instructions Note Date & Type Note Facility 10-08-2022 Note HNO ID: [id number] Author: Paul Berger PA-C Service: ? Author Type: Physician Public Service Administrator Type: Progress Notes Filed: 03/18/2023 2:57 PM Note Text: Paul Berger PA-C Hepatobiliary Surgery [address] [facility], [address] [place] [address] SUBJECTIVE Josh Hernandez is a 62 year old female here for a post operative visit. The patient is s/p ventral hernia repair by Dr. Romo on 09/24/2022. She was kept in the hospital overnight for pain management and has been recovering at home. She states she has abdominal soreness following surgery, but it is slowly improving. Having bowel movements. Tolerating a regular diet. No nausea or vomiting. No fever/chills. The ROS, medical, surgical, family, and social history were reviewed by Paul Berger PA-C OBJECTIVE BP 122/78 (BP Site: Left Arm, BP Position: Sitting, BP Cuff Size: Regular Adult) Ht 162.6 cm (5' 4 ) Wt 87.5 kg (193 lb) BMI 33.13 kg/m? BMI 33.13 kg/(m2) Physical Exam: General: Patient seated in no acute distress Respiratory: Breathing comfortably on room air Abdomen: Soft, non tender, non distended. Incisions intact without erythema, edema, or discharge. Neurologic: She is alert and oriented to person, place, and time. Plan S/p hernia repair The patient is a 62 year old female 2 weeks s/p hernia repair. Overall she is recovering well from surgery. Continues to have improvement in abdominal pain. No concerning findings. She can follow up with our office on a prn basis. All questions were answered to the patient's satisfaction and is agreeable with the plan. Paul Berger PA-C 10/12/2022 11:24 AM I spent a total of 20 minutes on the date of the service which included preparing to see the patient, [id number] patient care, completing clinical documentation, performing a medically appropriate examination, and counseling and educating the patient/family/caregiver. [facility] 10-08-2022 History of Presen t illness Narrative Images from the original note were not included. Paul Berger PA-C Hepatobiliary Surgery [address] [facility], [address] [place] [address] SUBJECTIVE Josh Hernandez is a 62 year old female here for a post operative visit. The patient is s/p ventral hernia repair by Dr. Romo on 09/24/2022. She was kept in the hospital overnight for pain management and has been recovering at home. She states she has abdominal soreness following surgery, but it is slowly improving. Having bowel movements. Tolerating a regular diet. No nausea or vomiting. No fever/chills. The ROS, medical, surgical, family, and social history were reviewed by Paul Berger PA-C OBJECTIVE BP 122/78 (BP Site: Left Arm, BP Position: Sitting, BP Cuff Size: Regular Adult) Ht 162.6 cm (5' 4 ) Wt 87.5 kg (193 lb) BMI 33.13 kg/m BMI 33.13 kg/(m^2) Physical Exam: General: Patient seated in no acute distress Respiratory: Breathing comfortably on room air Abdomen: Soft, non tender, non distended. Incisions intact without erythema, edema, or discharge. Neurologic: She is alert and oriented to person, place, and time. Plan S/p hernia repair The patient is a 62 year old female 2 weeks s/p hernia repair. Overall she is recovering well from surgery. Continues to have improvement in abdominal pain. No concerning findings. She can follow up with our office on a prn basis. All questions were answered to the patient's satisfaction and is agreeable with the plan. Paul Berger PA-C 10/12/2022 11:24 AM documented in this encounter [facility] 09-25-2022 Note HNO ID: [id number] Author: Sharon Giles MD Service: General Surgery Author Type: Resident Type: Progress Notes Filed: 09/25/2022 7:12 AM Note Text: Attestation signed by Chris Romo MD at 10/14/2022 10:07 AM I saw and evaluated the patient. Discussed with the resident and agree with resident's findings and plan as documented in the resident's note. October 14, 2022 Chris Romo MD 10:07 AM Plan of care discussed with: Provider, RN, Patient. [facility] ([facility]) Progress Note SERVICE DATE: September 25, 2022 [facility] ([facility]) Service Pager: For questions or concerns Mon-Fri 6a-5p please page [phone]. After 5pm and on Weekends and Holidays, please page [phone] if in ICU or [phone] if on RNF. Subjective SUBJECTIVE: Patient s/p Ventral hernia repair. Having pain with mobility but tolerable with narcotics. No nausea/vomiting. Tolerating diet DIET CARBOHYDRATE CONTROLLED Objective OBJECTIVE: Vitals: Temp (24hrs), Av.4 ?C (97.5 ?F), Min:36 ?C (96.8 ?F), Max:36.7 ?C (98.1 ?F) BP 141/76 Pulse 86 Temp 36.5 ?C (97.7 ?F) (Temporal) Resp 18 SpO2 92% O2 Therapy: Room Air IANDO: Date 09/24/22 0700 - 03/24/23 0659 09/25/22 07 - 09/26/22 0659 Shift 5420-5117 8318-8172 3135-9333 24 Hour Total 2503-2405 7272-4112 2200-4449 24 Hour Total INTAKE PO 200 200 PO 200 200 IV 3784 302 1234 Volume (mL) (lactated ringers iv infusion) 1000 1000 Volume (mL) (lactated ringers iv infusion) 300 300 Shift Total 1000 486 186 5807 OUTPUT Urine 150 150 OR Urine Output 150 150 Shift Total 150 150 Weight (kg) MEDICATIONS Current Facility-Administered Medications Medication Dose Route Frequency aspirin, enteric coated 81 mg tab(s) 81 mg ORAL DAILY pantoprazole DR 40 mg tab(s) (PROTONIX) 40 mg ORAL DAILY (6 AM) amitriptyline 50 mg tab(s) (ELAVIL) 50 mg ORAL AT BEDTIME gabapentin 300 mg cap(s) (NEURONTIN) 300 mg ORAL TID enoxaparin 40 mg injection (LOVENOX) 40 mg SUBCUTANEOUS DAILY acetaminophen 1,000 mg tab(s) (TYLENOL) 1,000 mg ORAL q 6 H NaCl 0.9% iv flush bag 20 mL INTRAVENOUS PRN oxyCODONE IR 5-10 mg tab(s) (ROXICODONE) 5-10 mg ORAL q 4 H PRN Labs: Recent Labs 09/25/22 0359 WBC 6.80 HB 11.8 HCT 36.7 PLT 145* Physical Exam: GENERAL: resting comfortably, in no acute distress HEENT: normocephalic, atraumatic, EOMI NECK: trachea midline, no JVD LUNGS: Unlabored breathing, equal chest rise bilaterally CARDIAC: Regular rate, warm and well perfused extremities ABDOMEN: soft, mildly TTP. Incision sites with sterri strips. EXTREMITIES: VARGAS, No deformities, No edema SKIN: Skin color, texture, turgor normal, No rashes or lesions NEURO: AANDOx3, CN II-XII grossly intact PSYCH: normal mood and affect ASSESSMENT AND PLAN: Assessment Active Hospital Problems Diagnosis Date Noted Postoperative abdominal pain 09/24/2022 Assessment: 62 year old female s/p Ventral hernia repair Hospital Course/Operations/Procedures: 09/24/2022 Procedure(s): ROBOTIC LAPAROSCOPIC HERNIA REPAIR VENTRAL INITIAL REDUCIBLE W/MESH 3cm-10cm INPATIENT ATTENDING: Dr. Chris Romo MD, Elective High-Risk Geriatric Patient Vulnerabilities: Patient is NOT high risk based on evaluation and assessment Plan: - Continue reguarl diet - PRN pain/nausea control - Abdominal binder when moving - Ice to abdomen as needed - Likely Home today. - Diet: DIET CARBOHYDRATE CONTROLLED - Anticipated discharge: 09/25/2022 Discussed with attending: Dr. Romo Follow up needs: TBD SIGNATURE: Sharon Giles MD PATIENT NAME: Josh Hernandez DATE: September 25, 2022 TIME: 7:09 AM Pager: see below [facility] ([facility]) Service Pager: For questions or concerns Mon-Fri 6a-5p please page [phone]. After 5pm and on Weekends and Holidays, please page [phone] if in ICU or [phone] if on RNF. [facility] 09-24-2022 Note HNO ID: [id number] Author: Amrita Kingston RN Service: ? Author Type: Registered Nurse Type: Progress Notes Filed: 09/24/2022 5:41 PM Note Text: Kitchen called to attempt to obtain a meal tray for dinner service. [facility] 09-24-2022 Note HNO ID: [id number] Author: Ninoska Hahn APRN.INDUSTRIAL TRUCK DRIVER Service: Anesthesiology Author Type: Nurse Anchor Operator Type: Anesthesia Procedure Notes Filed: 09/24/2022 8:34 AM Note Text: ANESTHESIOLOGY PROCEDURE NOTE Airway General Information Procedure Start Time/Medication Administration: 09/24/2022 8:19 AM Patient location during procedure: OR Timeout Performed Pre-procedure: timeout performed Consent Obtained: Yes Patient identity confirmed: arm band and patient Staffing Anesthesiologist: Mildred Silverio MD INDUSTRIAL TRUCK DRIVER: Ninoska Hahn APRN.INDUSTRIAL TRUCK DRIVER Performed by: INDUSTRIAL TRUCK DRIVER Indications and Patient Condition Indications for airway management: anesthesia Preoxygenated: yes anesthesia circuit Patient position: sniffing Method: asleep Airway Accessory: oral airway Final Airway Details Final airway type: endotracheal airway Final Endotracheal Airway: ETT Cuffed: yes Successful intubation technique: video laryngoscopy Devices used: [employer] Endotracheal tube insertion site: oral Blade: Bhavesh Blade size: #3 ETT size (mm): 7.5 Measured from: lips Measurement (cm): 20 Placement verified by: chest auscultation and capnometry Cormack-Lehane Classification: grade I - full view of glottis Number of attempts at approach: 1 SIGNATURE: Ninoska Hahn APRN.CRNA PATIENT NAME: Josh Hernandez DATE: September 24, 2022 TIME: 8:34 AM CSN: [id number] [facility] 09-17-2022 History and physical note HISTORY AND PHYSICAL EXAMINATION SERVICE DATE: 09/17/2022 SERVICE TIME: 11:10 AM PRIMARY CARE PHYSICIAN: Elias Weinberg MD REASON FOR VISIT: Josh Hernandez is a 62 year old female who is scheduled for Procedure(s): ROBOTIC LAPAROSCOPIC HERNIA REPAIR VENTRAL INITIAL REDUCIBLE W/MESH 3cm-10cm (N/A) at the request of Dr. Chris Romo for routine H&P. My final recommendation will be communicated back to the requesting physician by way of shared medical record or letter. Subjective The patient has the following: ACTIVE PROBLEM LIST Chronic Depression Mixed Hyperlipidemia Essential Hypertension Hemorrhage of Rectum and Anus Benign Neoplasm of Colon Internal Hemorrhoids Without Mention of Complication Diarrhea Personal History of Colonic Polyps Postmenopausal Atrophic Vaginitis Diet-Controlled Type 2 Diabetes Mellitus (Hcc) Bee Sting Allergies Calcaneal Spur Fibromyalgia Asthma, Mild Persistent Hyperlipidemia With Target Ldl Less Than 70 Chronic Migraine Without Aura Without Status Migrainosus, Not Intractable Genital Herpes Esophageal Reflux Morbid Obesity (Hcc) Hypothyroid COVID-19 Immunization Status COVID-19 VACCINE (Series Information) Completed 04/03/2022 Imm Admin: COVID-19 booster vaccine, age 12+ yr, bivalent (PFIZER-BIONTECH) 11/01/2021 Imm Admin: COVID-19 original vaccine, age 12+ yr, monovalent (PFIZER-BIONTECH - PURPLE TOP) 05/02/2021 Imm Admin: COVID-19 original vaccine, age 12+ yr, monovalent (PFIZER-BIONTECH - PURPLE TOP) Only the first 3 history entries have been loaded, but more history exists. CHIEF COMPLAINT: The reason for this visit is To perform a comprehensive review of the patients past medical history, assess their current health status and obtain any additional testing required based on anesthesia guidelines. To assess and identify potential anesthesia problems, particularly those that may suggest potential complications or contraindications to the planned procedure. HPI: Patient presents to PST for the above procedure. Pt states she has been dealing with her hernias for about 1 year. Pt states occasional pain but denies any pain currently. Pt states she has 4 hernias. She states they are mostly reducible. Pt states issues with constipation as well. Pt denies N/V/D. Patient denies any other problems or concerns at this time. Risks and benefits of the procedure discussed by Surgeon and patient agreed to proceed with planned procedure. REVIEW OF SYSTEMS: General: No weight loss, malaise or fevers. Neurological: Negative for: headaches, seizures and strokes. Respiratory: Positive for: asthma. Negative for: COPD, current cough, dyspnea, tobacco use and obstructive sleep apnea. Cardiovascular: Positive for: hyperlipidemia and hypertension Negative for: AICD/PPM, angina, anticoagulation therapy, atrial fibrillation, CAD, chest pain, CHF and DVT/PE. GI: See HPI. : Negative for: frequent urination, hematuria and urgency. 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 Hematology: Negative for: anemia, bruises/bleeds easily and chronic anti-coagulation/platelet meds. Oncology: No history of CA metastasis, chemo within 30 days, or radiotherapy within 90 days. No history of oncological symptoms or problems. Psych: Negative for: anxiety and depression. Musculoskeletal: Negative for joint pain or swelling, back pain or muscle pain. Skin: Negative for lesions, rash and itching. PAST MEDICAL HISTORY Diagnosis Date Asthma Benign neoplasm of colon Cyst of left kidney CT 11/2017 Depressive disorder, not elsewhere classified 05/2003 Diabetes mellitus (HCC) Diarrhea Esophageal reflux 05/[address] 11/2017 Hemorrhage of gastrointestinal tract, unspecified Hepatic cyst CT 11/2017 Hypertension Morbid obesity (HCC) 08/09/2009 stated BMI 40.1 Ht: 63 Wt: 227 lbs Other and unspecified hyperlipidemia 05/2001 Pain in joint, multiple sites back, hips, knees Snoring Unspecified hypertensive heart disease without heart failure 05/2001 Ventral hernia without obstruction or gangrene PAST SURGICAL HISTORY Procedure Laterality Date ARTHRT GLENOHMRL JT W/JT EXPL W/WO RMVL LOOSE/FB Right 03/18/2005 arthritic bone removal BUNION CORRECTION W/METATARSAL OSTEOTOMY BUNIONECTOMY, LAPIDUS-TYPE Right 2020 COLONOSCOPY FLX DX W/COLLJ SPEC WHEN PFRMD 2009 Colonoscopy COLONOSCOPY FLX DX W/COLLJ SPEC WHEN PFRMD 06/20/2014 Colonoscopy COLONOSCOPY FLX DX W/COLLJ SPEC WHEN PFRMD 01/08/2016 COLSC FLX W/RMVL OF TUMOR POLYP LESION SNARE TQ 01/13/2007 ESOPHAGOGASTRODUODENOSCOPY TRANSORAL DIAGNOSTIC 11/03/2011 EGD FOOT/TOES SURGERY PROC UNLISTED 01/22/2005 bilateral 5th toes GASTRIC BYPASS HX 08/12/2016 Dr Spike Dias GEn LAPAROSCOPY SURG CHOLECYSTECTOMY 12/04/[address] [facility] [address] Spike LEE CUSTOM 2001 bilateral LIG/TRNSXJ FLP TUBE ABDL/VAG APPR UNI/BI 1992 Tubal ligation OPEN REPAIR OF ROTATOR CUFF ACUTE 2006 left OPTX ANKLE DISLOCATION W/REPAIR/INT/XTRNL FIXJ 2012 left TONSILLECTOMY & ADENOIDECTOMY <AGE 12 1981 TOTAL ABDOMINAL HYSTERECT W/WO RMVL TUBE OVARY 06/2002 Hysterectomy, CATRACHITA/BSO for bleeding and pain FAMILY HISTORY Problem Relation Age of Onset Cancer Mother uterine/also heart problems/hypertension/diabetes Heart Mother mother at 46 from heart attack Cancer Father esophageal/also heart disease Heart Father biological Stroke Father biological Diabetes Sister Diabetes Brother 2 brothers Heart Brother 5 stents Heart Sister heart attack-4 stents Heart disease Brother Diabetes Brother Hypertension Brother other (Gasstric ulcer) Brother other (hiatal hernia) Brother Social History Tobacco Use Smoking status: Former Packs/day: 1.00 Years: 20.00 Pack years: 20.00 Types: Cigarettes Quit date: 04/05/2001 Years since quittin.4 Smokeless tobacco: Never Vaping Use Vaping Use: Never used Substance Use Topics Alcohol use: No Drug use: No Prior to Admission medications as of 09/17/22 1044 Medication Sig Last Dose Taking melatonin 10 mg cap Take 10 mg by mouth. Taking Yes docusate sodium (COLACE) 100 mg capsule Take 100 mg by mouth. Taking Yes Cholecalciferol, Vitamin D3, 125 mcg (5,000 unit) cap Take by mouth. Taking Yes esomeprazole (NEXIUM) 40 mg capsule once daily. Taking Yes levothyroxine sodium (SYNTHROID ORAL) Take 0.05 mg by mouth once daily. Taking Yes traMADol (ULTRAM) 50 mg tablet Take 50 mg by mouth every 8 hours as needed. Taking Yes meloxicam (MOBIC) 15 mg tablet Take 1 tablet by mouth once daily. Taking Yes hydrOXYzine HCl (ATARAX) 25 mg tablet Take 25 mg by mouth once daily. Taking Yes aspirin, enteric coated (ASPIRIN, ENTERIC COATED) 81 mg EC tablet Take 1 tablet by mouth once daily. Taking Yes gabapentin (NEURONTIN) 300 mg capsule Take 1 capsule by mouth three times daily. Taking Yes losartan (COZAAR) 25 mg tablet Take 1 tablet by mouth once daily. Taking Yes amitriptyline (ELAVIL) 50 mg tablet Take 1 tablet by mouth daily at bedtime. Taking Yes multivitamin tablet Take 1 tablet by mouth once daily. Taking 4 pills at once daily Taking Yes CALCIUM CARBONATE (CALCIUM 500 ORAL) Take by mouth once daily. Taking Yes ONE TOUCH DELICA 33 gauge misc Taking Yes methylPREDNISolone (MEDROL DOSE-PACK) 4 mg Dose-Pack Take per package instructions. Patient not taking: No sig reported Not Taking ursodiol (ACTIGALL) 300 mg capsule Take 1 capsule by mouth twice daily. Patient not taking: No sig reported Not Taking No medication comments found. ALLERGIES Allergen Reactions Aspirin Bees Anaphylaxis Flexeril [Cyclobenz* Intolerance Keflex [Cephalexin] Penicillin G Prilosec [Omeprazol* Objective PHYSICAL EXAM: General: alert and oriented and healthy appearance. Pertinent negatives noted - not distressed. Skin: normal color, no rash or lesions. HEENT: EOM intact and pupils equal round. Cardiovascular: regular rate and rhythm, normal S1 and S2, no rub, murmurs, or gallop. Respiratory: normal breath sounds, no wheezes or crackles. No chest wall deformity or tenderness. Abdomen: bowel sounds present. Pertinent negatives noted - no abnormal bowel sounds. Extremities: no deformity, no edema or tenderness, no joint swelling or clubbing. Neurological: normal cognition and motor skills. Gait normal. No weakness or sensory deficit. PAIN ASSESSMENT: Pain Pain Level: 0 VITALS: BP 117/80 Pulse 80 Temp 96.8 Resp 16 Ht 5' 4 (1.63m) Wt 200 lb (90.7kg) SpO2 94% BMI 34.31 kg/(m^2). Diagnostic tests reviewed for today's visit: Lab Value Units Date High Low HB No results within date range. HCT No results within date range. WBC No results within date range. PLT No results within date range. NA No results within date range. K No results within date range. GLUC No results within date range. BUN No results within date range. CREAT No results within date range. PTSEC No results within date range. INR No results within date range. APTT No results within date range. ALT No results within date range. AST No results within date range. TBILI No results within date range. TSH No results within date range. Lab Value Units Date High Low HCGQT No results within date range. UHCG No results within date range. HCG, BODY* No results within date range. Lab Value Units Date High Low ABORHD No results within date range. ABSCREEN No results within date range. Hemoglobin A1C (%) Date Value 07/28/2022 6.3 08/06/2017 5.0 06/17/2016 6.0 07/31/2015 7.5 10/19/2014 6.1 04/18/2014 6.4 Recent Results (from the past 8760 hour(s)) ECG COMPLETE Collection Time: 07/31/22 12:20 PM Result Value Ventricular Rate 69 Atrial Rate 69 P-R Interval 170 QRS Duration 76 QT Interval 416 QTC Calculation (Bazett) 445 Calculated P [place] 45 Calculated R [place] 78 Calculated T [place] 59 Impression NORMAL SINUS RHYTHM POSSIBLE LEFT ATRIAL ENLARGEMENT BORDERLINE ECG WHEN COMPARED WITH ECG OF 17-JUN-2016 08:30, NO SIGNIFICANT CHANGE WAS FOUND Confirmed by MD JASEN, OWEN ([id number]) on 07/31/2022 2:11:07 PM No results found for this or any previous visit (from the past 47229 hour(s)). Assessment Patient has the following medical conditions which may affect tianna-operative course: Mixed hyperlipidemia Diet Controlled. Essential hypertension Elavil 50mg, Losartan 25mg. Pt instructed to take DOS. Asthma, mild persistent Pt states she had bronchitis about 11 years ago. Pt denies asthma. Esophageal reflux Esomeprazole 40mg. Pt states not well controlled. Pt instructed to take medication DOS. Diet-controlled type 2 diabetes mellitus (HCC) Pt states she had DM around 2016 but has since been off medication. Hypothyroid Synthroid 50mcg. Pt instructed to take DOS. [place] Activity Status Index: METS: Climb a flight of stairs or walk up a hill (5.50 METs) DASI Score: 5.5 Patient denies any chest pain or undue shortness of breath with the above physical activity. Clinical Frailty Scale: 3. Well, with treated comorbid disease ARISCAT Score: Age: 51-80 Preoperative SpO2: 91-95% Respiratory infection in the last month: No Preoperative anemia: No Surgical incision: upper abdominal Duration of surgery: >3 hrs Emergency procedure: No ARISCAT Score: 49 ANESTHESIA FINDINGS: Intubation History: No history of difficult intubation. No abnormal airway history Significant Anesthesia Considerations: none Airway History: No history of difficult airway No abnormal airway history I - PHYSICAL EVALUATION AIRWAY Patient intubated: No. DENTAL Dentures, upper: complete. Dentures, lower: complete. II - ANESTHESIA PLAN Anesthetic Plan: general Beta Leana Monitoring Plan Post Procedure Analgesic Plan Prepared for Surgery: CONSULTS: The following consults have been initiated at this time: primary care/internal medicine (09/16 in scanned docs'). Planned Anesthetic: general The Following Tests/Procedures Have Been Initiated: Orders Placed This Encounter melatonin 10 mg cap Sig: Take 10 mg by mouth. docusate sodium (COLACE) 100 mg capsule Sig: Take 100 mg by mouth. Cholecalciferol, Vitamin D3, 125 mcg (5,000 unit) cap Sig: Take by mouth. Implantable Devices: Hardware in right foot. Possible abdominal clips. Pt instructed to take blood pressure and heart medications DOS. Pt instructed to contact surgeon and prescribing provider for instructions regarding blood thinners. The Following Tests/Procedures Have Been Initiated: CBC, CMP ordered per surgeon. Assessment/Plan Ventral hernia without obstruction or gangrene [K43.9] PLAN Diagnosis: Planned Procedure: Procedure(s): ROBOTIC LAPAROSCOPIC HERNIA REPAIR VENTRAL INITIAL REDUCIBLE W/MESH 3cm-10cm (N/A) I spent a total of 50 minutes on the date of the service which included preparing to see the patient, [id number] patient care, completing clinical documentation, performing a medically appropriate examination, and counseling and educating the patient/family/caregiver. Instructions Given to Patient: Instructions located in the after visit summary. Patient given verbal and written preop instructions and voices comprehension and compliance. SIGNATURE: LEANNA Braga PATIENT NAME: Josh Hernandez DATE: September 17, 2022 TIME: 8:07 AM PAGER/CONTACT #: documented in this encounter [facility] 09-17-2022 Instructions LEANNA Braga - 09/17/2022 8:07 AM EDT PATIENT PREOPERATIVE INSTRUCTIONS Your surgeon has scheduled for your procedure at this surgery center: [facility]: [phone], [address] [id number] Please enter through the main entrance and proceed to the blue elevators. The [facility] is located to the left of the blue elevator. Please read below carefully for your personalized instructions. Arrival Time for Surgery: DATE: 09/24/22 - To obtain your ARRIVAL TIME for surgery, call your physician's office the day before your surgery. - If your surgery is scheduled for Wednesday, call the Wednesday before. Your surgeon's grey goods examiner will tell you what time to call the office. - Please be aware that emergency situations arise, which may delay or change your surgical time. If this happens, we will notify you as soon as possible and regret any inconvenience. Requirement for Vaccinations : 72-hour period between getting vaccine and date of surgery. Dietary Restrictions: - Nothing to eat after midnight. Blood Thinning Medications: - Stop NSAIDS (Ibuprofen, Advil, Aleve, Motrin, Celebrex, Mobic, etc.) 7 days before surgery, as directed by your surgeon. You may take Tylenol (Acetaminophen) or any of your pain medications that do not contain aspirin or NSAIDS as needed. IF YOU TAKE ANY OF THE FOLLOWING BLOOD THINNERS, PLEASE CONTACT YOUR SURGEON AND THE PHYSICIAN WHO PRESCRIBES IT FOR YOU IN ORDER TO GET PERIOPERATIVE INSTRUCTIONS SOON POSSIBLE. BLOOD THINNERS: Aspirin , Coumadin, Plavix, Eliquis, Pradaxa, Xarelto, Lovenox, Brilinta, Effient, Savaysa, Arixtra, etc - Stop Vitamin E, fish oil, multivitamins, Marijuana, CBD oil and other over the counter herbals and dietary supplements 7 days before surgery. -This would not apply to cancer patients who are prescribed Marinol or any other prescription form on marijuana or CBD. -exception Dr. Cid and Dr. Arias want their patients npo at midnight. Medications: Approved medications to take the morning of surgery with a sip of water: BP, HCTZ, Heart, thyroid, psych, seizure, and pain medications excluding NSAIDS. Use inhalers as prescribed. Please bring inhalers. Diabetes Please follow up with the provider that manages your diabetes and how to prepare you for surgery. If you are taking the following medications for Type 2 diabetes: Canagliflozin (INVOKANA), dapagliflozin (FARXIGA), and empagliflozin (JARDIANCE) should each be discontinued at least 3 days before scheduled surgery. Ertugliflozin (STEGLATRO) should be discontinued at least four days before scheduled surgery. If you have a stimulator, implant or pump that requires a remote please bring the remote with you day of surgery. Erectile dysfunction: If you take any medications for erectile dysfunction- Cialis (Tadalafil), Levitra, Staxyn, (Vardenafil), Viagra (Sildenenafil). Please do not take these for 48 hours before surgery. Pain Medications: Tylenol for pain as needed and if you are not allergic to. If you start any new medications after today's visit, please contact the surgeon's office. Important Reminders: - If you use CPAP/BIPAP, bring the machine with you to the surgery center. - If you are prescribed inhalers for breathing, continue using them AND bring them to the surgery center. - Candy, mints, gum and tobacco products are NOT permitted the morning of surgery. - Hearing aids, dentures and glasses may be worn the morning of surgery. - NO jewelry, body piercings, makeup, hairpins or contacts are to be worn the day of surgery. -Oral hygiene and a shower or bath is required the evening before or the morning of surgery. Use the [employer] body wash supplied to you along with the instruction. - NO lotion, creams, powders or deodorants on the skin the day of surgery -Wear loose, comfortable clothing that will accommodate bandages. -Your length of stay will be determined by your surgeon - You will need to have someone else (Family or friend) drive you home once discharged from the hospital. You are not allowed to drive yourself home after surgery. - YOU MUST HAVE A RESPONSIBLE PRESSER FIRST TAKE YOU HOME. A OCTAVE BOARD ASSEMBLER, CAB OR UBER PRESSER FIRST CANNOT BE MADE A RESPONSIBLE PRESSER FIRST. - You cannot stay in a hotel alone after outpatient surgery. You will not be permitted to have your surgery, if you do not have someone to take care of you. CCAG: Given COVID 19 pandemic, one visitor is allowed in the hospital. They may wait in the surgery waiting room while you are in surgery but must wear a mask. Only one visitor will be permitted to visit you while your admitted after surgery. If you develop symptoms such as a fever, cold, or flu, or have other changes to your health within TWO DAYS of scheduled surgery or the morning of surgery, please contact the surgery center above. Personal Belongings: - Leave ALL valuables and money at home or with family members. - You will need a form of ID and insurance card to check in the morning of surgery. - You will have to wear a hospital gown during your stay but if you wish to bring undergarments for after surgery you may. Ambulatory surgery center [place]- orthopedic patients needing a walker should bring the walker into the building day of surgery. Orthopedic patients having surgery [facility] listed as outpatient should bring their walker into the building. Orthopedic patients having surgery [facility] listed as to be admitted should leave their walkers in the car or with a family member. Hibiclens provided LEANNA Braga 09/17/22 documented in this encounter [facility] 08-31-2022 Miscellaneous Notes Summary: SOC Update SURGERY OPTIMIZATION CLINIC DIRECT CHILL CASTING OPERATOR NOTE Discussed the purpose of the Surgery Optimization Clinic. Reviewed modifiable risk factors identified in the Surgery Optimization Clinic: EXERCISE: Reports she is wearing her pedometer. Is averaging 16,000-18,000 steps a week (about 2,500 steps a day). 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 Encouraged to increase activity as much as possible prior to surgery. BREATHING: Is using her IS about 20 times a day. Encouraged to increase use to 30-40 breaths/day. NUTRITION: Is trying to increase her protein and decrease her carbs. Suggested an easy to-go breakfast of protein bar or shake. Reviewed high protein food sources. Encouraged to include a protein source with each meal. Impact Advanced Recovery to start 5 days prior to procedure, BID. STRESS RELIEF: Education given to patient for stress reduction/management. OR DATE: 09/24/22 Agreeable to a follow up call in: two weeks Sheryl Carrasco APRN.CNP August 31, 2022 documented in this encounter [facility] 08-14-2022 Miscellaneous Notes Summary: SOC Updates SURGERY OPTIMIZATION CLINIC DIRECT CHILL CASTING OPERATOR NOTE Discussed the purpose of the Surgery Optimization Clinic. Reviewed modifiable risk factors identified in the Surgery Optimization Clinic: EXERCISE: Reports she is wearing her pedometer. Getting about 5,000 steps a day. 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 Encouraged to take breaks from the desk to get steps in. Encouraged to increase activity as much as possible prior to surgery. BREATHING: Reports she is using her IS about 20 times a day. Encouraged to increase use to 30-40 breaths/day. NUTRITION: Counting carbs, trying to keep them low. Trying to increase her protein. Reviewed high protein food sources. Aim for 64 ounce of water a day. Encouraged to include a protein source with each meal. Impact Advanced Recovery to start 5 days prior to procedure, BID. STRESS RELIEF: Education given to patient for stress reduction/management. OR DATE: 09/24/2022 Agreeable to a follow up call in: two weeks Sheryl Carrasco APRN.CNP August 14, 2022 documented in this encounter [facility] 07-31-2022 Note HNO ID: [id number] Author: Sheryl aCrrasco APRN.CNP Service: ? Author Type: Nurse Practitioner Type: Progress Notes Filed: 07/31/2022 11:44 AM Note Text: Summary: SOC Sheryl Carrasco APRN.[facility] Surgery Optimization Clinic (SOC) [address] [facility], [address] [place] [address] Patient: Josh Hernandez Date of : 1960 Subjective Scheduled OR Date: 09/24/22 Surgeon: Dr. Romo PCP: Elias Weinberg MD DIAGNOSES: Ventral hernia without obstruction PLANNED PROCEDURE: Robotic laparoscopic ventral hernia repair HPI Josh Hernandez is a 62 year old female, who was recently evaluated for surgery and has elected to proceed with the above mentioned surgical intervention. Patient has a h/o asthma, heart disease, DM2, GERD, HTN, former smoker. Patient also has a h/o multiple abdominal surgeries including a hysterectomy, cholecystectomy, gastric bypass in 2017. Patient reports she first noted ventral hernias about a year ago. Patient has met with Dr. Romo, surgery for a robotic laparoscopic ventral hernia repair is scheduled for 09/24/22. Patient reports she has intermittent abdominal pain, today rating her pain a 3/10, nothing seems to make the pain worse, she takes Ultram for pain control. She also reports chronic constipation, she has tried Miralax in the past and it did not help. She take Colace and Sennakot PRN. Denies any blood in the stool. Denies any SOB, CP, fevers, or chills. PAST MEDICAL HISTORY PAST MEDICAL HISTORY Diagnosis Date Asthma Benign neoplasm of colon Cyst of left kidney CT 11/2017 Depressive disorder, not elsewhere classified 05/2003 Diabetes mellitus (HCC) Diarrhea Esophageal reflux 05/[address] 11/2017 Hemorrhage of gastrointestinal tract, unspecified Hepatic cyst CT 11/2017 Hypertension Morbid obesity (HCC) 2-5-10 stated BMI 40.1 Ht: 63 Wt: 227 lbs Other and unspecified hyperlipidemia 05/2001 Pain in joint, multiple sites back, hips, knees Snoring Unspecified hypertensive heart disease without heart failure 05/2001 FAMILY HISTORY FAMILY HISTORY Problem Relation Age of Onset Cancer Mother uterine/also heart problems/hypertension/diabetes Heart Mother mother at 46 from heart attack Cancer Father esophageal/also heart disease Heart Father biological Stroke Father biological Diabetes Sister Diabetes Brother 2 brothers Heart Brother 5 stents Heart Sister heart attack-4 stents Heart disease Brother Diabetes Brother Hypertension Brother other (Gasstric ulcer) Brother other (hiatal hernia) Brother PAST SURGICAL HISTORY PAST MEDICAL HISTORY Diagnosis Date Asthma Benign neoplasm of colon Cyst of left kidney CT 11/2017 Depressive disorder, not elsewhere classified 05/2003 Diabetes mellitus (HCC) Diarrhea Esophageal reflux 05/[address] 11/2017 Hemorrhage of gastrointestinal tract, unspecified Hepatic cyst CT 11/2017 Hypertension Morbid obesity (HCC) 2--10 stated BMI 40.1 Ht: 63 Wt: 227 lbs Other and unspecified hyperlipidemia 05/2001 Pain in joint, multiple sites back, hips, knees Snoring Unspecified hypertensive heart disease without heart failure 05/2001 ALLERGIES ALLERGIES Allergen Reactions Aspirin Bees Anaphylaxis Flexeril [Cyclobenz* Intolerance Keflex [Cephalexin] Penicillin G Prilosec [Omeprazol* MEDICATIONS Current Outpatient Medications Medication Sig Dispense Refill levothyroxine sodium (SYNTHROID ORAL) Take 0.05 mg by mouth once daily. traMADol (ULTRAM) 50 mg tablet Take 50 mg by mouth every 8 hours as needed. meloxicam (MOBIC) 15 mg tablet Take 1 tablet by mouth once daily. hydrOXYzine HCl (ATARAX) 25 mg tablet Take 25 mg by mouth once daily. aspirin, enteric coated (ASPIRIN, ENTERIC COATED) 81 mg EC tablet Take 1 tablet by mouth once daily. gabapentin (NEURONTIN) 300 mg capsule Take 1 capsule by mouth three times daily. methylPREDNISolone (MEDROL DOSE-PACK) 4 mg Dose-Pack Take per package instructions. 1 tablet 0 losartan (COZAAR) 25 mg tablet Take 1 tablet by mouth once daily. 90 tablet 3 amitriptyline (ELAVIL) 50 mg tablet Take 1 tablet by mouth daily at bedtime. 90 tablet 3 multivitamin tablet Take 1 tablet by mouth once daily. Taking 4 pills at once daily CALCIUM CARBONATE (CALCIUM 500 ORAL) Take by mouth once daily. ursodiol (ACTIGALL) 300 mg capsule Take 1 capsule by mouth twice daily. (Patient not taking: No sig reported) 180 capsule 0 ONE TOUCH DELICA 33 gauge misc No current facility-administered medications for this visit. Review of Systems Review of Systems Constitutional: Negative for chills, fever and unexpected weight change. HENT: Negative for trouble swallowing. Respiratory: Negative for coug (more content not included)... [facility] 07-31-2022 History of Presen t illness Narrative Summary: SOC Images from the original note were not included. Sheryl Carrasco APRN.[facility] Surgery Optimization Clinic (SOC) [address] [facility], [address] [place] [address] Patient: Josh Hernandez Date of : 1960 Subjective Scheduled OR Date: 09/24/22 Surgeon: Dr. Romo PCP: Elias Weinberg MD DIAGNOSES: Ventral hernia without obstruction PLANNED PROCEDURE: Robotic laparoscopic ventral hernia repair HPI Josh Hernandez is a 62 year old female, who was recently evaluated for surgery and has elected to proceed with the above mentioned surgical intervention. Patient has a h/o asthma, heart disease, DM2, GERD, HTN, former smoker. Patient also has a h/o multiple abdominal surgeries including a hysterectomy, cholecystectomy, gastric bypass in 2017. Patient reports she first noted ventral hernias about a year ago. Patient has met with Dr. Romo, surgery for a robotic laparoscopic ventral hernia repair is scheduled for 09/24/22. Patient reports she has intermittent abdominal pain, today rating her pain a 3/10, nothing seems to make the pain worse, she takes Ultram for pain control. She also reports chronic constipation, she has tried Miralax in the past and it did not help. She take Colace and Sennakot PRN. Denies any blood in the stool. Denies any SOB, CP, fevers, or chills. PAST MEDICAL HISTORY PAST MEDICAL HISTORY Diagnosis Date Asthma Benign neoplasm of colon Cyst of left kidney CT 11/2017 Depressive disorder, not elsewhere classified 05/2003 Diabetes mellitus (HCC) Diarrhea Esophageal reflux 05/[address] 11/2017 Hemorrhage of gastrointestinal tract, unspecified Hepatic cyst CT 11/2017 Hypertension Morbid obesity (HCC) 2-5-10 stated BMI 40.1 Ht: 63 Wt: 227 lbs Other and unspecified hyperlipidemia 05/2001 Pain in joint, multiple sites back, hips, knees Snoring Unspecified hypertensive heart disease without heart failure 05/2001 FAMILY HISTORY FAMILY HISTORY Problem Relation Age of Onset Cancer Mother uterine/also heart problems/hypertension/diabetes Heart Mother mother at 46 from heart attack Cancer Father esophageal/also heart disease Heart Father biological Stroke Father biological Diabetes Sister Diabetes Brother 2 brothers Heart Brother 5 stents Heart Sister heart attack-4 stents Heart disease Brother Diabetes Brother Hypertension Brother other (Gasstric ulcer) Brother other (hiatal hernia) Brother PAST SURGICAL HISTORY PAST MEDICAL HISTORY Diagnosis Date Asthma Benign neoplasm of colon Cyst of left kidney CT 11/2017 Depressive disorder, not elsewhere classified 05/2003 Diabetes mellitus (HCC) Diarrhea Esophageal reflux 05/[address] 11/2017 Hemorrhage of gastrointestinal tract, unspecified Hepatic cyst CT 11/2017 Hypertension Morbid obesity (HCC) 2-5-10 stated BMI 40.1 Ht: 63 Wt: 227 lbs Other and unspecified hyperlipidemia 05/2001 Pain in joint, multiple sites back, hips, knees Snoring Unspecified hypertensive heart disease without heart failure 05/2001 ALLERGIES ALLERGIES Allergen Reactions Aspirin Bees Anaphylaxis Flexeril [Cyclobenz* Intolerance Keflex [Cephalexin] Penicillin G Prilosec [Omeprazol* MEDICATIONS Current Outpatient Medications Medication Sig Dispense Refill levothyroxine sodium (SYNTHROID ORAL) Take 0.05 mg by mouth once daily. traMADol (ULTRAM) 50 mg tablet Take 50 mg by mouth every 8 hours as needed. meloxicam (MOBIC) 15 mg tablet Take 1 tablet by mouth once daily. hydrOXYzine HCl (ATARAX) 25 mg tablet Take 25 mg by mouth once daily. aspirin, enteric coated (ASPIRIN, ENTERIC COATED) 81 mg EC tablet Take 1 tablet by mouth once daily. gabapentin (NEURONTIN) 300 mg capsule Take 1 capsule by mouth three times daily. methylPREDNISolone (MEDROL DOSE-PACK) 4 mg Dose-Pack Take per package instructions. 1 tablet 0 losartan (COZAAR) 25 mg tablet Take 1 tablet by mouth once daily. 90 tablet 3 amitriptyline (ELAVIL) 50 mg tablet Take 1 tablet by mouth daily at bedtime. 90 tablet 3 multivitamin tablet Take 1 tablet by mouth once daily. Taking 4 pills at once daily CALCIUM CARBONATE (CALCIUM 500 ORAL) Take by mouth once daily. ursodiol (ACTIGALL) 300 mg capsule Take 1 capsule by mouth twice daily. (Patient not taking: No sig reported) 180 capsule 0 ONE TOUCH DELICA 33 gauge misc No current facility-administered medications for this visit. Review of Systems Review of Systems Constitutional: Negative for chills, fever and unexpected weight change. HENT: Negative for trouble swallowing. Respiratory: Negative for cough and shortness of breath. Cardiovascular: Negative for chest pain and palpitations. Gastrointestinal: Positive for abdominal pain and constipation. Negative for blood in stool, diarrhea, nausea and vomiting. Genitourinary: Negative for hematuria. Musculoskeletal: Negative for gait problem. Skin: Negative for rash and wound. Neurological: Negative for dizziness, seizures, syncope and headaches. Psychiatric/Behavioral: Negative for confusion. The patient is not nervous/anxious. OBJECTIVE PHYSICAL EXAMINATION: BP 125/78 Pulse 83 Resp 20 Ht 162.6 cm (5' 4 ) Wt 90.7 kg (200 lb) SpO2 94% BMI 34.33 kg/m Body mass index is 34.33 kg/m . Physical Exam Vitals and nursing note reviewed. Eyes: Pupils: Pupils are equal, round, and reactive to light. Neck: Vascular: No carotid bruit. Cardiovascular: Rate and Rhythm: Normal rate and regular rhythm. Pulses: Normal pulses. Heart sounds: Normal heart sounds. Pulmonary: Effort: Pulmonary effort is normal. Breath sounds: Normal breath sounds. Abdominal: General: Bowel sounds are normal. Hernia: No hernia is present. Musculoskeletal: Right lower leg: No edema. Left lower leg: No edema. Skin: Findings: No erythema or lesion. Neurological: Mental Status: She is alert and oriented to person, place, and time. ADVANCED DIRECTIVES ADVANCED CARE PLANNING: Has Interest in creation of advance directives. Information will be given SURROGATE DECISION MAKERS: , Justin, number on file and confirmed Patient provided with Advanced Directives Packet at appointment MENTAL STATUS: 4AT Delirium Test: -Alertness: Normal=0 Mild sleepiness for <10 seconds after waking, then normal=0 Clearly abnormal=4 -Abbreviated Mental Test: Age, , Location, current year(No mistake=0, One mistake=1, Two or more=2) -Attention: Months of the year backwards-(7 or more=0, less than 7=1, intestable=2) -Acute Change: Fluctuation in alertness, cognition, hallucinations over the past 2 weeks (No=0, yes=4) Total: 0 4 or more:possible delirium and/or cognitive impairment 1-3: possible cognitive impairment 0:Delirium or severe cognitive impairment unlikely Discussed possibility of delirium during hospital course Social History: Limited finances/resources: no Home assistance/caregiver required after surgery: no 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 involved with Case Management/Showroom Executive Director: no Home environment/homeless/hygiene concerns: no PHQ-9 Questionnaire: Denies PHQ-9 All Questions 01/28/2016 08/12/2017 Little interest or pleasure in doing things 0 0 Feeling down, depressed, or hopeless 0 0 (0-4) minimal depression, (5-9) mild depression, (10-14) moderate depression, (15-19) moderately severe depression, (20-27) severe depression ASIYA-7 (Anxiety): Denies No Data Recorded (0-4) minimal anxiety, (5-9) mild anxiety, (10-14) moderate anxiety, (15-21) severe anxiety Functional Status: Clinical Frailty Scale: -Very Fit- Exercise regularly (1) -Well- Occasionally active (2) -Managing Well- Not regularly active (3) -Vulnerable- Limited activity/tired throughout day/ slowed up (4) -Mildly Frail- Help needed with ADLs (finances, medications, transportation) (5) -Moderately Frail- Help with all outside activities and with keeping the house, stairs/bathing/dressing (6) -Severely Frail- Completely dependent for personal care (7) -Very Severely frail- Approaching End of Life (8) -Terminally Ill- Life expectancy < 6 months (9) SCORE: 2 Score 1-3- Walking Program Functional assessment: WNL=Within normal limits Substance Abuse: None The Alcohol Use Disorders Identification Test (AUDIT): No flowsheet data found.The scoring instructions are as follows: Risk Level Intervention AUDIT score Zone I Alcohol Education 0-7 Zone II Simple Advice 8-15 Zone III Simple Advice plus Brief Counseling and Continued Monitoring 16-19 Zone IV Referral to Specialist for Diagnostic Evaluation and Treatment 20-40 SMOKER/TOBACCO USE: No -Patient smokes: Former smoker, quit in 2000, 20 pack years Drug Abuse Screen Test (DAST-10): Denies No flowsheet data found. Sleep Apnea STOP BANG Questionnaire 1. Snoring Do you snore loudly (louder than talking or loud enough to be heard through closed doors)? NO 2. Tired Do you often feel tired, fatigued, or sleepy during daytime? NO 3. Observed Has anyone observed you stop breathing during your sleep? NO 4. Blood Pressure Do you have or are you being treated for high blood pressure? YES 5. BMI BMI more than 35 kg/m2? NO 6. Age Age over 50 yr old? YES 7. Neck circumference Neck circumference greater than 40 cm? YES 8. Gender Gender male? NO Reports h/o NILAM, had CPAP, but has lost weight and no longer has CPAP High risk of NILAM: answering yes to three or more items Low risk of NILAM: answering yes to less than three items -If yes, do you have a home cpap or bipap: No Nutrition: Perioperative Nutrition Score (LIT) BMI <18.5: No BMI <20 if age >65: No Eating less than 50% of normal diet in the preceding week: No Unplanned weight loss >10% in past 6 months: No Albumin Level less than 3: no Dyspnea Assessment (mMRC Dyspnea Scale): Dx of COPD/Asthma: No -I only get breathless with strenuous exercise 0 -I get SOB when hurrying on level ground or walking up a slight hill 1 -On level ground, I walk slower than people of the same age because of breathlessness, or have to stop for breath when walking at my own pace. 2 -I stop for breath after walking about 100 yards or after a few minutes on level ground 3 -I am too breathless to leave the house or I am breathless when dressing 4 Score: 0 Venous Thromboembolism Risk Assessment: Hx clotting disorder: No Hx PE/DVT: no OAC Use: No ASA use: Yes: ASA 81mg daily for health prevention Pulmonology: Asthma: Yes, no inhaler COPD: no Hypoventilation syndrome: no Director Of Safety: NA Recent exacerbation: No recent PNA or bronchitis Cardiac: Beta Leana use: No Hx of CAD: no Hx of HLD: yes, not on statin CHF: no Prior CT: no Hx abnormal EKG: no Hx abnormal heart rhythm: no Valvular heart disease: no Hx endocarditis: no PAD: no PVD: no CVA: no HTN: yes well-controlled on medication Pulmonary HTN: no Hx cardiovascular surgery: no Stave Log Ripsaw Operator: NA EKG 05/2016: Rhythm; Normal sinus. [place]: Normal. [place]: Normal QRS: Normal ST: Normal Cardiac cath 2011: Diagnosis and Principal Findings 1. One vessel mild non-obstructive coronary atherosclerosis. Right coronary artery: The right coronary artery has mild non-obstructive stenosis and is a dominant vessel. 2. Left ventricular EF = 55%. Major complications None. ASSESSMENT/PLAN: Josh Hernandez is a 62 year old female, who was recently evaluated for surgery. Patient has a h/o asthma, heart disease, DM2, GERD, HTN, former smoker. Patient also has a h/o multiple abdominal surgeries including a hysterectomy, cholecystectomy, gastric bypass in 2017. Patient reports she first noted ventral hernias about a year ago. Patient has met with Dr. Romo, surgery for a robotic laparoscopic ventral hernia repair is scheduled for 09/24/22. Vulnerabilities Assessed at Visit: 1.) Obesity: BMI 34.33, recent A1C 6.3%. Encouraged to increase protein to 60 grams a day, limit total carbs to less than 150 grams a day. Does not want nutritional consult at this time. Will start Vitamin D3 2,000 international unit(s) daily. Does not want Vitamin D level drawn at this time. Pedometer given for walking program, encouraged to increase activity/steps as much as possible prior to surgery. Impact Advanced Recovery BID to start 5 days prior to surgery. 2.) Former smoker: quit smoking in 2000, 20 pack years. Denies any COBE on CP. To start IS 30-40 times a day prior to surgery. 3.) Family h/o CAD: Denies any symptoms. EKG normal in 2016, heart cath in 2010 showed: Right coronary artery: The right coronary artery has mild non-obstructive stenosis and is a dominant vessel. Will repeat EKG. Medical optimization requested per surgeon. 4.) High risk for NILAM: reports had NILAM prior to weight loss surgery, no longer uses CPAP, 24 hours SpO2 monitoring during hospital course NUTRITION: LIT score: negative -Education provided with reference material given to patient -Impact nutritional supplements given to start 5 days prior to, BID -Albumin lab work ordered, does not want lab work at this time -Consult to RD, does not want at this time -Vitamin D 2000 international unit(s) daily, does not want level drawn at this time -Make sure to eat source of lean protein at each meal, aim for 60 grams of protein each day -Aim for 2 servings of leafy green vegetables a day ANEMIA: Yes, H/O blood transufiosn 2019, blood loss from surgery -Does not want to repeat lab work at this time CKD: No -Reviewed with the patient the importance of hydration pre/postoperatively. DIABETES: Yes Hemoglobin A1C (%) Date Value 07/28/2022 6.3 (H) -carb counting, aim for less than 150 grams of carbs a day MOBILITY: -Frailty score: 2=walking program -Pedometer: increase your steps by 100 every couple of days, goal is 5,000 steps per day over baseline COGNITION: -4AT score: low risk for delirium -Patient should bring all sensory aids with them DOS -Discussed risk of delirium during hospital course -Advanced Directives packet given PSYCHOSOCIAL: -Educational material given to patient for stress reduction/management -Denies any depression or anxiety CARDIAC: Recommended cardiac clearance: recommendations pending EKG, medical optimization requested per surgeon -Continue BP med during preoperative period as prescribed VENOUS THROMBOEMBOLISM RISK ASSESSMENT: -Surgeon to determine prophylaxis regimen -ASA 81 mg daily for health prevention PULMONOLOGY: Stop BANG: high risk for NILAM, h/o NILAM prior to weight lost, does not currently use CPAP, had one in the past Dyspnea Scale: 0, able to climb a flight of stairs without SOB or CP -Per PCP for outpatient PSG -Start IS, instructions reviewed -Recommend using IS 10 times an hour while awake during hospital course -The function of the surgery optimization clinic is to optimize modifiable risk factors prior to surgery. This clinic does not provide medical clearance for surgery. As always, the decision whether or not to proceed with surgery should be based on an evaluation of the risks versus benefits of the procedure, and should be made between the patient in the surgeon. -A letter and copy of this encounter was sent to referring surgeon and the patient's primary care provider. -Surgery optimization clinic RN will follow up with patient on areas addressed for optimization. I spent a total of 90 minutes on the date of the service which included preparing to see the patient, [id number] patient care, completing clinical documentation, obtaining and/or reviewing separately obtained history, performing a medically appropriate examination, counseling and educating the patient/family/caregiver, ordering medications, tests, or procedures, and communicating with other HCPs (not separately reported). ELECTRONICALLY SIGNED AND DATED BY: Sheryl Carrasco APRN, CNP [facility] Surgery Optimization Clinic documented in this encounter [facility] 07-29-2022 Instructions Sheryl Carrasco APRN.[facility] - 07/29/2022 6:45 AM EST Incentive Spirometer: -Start with breathing exercise today, goal 30-40 breaths a day *Incentive spirometer is used to help with lung expansion post operatively. It can be of benefit preoperatively to for those who smoke or have lung disease. Use the spirometer as instructed during your hospital visit. Take 10 deep breaths, hold for one second and then slowly exhale. You can take cleansing breaths in between as needed to avoid feeling dizzy or lightheaded. Use the spirometer hourly if possible. You will continue with this postoperatively. Pedometer: -Pedometer to monitor your steps starting today -For the first 3 days monitor your average daily steps to get your baseline number -Then increase your steps by 200-300 every couple of days as able -Goal is to increase mobility as much as possible prior to surgery * Research has shown that increased strength, mobility and function preoperatively will help you to recover with less complication. Your effort preoperatively will yield better results postoperatively Stress Relief: -Deep breathing exercises -Sleep: 6-8 hours of sleep each night -Meditate -Laughing -Walking -Positive self-talk -Finding a support system -Exercise, walking, being active Nutrition: -Make sure you are getting enough protein a day, with a goal of at least 1 high-protein food with each of your three meals a day -Make sure you are including high calcium foods, at least 3 servings a day: low-fat dairy, dark-leafy greens, sardines, or calcium-fortified cereals -Make sure you are getting vitamins and minerals by including at least four servings of fruits/vegetables a day - Drink 2 shakes daily for 5 days leading up to the day of surgery. *It has been shown through research that boosting the nutritional intake preoperatively with calories, vitamins and minerals, and hydration, promotes early recovery and improved healing postoperatively. You have been provided a case of supplement to take. Advanced Directives: Advanced directives are your preferences and personal requests in the event you are unable to make decisions for yourself following surgery. It is important for you to discuss your wishes with your family. It is requested that a single family member be designated as your power of banking attorney in the event you cannot speak for yourself. This person should know what you would prefer as your medical choices if you were not compromised. This person, family or friend, should know what you prefer for your medical care and decisions if you are unable to make those decisions for yourself. Notify your surgeon s office to update your records with the designated Durable Power of Brewing Technician. -A great web site for information: [email or web address] Sensory Aids: -If you have any sensory aids, such as hearing aids, or glasses, please bring these with you day of surgery -Encouraged to bring sleep hygiene items such as ear plugs and eye mask for more restful sleep during hospital stay - Information sheet on Delirium given to patient Sleep Apnea: If you have a CPAP machine, please bring that with you day of surgery. documented in this encounter [facility] 07-28-2022 Note HNO ID: [id number] Author: Paul Berger PA-C Service: ? Author Type: Physician Public Service Administrator Type: Progress Notes Filed: 07/28/2022 1:42 PM Note Text: Patient referred by: No referring provider defined for this encounter. HPI: This is a new patient consult for assessment of ventral hernia. The patient is a 62 year old female with history of multiple abdominal surgeries, most recently in 2019. The patient is here today for multiple hernias. She first noted the hernias around 1 year ago. She states she has pain in the epigastric area and LLQ. She saw a general surgeon previously who referred her to our office. She has not had any bowel obstructions from the hernias, but does note intermittent constipation. She denies nausea, vomiting. She denies emergency room visits for the hernia. She denies pulmonary or cardiac history. She denies history of diabetes. She denies smoking tobacco products. PAST MEDICAL HISTORY Diagnosis Date Asthma Benign neoplasm of colon Cyst of left kidney CT 11/2017 Depressive disorder, not elsewhere classified 05/2003 Diabetes mellitus (HCC) Diarrhea Esophageal reflux 05/[address] 11/2017 Hemorrhage of gastrointestinal tract, unspecified Hepatic cyst CT 11/2017 Hypertension Morbid obesity (HCC) 2-5-10 stated BMI 40.1 Ht: 63 Wt: 227 lbs Other and unspecified hyperlipidemia 05/2001 Pain in joint, multiple sites back, hips, knees Snoring Unspecified hypertensive heart disease without heart failure 05/2001 PAST SURGICAL HISTORY Procedure Laterality Date ARTHRT GLENOHMRL JT W/JT EXPL W/WO RMVL LOOSE/FB Right 03/18/2005 arthritic bone removal BUNION CORRECTION W/METATARSAL OSTEOTOMY BUNIONECTOMY, LAPIDUS-TYPE Right COLONOSCOPY FLX DX W/COLLJ SPEC WHEN PFRMD 2009 Colonoscopy COLONOSCOPY FLX DX W/COLLJ SPEC WHEN PFRMD 06/20/2014 Colonoscopy COLONOSCOPY FLX DX W/COLLJ SPEC WHEN PFRMD 01-08-16 COLSC FLX W/RMVL OF TUMOR POLYP LESION SNARE TQ 01/13/07 ESOPHAGOGASTRODUODENOSCOPY TRANSORAL DIAGNOSTIC 11/03/2011 EGD FOOT/TOES SURGERY PROC UNLISTED 01/22/2005 bilateral 5th toes GASTRIC BYPASS HX 08/12/2016 Dr Spike Dias GEn LAPAROSCOPY SURG CHOLECYSTECTOMY 12/04/2017 [facility] [address] Spike LEE CUSTOM 2001 bilateral LIG/TRNSXJ FLP TUBE ABDL/VAG APPR UNI/BI Tubal ligation OPEN REPAIR OF ROTATOR CUFF ACUTE 2006 left OPTX ANKLE DISLOCATION W/REPAIR/INT/XTRNL FIXJ left TONSILLECTOMY AND ADENOIDECTOMY TOTAL ABDOMINAL HYSTERECT W/WO RMVL TUBE OVARY 06/2002 Hysterectomy, CATRACHITA/BSO for bleeding and pain FAMILY HISTORY Problem Relation Age of Onset Cancer Mother uterine/also heart problems/hypertension/diabetes Heart Mother mother at 46 from heart attack Cancer Father esophageal/also heart disease Heart Father biological Stroke Father biological Diabetes Sister Diabetes Brother 2 brothers Heart Brother 5 stents Heart Sister heart attack-4 stents Heart disease Brother Diabetes Brother Hypertension Brother other (Gasstric ulcer) Brother other (hiatal hernia) Brother Social History Tobacco Use Smoking status: Former Packs/day: 1.00 Years: 20.00 Pack years: 20.00 Types: Cigarettes Quit date: 04/05/2001 Years since quittin.3 Smokeless tobacco: Never Substance Use Topics Alcohol use: No Drug use: No Current Outpatient Medications Medication Sig hydrOXYzine HCl (ATARAX) 25 mg tablet Take 25 mg by mouth once daily. aspirin, enteric coated (ASPIRIN, ENTERIC COATED) 81 mg EC tablet Take 1 tablet by mouth once daily. losartan (COZAAR) 25 mg tablet Take 1 tablet by mouth once daily. amitriptyline (ELAVIL) 50 mg tablet Take 1 tablet by mouth daily at bedtime. multivitamin tablet Take 1 tablet by mouth once daily. Taking 4 pills at once daily CALCIUM CARBONATE (CALCIUM 500 ORAL) Take by mouth once daily. ONE TOUCH DELICA 33 gauge misc traMADol (ULTRAM) 50 mg tablet Take 50 mg by mouth every 8 hours as needed. meloxicam (MOBIC) 15 mg tablet Take 1 tablet by mouth once daily. gabapentin (NEURONTIN) 300 mg capsule Take 1 capsule by mouth three times daily. methylPREDNISolone (MEDROL DOSE-PACK) 4 mg Dose-Pack Take per package instructions. (Patient not taking: Reported on 07/28/2022) ursodiol (ACTIGALL) 300 mg capsule Take 1 capsule by mouth twice daily. (Patient not taking: No sig reported) No current facility-administered medications for this visit. ALLERGIES Allergen Reactions Aspirin Bees Anaphylaxis Flexeril [Cyclobenz* Intolerance Keflex [Cephalexin] Penicillin G Prilosec [Omeprazol* REVIEW OF SYSTEMS: GENERAL: No weight loss, malaise or fevers GI: Negative for nausea , vomiting, diarrhea, and signs of jaundice Positive for abdominal pain epigastrium and constipation PHYSICAL EXAM: BP 129/85 Pulse 90 Ht 5' 4 (1.63m) Wt 164 lb (74.4kg) SpO2 95% BMI 28.14 kg/(m2). GENERAL APPEARANCE: Well appearing, aler (more content not included)... [facility] 07-28-2022 History of Presen t illness Narrative Patient referred by: No referring provider defined for this encounter. HPI: This is a new patient consult for assessment of ventral hernia. The patient is a 62 year old female with history of multiple abdominal surgeries, most recently in 2019. The patient is here today for multiple hernias. She first noted the hernias around 1 year ago. She states she has pain in the epigastric area and LLQ. She saw a general surgeon previously who referred her to our office. She has not had any bowel obstructions from the hernias, but does note intermittent constipation. She denies nausea, vomiting. She denies emergency room visits for the hernia. She denies pulmonary or cardiac history. She denies history of diabetes. She denies smoking tobacco products. PAST MEDICAL HISTORY Diagnosis Date Asthma Benign neoplasm of colon Cyst of left kidney CT 11/2017 Depressive disorder, not elsewhere classified 05/2003 Diabetes mellitus (HCC) Diarrhea Esophageal reflux 05/[address] 11/2017 Hemorrhage of gastrointestinal tract, unspecified Hepatic cyst CT 11/2017 Hypertension Morbid obesity (HCC) 2-5-10 stated BMI 40.1 Ht: 63 Wt: 227 lbs Other and unspecified hyperlipidemia 05/2001 Pain in joint, multiple sites back, hips, knees Snoring Unspecified hypertensive heart disease without heart failure 05/2001 PAST SURGICAL HISTORY Procedure Laterality Date ARTHRT GLENOHMRL JT W/JT EXPL W/WO RMVL LOOSE/FB Right 03/18/2005 arthritic bone removal BUNION CORRECTION W/METATARSAL OSTEOTOMY BUNIONECTOMY, LAPIDUS-TYPE Right COLONOSCOPY FLX DX W/COLLJ SPEC WHEN PFRMD 2009 Colonoscopy COLONOSCOPY FLX DX W/COLLJ SPEC WHEN PFRMD 06/20/2014 Colonoscopy COLONOSCOPY FLX DX W/COLLJ SPEC WHEN PFRMD 01-08-16 COLSC FLX W/RMVL OF TUMOR POLYP LESION SNARE TQ 01/13/07 ESOPHAGOGASTRODUODENOSCOPY TRANSORAL DIAGNOSTIC 11/03/2011 EGD FOOT/TOES SURGERY PROC UNLISTED 01/22/2005 bilateral 5th toes GASTRIC BYPASS HX 08/12/2016 Dr Spike Dias GEn LAPAROSCOPY SURG CHOLECYSTECTOMY 12/04/2017 [facility] [address] Spiek LEE CUSTOM 2001 bilateral LIG/TRNSXJ FLP TUBE ABDL/VAG APPR UNI/BI Tubal ligation OPEN REPAIR OF ROTATOR CUFF ACUTE 2006 left OPTX ANKLE DISLOCATION W/REPAIR/INT/XTRNL FIXJ left TONSILLECTOMY & ADENOIDECTOMY <AGE 11 TOTAL ABDOMINAL HYSTERECT W/WO RMVL TUBE OVARY 06/2002 Hysterectomy, CATRACHITA/BSO for bleeding and pain FAMILY HISTORY Problem Relation Age of Onset Cancer Mother uterine/also heart problems/hypertension/diabetes Heart Mother mother at 46 from heart attack Cancer Father esophageal/also heart disease Heart Father biological Stroke Father biological Diabetes Sister Diabetes Brother 2 brothers Heart Brother 5 stents Heart Sister heart attack-4 stents Heart disease Brother Diabetes Brother Hypertension Brother other (Gasstric ulcer) Brother other (hiatal hernia) Brother Social History Tobacco Use Smoking status: Former Packs/day: 1.00 Years: 20.00 Pack years: 20.00 Types: Cigarettes Quit date: 04/05/2001 Years since quittin.3 Smokeless tobacco: Never Substance Use Topics Alcohol use: No Drug use: No Current Outpatient Medications Medication Sig hydrOXYzine HCl (ATARAX) 25 mg tablet Take 25 mg by mouth once daily. aspirin, enteric coated (ASPIRIN, ENTERIC COATED) 81 mg EC tablet Take 1 tablet by mouth once daily. losartan (COZAAR) 25 mg tablet Take 1 tablet by mouth once daily. amitriptyline (ELAVIL) 50 mg tablet Take 1 tablet by mouth daily at bedtime. multivitamin tablet Take 1 tablet by mouth once daily. Taking 4 pills at once daily CALCIUM CARBONATE (CALCIUM 500 ORAL) Take by mouth once daily. ONE TOUCH DELICA 33 gauge misc traMADol (ULTRAM) 50 mg tablet Take 50 mg by mouth every 8 hours as needed. meloxicam (MOBIC) 15 mg tablet Take 1 tablet by mouth once daily. gabapentin (NEURONTIN) 300 mg capsule Take 1 capsule by mouth three times daily. methylPREDNISolone (MEDROL DOSE-PACK) 4 mg Dose-Pack Take per package instructions. (Patient not taking: Reported on 07/28/2022) ursodiol (ACTIGALL) 300 mg capsule Take 1 capsule by mouth twice daily. (Patient not taking: No sig reported) No current facility-administered medications for this visit. ALLERGIES Allergen Reactions Aspirin Bees Anaphylaxis Flexeril [Cyclobenz* Intolerance Keflex [Cephalexin] Penicillin G Prilosec [Omeprazol* REVIEW OF SYSTEMS: GENERAL: No weight loss, malaise or fevers GI: Negative for nausea , vomiting, diarrhea, and signs of jaundice Positive for abdominal pain epigastrium and constipation PHYSICAL EXAM: BP 129/85 Pulse 90 Ht 5' 4 (1.63m) Wt 164 lb (74.4kg) SpO2 95% BMI 28.14 kg/(m^2). GENERAL APPEARANCE: Well appearing, alert, in no acute distress, well-hydrated, well nourished. and Overweight. ABDOMEN: Negative findings: umbilicus normal, soft, non-tender, and spleen non-palpable, Positive findings: multiple incisional hernias at midline and LLQ (previous ostomy site) NEURO: Alert, oriented x3, no asterixis, speech clear and articulate, and VARGAS HEART: regular rate and rhythm LUNGS: without rales or wheeze, good air exchange DATA: Diagnostic tests reviewed for today's visit: Most recent imaging I spent a total of 60 minutes on the date of the service which included preparing to see the patient, [id number] patient care, completing clinical documentation, obtaining and/or reviewing separately obtained history, performing a medically appropriate examination, counseling and educating the patient/family/caregiver, ordering medications, tests, or procedures, independently interpreting results (not separately reported), and communicating results to the patient/family/caregiver. . Greater than 50% of the direct patient contact time was spent in counseling or coordination of care. ASSESSMENT / PLAN: 1. Ventral hernia with obstruction - CONSULT TO [facility] 2. Type 2 diabetes mellitus without complication, unspecified whether extermination inspector insulin use (HCC) - HGB A1C; Future The patient is a 62 year old female here for assessment of multiple ventral hernias. I reviewed her most recent abdominal CT scan from June 18, 2022 which demonstrated [address] Romo discussed with her options including surgical vs non surgical management. Dr. Romo would perform robotic ventral hernia repair with possibility of open ventral hernia repair and mesh placement. Risks/benefits/alternatives were discussed with the patient. Due to the higher risk of infection with ventral hernia repair, we will check the patient's A1C to confirm glucose is optimized. Will also consult to surgery optimization clinic for optimization prior to surgery. Will plan to schedule surgery in 3-4 weeks. All questions were answered to the patient's satisfaction and he is agreeable with the plan. Paul Berger PA-C documented in this encounter [facility] 08-01-2021 Evaluation + Plan note Extrac ave from: Title:Clinical Document Author:MATHEUS SIMENTAL PM Date:08/01/21 [place] ADMISSION HISTORY A [place] PHYSICIAL CHIEF COMPLAINT: HISTORY OF PRESENT ILLNESS: REVIEW OF SYSTEMS: ACTIVE PROBLEMS: (7) Anxiety and depression ([id number]) Arthritis ([id number]) GERD (gastroesophageal reflux disease) ([id number]) HTN (hypertension) (2712346839) Hypothyroidism (87926654) OA (osteoarthritis) (5085435724) SBO (small bowel obstruction) (304883668) MEDICATIONS: Active Inpt Meds: None Active PRN Meds: HYDROmorphone (Dilaudid ( PACU )) Start: 08/01/21 6:20:00 EST, Dose = 0.25 mg, IV Push, q5min, PRN, Pain, scale 4-6, 8 dose(s), Stop: Limited # of times fentaNYL (fentaNYL ( PACU )) Start: 08/01/21 6:20:00 EST, Dose = 50 mcg, = 1 mL, IV Push, q5min, PRN, Pain, breakthrough, 4 dose(s), Stop: Limited # of times meperidine (Demerol (PACU)) Start: 08/01/21 6:20:00 EST, Dose = 25 mg, = 1 mL, IV Bolus, q3h, PRN, Pain, breakthrough ondansetron (Zofran ( PACU )) Start: 08/01/21 6:20:00 EST, Dose = 4 mg, = 2 mL, IV Push, AsDirected, PRN, Nausea/Vomiting, 1 dose(s), Stop: Limited # of times One Time Meds: None Active IV Meds: Lactated Ringers Infusion 1000 mL (LR 1000 mL) Start: 08/01/21 6:05:00 EST, Rate: 125 mL/hr Lactated Ringers Infusion 1000 mL (LR 1000 mL) Start: 08/01/21 6:20:00 EST, Rate: 20 mL/hr ALLERGIES: (5) Bee Stings cephalexin cyclobenzaprine omeprazole penicillin G benzathine FAMILY HISTORY: SOCIAL HISTORY: PHYSICAL EXAM: VITALS: CvyoifPyraXJDjmahXGWyF7WCF9XfhgCt(kg) 08/01 06:0735.6140/[id number]/28 81.8 24 Hr Tmax: 35.6 at 08/01 06:07 36 Hr Tmax: 35.6 at 08/01 06:07 Vital Signs are the last 5 in the past 48 hours. Weights display the last 5 within 7 days. Initial Wt: 08/01 81.8 kg 180 lb Current Wt: 08/01 81.8 kg 180 lb GENERAL: HEENT: CARDIOVASCULAR: RESPIRATORY: ABDOMEN: EXREMETIES: NEUROLOGICAL: PSYCHIATRIC: LABS: No 36hr Lab Data DIAGNOSTICS: IMPRESSION: PLAN: History and Physical Update I have examined the patient; reviewed the H&P and there are no changes to the H&P unless noted below. History and Physical Update I have examined the patient; reviewed the H&P and there are no changes to the H&P unless noted below. [facility] 01-28-2022 Hospital Discharge instructions Patient Education 08/01/2021 08:02:00 Endoscopic Plantar Fasciotomy, Care After Endoscopic Plantar Fasciotomy, Care After This sheet gives you information about how to care for yourself after your procedure. Your health care provider may also give you more specific instructions. If you have problems or questions, contact your health care provider. What can I expect after the procedure? After the procedure, it is common to have: Foot pain and stiffness. Swelling in the incision area. Follow these instructions at home: If you have a boot or protective shoe: Wear it as told by your health care provider. Remove it only as told by your health care provider. Loosen it if your toes tingle, become numb, or turn cold and blue. Keep it clean. If it is not waterproof: ?Do not let it get wet. ?Cover it with a watertight covering when you take a bath or shower. Bathing Do not take baths, swim, or use a hot tub until your health care provider approves. Ask your healthcare provider if you may take showers. You may only be allowed to take sponge baths. Keep the dressing dry until your health care provider says it can be removed. Incision care Follow instructions from your health care provider about how to take care of your incision. Make sure you: ?Wash your hands with soap and water before and after you change your bandage (dressing). If soap and water are not available, use hand fishing floats assembler. ?Change your dressing as told by your health care provider. ?Leave stitches (sutures), skin glue, or adhesive strips in place. These skin closures may need to stay in place for 2 weeks or longer. If adhesive strip edges start to loosen and curl up, you may trim the loose edges. Do not remove adhesive strips completely unless your health care provider tells you to do that. Check your incision area every day for signs of infection. Check for: ?More swelling or pain. ?Redness. ?Warmth. ?Fluid or blood. ?Pus or a bad smell. Managing pain, stiffness, and swelling If directed, put ice on the affected area. ?Put ice in a plastic bag. ?Place a towel between your skin and the bag. ?Leave the ice on for 20 minutes, 2 3 times a day. Move your toes often to reduce stiffness and swelling. Raise (elevate) the affected area above the level of your heart while you are sitting or lying down. Driving Do not drive for 24 hours if you were given a sedative during your procedure. Ask your health care provider: ?If the medicine prescribed to you requires you to avoid driving or using heavy machinery. ?When it is safe to drive if you have been given a boot or protective shoe to wear on your foot. Activity Do not use the affected foot to support (bear) your body weight until your health care provider says that you can. Use crutches as told by your health care provider. Return to your normal activities as told by your health care provider. Ask your health care provider what activities are safe for you. General instructions Take jvet-etk-kffwhoe and prescription medicines only as told by your health care provider. Keep all follow-up visits as told by your health care provider. This is important. Contact a health care provider if: You have a loss of feeling (numbness) in your foot. You have more swelling or pain at the site of your incision. You have redness at the site of your incision. Your incision feels warm to the touch. You have fluid or blood coming from your incision. You have pus or a bad smell coming from your incision. You have a fever or chills. The dressing is too tight. Get help right away if: You have difficulty moving your foot. You have swelling in your leg or calf. Summary After the procedure, it is common to have foot pain and stiffness. If directed, put ice on the affected area 2 3 times a day. If you have crutches, use them to keep weight off your foot as told by your health care provider. Keep all follow-up visits as told by your health care provider. This is important. This information is not intended to replace advice given to you by your health care provider. Make sure you discuss any questions you have with your health care provider. Document Released: 06/01/2016 Document Revised: 10/12/2019 Document Reviewed: 06/19/2019 [employer] Patient Education 2019 [employer] Follow Up Care 07/08/2021 14:10:09 With:MATHEUS SIMENTAL Address: [address], [address] [facility] [place] [address]- Business (1) When:08/07/2021 [facility] 01-26-2016 History of Past illness Narrative* Problem Noted Date Resolved Date Gastroesophageal reflux disease 07/30/2015 11/10/2016 Chest pain 05/29/2011 07/30/2015 Hemorrhage of gastrointestinal tract, unspecifie d 01/13/2007 10/01/2011 External hemorrhoids without mention of complica tion 01/13/2007 10/01/2011 documented as of this encounter (statuses as of 07/28/2022) [facility] History of Past illness Narrative* Problem Noted Date Resolved Date Gastroesophageal reflux disease 07/30/2015 11/10/2016 Chest pain 05/29/2011 07/30/2015 Hemorrhage of gastrointestinal tract, unspecifie d 01/13/2007 10/01/2011 External hemorrhoids without mention of complica tion 01/13/2007 10/01/2011 documented as of this encounter (statuses as of 07/31/2022) [facility] History of Past illness Narrative* Problem Noted Date Resolved Date Gastroesophageal reflux disease 07/30/2015 11/10/2016 Chest pain 05/29/2011 07/30/2015 Hemorrhage of gastrointestinal tract, unspecifie d 01/13/2007 10/01/2011 External hemorrhoids without mention of complica tion 01/13/2007 10/01/2011 documented as of this encounter (statuses as of 07/31/2022) [facility] History of Past illness Narrative* Problem Noted Date Resolved Date Gastroesophageal reflux disease 07/30/2015 11/10/2016 Chest pain 05/29/2011 07/30/2015 Hemorrhage of gastrointestinal tract, unspecifie d 01/13/2007 10/01/2011 External hemorrhoids without mention of complica tion 01/13/2007 10/01/2011 documented as of this encounter (statuses as of 08/14/2022) [facility] History of Past illness Narrative* Problem Noted Date Resolved Date Gastroesophageal reflux disease 07/30/2015 11/10/2016 Chest pain 05/29/2011 07/30/2015 Hemorrhage of gastrointestinal tract, unspecifie d 01/13/2007 10/01/2011 External hemorrhoids without mention of complica tion 01/13/2007 10/01/2011 documented as of this encounter (statuses as of 09/01/2022) [facility] History of Past illness Narrative* Problem Noted Date Resolved Date Chest pain 05/29/2011 07/30/2015 Hemorrhage of gastrointestinal tract, unspecifie d 01/13/2007 10/01/2011 External hemorrhoids without mention of complica tion 01/13/2007 10/01/2011 documented as of this encounter (statuses as of 09/17/2022) [facility] History of Past illness Narrative* Problem Noted Date Resolved Date Chest pain 05/29/2011 07/30/2015 Hemorrhage of gastrointestinal tract, unspecifie d 01/13/2007 10/01/2011 External hemorrhoids without mention of complica tion 01/13/2007 10/01/2011 documented as of this encounter (statuses as of 10/12/2022) [facility] Evaluation note* Diagnosis Ventral hernia with obstruction- Primary Ventral hernia, unspecified, with obstruction Type 2 diabetes mellitus without complication, unspecified whether extermination inspector insulin use (HCC) [facility] Diagnosis Ventral hernia without obstruction or gangrene- Primary Ventral hernia, unspecified, without mention of obstruction or gangrene Ventral hernia without obstruction or gangrene Ventral hernia, unspecified, without mention of obstruction or gangrene [facility] Diagnosis Preoperative examination- Primary Preoperative examination, unspecified Essential hypertension Unspecified essential hypertension Mixed hyperlipidemia Diet-controlled type 2 diabetes mellitus (HCC) Type II or unspecified type diabetes mellitus without mention of complication, not stated as uncontrolled Mild persistent asthma, unspecified whether complicated Ventral hernia without obstruction or gangrene Ventral hernia, unspecified, without mention of obstruction or gangrene Ventral hernia without obstruction or gangrene Ventral hernia, unspecified, without mention of obstruction or gangrene [facility] Diagnosis Mixed hyperlipidemia- Primary Essential hypertension Unspecified essential hypertension Mild persistent asthma, unspecified whether complicated Diet-controlled type 2 diabetes mellitus (HCC) Type II or unspecified type diabetes mellitus without mention of complication, not stated as uncontrolled Gastroesophageal reflux disease without esophagitis Esophageal reflux Hypothyroidism, unspecified type Preop examination [Z01.818 (ICD-10-CM)] Preoperative examination, unspecified Ventral hernia without obstruction or gangrene [K43.9 (ICD-10-CM)] Ventral hernia, unspecified, without mention of obstruction or gangrene Ventral hernia without obstruction or gangrene Ventral hernia, unspecified, without mention of obstruction or gangrene [facility] Diagnosis S/P hernia repair- Primary Other postprocedural status documented in this encounter [facility] course Narrative No data available for this section [facility] Hospital Discharge instructions No data available for this section [facility] Reason for referral (narrative)* Outpatient Procedure (Routine) - Closed Specialty Diagnoses / Procedures Referred By Carmel tovar Referred To [facility] Diagnoses Preoperative examination Procedures ECG COMPLETE ECG ROUTINE ECG W/LEAST 12 LDS W/I&R Sheryl Carrasco APRN.CNP 1 [facility] [address] [place] [address] [facility] [place] [address] [place] [id number] Referral ID Status Reason Start Date Expiration Date V isits Requested Visits Authorized [id number] Closed Auto-Generate d Referral 07/31/2022 07/31/2023 1 1 [facility] Summary Purpose Family History No Family History Records FoundNo Family History Records FoundNo Family History Records FoundNo Family History Records FoundNo Family History Records FoundNo Family History Records FoundNo Family History Records Found Advance Directives No Advanced Directives Records FoundNo Advanced Directives Records FoundNo Advanced Directives Records FoundNo Advanced Directives Records FoundNo Advanced Directives Records FoundNo Advanced Directives Records FoundNo Advanced Directives Records Found Additional Source Comments INFORMATION SOURCE (unrecogn ized section and content) DATE CREATED AUTHOR 12/29/2017 [facility] ([place]) DATE CREATED AUTHOR AUTHOR'S ORGANIZ ATION 08/05/2018 [facility] DATE CREATED AUTHOR AUTHOR'S ORGANIZ ATION 09/29/2018 [facility] DATE CREATED AUTHOR AUTHOR'S ORGANIZ ATION 10/15/2018 [facility] [place] DATE CREATED AUTHOR AUTHOR'S ORGANIZ ATION 11/21/2018 [facility] DATE CREATED AUTHOR AUTHOR'S ORGANIZ ATION 11/22/2018 [facility] DATE CREATED AUTHOR AUTHOR'S ORGANIZ ATION 03/20/2023 [facility] Source Comments (unrecognize d section and content) In the event this informatio n is protected by the Federal Confidentiality of Alcohol and Drug Abuse Patient Records regulations: The Federal rules restrict any use of the information to criminally investigate or prosecute any alcohol or drug abuse patient.[facility] the event this information is protected by the Federal Confidentiality of Alcohol and Drug Abuse Patient Records regulations: The Federal rules restrict any use of the information to criminally investigate or prosecute any alcohol or drug abuse patient.[facility] the event this information is protected by the Federal Confidentiality of Alcohol and Drug Abuse Patient Records regulations: The Federal rules restrict any use of the information to criminally investigate or prosecute any alcohol or drug abuse patient.[facility] the event this information is protected by the Federal Confidentiality of Alcohol and Drug Abuse Patient Records regulations: The Federal rules restrict any use of the information to criminally investigate or prosecute any alcohol or drug abuse patient.[facility] the event this information is protected by the Federal Confidentiality of Alcohol and Drug Abuse Patient Records regulations: The Federal rules restrict any use of the information to criminally investigate or prosecute any alcohol or drug abuse patient.[facility] CenterIn the event this information is protected by the Federal Confidentiality of Alcohol and Drug Abuse Patient Records regulations: The Federal rules restrict any use of the information to criminally investigate or prosecute any alcohol or drug abuse patient.[facility] CenterIn the event this information is protected by the Federal Confidentiality of Alcohol and Drug Abuse Patient Records regulations: The Federal rules restrict any use of the information to criminally investigate or prosecute any alcohol or drug abuse patient.[facility] Reason for Visit (unrecogniz ed section and content) Reason Comments New Patient Evaluation Mrs. Hernandez is he re today for a complex hernia X 4. Reason Comments New Patient SOC, VHR repair Reason Comments Patient Update Reason Comments Post Op Post op Hernia Repai r Care Teams (unrecognized sec tion and content) Deputy Director Of Nursing Relationship Specialty Start Date End Date Elias Weinberg MD [address] [place], [place] [phone] PCP - General Family Medicine 03/30/18 Daivd Lala MD [address] [place] [phone] Consulting General Surgery 12/30/17 Deputy Director Of Nursing Relationship Specialty Start Date End Date Elias Weinberg MD [address] [place], [place] [phone] PCP - General Family Medicine 03/30/18 David Lala MD [address] [place] [address] [phone] Consulting General Surgery 12/30/17 Deputy Director Of Nursing Relationship Specialty Start Date End Date Elias Weinberg MD [address] [place] [address] PCP - General Family Medicine 03/30/18 David Lala MD [address] [place] [id number] Consulting General Surgery 12/30/17 Deputy Director Of Nursing Relationship Specialty Start Date End Date Elias Weinberg MD [address] [place] [address] PCP - General Family Medicine 03/30/18 David Lala MD [address] [place] [phone] Consulting General Surgery 12/30/17 Deputy Director Of Nursing Relationship Specialty Start Date End Date Elias Weinberg MD [address] [place] [address] PCP - General Family Medicine 03/30/18 David Lala MD [address] [place] [address] Consulting General Surgery 12/30/17 Deputy Director Of Nursing Relationship Specialty Start Date End Date Amelia Baum MD [address] [place] [address] PCP - General Family Medicine 09/24/22 David Lala MD [address] [place] [address] Consulting General Surgery 12/30/17 FOR RECORDS PERTAINING TO PATIENTS WHO ARE OR HAVE BEEN ENROLLED IN A CHEMICAL DEPENDENCY/SUBSTANCEABUSE PROGRAM, SOME INFORMATION MAY BE OMITTED. This clinical summary was aggregated from multiple sources. Caution should be exercised in using it in the provision of clinical care. This summary normalizes information from multiple sources, and as a consequence, information in this document may materially change the coding, format and clinical context of patient data. In addition, data may be omitted in some cases. CLINICAL DECISIONS SHOULD BE BASED ON THE PRIMARY CLINICAL RECORDS. [employer] [facility]. provides no warranty or guarantee of the accuracy or completeness of information in this document.
== END 2024-05-02 00:14 | disposition home or self-care (01) ==
LOC: ED 05-02 00:13
PROVIDERS: Emergency Provider Emergency Medicine; PCP Family Medicine; Visit Provider Emergency Medicine
DX: S80.02XA Contusion of left knee, initial encounter (principal); E11.9 Type 2 diabetes mellitus without complications; E78.00 Pure hypercholesterolemia, unspecified; Z87.891 Personal history of nicotine dependence; K21.9 Gastro-esophageal reflux disease without esophagitis; W19.XXXA Unspecified fall, initial encounter
CPT/HCPCS: 73564; 99282

== ENCOUNTER → 2024-07-14 | Outpatient (CLI) | payer MEDICARE, SELFPAY ==
[2024-07-14 09:09] LABS: Absolute Lymphocyte Count 1.21 X10^3/uL (0.83-4.51); Absolute Neutrophil Count 3.2 X10^3/uL (2.0-7.7); Basophil# 0.03 X10^3/uL; Basophil% 0.6 % (0-1); Hematocrit 42.6 % (37-47); Hemoglobin 13.8 g/dL (12.0-15.0); Lymphocyte # 1.21 X10^3/ul (0.83-4.51); Lymphocyte % 24.4 % (19-41); Mean Corp Hgb Conc 32.4 g/dL (32-36); Mean Corpuscular Hgb 28.3 pg (27.0-32.0); Mean Corpuscular Volume 87.5 fL (81-99); Mean Platelet Vol. 10.1 fl (6.2-12.0); Monocyte# 0.38 X10^3/uL; Monocyte% 7.7 % (0-10); NRBC Flagged by Analyzer 0 % (0-5); Neutrophil # 3.23 X10^3/uL (2.7-7.7); Neutrophil % 65.1 % (47-70); Platelet Count 170 K/mm3 (150-450); RBC Distribution Width CV 12.8 % (11.6-14.6); Red Blood Count 4.87 M/mm3 (4.2-5.4)
[2024-07-14 09:34] LABS: ALB/GLOB Ratio 1.2 RATIO (0.9-2.4); AST(SGOT) 24 U/L (15-37); Alanine Aminotransfer ALT/SGPT 29 U/L (13-56); Albumin, Serum 3.7 g/dL (3.2-5.0); Alkaline Phosphatase 67 U/L (45-117); Anion Gap 6 (5-15); BUN 15 mg/dL (7-18); Calcium,Total 9.2 mg/dL (8.5-10.1); Chloride 102 mmol/L (98-107); Cholesterol 119 mg/dL (200); Creatinine, Serum 1.15 mg/dL (0.55-1.02); EST Glomerular Filtration Rate 50 mL/min (>60); Est Glom Filt Rate - Afr Amer 61 mL/min (>60); Globulin 3.2 g/dL (2.2-4.2); Glucose 96 mg/dL (74-106); High Density Lipoprotein 70 mg/dL; Potassium 3.2 mmol/L (3.5-5.1); Protein, Total 6.9 g/dL (6.4-8.2); Sodium Level 139 mmol/L (136-145); Triglycerides 97 mg/dL; Very Low Density Lipoprotein 19 mg/dL (5-40)
== END | disposition home or self-care (01) ==
LOC: LAB 08:32
PROVIDERS: PCP Family Medicine; Referring Provider Family Medicine; Visit Provider Family Medicine
DX: I10 Essential (primary) hypertension (principal); E11.9 Type 2 diabetes mellitus without complications; E03.9 Hypothyroidism, unspecified

== ENCOUNTER → 2024-07-18 | Outpatient (CLI) | payer MEDICARE, SELFPAY ==
--- NOTE | 2024-07-18 14:57 | BD_ITS ---
STUDY: DUAL ENERGY X-RAY ABSORPTIOMETRY / DXA REASON FOR EXAM: Female, 64 years old. 733.00OsteoporosisBONE DENSITY REASON FOR EXAM TECHNIQUE: Bone Mineral Density (BMD) measurements of lumbar spine and bilateral hips were obtained. COMPARISON: Comparison is made with prior study dated August 09, 2018. FINDINGS: Lumbar Spine (L1-L4): g/cm2 (0.928) / T-score (-1.1) / Z-score (0.7) Findings are suggestive of osteopenia with a low fracture risk. Left Femur Total: g/cm2 (0.791) / T-score (-1.2) / Z-score (0.0) Left Femoral Neck: g/cm2 (0.629) / T-score (-2.0) / Z-score (-0.4) Right Femur Total: g/cm2 (0.847) / T-score (-0.8) / Z-score (0.5) Right Femoral Neck: g/cm2 (0.709) / T-score (-1.3) / Z-score (0.3) The T-Scores on the most recent prior examination were: Lumbar Spine (L1-L4): There has been improvement of bone density since the previous examination. Left Femur Total: which represents an improvement of 10.4%. Right Femur Total: which represents an improvement of 11.8%. BD/Dexa Bone Density Study IMPRESSION: The patient is considered osteopenic as outlined below according to [place] Organization (WHO) criteria with a moderate fracture risk. There has been improvement of bone density since the previous examination. Reference Information: The T-score is the number of standard deviations above or below the standard which is normal for young adults at their peak bone mineral density. The World Health Organization (WHO) interprets the T-scores as follows: Above -1 Normal bone density Between -1 and -2.5 Osteopenia Equal to / or below -2.5 Osteoporosis As a practical clinical guideline, osteopenia may be graded as follows: Mild -1 through -1.5 Moderate -1.6 through -2.0 Severe -2.1 through -2.4 The Z-score is the number of standard deviations above or below age-matched controls. A Z-score of less than -1.5 would be considered abnormal. References: 1. NIH Osteoporosis and Related Bone Diseases www osteo.org 2. International Society for Clinical Densitometry www iscd.org 3. National Osteoporosis Foundation www nof.org Electronically Signed: Johny Manzano MD at 15:34 EST ,
== END | disposition home or self-care (01) ==
LOC: OPBD 14:53
PROVIDERS: PCP Family Medicine; Referring Provider Family Medicine; Visit Provider Family Medicine
DX: Z13.820 Encounter for screening for osteoporosis (principal); M81.0 Age-related osteoporosis without current pathological fracture

== ENCOUNTER 2024-08-25 06:16 | Day surgery (SDC) | payer MEDICARE, SELFPAY ==
--- NOTE | 2024-08-24 08:45 | PAT.ANESEVAL ---
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 When Was Last Pacemaker Check QUESTION #4 FULL TEXT: You/Your Family Experience fever (hyperthermia) with Anesthesia Last Oral Intake Last Oral intake: Last Oral Intake NPO since Meds taken in AM with sips of water? Meds patient instructed to take am of surgery PONV PONV - plunger scoop operator: PONV - plunger scoop operator Female Yes 08/24/24 08:22 HX of Motion Sickness No 08/24/24 08:22 HX of N/V After Surgery No 08/24/24 08:22 Non-Smoker Yes 08/24/24 08:22 Duration of Surgery greater No 08/24/24 08:22 than 60 minutes Number of Risk Factors 2 08/24/24 08:22 PONV Score Moderate Risk 08/24/24 08:22 Height & Weight Height & Weight: Anesthesia: Height & Weight Height 5 ft 4 in 08/07/24 08:39 Respiratory Assessment Respiratory Assessment - plunger scoop operator: Respiratory Tract Infection Hx - plunger scoop operator Hx Respiratory Tract Infection No 08/24/24 08:22 STOP Sleep Apnea STOP Sleep Apnea - plunger scoop operator: STOP Sleep Apnea - plunger scoop operator Hx Hypertension Yes: CONTROLLED WITH MED 08/24/24 08:22 Hx Sleep Apnea Yes 08/24/24 08:22 CPAP Yes: NONCOMPLIANT 08/24/24 08:22 BIPAP No 08/24/24 08:22 Do you snore loudly (louder No 08/24/24 08:22 than talking or can be heard Do you often feel tired/ No 08/24/24 08:22 fatigued/ sleepy during daytime? Has anyone observed you stop No 08/24/24 08:22 breathing during sleep? STOP Results Positive 08/24/24 08:22 QUESTION #5 FULL TEXT : Do you snore loudly (louder than talking or can be heard through closed doors)? Tobacco Use History Tobacco Use History - plunger scoop operator: Tobacco Use History - plunger scoop operator Tobacco Use Smoking Status Former smoker 08/24/24 08:22 Hx Tobacco Use No 08/24/24 08:22 Years Smoking Packs Smoked per Day Smoking Cessation Date was No - quit smoking greater 08/24/24 08:22 within the last 15 years than 15 years ago Hx Smoking Cessation Date 07/05/00 08/24/24 08:22 Hx Smoking Cessation No 08/24/24 08:22 Counseling Hematologic Medial History Hematologic Hx - plunger scoop operator: Hematologic Medical Hx - supply officer Hx of Blood Transfusion Yes 08/24/24 08:22 Hx of Transfusion in last 3 No 08/24/24 08:22 Months Date of Last Transfusion (if within last 3 months) Ever experience any problems No 08/24/24 08:22 with transfusion(s)? Specify any problems Hx of Preganancy in last 3 No 08/24/24 08:22 Months Nurse Filling Out Transfusion DSCHRIBER 08/24/24 08:22 & Questions: Date: 08/24/24 08/24/24 08:22 Time: 08:24 08/24/24 08:22 Patient unable to answer at this time (ie. confused, unrespo /Reproduction History /Reproductive History - plunger scoop operator: /Reproductive Hx- plunger scoop operator Hx Now No 08/24/24 08:22 Gestational Age (in weeks): EDC: Hx Hx Para Hx Section SAB No 08/24/24 08:22 [facility] Medical History (Updated 08/24/24 @ 08:31 by Mandy Calvillo) Anemia History of stress test Wears glasses Wears dentures Anxiety Thyroid disease High cholesterol Migraine headache History of inguinal hernia GERD (gastroesophageal reflux disease) CPAP (continuous positive airway pressure) dependence Former smoker Right lateral epicondylitis Fibromyalgia Back pain Arthritis Hypertension Home Medications ?Medication ?Instructions ?Recorded ?Last Taken ?Type amitriptyline 50 mg tablet 75 mg PO QHS 10/14/17 Unknown History tramadol 50 mg tablet 50 mg PO DAILY PRN pain 08/24/18 Unknown History aspirin 81 mg tablet,delayed 81 mg PO DAILY 01/25/20 Unknown History release cholecalciferol (vitamin D3) 125 125 mcg PO DAILY 06/11/22 Unknown History mcg (5,000 unit) capsule docusate sodium 100 mg capsule 100 mg PO BID 06/11/22 Unknown History (Colace) esomeprazole magnesium 40 mg 40 mg PO TID 06/11/22 11/11/22 05:00 History capsule,delayed release hydroxyzine HCl 25 mg tablet 1 tablet PO DAILY 06/11/22 Unknown History levothyroxine 50 mcg tablet 50 mcg PO DAILY 06/11/22 11/11/22 05:00 History (Synthroid) melatonin 10 mg capsule 10 mg PO HS PRN Sleep 06/11/22 Unknown History meloxicam 15 mg tablet 15 mg PO DAILY 06/11/22 Unknown History miuljfip-hfrg-rchs 8 mg-folic 400 1 tab PO DAILY 06/11/22 Unknown History mcg-K 50 mcg-lutein 300 mcg tablet (Centrum Silver Women) ascorbate calcium (vitamin C) 500 500 mg PO DAILY 09/14/22 Unknown History mg tablet losartan 25 mg tablet 25 mg PO DAILY 09/14/22 11/11/22 05:00 History pregabalin 50 mg capsule (Lyrica) 50 mg PO TID PRN NERVE PAIN 08/07/24 Unknown History rosuvastatin 40 mg tablet 40 mg PO QHS 08/07/24 Unknown History semaglutide 1 mg/dose (4 mg/3 mL) 1 mg subcut WE 08/07/24 08/09/24 History subcutaneous pen injector (Ozempic) Allergy/AdvReac Type Severity Reaction Status Date / Time cephalexin monohydrate (From Allergy Rash Verified 08/24/24 08:20 Keflex) omeprazole (From Prilosec) Allergy Unknown Verified 08/24/24 08:20 omeprazole magnesium (From Allergy Unknown Verified 08/24/24 08:20 Prilosec) Penicillins Allergy Rash Verified 08/24/24 08:20 Family History Father Myocardial infarction Cancer Hypertension COPD (chronic obstructive pulmonary disease) Mother Cancer ovarian Heart disease Myocardial infarction Sister Asthma Breast cancer Brother Hypertension Surgical History (Updated 08/24/24 @ 08:31 by Mandy Calvillo) History of colostomy reversal History of esophagogastroduodenoscopy (EGD) Hx of colonoscopy History of laparoscopic adjustable gastric banding History of total abdominal hysterectomy History of tonsillectomy History of elbow surgery History of shoulder surgery History of bunionectomy History of gastric bypass History of colon surgery History of cholecystectomy Social History Smoking Status: Former smoker alcohol intake: never Audit: Pertinent Findings Pertinent Findings Additional pertinent findings: Lab seems to be within pt's baseline. So okay to proceed Recommendation Anesthesia Recommendation Anesthesia recommendation: OPTIMIZED for anesthesia
[2024-08-25] VITALS (8 sets, daily range): BP systolic 105–138; BP diastolic 73–96; PULSE 85–105; RESP 16–18; TEMP 36.1–37.2; O2SAT 94–100; BMI 30.3
--- NOTE | 2024-08-25 06:43 | HP.PCM_ITS ---
History and Physical Date of Admission: 08/25/24 Intake Vital Signs 07/18/2513:58 08/07/2507:39 Height 5 ft 4 in 5 ft 4 in Weight: 179 lb BMI 30.7 BP 124/81 H Blood Pressure Location Rt brachial Position Sitting Respiration 17 Pulse 59 L Pulse Source Monitor Comment nail pashto interfered with spo2 Intake Visit Reasons: POSITIVE COLOGUARD Chief Complaint: postive cologuard Is patient in pain?: No Allergies cephalexin monohydrate (From Keflex) Allergy (Verified 08/07/24 08:40) Rashomeprazole (From Prilosec) Allergy (Verified 08/07/24 08:40) Unknownomeprazole magnesium (From Prilosec) Allergy (Verified 08/07/24 08:40) UnknownPenicillins Allergy (Verified 08/07/24 08:40) Rash Medications ?Medication ?Instructions ?Recorded ?Confirmed ?Type amitriptyline 50 mg tablet 75 mg PO QHS 10/14/17 08/07/24 History tramadol 50 mg tablet 50 mg PO DAILY 08/24/18 08/07/24 History aspirin 81 mg tablet,delayed 81 mg PO DAILY 01/25/20 08/07/24 History release cholecalciferol (vitamin D3) 125 125 mcg PO DAILY 06/11/22 08/07/24 Histo ry mcg (5,000 unit) capsule docusate sodium 100 mg capsule 100 mg PO BID 06/11/22 08/07/24 History (Colace) esomeprazole magnesium 40 mg 40 mg PO TID 06/11/22 08/07/24 History capsule,delayed release hydroxyzine HCl 25 mg tablet 1 tablet PO DAILY 06/11/22 08/07/24 Hist ory levothyroxine 50 mcg tablet 1 tablet PO DAILY 06/11/22 08/07/24 Hist ory (Synthroid) melatonin 10 mg capsule 10 mg PO HS PRN Sleep 06/11/22 08/07/24 History meloxicam 15 mg tablet 1 tablet PO DAILY 06/11/22 08/07/24 Hist ory vedrecub-rgmf-zsfs 8 mg-folic 400 1 tab PO DAILY 06/11/22 08/07/24 History mcg-K 50 mcg-lutein 300 mcg tablet (Centrum Silver Women) ascorbate calcium (vitamin C) 500 500 mg PO DAILY 09/14/22 08/07/24 Histor y mg tablet losartan 25 mg tablet 25 mg PO DAILY 09/14/22 08/07/24 History pregabalin 50 mg capsule (Lyrica) 50 mg PO TID PRN 08/07/24 08/07/24 Histo ry rosuvastatin 40 mg tablet 40 mg PO QDAY 08/07/24 08/07/24 History semaglutide 1 mg/dose (4 mg/3 mL) 1 mg subcut QWEEK 08/07/24 08/07/24 Hist ory subcutaneous pen injector (Ozempic) Have you fallen in the past year?: No PFSH Medical History Wears glasses Wears dentures Anxiety Thyroid disease High cholesterol Migraine headache History of inguinal hernia GERD (gastroesophageal reflux disease) CPAP (continuous positive airway pressure) dependence Sleep apnea Former smoker Right lateral epicondylitis Fibromyalgia stomach surgery Back pain Knee pain Headache Fatigue Diabetes Shoulder pain Arthritis Hypertension Surgical History History of laparoscopic adjustable gastric banding History of total abdominal hysterectomy History of tonsillectomy History of elbow surgery History of shoulder surgery History of bunionectomy History of gastric bypass History of colon surgery History of cholecystectomy Family History Father Myocardial infarction Cancer Hypertension COPD (chronic obstructive pulmonary disease)Mother Cancer ovarian Heart disease Myocardial infarctionSister Asthma Breast cancerBrother Hypertension Social History Smoking Status: Former smoker alcohol intake: never HPI HPI HPI: Patient is a 64-year-old female here for positive Cologuard. The patient had her last colonoscopy 5 to 6 years ago and polyps were removed. She had a Cologuard last year which was negative. She did not note any blood in the stool or abdominal pain. ROS General General: No weight change, appetite, fatigue, colon cancer, breast cancer or weakness HEENT HEENT: No difficulty swallowing, eye injury, eye surgery, swollen glands or hoarseness Endo Endocrine: Yes diabetes mellitus; No thyroid disease, thyroid cancer, Hair loss, heat intolerance or cold intolerance Skin Skin: No rash or changing moles Musc Musculoskeletal: Yes arthritis; No back problems, rheumatoid arthritis, gout or joint pain Cardio Cardiovascular: Yes high blood pressure; No murmur, pacemaker, heart disease, atrial fibrillation, heart attack, heart stent, palpitations, shortness of breat with exertion or chest pain Psych Psychiatric: No depression, anxiety or hearing voices Resp Respiratory: No shortness of breath, No sleep apnea, No cough, No COPD, No asthma, No emphysema and No wheezing Gastro Gastrointestinal: Yes abdominal pain, No nausea or vomiting, No diarrhea, Yes constipation, No blood in stool, Yes acid reflux, No hemorrhoids, No ulcers, No gallbladder problem and No black,tarry stools Neymar Hematologic: No blood thinners, No blood disorders, No bleeding, No anemia and No blood clots Neuro Neurologic: No system reviewed and no additional complaints, except as documented, No as per HPI, No abnormal gait, No abnormal hearing, No abnormal movements, No abnormal speech, No behavioral changes, No burning sensations, No confusion, No convulsions, No disequilibrium, No dizziness, No localized weakness, No frequent falls, No headache(s), No lack of coordination, No loss of vision, No memory loss, No numbness, No other visual disturbances, No radicular pain, No restless legs, No sensory deficit, No syncope, No tingling, No tremor(s), No weakness and No other Exam Const General: cooperative Orientation: alert and oriented x3 HENMT Head: normal to inspection Neck Neck: normal visual inspection and full ROM Chest Chest palpation & inspection: normal inspection of the chest Resp Effort & Inspection: normal respiratory effort Auscultation: clear to auscultation bilaterally Cardio Rate: regular rate Rhythm: regular rhythm GI Inspection: non-distended Palpation: soft and nontender Skin General: no rashes or lesions noted Neuro General: patient alert and patient oriented x3 Extrem General: full ROM Psych Appearance: grossly normal Mental Status: mental status grossly normal Assessment and Plan Assessment and Plan (1) Positive colorectal cancer screening using Cologuard test: Status: Acute Plan: Plan for colonoscopy for positive Cologuard. I explained endoscopy in detail to the patient. I explained the risks including but not limited to stroke or heart attack with anesthesia, perforation of the GI tract, bleeding, infection. I explained that any of these could necessitate further emergency surgery. The patient understands and all questions were answered sufficiently. The patient wishes to proceed with procedure. Patient will hold her Ozempic for 1 week Jos Pereira MD Pager: [facility] [address] [place] [address], [address] [place] [address] Office: I have seen and examined the patient and reviewed the H&P. There are no clinical changes
--- NOTE | 2024-08-25 06:56 | PCM.PRE.AN2 ---
ASA Classification* ASA Classification ASA Classification: 2 Assessment & Plan Anesthesia* Anesthesia Assessment Anesthesia Assessment: Discussed sedation and/or anesthesia options, risks, benefits, and alternatives with patient/parents/legal guardian/POA. Questions invited. The patient/parents/legal guardian/POA seems to understand and agrees to proceed with anesthesia plan. Reviewed the physical assessment, medical history, allergy history and patient home medications list prior to surgery/procedure/anesthetic and documented any changes. Performed airway and anesthesia risk assessments. Anesthesia Type Anesthesia Type: MAC History Source History Obtained from:: Patient, Chart and Significant Other (spouse) Anesthesia Focused Assessment* Temperature: 98.9 F Pulse Rate: 105 Blood Pressure: 138/96 Respiratory Rate: 16 Pulse Ox: 100 Oxygen Delivery Method: Room Air Airway Assessment Mouth opens: >3 cm Mallampati Score: II Teeth Condition: Dentures and Full Neck Range of motion (ROM): Limited ROM Focused Labs Anesthesia Preop lab: CBC WBC 5.0 K/mm3 (4.4-11.0) 07/14/24 08:37 07/14/24 RBC 4.87 M/mm3 (4.2-5.4) 07/14/24 08:37 07/14/24 Hgb 13.8 g/dL (12.0-15.0) 07/14/24 08:37 07/14/24 Hct 42.6 % (37-47) 07/14/24 08:37 07/14/24 Plt Count 170 K/mm3 (150-450) 07/14/24 08:37 07/14/24 CHEMISTRY Potassium 3.2 mmol/L (3.5-5.1) L 07/14/24 08:37 07/14/24 Sodium 139 mmol/L (136-145) 07/14/24 08:37 07/14/24 Magnesium 2.1 mg/dL (1.6-2.6) 08/03/18 08:52 08/03/18 BUN 15 mg/dL (7-18) 07/14/24 08:37 07/14/24 Creatinine 1.15 mg/dL (0.55-1.02) H 07/14/24 08:37 07/14/24 Glucose 96 mg/dL (74-106) 07/14/24 08:37 07/14/24 POC Glucose 133 mg/dL (74-106) H 11/11/22 09:54 11/11/22 TSH 1.190 uIU/mL (0.358-3.740) 07/14/24 08:37 07/14/24 COAG Pre-Assessment Diagnosis/Proposed Procedure Planned Operative Procedure(s): CSCOPE Anesthesia History Anesthesia History - nuclear medicine chief technologist: Anesthesia History - nuclear medicine chief technologist Hx Hospitalization No 08/24/24 08:22 Any Problems With Anesthesia No 08/24/24 08:22 Cholinesterase deficiency No 08/24/24 08:22 You/Your Family Experience No 08/24/24 08:22 fever (hyperthermia) with Relationship Recent Exposure to Contagious No 08/25/24 06:41 Disease Does patient have nerve No 08/24/24 08:22 stimulator Patient instructed to have device shut off --Does patient have Pacemaker No 08/25/24 06:41 or ICD? When Was Last Pacemaker Check QUESTION #4 FULL TEXT: You/Your Family Experience fever (hyperthermia) with Anesthesia Last Oral Intake Last Oral intake: Last Oral Intake NPO since 21:00 08/25/24 06:41 Meds taken in AM with sips of No 08/25/24 06:41 water? Meds patient instructed to take am of surgery PONV PONV - nuclear medicine chief technologist: PONV - nuclear medicine chief technologist Female Yes 08/24/24 08:22 HX of Motion Sickness No 08/24/24 08:22 HX of N/V After Surgery No 08/24/24 08:22 Non-Smoker Yes 08/24/24 08:22 Duration of Surgery greater No 08/24/24 08:22 than 60 minutes Number of Risk Factors 2 08/24/24 08:22 PONV Score Moderate Risk 08/24/24 08:22 Height & Weight Height & Weight: Anesthesia: Height & Weight Height 5 ft 3 in 08/25/24 06:41 Weight: 77.6 kg 08/25/24 06:41 Body Mass Index (BMI) 30.3 08/25/24 06:41 Respiratory Assessment Respiratory Assessment - nuclear medicine chief technologist: Respiratory Tract Infection Hx - nuclear medicine chief technologist Hx Respiratory Tract Infection No 08/24/24 08:22 STOP Sleep Apnea STOP Sleep Apnea - nuclear medicine chief technologist: STOP Sleep Apnea - nuclear medicine chief technologist Hx Hypertension Yes: CONTROLLED WITH MED 08/24/24 08:22 Hx Sleep Apnea Yes 08/24/24 08:22 CPAP Yes: NONCOMPLIANT 08/24/24 08:22 BIPAP No 08/24/24 08:22 Do you snore loudly (louder No 08/24/24 08:22 than talking or can be heard Do you often feel tired/ No 08/24/24 08:22 fatigued/ sleepy during daytime? Has anyone observed you stop No 08/24/24 08:22 breathing during sleep? STOP Results Positive 08/24/24 08:22 QUESTION #5 FULL TEXT : Do you snore loudly (louder than talking or can be heard through closed doors)? Tobacco Use History Tobacco Use History - nuclear medicine chief technologist: Tobacco Use History - nuclear medicine chief technologist Tobacco Use Smoking Status Former smoker 08/24/24 08:22 Hx Tobacco Use No 08/24/24 08:22 Years Smoking Packs Smoked per Day Smoking Cessation Date was No - quit smoking greater 08/24/24 08:22 within the last 15 years than 15 years ago Hx Smoking Cessation Date 07/05/00 08/24/24 08:22 Hx Smoking Cessation No 08/24/24 08:22 Counseling Hematologic Medial History Hematologic Hx - nuclear medicine chief technologist: Hematologic Medical Hx - coater brake linings Hx of Blood Transfusion Yes 08/24/24 08:22 Hx of Transfusion in last 3 No 08/24/24 08:22 Months Date of Last Transfusion (if within last 3 months) Ever experience any problems No 08/24/24 08:22 with transfusion(s)? Specify any problems Hx of Preganancy in last 3 No 08/24/24 08:22 Months Nurse Filling Out Transfusion DSCHRIBER 08/24/24 08:22 & Questions: Date: 08/24/24 08/24/24 08:22 Time: 08:24 08/24/24 08:22 Patient unable to answer at this time (ie. confused, unrespo /Reproduction History /Reproductive History - nuclear medicine chief technologist: /Reproductive Hx- nuclear medicine chief technologist Hx Now No 08/24/24 08:22 Gestational Age (in weeks): EDC: Hx Hx Para Hx Section SAB No 08/24/24 08:22 PFSH Medical History (Updated 08/24/24 @ 08:31 by Mandy Calvillo) Anemia History of stress test Wears glasses Wears dentures Anxiety Thyroid disease High cholesterol Migraine headache History of inguinal hernia GERD (gastroesophageal reflux disease) CPAP (continuous positive airway pressure) dependence Former smoker Right lateral epicondylitis Fibromyalgia Back pain Arthritis Hypertension Home Medications ?Medication ?Instructions ?Recorded ?Last Taken ?Type amitriptyline 50 mg tablet 75 mg PO QHS 10/14/17 08/24/24 History tramadol 50 mg tablet 50 mg PO DAILY PRN pain 08/24/18 08/24/24 History aspirin 81 mg tablet,delayed 81 mg PO DAILY 01/25/20 08/24/24 History release cholecalciferol (vitamin D3) 125 125 mcg PO DAILY 06/11/22 08/24/24 History mcg (5,000 unit) capsule docusate sodium 100 mg capsule 100 mg PO BID 06/11/22 Unknown History (Colace) esomeprazole magnesium 40 mg 40 mg PO TID 06/11/22 08/24/24 History capsule,delayed release hydroxyzine HCl 25 mg tablet 1 tablet PO DAILY 06/11/22 08/24/24 History levothyroxine 50 mcg tablet 50 mcg PO DAILY 06/11/22 08/24/24 History (Synthroid) melatonin 10 mg capsule 10 mg PO HS PRN Sleep 06/11/22 08/23/24 History meloxicam 15 mg tablet 15 mg PO DAILY 06/11/22 08/24/24 History hfuxnpic-lbmk-adnp 8 mg-folic 400 1 tab PO DAILY 06/11/22 08/24/24 History mcg-K 50 mcg-lutein 300 mcg tablet (Centrum Silver Women) ascorbate calcium (vitamin C) 500 500 mg PO DAILY 09/14/22 08/24/24 History mg tablet losartan 25 mg tablet 25 mg PO DAILY 09/14/22 08/24/24 History pregabalin 50 mg capsule (Lyrica) 50 mg PO TID PRN NERVE PAIN 08/07/24 08/24/24 History rosuvastatin 40 mg tablet 40 mg PO QHS 08/07/24 08/24/24 History semaglutide 1 mg/dose (4 mg/3 mL) 1 mg subcut WE 08/07/24 08/09/24 History subcutaneous pen injector (Ozempic) Allergy/AdvReac Type Severity Reaction Status Date / Time cephalexin monohydrate (From Allergy Rash Verified 08/25/24 06:39 Keflex) omeprazole (From Prilosec) Allergy Unknown Verified 08/25/24 06:39 omeprazole magnesium (From Allergy Unknown Verified 08/25/24 06:39 Prilosec) Penicillins Allergy Rash Verified 08/25/24 06:39 Family History Father Myocardial infarction Cancer Hypertension COPD (chronic obstructive pulmonary disease) Mother Cancer ovarian Heart disease Myocardial infarction Sister Asthma Breast cancer Brother Hypertension Surgical History (Updated 08/24/24 @ 08:31 by Mandy Calvillo) History of colostomy reversal History of esophagogastroduodenoscopy (EGD) Hx of colonoscopy History of laparoscopic adjustable gastric banding History of total abdominal hysterectomy History of tonsillectomy History of elbow surgery History of shoulder surgery History of bunionectomy History of gastric bypass History of colon surgery History of cholecystectomy Social History Smoking Status: Former smoker alcohol intake: never Review of Systems (Anesthesia) ROS Narrative System reviewed and no additional complaints, except as documented.
[2024-08-25 07:13] LABS: Bedside Glucose 93 mg/dL (74-106)
--- NOTE | 2024-08-25 07:56 | PCM.POST.ANE ---
Anesthesia: Postop Eval I Current Vital Signs Temperature: 97 F Pulse Rate: 96 Blood Pressure: 111/81 Respiratory Rate: 18 Pulse Ox: 99 Oxygen Delivery Method: Room Air Assessment Airway patent: Yes Spontaneous unlabored respirations: Yes Mental status: Awake and Calm nausea: No Vomiting: No Anesthesia Complication: No Fluid Hydration Crystalloid volume administer (ml): 20 Total IV fluid infused: 20 Progress Note Anesthesia document: Postop Eval 1 completed: Yes
--- NOTE | 2024-08-25 07:59 | OP.COLON_ITS ---
Patient Name: Syl Hernandez Procedure Date: 08/25/2024 7:42 AM Date of : 1960 Age: 64 Procedure: Colonoscopy Indications: Positive Cologuard test Providers: Jos Pereira MD Referring MD: mAelia Baum Medicines: Propofol per Anesthesia Patient Profile: This is a 64 year old female. Refer to note in patient chart for documentation of history and physical. Last Colonoscopy: none. The patient's first colonoscopy is today. Complications: No immediate complications. Procedure: Pre-Anesthesia Assessment: - Prior to the procedure, a History and Physical was performed, and patient medications and allergies were reviewed. The patient's tolerance of previous anesthesia was also reviewed. The risks and benefits of the procedure and the sedation options and risks were discussed with the patient. All questions were answered, and informed consent was obtained. Prior Anticoagulants: The patient has taken no anticoagulant or antiplatelet agents. After reviewing the risks and benefits, the patient was deemed in satisfactory condition to undergo the procedure. After I obtained informed consent, the scope was passed under direct vision. Throughout the procedure, the patient's blood pressure, pulse, and oxygen saturations were monitored continuously. The Colonoscope was introduced through the anus and advanced to the cecum, identified by appendiceal orifice and ileocecal valve. The colonoscopy was performed without difficulty. The patient tolerated the procedure well. The quality of the bowel preparation was good. The ileocecal valve, appendiceal orifice, and rectum were photographed. Scope In: 7:42:18 AM Scope Withdrawal Time 0 hours 6 minutes 10 seconds Scope Out: 7:56:07 AM Total Procedure Duration Time 0 hours 13 minutes 49 seconds Findings: The entire examined colon appeared normal on direct and retroflexion views. Impression: - The entire examined colon is normal on direct and retroflexion views. - No specimens collected. Recommendation: - Discharge patient to home. - Resume previous diet. - Continue present medications. - Repeat colonoscopy in 10 years for screening purposes. Procedure Code(s): --- Professional --- 17106, Colonoscopy, flexible; diagnostic, including collection of specimen(s) by brushing or washing, when performed (separate procedure) Diagnosis Code(s): --- Professional --- R19.5, Other fecal abnormalities CPT copyright 2021 [employer]. All rights reserved. The codes documented in this report are preliminary and upon bar staff review may be revised to meet current compliance requirements. Jos Pereira MD 08/25/2024 7:59:22 AM This report has been signed electronically. Number of Addenda: 0 Note Initiated On: 08/25/2024 7:42 AM
--- NOTE | 2024-08-25 07:59 | OP.CCLET_ITS ---
08/25/2024 Amelia Baum [place] [id number] [address] Re : Colonoscopy procedure for Syl Hernandez Dear Dr. Baum This procedure was performed on Sunday, August 25, 2024. My impressions and recommendations are as follows: Impressions : - The entire examined colon is normal on direct and retroflexion views. - No specimens collected. Recommendations : - Discharge patient to home. - Resume previous diet. - Continue present medications. - Repeat colonoscopy in 10 years for screening purposes. My findings are described in the full procedure note, which is enclosed. If I can be of further assistance, please feel free to contact me at Doctor phone number(s): , Work: . Sincerely, Jos Pereira MD 08/25/2024 7:59:22 AM This report has been signed electronically.
--- NOTE | 2024-08-25 08:31 | POSTOPAN2_ITS ---
Anesthesia Postop Eval I Sum Postop Eval Completion status Anesthesia document: Postop Eval 1 completed: Yes Anesthesia Postop Eval I Summary Anesthesia Postop Eval I Summary: Anesthesia Postop Eval I: Assessment Summary Airway patent Yes 08/25/24 07:57 JUKEBOX ROUTE [email or web address].[email or web address] Spontaneous unlabored Yes 08/25/24 07:57 JUKEBOX ROUTE DRIVER.MDOT respirations Mental status Awake,Calm 08/25/24 07:57 JUKEBOX ROUTE DRIVER.MDOT nausea No 08/25/24 07:57 JUKEBOX ROUTE DRIVER.MDOT Vomiting No 08/25/24 07:57 JUKEBOX ROUTE DRIVER.MDOT Anesthesia Postop Eval I: Fluid Summary Crystalloid volume administer 20 08/25/24 07:57 JUKEBOX ROUTE DRIVER.MDOT (ml) Colloids volume administered ( ml) Blood Product volume administered (ml) Total IV fluid infused 20 08/25/24 07:57 JUKEBOX ROUTE DRIVER.MDOT Anesthesia Postop Eval I: Summary Notes Anesthesia Complication No 08/25/24 07:57 JUKEBOX ROUTE DRIVER.MDOT Anesthesia Complication Comment: Post-operative progress note Anesthesia: Postop Eval II Evaluation Mental status: Awake Pain Level: 0 nausea: No Vomiting: No Complications Anesthesia Complication: No
--- NOTE | 2024-08-25 08:31 | PCM.POSTANE2 ---
Anesthesia Postop Eval I Sum Postop Eval Completion status Anesthesia document: Postop Eval 1 completed: Yes Anesthesia Postop Eval I Summary Anesthesia Postop Eval I Summary: Anesthesia Postop Eval I: Assessment Summary Airway patent Yes 08/25/24 07:57 COOK [email or web address] Spontaneous unlabored Yes 08/25/24 07:57 COOK [email or web address].MDOT respirations Mental status Awake,Calm 08/25/24 07:57 COOK [email or web address].MDOT nausea No 08/25/24 07:57 COOK [email or web address].MDOT Vomiting No 08/25/24 07:57 COOK [email or web address].MDOT Anesthesia Postop Eval I: Fluid Summary Crystalloid volume administer 20 08/25/24 07:57 COOK [email or web address].MDOT (ml) Colloids volume administered ( ml) Blood Product volume administered (ml) Total IV fluid infused 20 08/25/24 07:57 COOK [email or web address].MDOT Anesthesia Postop Eval I: Summary Notes Anesthesia Complication No 08/25/24 07:57 COOK [email or web address].MDOT Anesthesia Complication Comment: Post-operative progress note Anesthesia: Postop Eval II Evaluation Mental status: Awake Pain Level: 0 nausea: No Vomiting: No Complications Anesthesia Complication: No
== END 2024-08-25 08:37 | disposition home or self-care (01) ==
LOC: EN 06:17 → AC 06:18
PROVIDERS: PCP Family Medicine; Referring Provider Family Medicine; Visit Provider Surgery
PROC: 0DJD8ZZ Inspection of Lower Intestinal Tract, Via Natural or Artificial Opening Endoscopic (ICD-10-PCS; CPT 45378; principal; 2024-08-25 07:25)
DX: R19.5 Other fecal abnormalities (principal); E11.9 Type 2 diabetes mellitus without complications; K21.9 Gastro-esophageal reflux disease without esophagitis; E78.00 Pure hypercholesterolemia, unspecified; Z87.891 Personal history of nicotine dependence; I10 Essential (primary) hypertension; Z79.899 Other long term (current) drug therapy; Z79.82 Long term (current) use of aspirin; Z79.890 Hormone replacement therapy; E07.9 Disorder of thyroid, unspecified
CPT/HCPCS: 45378; 82962; A4216

== ENCOUNTER → 2025-03-09 | Outpatient (CLI) | payer MEDICARE, SELFPAY ==
--- NOTE | 2025-03-09 12:38 | BI_ITS ---
EXAM: SCRN MAMM (CAD)W/NAVEED BILAT DATE: 03/09/2025 CLINICAL HISTORY: F, Age 65 y/o , SCREENING TECHNIQUE: Procedure Code: [id number] Modality: MG Procedure: SCRN MAMM (CAD)W/NAVEED BILAT COMPARISON: Prior exam(s) were compared FINDINGS: TISSUE DENSITY: The breasts are heterogeneously dense, which may obscure small masses. Bilateral Breast Mammographic Findings: No suspicious masses, calcifications or other abnormalities are identified. BI/SCRN MAMM (CAD)W/NAVEED BILAT IMPRESSION: No mammographic evidence of malignancy in either breast OVERALL FINAL ASSESSMENT BI-RADS 1: NEGATIVE. RECOMMENDATION: Routine annual follow-up in 1 Year A letter with findings and recommendations will be mailed to the patient. Reading Location: [id number]
== END | disposition home or self-care (01) ==
LOC: OPBI 12:37
PROVIDERS: PCP Family Medicine; Referring Provider Family Medicine; Visit Provider Family Medicine
DX: Z12.31 Encounter for screening mammogram for malignant neoplasm of breast (principal)
CPT/HCPCS: 77063; 77067

== ENCOUNTER → 2025-06-06 | Outpatient (CLI) | payer MEDICARE, SELFPAY ==
[2025-06-06 10:01] LABS: Hematocrit 40.1 % (37-47); Hemoglobin 12.6 g/dL (12.0-15.0); Immature Granulocytes Count 0.010 X10^3/uL (0.0-0.0); Mean Corp Hgb Conc 31.4 g/dL (32-36); Mean Corpuscular Volume 90.1 fL (81-99); Mean Platelet Vol. 11.3 fl (6.2-12.0); NRBC Flagged by Analyzer 0 % (0-5); Platelet Count 124 K/mm3 (150-450); RBC Distribution Width CV 12.5 % (11.6-14.6); RBC Distribution Width SD 41.1 fl (35.1-43.9); Red Blood Count 4.45 M/mm3 (4.2-5.4); White Blood Count 3.1 K/mm3 (4.4-11.0)
[2025-06-06 11:16] LABS: AST(SGOT) 25 U/L (<=31); Alanine Aminotransfer ALT/SGPT 17 U/L (<=34); Albumin, Serum 4.1 g/dL (3.4-4.8); Alkaline Phosphatase 62 U/L (35-104); Anion Gap 8 (5-15); BUN 16 mg/dL (4-19); BUN/Creat Ratio 17.2 RATIO (10-20); Calcium,Total 9.1 mg/dL (7.6-11.0); Carbon Dioxide 31.5 mmol/L (21.0-32.0); Chloride 104 mmol/L (98-108); Cholesterol 124 mg/dL (<=200); Globulin 2.1 g/dL (2.2-4.2); Glucose 81 mg/dL (70-99); Low Density Lipoprotein Calc. 48 mg/dL; Potassium 3.9 mmol/L (3.3-5.1); Triglycerides 76 mg/dL; Very Low Density Lipoprotein 15 mg/dL (5-40); cholesterol:hdl ratio screen 2.05
[2025-06-06 11:31] LABS: Creatinine, Urine (random) 137.00 mg/dL (28.00-217.00); Microalbumin,Random Urine 20.3 mg/L (<20 mg/L)
== END | disposition home or self-care (01) ==
LOC: LAB 09:09
PROVIDERS: PCP Family Medicine; Referring Provider Family Medicine; Visit Provider Family Medicine
DX: E11.9 Type 2 diabetes mellitus without complications (principal); E03.9 Hypothyroidism, unspecified; I10 Essential (primary) hypertension
CPT/HCPCS: 36415; 80053; 80061; 82043; 82570; 84443; 85025